=== PATIENT | male | born 1955 | race Caucasian/White ===

== ENCOUNTER 2017-12-18 16:09 | Outpatient (REF) | payer OTHER, SELFPAY ==
[2017-12-18 20:57] LABS: Anion Gap 6.2 mmol/L (3-11); BUN 29 mg/dL (7-18); CO2 31.8 mmol/L (21.0-32.0); CREATININE 1.44 mg/dL (0.70-1.30); Calcium 9.3 mg/dL (8.5-10.1); Chloride 98 mmol/L (98-107); Estimated GFR 49.55 (mL/min/1.73m2); Glucose 228 mg/dL (70-100); Potassium 3.9 mmol/L (3.5-5.1); Sodium 136 mmol/L (136-145)
== END 2017-12-18 16:10 ==
LOC: NCHCN 16:09
PROVIDERS: PCP Internal Medicine; Visit Provider Internal Medicine
DX: I27.20 Pulmonary hypertension, unspecified (principal); I10 Essential (primary) hypertension
CPT/HCPCS: 80048

== ENCOUNTER 2018-03-26 17:07 | Outpatient (REF) | payer OTHER, SELFPAY ==
[2018-03-26 21:15] LABS: Anion Gap 10.7 mmol/L (3-11); BUN 45 mg/dL (7-18); CO2 33.3 mmol/L (21.0-32.0); CREATININE 1.82 mg/dL (0.70-1.30); Chloride 92 mmol/L (98-107); Estimated GFR 37.81 (mL/min/1.73m2); Glucose 271 mg/dL (70-100); Potassium 3.4 mmol/L (3.5-5.1); Sodium 136 mmol/L (136-145)
== END 2018-03-26 17:27 ==
LOC: NCHCN 17:07
PROVIDERS: PCP Internal Medicine; Visit Provider Internal Medicine
DX: I10 Essential (primary) hypertension (principal)
CPT/HCPCS: 80048

== ENCOUNTER 2018-06-27 17:23 | Outpatient (REF) | payer OTHER, SELFPAY ==
[2018-06-27 21:37] LABS: BUN 30 mg/dL (7-18); CREATININE 1.64 mg/dL (0.70-1.30); Calcium 9.5 mg/dL (8.5-10.1); Chloride 100 mmol/L (98-107); Estimated GFR 42.51 (mL/min/1.73m2); Glucose 279 mg/dL (70-100); Potassium 3.5 mmol/L (3.5-5.1); Sodium 140 mmol/L (136-145)
== END 2018-06-27 17:43 ==
LOC: NCHCN 17:23
PROVIDERS: PCP Internal Medicine; Visit Provider Internal Medicine
DX: E11.65 Type 2 diabetes mellitus with hyperglycemia (principal); I10 Essential (primary) hypertension; N18.3 Chronic kidney disease, stage 3 (moderate); R19.7 Diarrhea, unspecified
CPT/HCPCS: 80048

== ENCOUNTER 2019-05-05 12:10 | Outpatient (REF) | payer OTHER, SELFPAY ==
[2019-05-05 21:32] LABS: HCT 41.6 % (40.0-50.0); HGB 14.1 g/dL (13.5-17.5); Mean Corp. HGB Concentration 33.9 g/dL (32.0-36.0); Mean Corpuscular Hemoglobin 30.7 pg (27.0-33.0); Mean Corpuscular Volume 90.6 fL (80-95); Mean Platelet Volume 10.9 fL (8.0-11.0); Platelet Count 218 x1000/uL (130-400); RBC 4.59 m/cumm (4.50-6.00); RBC Distribution Width 13.3 % (11.8-14.1); White Blood Cell Count 9.09 k/cumm (4.4-10.8)
[2019-05-05 22:21] LABS: ALT 43 U/L (16-63); AST 34 U/L (15-37); Albumin 3.9 g/dL (3.4-5.0); Alkaline Phosphatase 70 U/L (46-116); BUN 15 mg/dL (7-18); Bilirubin, Total 0.6 mg/dL (0.2-1.0); CREATININE 1.17 mg/dL (0.70-1.30); Calcium 9.3 mg/dL (8.5-10.1); Calculated LDL 61 mg/dL; Chloride 101 mmol/L (98-107); Cholesterol 125 mg/dL (<200); Glucose 65 mg/dL (74-106); HDL Cholesterol 41 mg/dL (40-60); NT-proBNP 110 pg/mL (<300); Potassium 3.7 mmol/L (3.5-5.1); Sodium 143 mmol/L (136-145); Total Protein 7.4 g/dL (6.4-8.2); Triglyceride 117 mg/dL (<150)
== END 2019-05-05 12:30 ==
LOC: NCHCO 12:10
PROVIDERS: PCP Internal Medicine; Visit Provider Internal Medicine
DX: I27.20 Pulmonary hypertension, unspecified (principal); R06.02 Shortness of breath; R06.09 Other forms of dyspnea; E78.5 Hyperlipidemia, unspecified
CPT/HCPCS: 80053; 80061; 85027; 83880

== ENCOUNTER 2019-05-05 13:00 | Outpatient (CLI) | payer OTHER, SELFPAY ==
--- NOTE | 2019-05-05 12:52 | DI.RAD_ITS ---
EXAM: XR CHEST 2V PA LATERAL INDICATION: PERIPHERAL EDEMA, R60.9, DYSPNEA ON EXERTION, R06.09. COMPARISON: LEFT RIBS PA CXR ONLY-3VIEWS from 11/10/2013 TECHNIQUE: 2D digital imaging was performed. FINDINGS: Heart size is normal. The aorta is mildly tortuous. There is a tiny right pleural effusion. There is no overt pulmonary edema or evidence of a focal infiltrate. IMPRESSION: Tiny right pleural effusion.
== END 2019-05-05 13:20 ==
PROVIDERS: PCP Internal Medicine; Visit Provider Internal Medicine
DX: R06.09 Other forms of dyspnea (principal); R60.0 Localized edema; J90 Pleural effusion, not elsewhere classified
CPT/HCPCS: 71046

== ENCOUNTER 2019-05-06 10:14 | Outpatient (CLI) | payer OTHER, SELFPAY ==
[2019-05-06 11:18] LABS: D-Dimer 378 ng/mlFEU (<500)
== END 2019-05-06 10:34 ==
PROVIDERS: PCP Internal Medicine; Visit Provider Internal Medicine
DX: R06.09 Other forms of dyspnea (principal)
CPT/HCPCS: 36415; 85379; 93005; 93010

== ENCOUNTER 2019-05-27 00:50 | Outpatient (CLI) | payer OTHER, SELFPAY ==
--- NOTE | 2019-05-27 07:30 | DI.US_ITS ---
APPROVED REPORT EXAM: Comprehensive 2D, Doppler, and color-flow Echocardiogram Patient Location: Out-Patient Composition Board Press Operator: Alana Alarcon RDCS (AE) Rhythm: NSR Indications: dyspnea on exertion r06.09 Conclusion Left Ventricle : Left ventricle is borderline dilated. Mild left ventricular hypertrophy, with septal thickening. The left ventricular systolic function is normal. The left ventricular ejection fraction is within the normal range. There is normal LV segmental wall motion. LVEF is estimated to be 55-60% . There is grade 2 diastolic dysfunction. Right Ventricle : The right ventricle is normal in size. The right ventricular systolic function appe ars normal. Atria : Left atrium is borderline dilated. The right atrium size is normal. Aortic Valve : Aortic valve is trileaflet. There is no aortic valvular stenosis. No aortic regurgitat ion is present. Mitral Valve : No evidence of mitral valve stenosis. Mitral valve leaflets are mildly thickened, but appear to open well. No significant mitral regurgitation. Tricuspid Valve : The tricuspid valve is not well visualized. Mild tricuspid regurgitation. Great Vessels : IVC is mildly dilated, but collapses >50% with inspiration. Estimated RVSP is 34-42 mmHg. Echocardiogram dated 04/09/2017: There is no significant change. Wall motion Left Ventricle Left ventricle is borderline dilated. The left ventricular systolic function is normal. The left vent ricular ejection fraction is within the normal range. Mild left ventricular hypertrophy, with septal thickening. There is normal LV segmental wall motion. There is grade 2 diastolic dysfunction. LVEF is estimated to be 55-60%. Right Ventricle The right ventricle is normal in size. The right ventricular systolic function appears normal. Atria Left atrium is borderline dilated. The right atrium size is normal. Aortic Valve Aortic valve is trileaflet. There is no aortic valvular stenosis. No aortic regurgitation is present. Mitral Valve Mitral valve leaflets are mildly thickened, but appear to open well. No evidence of mitral valve sten osis. No significant mitral regurgitation. Tricuspid Valve The tricuspid valve is not well visualized. Mild tricuspid regurgitation. Pulmonic Valve Trace pulmonic regurgitation. Great Vessels The aortic root is normal in size. IVC is mildly dilated, but collapses >50% with inspiration. Estima nhung RVSP is 34-42 mmHg. Pericardium There is no pericardial effusion. 2D Dimensions IVSd 1.45 cm M: 0.6-1.2 LV EDV A2C 119.7 mL PWd 1.15 cm M: 0.6 - 1.2 LV EDV A4C 156.8 mL LVDd 5.70 cm M: 4.2 - 5.8 LA Volume Index Biplane 31.4 mL/m2 LVDs 3.95 cm M: 2.5 - 4.0 LA Area A4C 21.94 cm2 Aortic Root 3.35 cm M: 3.1 - 3.7 LA Area A2C 20.87 cm2 RVID Base (AP4) 3.94 cm (M/F) 2.5-4.1 EF AP4 61.9 % RA Area A4C 16.28 cm2 EF AP2 52.1 % LVOT 2.05 cm (M/F) 1.5-2.5 EF BP 57.7 % Ascending Aorta 3.37 cm M: 2.6 - 3.4 IVC 2.16 cm LVEF (Teich) 57.7 % TAPSE 2.52 cm (M/F) <1.7 LVEF (Harvey's) 57.68 % M: 52 - 72 LV Volume 100.18 mL M: 62 - 150 LV Volume Index 43.93 mL/m2 M: 34 - 74 FS 30.80 % LV Diastology MV E' medial 0.068 (>0.07 m/s) E/A Ratio 1.0 LV E/e MED 16.75 (<14) PV S/D Ratio 1.17 MV E' lateral 0.088 (>0.1 m/s) A-A Duration 118.79 msec LV E/e LAT 13.05 (<14) TR Peak Velocity 2.92 m/s Pulm Vein s 0.57 m/s Pulm Vein d 0.49 m/s Pulm Vein a 0.34 m/s LA vol/ BSA A2C s A-L 29.8 mL/m2 LA vol/ BSA A4C s A-L 32.8 mL/m2 Aortic Valve LVOT Area 3.44 cm2 AoV Area Vmax 1.86 cm2 LVOT Vmax 1.06 m/s AoV Area/ BSA (Vmax) 0.82 cm2/m2 LVOT Mean Toni. 0.78 m/s RUBIN Mean Toni. 1.93 cm2 LVOT Peak Gr. 4.5 mmHg RUBIN Mean Toni. Index 0.85 cm2/m2 LVOT Mean Gr. 2.7 mmHg LVOT VTI 0.236 m AoV Vmax 1.96 (0.5-1.3 m/s) AoV Mean Toni. 1.39 m/s AoV Peak Grad 15.4 mmHg LVOT SV 81.02 mL AoV Mean Grad 8.5 (<5 mmHg) AoV VTI 0.389 (0.18-0.25 m) AoV Area VTI 2.08 (2.5-4.5 cm2) AoV Area/ BSA (VTI) 0.91 cm/m2 Mitral Valve MV E Max Toni. 1.15 (0.4-1.3 m/s) RVOT Peak Gr. 2.74 mmHg MV A Velocity 1.20 (0.4-1.3 m/s) RVOT Mean Gr. 1.65 mmHg E/A Ratio 0.95 PV Peak Velocity 1.36 (0.5-1.5 m/s) RVOT Peak Toni. 0.83 m/s RVOT VTI 0.133 m Tricuspid Valve TR P. Gradient 34.0 mmHg TV Regurg Vmax 2.92 m/s RAP Estimate 8.00 mmHg RVSP 42.0 mmHg
== END 2019-05-27 01:10 ==
PROVIDERS: PCP Internal Medicine; Visit Provider Internal Medicine
DX: R06.09 Other forms of dyspnea (principal); I51.7 Cardiomegaly; I36.1 Nonrheumatic tricuspid (valve) insufficiency; I10 Essential (primary) hypertension
CPT/HCPCS: 93306

== ENCOUNTER 2020-02-03 15:40 | Outpatient (REF) | payer OTHER, SELFPAY ==
[2020-02-03 20:57] LABS: Abs Immature Grans 0.04 10^3/uL (0.0-0.06); Absolute Basophil Count 0.09 10^3/uL (0.0-0.2); Absolute Eosinophil Count 0.33 10^3/uL (0.0-0.7); Absolute Lymphocyte Count 3.37 10^3/uL (1.2-3.4); Absolute Monocyte Count 0.98 10^3/uL (0.1-0.8); Absolute Neutrophil Count 6.28 10^3/uL (1.2-6.7); Basophils % 0.8; HCT 40.6 % (40.0-50.0); HGB 13.8 g/dL (13.5-17.5); Immature Grans % 0.4; Lymphocytes % 30.4; MCH 30.6 pg (27.0-33.0); MPV 10.3 fL (8.0-11.0); Monocytes % 8.8; Neutrophils % 56.6; Nucleated RBC 0 %; Platelet Count 233 10^3/uL (130-400); RBC 4.51 10^6/uL (4.36-5.78); RDW 12.7 % (11.8-14.1); RDW-SD 41.3 fL; WBC 11.09 10^3/uL (4.4-10.8)
[2020-02-03 21:32] LABS: ALT 62 U/L (16-63); AST 37 U/L (15-37); Albumin 4.2 g/dL (3.4-5.0); Alkaline Phosphatase 63 U/L (46-116); Anion Gap 10.4 mmol/L (3-11); BUN 19 mg/dL (7-18); Bilirubin, Total 0.6 mg/dL (0.2-1.0); CO2 31.6 mmol/L (21.0-32.0); CREATININE 1.23 mg/dL (0.70-1.30); Calcium 9.5 mg/dL (8.5-10.1); Chloride 100 mmol/L (98-107); Estimated GFR 59.06 (mL/min/1.73m2); Glucose 163 mg/dL (74-106); Sodium 142 mmol/L (136-145); Total Protein 7.4 g/dL (6.4-8.2)
== END 2020-02-03 16:00 ==
LOC: NCHCN 15:40
PROVIDERS: PCP Internal Medicine; Visit Provider Family Medicine
DX: R10.9 Unspecified abdominal pain (principal)
CPT/HCPCS: 80053; 85025

== ENCOUNTER 2020-02-25 02:43 | Outpatient (CLI) | payer OTHER, SELFPAY ==
--- NOTE | 2020-02-25 07:45 | DI.CT_ITS ---
EXAM: CT ABDOMEN PELVIS W CLINICAL HISTORY: abdominal pain,R10.9 TECHNIQUE: COMPARISON: No exams were available for comparison FINDINGS: CT examination of the abdomen and pelvis was performed with bolus infusion of 100 cc of Omnipaque 350 . Images obtained through the lung bases are unremarkable. The liver appears normal with no evidence of a focal mass. Spleen is unremarkable in appearance.. Gallbladder and bile ducts are unremarkable. Pancreas is unremarkable in appearance. Adrenals appear normal bilaterally. Kidneys the left kidney contains multiple cysts, with some wall c alcifications. There is no evidence a solid renal mass, hydronephrosis, or nephrolithiasis either ki dney. Urinary bladder is unremarkable in appearance. There is no evidence of abdominal or pelvic adenopathy. Abdominal aorta is of normal diameter and no major vascular abnormality is seen. Appendix is normal. No evidence diverticulitis or bowel obstruction. No significant abdominal wall hernia seen. Impression: Negative CT examination of the abdomen and pelvis. RADIATION DOSE DELIVERED: 1,141.43mGy.cm Total DLP 1,141.43mGy.cm Total DLP DATA REPOSITORY: All CT scans at this facility are submitted to the National Radiology Data Registry (NRDR) Dose Index Registry (DIR) with the [employer] ([employer]). RADIATION OPTIMIZATION: All CT scans at this facility use at least one of these dose optimization te chniques: automated exposure control; mA and/or kV adjustment per patient size (includes targeted exa ms where dose is matched to clinical indication); or iterative reconstruction.
[2020-02-25] MEDS: Breeza Beverage 473 ML BTL PO ×2 (12:08→12:10)
[2020-02-25] MEDS: Omnipaque 350 MG/ML 50 ML BTL PO (12:09)
[2020-02-25] MEDS: Omnipaque 350 MG/ML 100 ML BTL IJ (13:45)
[2020-02-25] MEDS: Normal Saline Flush 10 ML SYR IVP (13:46)
[2020-02-25] MEDS: Normal Saline - Diluent 50 ML VIAL IV (13:46)
== END 2020-02-25 03:03 ==
PROVIDERS: PCP Internal Medicine; Visit Provider Surgery
DX: R10.9 Unspecified abdominal pain (principal)
CPT/HCPCS: 74177; J3490; Q9967

== ENCOUNTER 2020-04-09 03:42 | Outpatient (CLI) | payer OTHER, SELFPAY ==
[2020-04-11 16:53] LABS: COVID-19 RT-PCR Result NEGATIVE (Negative)
== END 2020-04-09 04:02 ==
PROVIDERS: PCP Internal Medicine; Visit Provider Surgery
DX: Z11.59 Encounter for screening for other viral diseases (principal); Z01.818 Encounter for other preprocedural examination
CPT/HCPCS: U0003

== ENCOUNTER 2020-04-13 08:28 | Day surgery (SDC) | payer OTHER, SELFPAY ==
[2020-04-13 08:31] VITALS: BP 150/98; PULSE 91; RESP 18; TEMP 36.4; O2SAT 95
[2020-04-13] MEDS: Lactated Ringers 1,000 ML 80 ML IV (08:55)
--- NOTE | 2020-04-13 08:56 | W.PM.DSUDISC ---
Discharge Plan Disposition Patient Disposition: HOME Condition: Good Discharge Details Reason For Visit: Colonoscopy Attending Provider: Cee Lopes Primary Care Provider: Mauro Berger Home Meds and New Rx's Prescriptions: Continued multivitamin [One Daily Multivitamin] Tablet 1 tab PO DAILY RF: 0 Levemir FlexTouch U-100 Insuln 100 unit/mL (3 mL) insulin pen 60 unit subcut QHS RF: 0 metformin 500 MG tablet 1,000 mg PO BID RF: 0 enalapril maleate 10 MG tablet 20 mg PO BID RF: 0 metoprolol tartrate 50 MG tablet 100 mg PO DAILY RF: 0 nitroglycerin [Nitrostat] 0.4 MG tablet, sublingual 0.4 mg Sublingual PRN RF: 0 aspirin [Aspirin Low-Strength] 81 MG tablet,chewable 81 mg PO DAILY RF: 0 furosemide 20 MG tablet 40 mg PO DAILY RF: 0 insulin aspart U-100 [Novolog Flexpen U-100 Insulin] 100 UNIT/1 ML insulin pen 1 u Sub-Q AC RF: 0 DILTIAZEM 24HR ER 360 MG TAB.ER.24H 360 mg PO DAILY RF: 0 labetalol 100 mg tablet 100 mg PO BID RF: 0 torsemide 100 mg tablet 100 mg PO DAILY RF: 0 Levemir U-100 Insulin 100 unit/mL solution 60 unit SC BID RF: 0 vitamin E (dl, acetate) 100 unit capsule 100 unit PO DAILY RF: 0 albuterol sulfate [Proventil HFA] 90 mcg/actuation HFA aerosol inhaler 2 puff IH QID PRNRF: 0 omeprazole 20 mg capsule,delayed release(DR/EC) 20 mg PO DAILY RF: 0 citalopram 10 mg tablet 10 mg PO DAILY RF: 0 atorvastatin 40 mg tablet 40 mg PO DAILY RF: 0 triamcinolone acetonide 0.1 % cream 1 applic topical BID RF: 0 fluorouracil 0.5 % cream 1 applic topical BID RF: 0 Jardiance 10 mg tablet 10 mg PO DAILY RF: 0 insulin aspart U-100 [Novolog Flexpen U-100 Insulin] 100 unit/mL (3 mL) insulin pen 60 unit subcut TID RF: 0 Discharge Instructions Additional Instructions: Findings: Two polyps were removed. My office will contact you with biopsy results. Follow up: Plan for a follow up colonoscopy in 5 years pending biopsy results. Please call if you develop: fevers >101.5 Nausea or Vomiting Abdominal pain that is not transient DAY SURGERY UNIT POST COLONOSCOPY INSTRUCTIONS 1. Because there will be medication in your system for the next 24 hours, you may feel a little sleepy. Your coordination will be affected. Therefore: a. Do not drive or operate dangerous equipment for 24 hours. b. Do not drink alcohol beverages for 24 hours (not even beer). c. Plan to go home and rest for the day. 2. Generally there are no restrictions on your activity after a day or so has gone by, but you may feel a bit fatigued for a few days. 3 After you arrive home you may have a light meal and return to a normal diet as you can tolerate it without feeling sick to your stomach. 4. After surgery, you may feel pain or discomfort. This should be only transient, but if it persists please contact your doctor. 5. If there are any questions regarding the findings of your procedure, please feel free to contact your doctor. 6. If you are unable to contact your doctor with a problem, contact the hospital at [phone]. 7. Continue all your regular medications unless directed otherwise. I understand the above instructions and have no questions. Signature of Patient or Responsible Adult Escort Date/Time Name of Responsible Adult Escort Signature of Nurse Date/Time Activity:: Activity as Tolerated Diet:: As Tolerated Discharge Orders Discharge Orders: Discharge Order (Routine); Ordered 04/13/20 Ordered By: Cee Lopes DS: Diagnosis Discharge Diagnosis (1) Colon polyps: Status: Acute
--- NOTE | 2020-04-13 08:57 | W.COLOREPORT ---
Date of service: 04/13/20 Time of Service: 10:04 Colonoscopy Report Date of procedure: 04/13/20 Pre-op diagnosis general: History of colon polyps Post-op diagnosis procedure note: other (Colon polyps) Procedure: Colonoscopy with cold forceps polypectomy Surgeon: Cee Lopes Anesthesia proc note operative: MAC Indications: This 64 year old man presents for routine colonoscopy. His last colonoscopy in 2013 showed polyps. Procedure Description: The patient was placed in the left [place] position. Propofol was titrated to sedation. Digital rectal examination revealed no abnormalities. The scope was advanced to the cecum without difficulty. The ileocecal valve and appendiceal orifice were clearly identified. The prep was good. A less than 1cm polyp was removed from the cecum with the cold forceps. The scope was slowly withdrawn over the course of greater than 6 minutes with no abnormalities seen in the ascending, transverse colon. A less than 1cm polyp was removed with the cold forceps from the descending colon. The sigmoid colon and rectum were normal including on retroflexed view. The patient tolerated the procedure well and was stable to recovery. Plan for follow up colonoscopy in 5 years.
--- NOTE | 2020-04-13 09:35 | BOWEL_PTH ---
PATIENT: Pedro Mast LOC: [facility] U#:[id number] AGE/SX: 64/M ROOM: RE04/13/[address]: Cee Lopes MD : [id number] BED: DIS: 04/13/2020 SPEC #: [id number] RECD: 04/13/20 12:16 STATUS: [facility]I REQ #: [id number] SANDRITA: 04/13/20 09:[address]: Cee Lopes DEPT: Surgical Specimen RECD BY: Ramona Leach ENTERED: 04/13/20 12:19 SP TYPE: Bowel OTHR DR: Mauro Berger Tissues: 1 - BIOPSY BOWEL 2 - BIOPSY BOWEL Procedures: GROSS AND MICRO LEVEL 4 Comments: [id number]
[2020-04-13 10:30] VITALS: BP 140/65; PULSE 64; RESP 18; TEMP 36.8; O2SAT 95
== END 2020-04-13 11:12 | disposition home or self-care (01) ==
PROVIDERS: PCP Internal Medicine; Visit Provider Surgery
PROC: 0DJD8ZZ Inspection of Lower Intestinal Tract, Via Natural or Artificial Opening Endoscopic (ICD-10-PCS; CPT 45378; principal; 2020-04-13 12:30)
DX: Z12.11 Encounter for screening for malignant neoplasm of colon (principal); Z86.010 Personal history of colon polyps; D12.0 Benign neoplasm of cecum; D12.4 Benign neoplasm of descending colon
CPT/HCPCS: 45380; 88305

== ENCOUNTER 2020-07-05 03:30 | Outpatient (CLI) | payer OTHER, SELFPAY ==
[2020-07-05] MEDS: Normal Saline 500 ML 30 ML IV (15:04)
[2020-07-05] MEDS: Normal Saline Flush 10 ML SYR IVP (15:04)
[2020-07-05 15:14] VITALS: BP 148/67; PULSE 64; RESP 20; TEMP 38.5; O2SAT 90
[2020-07-05 15:31] VITALS: BP 146/72; PULSE 67; RESP 20; TEMP 38.7; O2SAT 90
[2020-07-05 15:47] VITALS: BP 164/71; PULSE 64; RESP 20; TEMP 37.7; O2SAT 92
[2020-07-05 16:01] VITALS: BP 166/73; PULSE 68; RESP 18; TEMP 39.1; O2SAT 92
[2020-07-05 16:31] VITALS: BP 152/73; PULSE 68; RESP 16; TEMP 38.7; O2SAT 91
== END 2020-07-05 03:31 | disposition home or self-care (01) ==
LOC: INF 03:30
PROVIDERS: PCP Internal Medicine; Visit Provider Family Medicine
DX: U07.1 COVID-19 (principal)
CPT/HCPCS: 96365

== ENCOUNTER 2021-03-02 15:03 | Outpatient (REF) | payer OTHER, SELFPAY ==
[2021-03-02 22:18] LABS: ALT 46 U/L (16-63); AST 29 U/L (15-37); Albumin 4.5 g/dL (3.4-5.0); Alkaline Phosphatase 66 U/L (46-116); Anion Gap 7.5 mmol/L (3-11); BUN 18 mg/dL (7-18); Bilirubin, Total 0.5 mg/dL (0.2-1.0); CO2 33.5 mmol/L (21.0-32.0); CREATININE 1.2 mg/dL (0.70-1.30); Calcium 9.6 mg/dL (8.5-10.1); Chloride 101 mmol/L (98-107); Glucose 106 mg/dL (74-106); Potassium 3.9 mmol/L (3.5-5.1); Sodium 142 mmol/L (136-145); Total Protein 7.7 g/dL (6.4-8.2)
[2021-03-02 22:28] LABS: Microalb ug/mg Crea 169.5 ug/mg Cr
== END 2021-03-02 15:04 | disposition home or self-care (01) ==
LOC: NCHCN 15:03
PROVIDERS: PCP Internal Medicine; Visit Provider Family Medicine
DX: I10 Essential (primary) hypertension (principal); E11.9 Type 2 diabetes mellitus without complications
CPT/HCPCS: 80053; 82043; 82570

== ENCOUNTER 2021-04-06 01:57 | Outpatient (CLI) | payer OTHER, SELFPAY ==
[2021-04-06 11:45] LABS: Source Nasal/Nares
[2021-04-06 13:50] LABS: COVID-19 PCR Negative (Negative)
== END 2021-04-06 01:58 | disposition home or self-care (01) ==
LOC: LBO 01:57
PROVIDERS: PCP Family Medicine; Visit Provider Surgery
DX: Z20.822 Contact with and (suspected) exposure to COVID-19 (principal)
CPT/HCPCS: 87635

== ENCOUNTER 2021-04-08 06:37 | Day surgery (SDC) | payer OTHER, SELFPAY ==
--- NOTE | 2021-04-07 11:23 | ROE_ITS ---
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 Adenoma in descending colon. ANESTHESIA TYPE: General:No Airway Refer to Anesthesia Record COMPLICATIONS: None Patient was transported to: same day Procedure Description: After informed consent was obtained the patient was taken to the procedure room and placed in a left decubitous position. Monitors were applied and a time out was done. The patients name, date of , procedure, allergies to medications and metal in their body was reviewed. The patient was then sedated. Once sedated and comfortable a rectal exam was done. External exam was normal. Internal exam revealed a normal sphincter tone and no palpable masses. The scope was then introduced and retrofelexed. Grade I internal hemorrhoids were identified. The scope was then advanced to the cecum w/out difficulty. The TI and appendiceal orifice were identified. The prep was adequate. The scope was then slowly retracted over 9 minutes back into the rectum. He had a 0.75 cm adenoma at 70 cm. This is removed and 2 bites with by cold snare. All specimen is retrieved and no bleeding is noted. He had few large diverticula confined in the sigmoid colon. There is no signs of bleeding or infection. T here are no AVMs. The scope was removed and the patient was woken up and taken back to Same day surgery in stable condition. The patient tolerated the procedure well and there were no immediate comp lications. Follow up: The patient should follow up in 5-7,years unless they develop changes in bowel habits or other new gastrointestinal complaints.
--- NOTE | 2021-04-07 11:24 | PDOC.DSDIS_ITS ---
Discharge Plan Disposition Patient Disposition: HOME Condition: Good Discharge Details Reason For Visit: colon scope Attending Provider: Shelby Moya Primary Care Provider: Derrick Arnett Home Meds and New Rx's Prescriptions: No Action multivitamin [One Daily Multivitamin] Tablet 1 tab PO DAILY RF: 0 Levemir FlexTouch U-100 Insuln 100 unit/mL (3 mL) insulin pen 60 unit subcut QHS RF: 0 metformin 500 MG tablet 1,000 mg PO BID RF: 0 nitroglycerin [Nitrostat] 0.4 MG tablet, sublingual 0.4 mg Sublingual PRN RF: 0 aspirin [Aspirin Low-Strength] 81 MG tablet,chewable 81 mg PO DAILY RF: 0 DILTIAZEM 24HR ER 360 MG TAB.ER.24H 360 mg PO DAILY RF: 0 labetalol 100 mg tablet 100 mg PO BID RF: 0 torsemide 100 mg tablet 100 mg PO DAILY RF: 0 vitamin E (dl, acetate) 100 unit capsule 100 unit PO DAILY RF: 0 albuterol sulfate [Proventil HFA] 90 mcg/actuation HFA aerosol inhaler 2 puff IH QID PRNRF: 0 omeprazole 20 mg capsule,delayed release(DR/EC) 20 mg PO DAILY RF: 0 citalopram 10 mg tablet 10 mg PO DAILY RF: 0 atorvastatin 40 mg tablet 40 mg PO DAILY RF: 0 triamcinolone acetonide 0.1 % cream 1 applic topical BID RF: 0 fluorouracil 0.5 % cream 1 applic topical BID RF: 0 enalapril maleate 10 mg tablet 40 mg PO DAILY RF: 0 insulin aspart U-100 [Novolog U-100 Insulin aspart] 100 unit/mL solution 50 unit subcut DIRECTED RF: 0 Discharge Instructions Additional Instructions: DSU Colonoscopy Post- Op Instructions Instructions for Everyone who is given Anesthesia: For your safety, please do the following for the next twenty-four (24) hours: *Do Not operate a motor vehicle (car, truck, motorcycle, etc.) *Do Not drink alcoholic beverages or use any recreational drugs for the first 24 hours or while taking pain medications. The medications in your body may have a reaction that can be dangerous. *Do Not make any important decisions or sign any important papers. Findings: diverticula polyps x1 Follow up: My office will send a letter in 2 to 3 weeks time detailing what type of polyp that was and when we want you to repeat your colonoscopy. Make sure you are moving your bowels on a regular basis and not straining to go to the bathroom. If you are having any constipation or straining, I recommend you start a fiber product, such as Metamucil. 1. No lifting over 20 pounds or strenuous activity for the first 24 hours after your procedure. After 24 hours there are no restrictions on your activity but you may feel fatigued for a few days. 2. After you arrive home you may have a light meal and return to your normal diet as you can tolerate it without feeling sick to your stomach. 3. You may have a bloated, gaseous feeling in your belly (abdomen) after a colonoscopy. Passing gas and belching will help. Walking or lying down on your left side with your knees flexed may relieve the discomfort. Call the office at [phone] (Office) or [phone] (Hospital) right away if you notice any of the following: a.Vomiting of blood or ?coffee ground stools?. b.Rectal bleeding 1Tbsp, blood clots or continuous bleeding. c.Severe belly (abdominal) pain. d.A hard distended belly (abdomen) and an inability to pass gas. 4. Please don?t expect to have a normal BM (bowel movement) for 2-3 days after your procedure. 5. If there are questions regarding the findings of your procedure, please contact your doctor 6. If you are unable to contact your doctor with a problem, contact the hospital at [phone]. 7. Continue all your regular medications unless directed otherwise. I understand the above instructions and have no questions. Signature of Patient or Adult Escort Name of Responsible Adult Escort Signature of Nurse Date/Time Activity:: See above Diet:: See above Discharge Orders Discharge Orders: Discharge Order (Routine); Ordered 04/07/21 Ordered By: Shelby Moya DS: Diagnosis Discharge Diagnosis (1) Tubular adenoma of colon: Status: Acute
[2021-04-08 06:34] VITALS: BP 160/94; PULSE 100; RESP 16; TEMP 36.6; O2SAT 96
[2021-04-08] MEDS: Lactated Ringers 1,000 ML 80 ML IV (06:57)
--- NOTE | 2021-04-08 07:00 | W.ANESPRE ---
General Info Date of Service Date Performed: 04/08/21 Height: 5 ft 10 in Weight: 103.4 kg Body Mass Index (BMI): 32.7 Surgical Procedure: Operation Date: 04/08/21 07:35 Proposed Procedures Side Surgeon princess Moya, Meds Allergies and Home Medications Allergies Allergy/AdvReac Type Severity Reaction Status Date / Time Penicillins Allergy unknown as Unverified 04/06/21 14:25 child empagliflozin AdvReac Verified 04/08/21 06:29 [From Jardiance] gabapentin AdvReac legs Unverified 04/06/21 14:25 swelling Home Medication Medication Instructions Recorded Diltiazem 24hr Er 360 mg PO DAILY tab-cap 06/23/13 aspirin [Aspirin Low-Strength] 81 mg PO DAILY tab-cap 06/23/13 metformin 1,000 mg PO BID tab-cap 06/23/13 nitroglycerin [Nitrostat] 0.4 mg SUBLINGUAL PRN 06/23/13 albuterol sulfate 90 mcg/actuation 2 puff IH QID PRN 02/10/19 aerosol inhaler citalopram 10 mg tablet 10 mg PO DAILY 02/10/19 labetalol 100 mg tablet 100 mg PO BID 02/10/19 omeprazole 20 mg capsule,delayed 20 mg PO DAILY 02/10/19 release torsemide 100 mg tablet 100 mg PO DAILY 02/10/19 vitamin E (dl, acetate) 45 mg (100 100 unit PO DAILY 02/10/19 unit) capsule atorvastatin 40 mg tablet 40 mg PO DAILY 02/06/20 fluorouracil 0.5 % topical cream 1 applic TOPICAL BID g 02/06/20 triamcinolone acetonide 0.1 % 1 applic TOPICAL BID 02/06/20 topical cream insulin detemir U-100 100 unit/mL 60 unit SUBCUT QHS ml 02/09/20 (3 mL) subcutaneous pen multivitamin 1 tab PO DAILY 04/08/20 enalapril maleate 10 mg tablet 40 mg PO DAILY tab-cap 11/04/20 insulin aspart U-100 100 unit/mL 50 unit SUBCUT DIRECTED ml 12/09/20 subcutaneous solution Current Visit Medications: Current Medications Generic Name Dose Route Start Last Admin Trade Name Freq PRN Reason Stop Dose Admin Ringer's Solution 1,000 mls @ 80 mls/hr 04/08/21 06:00 04/08/21 06:57 IV 05/07/21 23:59 80 mls/hr INFUSION JADON Administration IV Miscellaneous Supplies 1 each 04/08/21 06:00 Iv Access IV 05/07/21 23:59 DIRECTED JADON Sodium Chloride 0 ml 04/08/21 06:00 Normal Saline Flush 10 Ml Syr IV 05/07/21 23:59 PRN PRN Sodium Chloride 0 ml 04/08/21 06:00 Normal Saline 10 Ml Vial IJ 05/07/21 23:59 DIRECTED PRN Sterile Water 0 ml 04/08/21 06:00 Water,Injection,Sterile 10 Ml Vial IJ 05/07/21 23:59 DIRECTED PRN PFSH Active Problems Active Problems: Problem Status Onset Code Tubular adenoma of colon D12.6 Screening for colon cancer Z12.11 Medical History Medical History Abdominal pain Abnormal LFTs Actinic keratosis Adenomatous colon polyp Basal cell carcinoma Basal cell carcinoma (05/05/16) left anterior chest and left shoulder CAD (coronary artery disease) Carpal tunnel syndrome CKD (chronic kidney disease), stage III Pt. states he is unaware of this dx COVID-19 07/2020-Recieved MAB De Quervain's tenosynovitis, left Depression Diabetes mellitus Diabetic peripheral neuropathy Dry mouth Dyspepsia Erectile dysfunction Fatigue Heart failure f/u with PCP HLD (hyperlipidemia) Hypertension Impacted cerumen of both ears Migraine RAJINDER (obstructive sleep apnea) Osteoarthritis Peripheral neuropathy Pulmonary hypertension Retinal artery branch occlusion Retinopathy Shortness of breath Skin lesions Tobacco use Urinary frequency Ventral hernia Medical History Comments:: Patient states stent placed when he was 39, denies UT?s. O recent chest pain for at least 2 years. Surgical History Surgical History Hx of cardiac catheterization 20+years ago Hx of heart artery stent Skin Cancer Removal (05/05/16) extension of wound margin 05/25/16 Tobacco Smoking/Tobacco Use Status: Former Tobacco Use Alcohol Alcohol Intake: current Alcohol intake frequency: holidays/special occasions only Alcohol type: beer Substance Use Substance use: Never Substance use type: does not use Vital Signs and Lab Results Vital Signs Most Recent Vital Signs in EMR: Most Recent Vital Signs Temp Pulse Resp BP Pulse Ox 36.6 C 100 H 16 160/94 H 96 04/08/21 06:34 04/08/21 06:34 04/08/21 06:34 04/08/21 06:34 04/08/21 06:34 Lab Results Blood Type / Crossmatch: No Data to Display Complete Blood Count: No Data to Display Complete Metabolic Panel: No Data to Display Liver Function Panel: No Data to Display Coagulation Panel: No Data to Display Cardiac Panel: No Data to Display Arterial Blood Gas: No Data to Display Venous Blood Gas: No Data to Display Pancreas Panel: No Data to Display Thyroid Panel: No Data to Display Infectious Disease: Coronavirus (COVID-19)(PCR) Negative (Negative) 04/06/21 09:05 04/06/21 Coronavirus 2019 Source Nasal/Nares 04/06/21 09:05 04/06/21 Blood Cultures: No Data to Display Toxicology Panel: No Data to Display Imaging and Studies Imaging and Studies Study information below may be from another EMR and interpreted by another provider. Please see original notes in EMR for more complete details. Stress Test Summary: Date of Exam: 11/11/12 EJECTION FRACTION: 46% GATED WALL MOTION: Inferior hypokinesis. CONCLUSION: A fixed, small to moderate sized inferior wall defect is present. Negative for ischemia. Echocardiogram Summary: Date of Exam: 05/27/19ex: M Admission Date: 05/27/19 : 1955 Rhythm: NSR Indications: dyspnea on exertion r06.09 Conclusion Left Ventricle : Left ventricle is borderline dilated. Mild left ventricular hypertrophy, with septal thickening. The left ventricular systolic function is normal. The left ventricular ejection fraction is within the normal range. There is normal LV segmental wall motion. LVEF is estimated to be 55-60%. There is grade 2 diastolic dysfunction. Right Ventricle : The right ventricle is normal in size. The right ventricular systolic function appears normal. Atria : Left atrium is borderline dilated. The right atrium size is normal. Aortic Valve : Aortic valve is trileaflet. There is no aortic valvular stenosis. No aortic regurgitation is present. Mitral Valve : No evidence of mitral valve stenosis. Mitral valve leaflets are mildly thickened, but appear to open well. No significant mitral regurgitation. Tricuspid Valve : The tricuspid valve is not well visualized. Mild tricuspid regurgitation. Great Vessels : IVC is mildly dilated, but collapses >50% with inspiration. Estimated RVSP is 34-42 mmHg. Echocardiogram dated 04/09/2017: There is no significant change. Anesthesia Assessment and Plan Anesthesia History Personal History: No History of Anesthesia Complications Family History: No Family History of Anesthesia Complications Exercise Tolerance Exercise Tolerance: Metabolic Equivalents>4 Pertinent Negatives Pertinent Negatives: No Symptoms of GERD Cardiac & Pulmonary Exam Cardiac Exam: Normal S1/S2 Heart Sounds Pulmonary Exam: Clear Bilateral Breath Sounds Implantable Cardiac Device Does patient have a Pacemaker or an ICD?: No Airway Exam Known Difficult Airway: No Mallampati Class: 2 Mouth Opening: Normal (> 3cm) Thyromental Distance: Greater than 3 cm Facial Hair: Full Rawls Neck Range of Motion: Full ROM Neck Circumference: Normal Teeth Condition: Normal Dentition ASA Classification ASA Score: ASA 3 Emergency Case?: No NPO Status NPO Status: NPO Clears >2 hours, Solids >8 hours Anesthesia Plan Resuscitation Status: Full Code Anesthesia Technique: General Anesthesia Airway Planned: Natural Airway Monitors Used: Standard Monitors
[2021-04-08 07:17] VITALS: BMI 32.7
--- NOTE | 2021-04-08 08:00 | BOWEL_PTH ---
PATIENT: Pedro Mast LOC: [facility] U#:[id number] AGE/SX: 65/M ROOM: RE04/08/[address]: Shelby Moya : 1955 BED: DIS: 04/08/2021 SPEC #: [id number] RECD: 04/08/21 12:40 STATUS: MIRI REQ #: [id number] SANDRITA: 04/08/21 08:[address]: Shelby Moya DEPT: Surgical Specimen RECD BY: Ramona Leach ENTERED: 04/08/21 12:40 SP TYPE: Bowel OTHR DR: Derrick rAnett Tissues: 1 - BIOPSY BOWEL Procedures: GROSS AND MICRO LEVEL 4 Comments: [id number]
[2021-04-08 08:09] VITALS: BP 119/74; PULSE 87; RESP 16; TEMP 36.8; O2SAT 91
--- NOTE | 2021-04-08 08:17 | W.ANESPOSTOP ---
Postoperative Evaluation Date, Time and Location Date Performed: 04/08/21 Time Performed: 08:17 Patient Location: Day Surgery Unit Vital Signs Most Recent Imported Vital Signs: Most Recent Vital Signs Temp Pulse Resp BP Pulse Ox 36.8 C 87 16 119/74 91 L 04/08/21 08:09 04/08/21 08:09 04/08/21 08:09 04/08/21 08:09 04/08/21 08:09 Pain Score Most Recent Pain Score: Most Recent Pain Score Pain Level 0 04/08/21 08:09 Assessment Mental Status: Awake (Alert & Oriented to Patient Baseline) Airway and Respiratory Function: Patent airway with normal (patient baseline) respiratory exam Cardiovascular Function: Hemodynamically Stable Hydration Status: Adequately Hydrated Nausea & Vomiting: No Nausea or Vomiting Pain: Pt. Denies Any Pain Peripheral Nerve Block: Patient did not receive a nerve block
[2021-04-08 08:38] VITALS: BP 135/72; PULSE 83; RESP 16; TEMP 36.7; O2SAT 94
== END 2021-04-08 09:19 | disposition home or self-care (01) ==
PROVIDERS: PCP Family Medicine; Visit Provider Surgery
PROC: 0DJD8ZZ Inspection of Lower Intestinal Tract, Via Natural or Artificial Opening Endoscopic (ICD-10-PCS; CPT 45378; principal; 2021-04-08 07:30)
DX: K51.40 Inflammatory polyps of colon without complications (principal); E11.42 Type 2 diabetes mellitus with diabetic polyneuropathy; E11.22 Type 2 diabetes mellitus with diabetic chronic kidney disease; N18.30 Chronic kidney disease, stage 3 unspecified; K57.30 Diverticulosis of large intestine without perforation or abscess without bleeding
CPT/HCPCS: 45385; 88305

== ENCOUNTER 2021-08-08 02:06 | Outpatient (CLI) | payer OTHER, SELFPAY ==
[2021-08-08 12:11] LABS: Source Nasal/Nares
[2021-08-08 14:59] LABS: COVID-19 PCR Positive (Negative)
== END 2021-08-08 02:07 | disposition home or self-care (01) ==
LOC: LBO 02:06
PROVIDERS: PCP Family Medicine; Visit Provider Student in an Organized Health Care Education/Training Program
DX: Z20.822 Contact with and (suspected) exposure to COVID-19 (principal); Z01.818 Encounter for other preprocedural examination
CPT/HCPCS: 87635

== ENCOUNTER 2021-09-13 06:22 | Day surgery (SDC) | payer OTHER, SELFPAY ==
[2021-09-13 06:30] VITALS: BP 183/83; PULSE 80; RESP 16; TEMP 36.3; O2SAT 95
--- NOTE | 2021-09-13 06:42 | W.PREOPHP ---
Assessment and Plan Assessment and plan (1) De Quervain's tenosynovitis, left: Status: Acute Assessment and plan: Pedro is a 66-year-old who actually had left de Quervain's tenosynovitis. He has had previous injections with relief of symptoms but the symptoms returned. Increase significantly detail history. However, at this point he has failed other nonoperative options like to proceed with surgery resident. I reviewed the technical features of the surgery. I discussed the risk of the procedure to include bleeding, infection, pain, stiffness, damage to nerves and vessels, damage to muscle tendons, tendon subluxation, incomplete release or missed compartments. Despite these risk, he elects to proceed. All his questions were answered. History of Present Illness History of Present Illness Chief Complaint: Left DeQuervain's Tenosynovitis Narrative: Pedro is a 66-year-old male who I've seen previously in the office for left de Quervain's tenosynovitis. He had an injection last summer which provided near complete relief of his symptoms but they returned. Given the return of the symptoms within 1 year I did offer surgical release of the first extensor compartment. Please see the previous office note for complete detail of his history but is here today for this procedure. He denies any medical changes. He denies any sick contacts. He is COVID-19 negative. He does have a history of cardiac disease status post stenting but has done well for more than 20 years. He also has hypertension and obstructive sleep apnea but all of which are in stable condition. He continues to work on his diabetes which is in better control than it has been. Review of Systems All systems reviewed & are unremarkable except as noted in HPI and below PFSH All Active Problems De Quervain's tenosynovitis, left (Acute) Inflammatory polyps (Acute) Tubular adenoma of colon (Acute) with low grade dysplasia Screening for colon cancer (Acute) Medical History Abdominal pain Abnormal LFTs Actinic keratosis Adenomatous colon polyp Basal cell carcinoma Basal cell carcinoma (05/05/16) left anterior chest and left shoulder CAD (coronary artery disease) Carpal tunnel syndrome CKD (chronic kidney disease), stage III Pt. states he is unaware of this dx COVID-19 07/2020-Recieved MAB Depression Diabetes mellitus Diabetic peripheral neuropathy Dry mouth Dyspepsia Erectile dysfunction Fatigue Heart failure f/u with PCP HLD (hyperlipidemia) Hypertension Impacted cerumen of both ears Migraine RAJINDER (obstructive sleep apnea) Osteoarthritis Peripheral neuropathy Pulmonary hypertension Retinal artery branch occlusion Retinopathy Shortness of breath Skin lesions Tobacco use Urinary frequency Ventral hernia Surgical History History of colonoscopy with polypectomy (~04/08/21) Hx of cardiac catheterization 20+years ago Hx of heart artery stent Skin Cancer Removal (05/05/16) extension of wound margin 05/25/16 Social History Smoking/Tobacco Use Status: Former Tobacco Use Quit Date: 04/30/88 Smoking risk assessment performed?: Yes Alcohol Intake: current Alcohol Intake frequency: holidays/special occasions only Alcohol type: beer Drug use: Never Substance use type: does not use Do you feel safe at home: Yes Do you feel safe in your relationship?: Yes Meds Allergies and Home Medications Allergies Allergy/AdvReac Type Severity Reaction Status Date / Time Penicillins Allergy unknown as Unverified 09/12/21 12:21 child empagliflozin AdvReac Verified 09/12/21 12:21 [From Jardiance] gabapentin AdvReac legs Unverified 09/12/21 12:21 swelling Home Medications Medication Instructions Recorded Confirmed Type Diltiazem 24hr Er 360 mg PO DAILY 06/23/13 09/12/21 History aspirin 81 mg chewable tablet 81 mg PO DAILY 06/23/13 09/12/21 History (Aspirin Low-Strength) metformin 500 mg tablet 1,000 mg PO BID 06/23/13 09/12/21 History nitroglycerin 0.4 mg sublingual 0.4 mg sublingual PRN 06/23/13 09/12/21 History tablet (Nitrostat) albuterol sulfate 90 mcg/actuation 2 puff inhalation QID PRN 02/10/19 09/12/21 History aerosol inhaler (Proventil HFA) citalopram 10 mg tablet 10 mg PO DAILY 02/10/19 09/12/21 History labetalol 100 mg tablet 100 mg PO BID 02/10/19 09/12/21 History omeprazole 20 mg capsule,delayed 20 mg PO DAILY 02/10/19 09/12/21 History release torsemide 100 mg tablet 100 mg PO DAILY 02/10/19 09/12/21 History vitamin E (dl, acetate) 45 mg (100 100 unit PO DAILY 02/10/19 09/12/21 History unit) capsule atorvastatin 40 mg tablet 40 mg PO DAILY 02/06/20 09/12/21 History fluorouracil 0.5 % topical cream 1 applic topical BID 02/06/20 08/05/21 History triamcinolone acetonide 0.1 % 1 applic topical BID 02/06/20 09/12/21 History topical cream multivitamin (One Daily 1 tab PO DAILY 04/08/20 08/05/21 History Multivitamin tablet) enalapril maleate 10 mg tablet 40 mg PO DAILY 11/04/20 09/12/21 History insulin aspart U-100 100 unit/mL 50 - 60 unit subcut DIRECTED 12/09/20 09/12/21 History subcutaneous solution (Novolog U-100 Insulin aspart) albuterol sulfate 90 mcg/actuation 2 puff inhalation Q6H PRN 06/08/21 08/05/21 History aerosol inhaler (Proventil HFA) insulin detemir U-100 100 unit/mL 70 unit subcut BID 06/08/21 09/12/21 History (3 mL) subcutaneous pen (Levemir FlexTouch U-100 Insulin) Exam Const General: cooperative, healthy appearing, comfortable and no acute distress Nutritional Appearance: average body habitus Resp Auscultation: clear to auscultation bilaterally Cardio Rate: regular rate Rhythm: regular rhythm
--- NOTE | 2021-09-13 06:50 | ANES.PREOP_ITS ---
General Info Date of Service Date Performed: 09/13/21 Height: 5 ft 10 in Weight: 106.141 kg Body Mass Index (BMI): 33.5 Surgical Procedure: Operation Date: 09/13/21 07:40 Proposed Procedure Side Surgeon p Wrist Dequervains Release Left Duglas Morris MD Meds Allergies and Home Medications Allergies Allergy/AdvReac Type Severity Reaction Status Date / Time Penicillins Allergy unknown as Unverified 09/12/21 12:21 child empagliflozin AdvReac Verified 09/12/21 12:21 [From Jardiance] gabapentin AdvReac legs Unverified 09/12/21 12:21 swelling Home Medication Medication Instructions Recorded Diltiazem 24hr Er 360 mg PO DAILY 06/23/13 aspirin 81 mg chewable tablet 81 mg PO DAILY 06/23/13 (Aspirin Low-Strength) metformin 500 mg tablet 1,000 mg PO BID 06/23/13 nitroglycerin 0.4 mg sublingual 0.4 mg sublingual PRN 06/23/13 tablet (Nitrostat) albuterol sulfate 90 mcg/actuation 2 puff inhalation QID PRN 02/10/19 aerosol inhaler (Proventil HFA) citalopram 10 mg tablet 10 mg PO DAILY 02/10/19 labetalol 100 mg tablet 100 mg PO BID 02/10/19 omeprazole 20 mg capsule,delayed 20 mg PO DAILY 02/10/19 release torsemide 100 mg tablet 100 mg PO DAILY 02/10/19 vitamin E (dl, acetate) 45 mg (100 100 unit PO DAILY 02/10/19 unit) capsule atorvastatin 40 mg tablet 40 mg PO DAILY 02/06/20 fluorouracil 0.5 % topical cream 1 applic topical BID 02/06/20 triamcinolone acetonide 0.1 % 1 applic topical BID 02/06/20 topical cream multivitamin (One Daily 1 tab PO DAILY 04/08/20 Multivitamin tablet) enalapril maleate 10 mg tablet 40 mg PO DAILY 11/04/20 insulin aspart U-100 100 unit/mL 50 - 60 unit subcut DIRECTED 12/09/20 subcutaneous solution (Novolog U-100 Insulin aspart) albuterol sulfate 90 mcg/actuation 2 puff inhalation Q6H PRN 06/08/21 aerosol inhaler (Proventil HFA) insulin detemir U-100 100 unit/mL 70 unit subcut BID 06/08/21 (3 mL) subcutaneous pen (Levemir FlexTouch U-100 Insulin) acetaminophen 500 mg tablet 500 mg PO Q6H PRN PRN pain #40 tabs 09/13/21 hydrocodone 5 mg-acetaminophen 325 1 tab PO Q8H PRN PRN pain #3 tabs 09/13/21 mg tablet ibuprofen 600 mg tablet 600 mg PO TID PRN pain #30 tabs 09/13/21 Current Visit Medications: Current Medications Generic Name Dose Route Start Last Admin Trade Name Freq PRN Reason Stop Dose Admin Ringer's Solution 1,000 mls @ 80 mls/hr 09/13/21 06:00 IV 10/12/21 23:59 INFUSION JADON Cefazolin Sodium/Dextrose 2 gm in 50 mls @ 100 mls/hr 09/13/21 06:00 Ancef Duplex IVPB 10/12/21 23:59 PREOP JADON IV Miscellaneous Supplies 1 each 09/13/21 06:00 Iv Access IV 10/12/21 23:59 DIRECTED JADON Sodium Chloride 0 ml 09/13/21 06:00 Normal Saline Flush 10 Ml Syr IV 10/12/21 23:59 PRN PRN Sodium Chloride 0 ml 09/13/21 06:00 Normal Saline 10 Ml Vial IJ 10/12/21 23:59 DIRECTED PRN Sterile Water 0 ml 09/13/21 06:00 Water,Injection,Sterile 10 Ml Vial IJ 10/12/21 23:59 DIRECTED PRN PFSH Active Problems Active Problems: Problem Status Onset Code De Quervain's tenosynovitis, left M65.4 Inflammatory polyps Tubular adenoma of colon D12.6 Screening for colon cancer Z12.11 Medical History Medical History Abdominal pain Abnormal LFTs Actinic keratosis Adenomatous colon polyp Basal cell carcinoma Basal cell carcinoma (05/05/16) left anterior chest and left shoulder CAD (coronary artery disease) Carpal tunnel syndrome CKD (chronic kidney disease), stage III Pt. states he is unaware of this dx COVID-19 07/2020-Recieved MAB Depression Diabetes mellitus Diabetic peripheral neuropathy Dry mouth Dyspepsia Erectile dysfunction Fatigue Heart failure f/u with PCP HLD (hyperlipidemia) Hypertension Impacted cerumen of both ears Migraine MICHAEL (obstructive sleep apnea) Osteoarthritis Peripheral neuropathy Pulmonary hypertension Retinal artery branch occlusion Retinopathy Shortness of breath Skin lesions Tobacco use Urinary frequency Ventral hernia Surgical History Surgical History History of colonoscopy with polypectomy (~04/08/21) Hx of cardiac catheterization 20+years ago Hx of heart artery stent Skin Cancer Removal (05/05/16) extension of wound margin 05/25/16 Tobacco Smoking/Tobacco Use Status: Former Tobacco Use Alcohol Alcohol Intake: current Alcohol intake frequency: holidays/special occasions only Alcohol type: beer Substance Use Substance use: Never Substance use type: does not use Vital Signs and Lab Results Lab Results Blood Type / Crossmatch: No Data to Display Complete Blood Count: No Data to Display Complete Metabolic Panel: 2 No Data to Display Liver Function Panel: No Data to Display Coagulation Panel: No Data to Display Cardiac Panel: No Data to Display Arterial Blood Gas: No Data to Display Venous Blood Gas: No Data to Display Pancreas Panel: No Data to Display Thyroid Panel: No Data to Display Infectious Disease: No Data to Display Blood Cultures: No Data to Display Toxicology Panel: No Data to Display Imaging and Studies Imaging and Studies Study information below may be from another EMR and interpreted by another provider. Please see original notes in EMR for more complete details. Stress Test Summary: Date of Exam: 11/11/12 EJECTION FRACTION: 46% GATED WALL MOTION: Inferior hypokinesis. CONCLUSION: A fixed, small to moderate sized inferior wall defect is present. Negative for ischemia. Echocardiogram Summary: Date of Exam: 05/27/19ex: M Admission Date: 05/27/19 : 1955 Rhythm: NSR Indications: dyspnea on exertion r06.09 Conclusion Left Ventricle : Left ventricle is borderline dilated. Mild left ventricular hypertrophy, with septal thickening. The left ventricular systolic function is normal. The left ventricular ejection fraction is within the normal range. There is normal LV segmental wall motion. LVEF is estimated to be 55-60%. There is grade 2 diastolic dysfunction. Right Ventricle : The right ventricle is normal in size. The right ventricular systolic function appears normal. Atria : Left atrium is borderline dilated. The right atrium size is normal. Aortic Valve : Aortic valve is trileaflet. There is no aortic valvular stenosis. No aortic regurgitation is present. Mitral Valve : No evidence of mitral valve stenosis. Mitral valve leaflets are mildly thickened, but appear to open well. No significant mitral regurgitation. Tricuspid Valve : The tricuspid valve is not well visualized. Mild tricuspid regurgitation. Great Vessels : IVC is mildly dilated, but collapses >50% with inspiration. Estimated RVSP is 34-42 mmHg. Echocardiogram dated 04/09/2017: There is no significant change. Anesthesia Assessment and Plan Anesthesia History Personal History: No History of Anesthesia Complications Family History: No Family History of Anesthesia Complications Exercise Tolerance Exercise Tolerance: Metabolic Equivalents>4 Pertinent Negatives Pertinent Negatives: No Symptoms of GERD, No Major Cardiovascular Symptoms or Complaints and No Major Pulmonary Symptoms or Complaints (Michael doesnt use CPAP) Cardiac & Pulmonary Exam Cardiac Exam: Normal S1/S2 Heart Sounds Pulmonary Exam: Clear Bilateral Breath Sounds Implantable Cardiac Device Does patient have a Pacemaker or an ICD?: No Airway Exam Known Difficult Airway: No Mallampati Class: 2 Mouth Opening: Normal (> 3cm) Thyromental Distance: Greater than 3 cm Facial Hair: Full Rawls Neck Range of Motion: Full ROM Neck Circumference: Normal Teeth Condition: Normal Dentition ASA Classification ASA Score: ASA 2 Emergency Case?: No NPO Status NPO Status: NPO Clears >2 hours, Solids >8 hours Anesthesia Plan Resuscitation Status: Full Code Anesthesia Technique: MAC Anesthesia Airway Planned: Natural Airway Monitors Used: Standard Monitors
[2021-09-13] MEDS: Lactated Ringers 1,000 ML 80 ML IV (07:09)
--- NOTE | 2021-09-13 07:11 | W.PM.DSUDISC ---
Discharge Plan Disposition Patient Disposition: HOME Condition: Good Discharge Details Reason For Visit: Left Srinivasan's Tenosynovitis Attending Provider: Duglas Morris Primary Care Provider: Derrick Arnett Home Meds and New Rx's Prescriptions: New acetaminophen 500 mg tablet 500 mg PO Q6H PRN PRN (Reason: pain) Qty: 40 3RF hydrocodone-acetaminophen 5-325 mg tablet 1 tab PO Q8H PRN PRN (Reason: pain) Qty: 3 0RF ibuprofen 600 mg tablet 600 mg PO TID PRN (Reason: pain) Qty: 30 3RF Continued multivitamin [One Daily Multivitamin] Tablet 1 tab PO DAILY metformin 500 MG tablet 1,000 mg PO BID nitroglycerin [Nitrostat] 0.4 MG tablet, sublingual 0.4 mg Sublingual PRN Label Comments: 03/20/14- last took 19 years ago 06/01/15 patient states he has not tken for 20 years aspirin [Aspirin Low-Strength] 81 MG tablet,chewable 81 mg PO DAILY DILTIAZEM 24HR ER 360 MG TAB.ER.24H 360 mg PO DAILY labetalol 100 mg tablet 100 mg PO BID torsemide 100 mg tablet 100 mg PO DAILY vitamin E (dl, acetate) 100 unit capsule 100 unit PO DAILY albuterol sulfate [Proventil HFA] 90 mcg/actuation HFA aerosol inhaler 2 puff IH QID PRN omeprazole 20 mg capsule,delayed release(DR/EC) 20 mg PO DAILY citalopram 10 mg tablet 10 mg PO DAILY atorvastatin 40 mg tablet 40 mg PO DAILY triamcinolone acetonide 0.1 % cream 1 applic topical BID fluorouracil 0.5 % cream 1 applic topical BID Rx Instructions: apply sufficient amount to cover all lesions enalapril maleate 10 mg tablet 40 mg PO DAILY insulin aspart U-100 [Novolog U-100 Insulin aspart] 100 unit/mL solution 50 - 60 unit subcut DIRECTED Rx Instructions: 50 units every morning, 60 units every dinner (per referral note from PCP) Levemir FlexTouch U-100 Insuln 100 unit/mL (3 mL) insulin pen 70 unit subcut BID albuterol sulfate [Proventil HFA] 90 mcg/actuation HFA aerosol inhaler 2 puff inhalation Q6H PRN Discharge Instructions Additional Instructions: Srinivasan's Discharge Instructions Activity: You should keep the hand elevated as much as possible for the first few days. You may use the other fingers as tolerated but avoid trying to do too much too soon. You may perform light activities with the splint in place. Dressing/Cast: Your soft splint should stay in place at all times. Do NOT get it wet. You may loosen the DANETTE wrap if you feel it is too tight and then rewrap more loosely. Medications: - You should take Tylenol and Ibuprofen for baseline pain control. - You have Hydrocodone for breakthrough pain. - You may apply ice over the thumb. Follow-up: 7-10 days Referrals: Duglas Morris MD [ [facility] STAFF PHYSICIAN] - Activity:: Elevate Remove Dressings/Wound Care:: Do Not Remove Shower/Bathe:: Cover Diet:: Carb Counting Discharge Orders Discharge Orders: Discharge Order (Routine); Ordered 09/13/21 Ordered By: Duglas Morris DS: Diagnosis Discharge Diagnosis (1) De Quervain's tenosynovitis, left: Status: Acute
[2021-09-13 07:17] VITALS: BMI 33.5
[2021-09-13] MEDS: ceFAZolin 2 GM/50 ML BAG IVPB (07:21)
[2021-09-13] MEDS: Lidocaine 1% Multi-Dose W/EPI 1/100,000 50 ML VIAL (07:35)
[2021-09-13 07:45] VITALS: BP 147/81; PULSE 70; RESP 16; TEMP 36.6; O2SAT 95
--- NOTE | 2021-09-13 07:55 | W.ANESPOSTOP ---
Postoperative Evaluation Date, Time and Location Date Performed: 09/13/21 Time Performed: 07:55 Patient Location: Day Surgery Unit Vital Signs Most Recent Imported Vital Signs: Most Recent Vital Signs Temp Pulse Resp BP Pulse Ox 36.6 C 70 16 147/81 H 95 09/13/21 07:45 09/13/21 07:45 09/13/21 07:45 09/13/21 07:45 09/13/21 07:45 Temp Pulse Resp BP Pulse Ox 36.3 C L 80 16 183/83 H 95 09/13/21 06:30 09/13/21 06:30 09/13/21 06:30 09/13/21 06:30 09/13/21 06:30 Assessment Mental Status: Awake (Alert & Oriented to Patient Baseline) Airway and Respiratory Function: Patent airway with normal (patient baseline) respiratory exam Cardiovascular Function: Hemodynamically Stable Hydration Status: Adequately Hydrated Nausea & Vomiting: No Nausea or Vomiting Pain: Pt. Denies Any Pain Peripheral Nerve Block: Patient did not receive a nerve block
[2021-09-13 08:20] VITALS: BP 150/79; RESP 16; TEMP 36.6; O2SAT 95
--- NOTE | 2021-09-13 09:20 | W.PM.OP ---
Date of service: 09/13/21 Time of Service: 07:45 Operative Note Operative Note DATE OF PROCEDURE: 09/13/21 PRE-OP DIAGNOSIS: Left De Quervain's Tenosynovitis POST-OP DIAGNOSIS: same PROCEDURE: Left First Extensor Compartment Release SURGEON: Duglas Morris Refer to Anesthesia Record ESTIMATED BLOOD LOSS: 0 PATHOLOGY: none sent TOURNIQUET TIME: 0 COMPLICATIONS: None Patient was transported to: same day Patient's condition: stable Indications: Pedro is a 66 year old male who has had symptoms of Dequervain's tenosynovitis. Nonoperative treatment options had been trialed. Given their failure, I offered operative intervention. I reviewed the technical details of a first extensor compartment release. I reviewed the risk of the procedure to include bleeding, infection, pain, stiffness, tendon instability, damage to the superficial radial nerve, and complete release. Despite these risks, the patient elected to proceed. Findings: There was a tightened first excessive compartment. There was one primary subcompartment of EPB. Procedure Description: Pedro was greeted in the preoperative holding area. Name and surgical site were confirmed. The history and physical was completed. The consent was reviewed the patient and signed. He was taken back to the operating room. The patient was placed in the supine position and monitored anesthesia care was initiated. The left was then prepped with ChloraPrep and draped in a standard fashion after a nonsterile tourniquet was placed high up onto the arm. Prophylactic antibiotics in the form of cefazolin were administered. A timeout was performed for safe surgery. The surgical site was drawn on the skin. The planned surgical field was anesthetized with 1% lidocaine with epinephrine. A 2 cm incision was made longitudinally over the radial styloid. The skin was incised only. The deep tissue subcutaneous fat was dissected with a tenotomy scissors trying to protect bridge of the superficial radial nerve. Any branches that were identified were retracted out of the way. The first compartment extensor tendons were then identified. The distal aspect of the first compartment was noted and were released. This release was performed more on the dorsal side to prevent tendon subluxation. The entirety of the first extensor compartment was then released. The slips of the abductor pollicis longus tendon were inspected. They removed to confirm the appropriate motion of the thumb. The extensor pollicis brevis tendon was then identified. There was one subcompartment containing the EPB tendon. It was fully released. Traction on the tendon was also used to confirm appropriate extension of the thumb confirming the release of the appropriate tendon. The dorsal radial surface of the radius was once again inspected to make sure there is no other sub-compartments or other restrictions to tendon motion. The wound was then thoroughly irrigated. The deep tissue was closed with a 3-0 Vicryl. The skin was closed with a running subjective 4-0 Monocryl. Skin glue was applied. The tourniquet is released without significant bleeding. The hand was dressed with 4 x 4's, Kerlix and DANETTE for a soft thumb spica splint. All counts were correct. Patient was transferred back to same day surgery area in stable condition.
== END 2021-09-13 08:45 | disposition home or self-care (01) ==
PROVIDERS: PCP Family Medicine; Visit Provider Student in an Organized Health Care Education/Training Program
PROC: (CPT 25000; principal; 2021-09-13 07:30)
DX: M65.4 Radial styloid tenosynovitis [de Quervain] (principal); E11.42 Type 2 diabetes mellitus with diabetic polyneuropathy; I10 Essential (primary) hypertension
CPT/HCPCS: 26460; J0690; J2405

== ENCOUNTER 2022-04-05 17:02 | Outpatient (REF) | payer MEDICARE, SELFPAY ==
[2022-04-05 20:55] LABS: Abs Immature Grans 0.03 10^3/uL (0.0-0.06); Absolute Basophil Count 0.09 10^3/uL (0.0-0.2); Absolute Eosinophil Count 0.29 10^3/uL (0.0-0.7); Absolute Lymphocyte Count 3.15 10^3/uL (1.2-3.4); Absolute Monocyte Count 1.16 10^3/uL (0.1-0.8); Basophils % 0.8; Eosinophils % 2.7; HCT 40.4 % (40.0-50.0); HGB 13.7 g/dL (13.5-17.5); Immature Grans % 0.3; MCHC 33.9 % (32.0-36.0); MCV 89 fL (80-95); MPV 10.8 fL (8.0-11.0); Monocytes % 10.7; Neutrophils % 56.5; Platelet Count 300 10^3/uL (130-400); RBC 4.56 10^6/uL (4.36-5.78); RDW 12.5 % (11.8-14.1); RDW-SD 40.6 fL; WBC 10.87 10^3/uL (4.4-10.8)
[2022-04-05 20:59] LABS: Absolute Neutrophil Count 6.14 10^3/uL (1.2-6.7)
[2022-04-05 21:17] LABS: ALT 33 U/L (16-63); AST 24 U/L (15-37); Albumin 3.9 g/dL (3.4-5.0); Alkaline Phosphatase 81 U/L (46-116); Anion Gap 8.9 mmol/L (3-11); BUN 26 mg/dL (7-18); Bilirubin, Total 0.4 mg/dL (0.2-1.0); CO2 32.1 mmol/L (21.0-32.0); CREATININE 1.7 mg/dL (0.70-1.30); Chloride 100 mmol/L (98-107); Estimated GFR 43.64 (mL/min/1.73m2); Glucose 184 mg/dL (74-106); Potassium 3.6 mmol/L (3.5-5.1); Sodium 141 mmol/L (136-145); TSH (W/Ref FT4) 1.73 uIU/mL (0.36-3.74); Total Protein 7.5 g/dL (6.4-8.2)
== END 2022-04-05 17:03 | disposition home or self-care (01) ==
LOC: NCHCN 17:02
PROVIDERS: PCP Family Medicine; Visit Provider Family Medicine
DX: I10 Essential (primary) hypertension (principal); E11.65 Type 2 diabetes mellitus with hyperglycemia; I25.10 Atherosclerotic heart disease of native coronary artery without angina pectoris; I50.9 Heart failure, unspecified
CPT/HCPCS: 80053; 84443; 85025

== ENCOUNTER 2022-05-04 12:41 | Outpatient (REF) | payer MEDICARE, SELFPAY ==
--- NOTE | 2022-05-04 11:00 | SKI_PTH ---
PATIENT: Pedro Mast LOC: NCN #:[id number] AGE/SX: 66/M ROOM: RE05/04/[address]: Derrick Arnett : 1955 BED: DIS: 05/04/2022 SPEC #: [id number] RECD: 05/04/22 16:28 STATUS: MIRI REAlesha #: [id number] SANDRITA: 05/04/22 11:[address]: Derrick Arnett DEPT: Surgical Specimen RECD BY: Ramona Leach Tissues: 1 - SKIN BIOPSY(SHAVE/PUNCH) Procedures: SKIN LEVEL 4 Comments: [id number]
== END 2022-05-04 12:42 | disposition home or self-care (01) ==
LOC: NCHCN 12:41
PROVIDERS: PCP Family Medicine; Visit Provider Family Medicine
DX: C44.529 Squamous cell carcinoma of skin of other part of trunk (principal)
CPT/HCPCS: 88305

== ENCOUNTER 2022-05-18 12:45 | Outpatient (REF) | payer MEDICARE, SELFPAY ==
--- NOTE | 2022-05-18 10:25 | SKI_PTH ---
PATIENT: Pedro Mast LOC: NCN U#:[id number] AGE/SX: 66/M ROOM: RE05/18/[address]: Derrick Arnett : 1955 BED: DIS: 05/18/2022 SPEC #: [id number] RECD: 05/18/22 17:33 STATUS: MIRI REQ #: [id number] SANDRITA: 05/18/22 10:[address]: Derrick Arnett DEPT: Surgical Specimen RECD BY: Ramona Leach Tissues: 1 - SKIN BIOPSY(SHAVE/PUNCH) Procedures: SKIN LEVEL 4 Comments: [id number]
== END 2022-05-18 12:46 | disposition home or self-care (01) ==
LOC: NCHCN 12:45
PROVIDERS: PCP Family Medicine; Visit Provider Family Medicine
DX: C44.629 Squamous cell carcinoma of skin of left upper limb, including shoulder (principal)
CPT/HCPCS: 88305

== ENCOUNTER 2022-07-06 13:24 | Outpatient (REF) | payer MEDICARE, SELFPAY ==
[2022-07-06 14:40] LABS: Anion Gap 10.8 mmol/L (3-11); BUN 24 mg/dL (7-18); CO2 29.2 mmol/L (21.0-32.0); CREATININE 1.5 mg/dL (0.70-1.30); Calcium 9.5 mg/dL (8.5-10.1); Chloride 102 mmol/L (98-107); Glucose 181 mg/dL (74-106); Potassium 3.4 mmol/L (3.5-5.1); Sodium 142 mmol/L (136-145)
[2022-07-06 14:47] LABS: Hemoglobin A1C 8.8 % (<5.7)
== END 2022-07-06 13:25 | disposition home or self-care (01) ==
LOC: NCHCN 13:24
PROVIDERS: PCP Family Medicine; Visit Provider Family Medicine
DX: E11.65 Type 2 diabetes mellitus with hyperglycemia (principal); I10 Essential (primary) hypertension; N18.30 Chronic kidney disease, stage 3 unspecified; I50.9 Heart failure, unspecified
CPT/HCPCS: 80048; 83036

== ENCOUNTER 2022-10-05 15:05 | Outpatient (CLI) | payer MEDICARE, SELFPAY ==
--- NOTE | 2022-10-05 09:30 | DI.RAD_ITS ---
Exam(s) XR FOOT RT COMPLETE EXAM: XR FOOT RT COMPLETE CLINICAL HISTORY: Rt foot pain, M79.671, Rule out fracture, right hallux. TECHNIQUE: 2D digital imaging was performed of the right foot. Three images were obtained. AP, obl ique and lateral views were obtained. COMPARISON: No exams were available for comparison FINDINGS: BONES: There is an acute nondisplaced fracture of the medial of the base of the proximal phalanx of t he great toe. No bony destructive lesion is seen. There is a small plantar calcaneal spur. There is an enthesophyte at the posterior calcaneus. JOINTS: No dislocation present. SOFT TISSUE: Normal. IMPRESSION: Nondisplaced fracture of the media aspect of the base of the proximal phalanx of the great toe. DATA REPOSITORY: RADIATION DOSE DELIVERED:
== END 2022-10-05 15:25 ==
LOC: DI 15:12
PROVIDERS: PCP Family Medicine; Visit Provider Podiatrist
DX: S92.414A Nondisplaced fracture of proximal phalanx of right great toe, initial encounter for closed fracture (principal)
CPT/HCPCS: 73630

== ENCOUNTER 2022-12-26 04:23 | Emergency (ER) | payer MEDICARE, SELFPAY ==
[2022-12-26] VITALS (8 sets, daily range): BP systolic 192–210; BP diastolic 75–86; PULSE 76–89; RESP 14–21; TEMP 37.2; O2SAT 92–93
--- NOTE | 2022-12-26 04:15 | RT.EKG_ITS ---
APPROVED REPORT Exam: Resting ECG Reason for Exam: trouble breathing Patient Location: E HR:78 bpm ECG Measurements Heart Rate 78 AXIS VT 182 P 66 QRSd 97 QRS 39 QT 403 T 55 QTc 459 Conclusion Sinus rhythm...normal P axis, V-rate 60- 99 Physician: no stemi
[2022-12-26] MEDS: Albuterol/Ipratropium 3 ML UPD VIAL (04:30)
--- NOTE | 2022-12-26 04:30 | DI.RAD_ITS ---
Exam(s) XR PORTABLE CHEST AP EXAM: XR PORTABLE CHEST AP CLINICAL HISTORY: SOB TECHNIQUE: 2D digital imaging was performed of the chest. One image was obtained. An AP view was ob tained. COMPARISON: CR XR CHEST 2V PA LATERAL from 05/05/2019 FINDINGS: MEDIASTINUM: Normal. HEART: Normal. PULMONARY VASCULATURE: There is mild prominence of the pulmonary vasculature which may represent poor inspiration and crowding of the vessels or mild pulmonary venous congestion. LUNGS: Clear. PLEURAL SPACE: No pleural effusion or pneumothorax. BONE:Within normal limits for the patient's age. OTHER FINDINGS:Normal. IMPRESSION: No focal consolidating infiltrates. DATA REPOSITORY: RADIATION DOSE DELIVERED:
--- NOTE | 2022-12-26 04:32 | W.ED.GENAD ---
Discharge Plan Disposition Patient Disposition: Home Condition: Good Discharge Details Clinical Impression: Acute exacerbation of chronic obstructive pulmonary disease, Mild congestive heart failure Primary Care Provider: Derrick Arnett ED Provider: Manuel Abbott Home Meds and New Rx's Prescriptions: New prednisone 50 mg tablet 50 mg PO DAILY Qty: 5 0RF No Action multivitamin [One Daily Multivitamin] Tablet 1 tab PO DAILY metformin 500 MG tablet 1,000 mg PO BID nitroglycerin [Nitrostat] 0.4 MG tablet, sublingual 0.4 mg Sublingual PRN Patient Comments: 03/20/14- last took 19 years ago 06/01/15 patient states he has not tken for 20 years aspirin [Aspirin Low-Strength] 81 MG tablet,chewable 81 mg PO DAILY Patient Comments: pt stated not taking DILTIAZEM 24HR ER 360 MG TAB.ER.24H 360 mg PO DAILY labetalol 100 mg tablet 100 mg PO BID torsemide 100 mg tablet 100 mg PO DAILY vitamin E (dl, acetate) 100 unit capsule 100 unit PO DAILY Patient Comments: pt stated not taking citalopram 10 mg tablet 10 mg PO DAILY atorvastatin 40 mg tablet 40 mg PO DAILY triamcinolone acetonide 0.1 % cream 1 applic topical BID Patient Comments: pt stated not taking fluorouracil 0.5 % cream 1 applic topical BID Patient Comments: pt stated not taking Rx Instructions: apply sufficient amount to cover all lesions enalapril maleate 10 mg tablet 40 mg PO DAILY insulin aspart U-100 [Novolog U-100 Insulin aspart] 100 unit/mL solution 50 - 60 unit subcut DIRECTED Rx Instructions: 50 units every morning, 60 units every dinner (per referral note from PCP) Levemir FlexTouch U100 Insulin 100 unit/mL (3 mL) insulin pen 70 unit subcut BID albuterol sulfate [Proventil HFA] 90 mcg/actuation HFA aerosol inhaler 2 puff inhalation Q6H PRN acetaminophen 500 mg tablet 500 mg PO Q6H PRN PRN (Reason: pain) Qty: 40 3RF ibuprofen 600 mg tablet 600 mg PO TID PRN (Reason: pain) Qty: 30 3RF tamsulosin 0.4 mg capsule 0.4 mg PO DAILY Discharge Instructions Instructions: Pulmonary Edema (ED), COPD (Chronic Obstructive Pulmonary Disease) (ED) Additional Instructions: At this time your symptoms are consistent with a mild COPD exacerbation as well as mild pulmonary edema. We have given you a dose of Lasix here and steroids. We have sent a prescription of steroids to your pharmacy, please take these as directed. Please use your albuterol inhaler, 2 puffs every 6 hours for the next 2 to 3 days. When your furosemide does come in, please take this as directed, and on the first day please take a double dose. If you notice any worsening of your symptoms, or any new symptoms such as vomiting, diarrhea, fever, chills, shortness of breath, chest pain, numbness, weakness, or fainting , please return immediately to the emergency department for reevaluation. Please follow up with your primary care provider as soon as possible for reassessment and reevaluation. As always, it was a pleasure participating in your medical care today. Referrals: Derrick Arnett MD [Primary Care Provider] - Discharge Data Discharge Date/Time-TO BE ENTERED AT DEPARTURE: 12/26/22 05:49 Medical Decision Making 67-year-old male with past medical history of cardiac stent, diabetes, hypertension, high cholesterol, reactive airway disease, presents today for shortness of breath. Patient states he has been slightly more short of breath than normal over the last 2 to 3 days, then tonight he felt notably short of breath. He took a few puffs from his inhaler without significant improvement. He denies any chest pain. He denies any numbness or tingling. He states that this feels different than his previous heart attack. He denies cough but does admit to some congestion. No other complaints at this time. No fever or chills. Physical exam includes diminished breath sounds throughout, oxygen saturation is around 92%. No other significant abnormalities. Suspect reactive airway disease, but differential also includes cardiac etiology or congestive heart failur but this is less likely. We will give 2 breathing treatments, Solu-Medrol, chest x-ray monitor closely evaluate for concerning etiologies and reassess. 5:36 AM Laboratory work-up has returned, patient is feeling much better on reassessment. Wheeze has resolved, work of breathing is notably improved. Patient feels well and comfortable. Electrolytes normal. Creatinine at baseline. proBNP slightly elevated at 800, minimal pulmonary edema noted on x-ray. Patient does admit that he has not received his prescription for torsemide and they have been a few days late. Although he has no significant pitting edema I do feel this is likely a component of his symptoms in conjunction with a COPD exacerbation. Troponin normal. EKG stable. Symptoms inconsistent with significant pneumonia. Patient will be discharged home with 5-day course of steroids. He has his Lasix/torsemide prescription coming in. We will give 20 mg IV here prior to discharge. Otherwise patient feels well. Recommend continued albuterol use at home. I have extensively reviewed the treatment plan and discharge instructions with the patient and their family. I have addressed all patient concerns at this time. The patient and family was made aware of what symptoms to monitor for that would warrant a return to the emergency department. Discussed the plan with the patient and family, they demonstrate verbal understanding and agreement with our assessment and plan at this time. The documentation in this chart was dictated using [employer] dictation software. Please excuse any dictation errors. FINDINGS: Lungs: Suboptimal inspiration. Mild pulmonary vascular congestion. Pleural spaces: No large pleural effusion seen. Heart/Mediastinum: Magnified by AP technique but otherwise grossly unremarkable. Bones/joints: Grossly unremarkable. IMPRESSION: No acute findings to explain reported symptoms. Thank you for allowing us to participate in the care of your patient. Dictated and Authenticated by: Lora Camacho MD 12/26/2022 5:47 AM Eastern Time ([place] & [place]) HPI General Date/Time Provider Initiated Documentation: 12/26/22 04:24. HPI Narrative: 67-year-old male with past medical history of cardiac stent, diabetes, hypertension, high cholesterol, reactive airway disease, presents today for shortness of breath. Patient states he has been slightly more short of breath than normal over the last 2 to 3 days, then tonight he felt notably short of breath. He took a few puffs from his inhaler without significant improvement. He denies any chest pain. He denies any numbness or tingling. He states that this feels different than his previous heart attack. He denies cough but does admit to some congestion. No other complaints at this time. No fever or chills. Related Data Home Medications Medication Instructions Recorded Confirmed Diltiazem 24hr Er 360 mg PO DAILY 06/23/13 12/26/22 aspirin 81 mg chewable tablet 81 mg PO DAILY 06/23/13 11/03/22 (Aspirin Low-Strength) metformin 500 mg tablet 1,000 mg PO BID 06/23/13 12/26/22 nitroglycerin 0.4 mg sublingual 0.4 mg sublingual PRN 06/23/13 12/26/22 tablet (Nitrostat) citalopram 10 mg tablet 10 mg PO DAILY 02/10/19 12/26/22 labetalol 100 mg tablet 100 mg PO BID 02/10/19 12/26/22 torsemide 100 mg tablet 100 mg PO DAILY 02/10/19 12/26/22 vitamin E (dl, acetate) 45 mg (100 100 unit PO DAILY 02/10/19 11/03/22 unit) capsule atorvastatin 40 mg tablet 40 mg PO DAILY 02/06/20 12/26/22 fluorouracil 0.5 % topical cream 1 applic topical BID 02/06/20 11/03/22 triamcinolone acetonide 0.1 % 1 applic topical BID 02/06/20 11/03/22 topical cream multivitamin (One Daily 1 tab PO DAILY 04/08/20 12/26/22 Multivitamin tablet) enalapril maleate 10 mg tablet 40 mg PO DAILY 11/04/20 12/26/22 insulin aspart U-100 100 unit/mL 50 - 60 unit subcut DIRECTED 12/09/20 12/26/22 subcutaneous solution (Novolog U-100 Insulin aspart) albuterol sulfate 90 mcg/actuation 2 puff inhalation Q6H PRN 06/08/21 12/26/22 aerosol inhaler (Proventil HFA) insulin detemir U-100 100 unit/mL 70 unit subcut BID 06/08/21 12/26/22 (3 mL) subcutaneous pen (Levemir FlexTouch U-100 Insulin) acetaminophen 500 mg tablet 500 mg PO Q6H PRN PRN pain #40 tabs 09/13/21 12/26/22 ibuprofen 600 mg tablet 600 mg PO TID PRN pain #30 tabs 09/13/21 12/26/22 prednisone 50 mg tablet 50 mg PO DAILY #5 tabs 12/26/22 tamsulosin 0.4 mg capsule 0.4 mg PO DAILY 12/26/22 12/26/22 Previous Rx's Medication Instructions Recorded acetaminophen 500 mg tablet 500 mg PO Q6H PRN PRN pain #40 tabs 09/13/21 ibuprofen 600 mg tablet 600 mg PO TID PRN pain #30 tabs 09/13/21 prednisone 50 mg tablet 50 mg PO DAILY #5 tabs 12/26/22 Allergies Allergy/AdvReac Type Severity Reaction Status Date / Time Penicillins Allergy unknown as Unverified 12/26/22 04:54 child empagliflozin AdvReac Verified 12/26/22 04:54 [From Jardiance] gabapentin AdvReac legs Unverified 12/26/22 04:54 swelling Review of Systems All systems reviewed & are unremarkable except as noted in HPI and below PFSH All Active Problems (Updated 12/26/22 @ 05:33 by Manuel Abbott DO) Acute exacerbation of chronic obstructive pulmonary disease (Acute) Mild congestive heart failure (Acute) Plantar fasciitis (Acute) Paronychia of great toe, right (Acute) Toe pain, right (Acute) Toe pain, left (Acute) Type 2 diabetes mellitus with foot ulcer (Acute) Foot pain, right (Acute) Diabetic peripheral neuropathy (Acute) Diabetes mellitus (Chronic) Corns and callosities (Acute) Nail dystrophy (Acute) Tubular adenoma of colon (Acute) with low grade dysplasia Medical History Abdominal pain Abnormal LFTs Actinic keratosis Adenomatous colon polyp Basal cell carcinoma Basal cell carcinoma (05/05/16) left anterior chest and left shoulder CAD (coronary artery disease) Carpal tunnel syndrome CKD (chronic kidney disease), stage III Pt. states he is unaware of this dx COVID-19 07/2020-Recieved MAB Depression Dry mouth Dyspepsia Erectile dysfunction Fatigue Heart failure f/u with PCP HLD (hyperlipidemia) Hypertension Impacted cerumen of both ears Inflammatory polyps Migraine RAJINDER (obstructive sleep apnea) Osteoarthritis Peripheral neuropathy Pulmonary hypertension Retinal artery branch occlusion Retinopathy Screening for colon cancer Shortness of breath Skin lesions Tobacco use Urinary frequency Ventral hernia Surgical History De Quervain's tenosynovitis, left S/P Release: 09/13/2021 History of colonoscopy with polypectomy (~04/08/21) Hx of cardiac catheterization 20+years ago Hx of heart artery stent Skin Cancer Removal (05/05/16) extension of wound margin 05/25/16 Social History Smoking/Tobacco Use Status: Former Tobacco Use Quit Date: 04/30/88 Smoking risk assessment performed?: Yes Alcohol Intake: current Alcohol Intake frequency: holidays/special occasions only Alcohol type: beer Drug use: Never Substance use type: does not use Do you feel safe at home: Yes Do you feel safe in your relationship?: Yes Exam Narrative Exam Narrative: 1.Const: Well-nourished, Well-developed, appearing stated age 2.Eyes: PERRL, no conjunctival injection, and symmetrical lids. 3.ENT: Atraumatic external nose and ears. Moist MM. Neck: Symmetric, trachea midline, No thyromegaly. 4.CVS: +S1/S2, No murmurs or gallops. Peripheral pulses 2+ and equal in all extremities. Brisk capillary refill in all extremities. 5.RESP: Diminished breath sounds throughout, no rhonchi or rails. 6.GI: Soft, Nontender/Nondistended, No hepatosplenomegaly. No guarding or rebound. 7.MSK: Normocephalic/Atraumatic, Extremities w/o deformity or ttp No cyanosis or clubbing, Normal movement of all extremities 8.Skin: Warm, Dry. No rashes or lesions. 9.Neuro: coal sample tester II-XII grossly intact. Sensation grossly intact, no focal neurologic deficits. 10.Psych: (AAO) x3. Appropriate mood and affect
[2022-12-26] MEDS: methylPREDNISolone SUCC 125 MG VIAL IVP (04:45)
[2022-12-26 04:54] LABS: Abs Immature Grans 0.07 10^3/uL (0.0-0.06); Absolute Basophil Count 0.07 10^3/uL (0.0-0.2); Absolute Lymphocyte Count 1.71 10^3/uL (1.2-3.4); Basophils % 0.6; Eosinophils % 1.6; HCT 33.5 % (40.0-50.0); HGB 11.5 g/dL (13.5-17.5); Immature Grans % 0.6; MCH 30.3 pg (27.0-33.0); MCHC 34.3 % (32.0-36.0); MCV 88 fL (80-95); MPV 9.6 fL (8.0-11.0); Neutrophils % 76.2; Platelet Count 239 10^3/uL (130-400); RDW 13.1 % (11.8-14.1); RDW-SD 42.4 fL
[2022-12-26 04:55] LABS: Absolute Monocyte Count 0.85 10^3/uL (0.1-0.8); BE (Venous) -1 mmol/L (-2-3); HCO3 (Venous) 25 mmol/L (23-28); O2 Sat (Venous) 81 %; TCO2 (Venous) 23 mmol/L (24-29); pCO2 (Venous) 46 mmHg (41-51); pH (Venous) 7.35 (7.31-7.41); pO2 (Venous) 47 mmHg
[2022-12-26 05:19] LABS: ALT 19 U/L (16-63); AST 14 U/L (15-37); Albumin 3.8 g/dL (3.4-5.0); Alkaline Phosphatase 91 U/L (46-116); Anion Gap 9.5 mmol/L (3-11); BUN 19 mg/dL (7-18); Bilirubin, Total 0.5 mg/dL (0.2-1.0); CO2 26.5 mmol/L (21.0-32.0); CREATININE 1.7 mg/dL (0.70-1.30); Chloride 103 mmol/L (98-107); Estimated GFR 43.37 (mL/min/1.73m2); Glucose 182 mg/dL (74-106); NT-proBNP 827 pg/mL (<300); Potassium 4.2 mmol/L (3.5-5.1); Sodium 139 mmol/L (136-145); Total Protein 7.7 g/dL (6.4-8.2); Troponin I < 50 ng/L (<or=60)
[2022-12-26 05:32] LABS: COVID-19 PCR Negative (Negative); Influenza A PCR Negative (Negative); Influenza B PCR Negative (Negative); RSV PCR Negative (Negative)
[2022-12-26 05:33] LABS: Source Nasopharynx
--- NOTE | 2022-12-26 05:48 | DI.VRAD_ITS ---
PROCEDURE INFORMATION: Exam: XR Chest Exam date and time: 12/26/2022 5:10 AM Age: 67 years old Clinical indication: Shortness of breath; Prior surgery; Surgery date: 6+ months; Surgery type: Artery stent, heart cath; Patient HX: SOB TECHNIQUE: Imaging protocol: Radiologic exam of the chest. Views: 1 view. COMPARISON: CR XR CHEST 2V PA LATERAL 05/05/2019 12:49 PM FINDINGS: Lungs: Suboptimal inspiration. Mild pulmonary vascular congestion. Pleural spaces: No large pleural effusion seen. Heart/Mediastinum: Magnified by AP technique but otherwise grossly unremarkable. Bones/joints: Grossly unremarkable. IMPRESSION: No acute findings to explain reported symptoms. Dictated and Authenticated by: Lora Camacho MD. Ordering:TEJ Jackson MD
[2022-12-26] MEDS: Furosemide 20 MG/2 ML VIAL IVP (05:49)
== END 2022-12-26 05:49 | disposition home or self-care (01) ==
PROVIDERS: Emergency Provider Student in an Organized Health Care Education/Training Program; PCP Family Medicine
DX: J44.1 Chronic obstructive pulmonary disease with (acute) exacerbation (principal); I13.0 Hypertensive heart and chronic kidney disease with heart failure and stage 1 through stage 4 chronic kidney disease, or unspecified chronic kidney disease; I50.9 Heart failure, unspecified; E11.22 Type 2 diabetes mellitus with diabetic chronic kidney disease; N18.30 Chronic kidney disease, stage 3 unspecified; Z98.890 Other specified postprocedural states; Z95.5 Presence of coronary angioplasty implant and graft; I25.2 Old myocardial infarction; E78.5 Hyperlipidemia, unspecified; Z79.4 Long term (current) use of insulin; Z79.84 Long term (current) use of oral hypoglycemic drugs; Z87.891 Personal history of nicotine dependence
CPT/HCPCS: 36415; 80053; 82805; 87637; 93005; 94640; 96374; 96375; 99285; 71045; 83880; 84484; 85025; 93010; 99284; J1941; J2930; J7620

== ENCOUNTER → 2023-04-18 11:25 | Outpatient (BNVA) | payer MEDICARE, SELFPAY | PROVIDERS: PCP Family Medicine; Referring Provider Family Medicine; Visit Provider Podiatrist | DX: E11.42 Type 2 diabetes mellitus with diabetic polyneuropathy (principal); L60.3 Nail dystrophy; L84 Corns and callosities; R09.89 Other specified symptoms and signs involving the circulatory and respiratory systems; R60.0 Localized edema; R20.2 Paresthesia of skin | CPT/HCPCS: 11055; 11721 ==

== ENCOUNTER 2023-06-11 14:46 | Outpatient (REF) | payer MEDICARE, SELFPAY ==
[2023-06-11 15:48] LABS: Hemoglobin A1C 9.2 % (<5.7)
== END 2023-06-11 14:47 | disposition home or self-care (01) ==
LOC: NCHCN 14:46
PROVIDERS: PCP Family Medicine; Visit Provider Family Medicine
DX: E11.9 Type 2 diabetes mellitus without complications (principal)
CPT/HCPCS: 83036

== ENCOUNTER → 2023-07-18 10:57 | Outpatient (BNVA) | payer MEDICARE, SELFPAY | PROVIDERS: PCP Family Medicine; Referring Provider Family Medicine; Visit Provider Podiatrist | DX: L60.3 Nail dystrophy (principal); B35.1 Tinea unguium; E11.42 Type 2 diabetes mellitus with diabetic polyneuropathy; L84 Corns and callosities; I87.2 Venous insufficiency (chronic) (peripheral); R60.0 Localized edema | CPT/HCPCS: 11721 ==

== ENCOUNTER → 2023-11-19 10:09 | Outpatient (BNVA) | payer MEDICARE, SELFPAY | PROVIDERS: PCP Family Medicine; Referring Provider Family Medicine; Visit Provider Podiatrist | DX: E11.42 Type 2 diabetes mellitus with diabetic polyneuropathy (principal); L60.3 Nail dystrophy; L84 Corns and callosities; B35.1 Tinea unguium; I87.2 Venous insufficiency (chronic) (peripheral); R60.0 Localized edema; M79.671 Pain in right foot; M79.672 Pain in left foot | CPT/HCPCS: 11721 ==

== ENCOUNTER 2023-11-19 11:06 | Emergency (ER) | payer MEDICARE, SELFPAY ==
[2023-11-19 11:15] VITALS: BP 134/51; PULSE 58; RESP 16; TEMP 36.4; O2SAT 98
--- OUTSIDE RECORDS SUMMARY | 2023-11-19 11:23 | XMS_ITS | Clinical Summary ---
Author Organization [facility] Address [address] [place] [address] Care Team Providers Care Digital Asset Coordinator Name Role Phone Mauro Berger MD Primary Care Provider Social History Tobacco Use Types Packs/Day Years Used Date Smoking Tobacco: Never Assessed Sex and Gender Information Value Date Recorded Sex Assigned at Not on file Gender Identity Not on file Sexual Orientation Not on file Plan of Treatment Health Maintenance Due Date Last Done Comments Hepatitis C Screen 1955 RSV Immunization ( o r 60+ Years) (1 - 1-dose 60+ series) 2014 Fall Risk Screening 2019 COVID-19 Vaccine ( season) 2022 Care Teams Digital Asset Coordinator Relationship Specialty Start Date End Date Mauro Berger MD [address] [place] [address] PCP - General 04/13/20
--- OUTSIDE RECORDS SUMMARY | 2023-11-19 11:23 | XMS_ITS | Encounter Summary ---
Author Organization [facility] Address [address] [place] [address] Care Team Providers Care Acid Treater Name Role Phone Unknown, Provider Primary Care Provider Encounter Details Date Type Department Care Team (Latest Contact Info) Description 03/20/2014 17:13 EST - 03/20/2014 23:59 EST Hospital Encounter [address] [address] Unknown, Provider, Discharge Disposition: Home or Self Care Social History Tobacco Use Types Packs/Day Years Used Date Smoking Tobacco: Never Assessed Sex and Gender Information Value Date Recorded Sex Assigned at Not on file Gender Identity Not on file Sexual Orientation Not on file documented as of this encounter Discharge Disposition Disposition Code Departure Means Destination Home or Self Detention documented in this encounter Plan of Treatment Not on file documented as of this encounter Visit Diagnoses Not on filedocumented in this encounter Care Teams Acid Treater Relationship Specialty Start Date End Date Unknown, Provider, PCP - General 03/16/10 04/12/20 documented as of this encounter
--- OUTSIDE RECORDS SUMMARY | 2023-11-19 11:23 | XMS_ITS | Encounter Summary ---
Author Organization [facility] Address [address] [place] [address] Care Team Providers Care Process Safety Specialist Name Role Phone Unknown, Provider Primary Care Provider [phone] Encounter Details Date Type Department Care Team (Latest Contact Info) Description 06/16/2013 13:17 EST - 06/16/2013 23:59 EST Hospital Encounter [address] [address] Unknown, Provider, Discharge Disposition: Home or Self [...] on filedocumented in this encounter Care Teams Process Safety Specialist Relationship Specialty Start Date End Date Unknown, Provider, PCP - General 03/16/10 04/12/20 documented as of this encounter
--- OUTSIDE RECORDS SUMMARY | 2023-11-19 11:23 | XMS_ITS | Encounter Summary ---
Author Organization [facility] Address [address] [place] [address] Care Team Providers Care Material Requirements Planning Manager Name Role Phone Unknown, Provider Primary Care Provider [phone] Encounter Details Date Type Department Care Team (Late st Contact Info) Description 05/05/2016 Results Only [facility] [phone] Katiana Burch, DO [address] [place] [address] Social History Tobacco Use Types Packs/Day Years Used Date Smoking Tobacco: Never Assessed Sex and Gender Information Value Date Recorded Sex Assigned at Not on file Gender Identity Not on file Sexual Orientation Not on file documented as of this encounter Plan of Treatment Not on file documented as of this encounter Procedures Procedure Name Priority Date/Time Associated Diagnosis Comments SURGICAL PATHOLOGY Routine 05/05/2016 6:46 EST documented in this encounter Results * SURGICAL PATHOLOGY (05/05/2016 6:46 EST) Pathology Report: SURGICAL PATHOLOGY REPORT Reports generated via electronic interface contain original data; however they are lacking the format of the original report. Caution should be taken when reading/interpret ing unformatted reports. Name: ? PEDRO MAST ? Accession #: ? [id number] ? : ? 1955 (Age: 60) ??M ? Collect Date: ? 05/05/2016 ? Location: ? [facility] ? Receive Date: ? 05/05/2016 ? Provider: KATIANA BURCH DO Copy to: ALEX GOEL MD ? Final Pathologic Diagnosis: A. ??SKIN OF BACK, LEFT SHOULDER, EXCISION: - Basal cell carcinoma, superficial and nodular type. - Peripheral (cephalad and caudad) margins POSITIVE for basal cell carcinoma. See comment. B. ??SKIN OF CHEST, LEFT ANTERIOR, EXCISION: - Basal cell carcinoma, superficial and nodular type. - Basal cell carcinoma present within 0.1 mm of peripheral margin. Comment: Both excisions consist of basal cell carcinoma with superficial and nodular growth patterns. ??In the excision from left shoulder back (A), the superficial component of basal cell carcinoma is transected at the peripheral margins in the central portion of the excision. ??In the excision from left chest (B), the superficial basal cell carcinoma is present within 0.1 mm of the peripheral margin. ??(Dr. Ponce)/[facility] Microscopic Description: Emanating from the epidermis and present within the dermis are irregularly shaped islands of atypical basal cells. The basal cells have scant cytoplasm and round dark nuclei. ??Mitotic figures and apoptotic bodies are evident. ??The nuclei at the periphery of the islands have a palisaded arrangement. ??The islands are associated with a fibromyxoid stroma and there is cleft formation between some of the islands and stroma. ??(Dr. Ponce)/[facility] Document reviewed and electronically signed by: JOSIE PONCE MD Report ??Date: 05/09/2016 14:29 By the signature above, the attending physician certifies that he/she has personally conducted a gross and/or microscopic examination of the described specimens and rendered or confirmed the above diagnosis. Specimen(s) Received: A. ??Left shoulder back neoplasm, single stitch medial, double stitch cephalad B. ??Left chest anterior neoplasm Clinical History: Neoplasm of the skin of uncertain behavior; clinical diagnosis code: D48.5 Gross Description: A. ?Received in formalin labelled with proper patient identification (initials M, S) and neoplasm L back lesion is an oriented elliptical excision of wrinkled pink-ramon skin, with one single stitch designating medial and a double stitch designating cephalad, as per the accompanying requisition. The double stitch is designated as 12 o'clock and the single stitch is designated as 3 o'clock. The specimen measures 3.0 cm 3 o'clock to 9 o'clock, 1.4 cm 12 o'clock to 6 o'clock, and is excised to a maximum depth of 1.2 cm. There is an ill defined firm brown nodule (1.4 x 1.1 x 0.4 cm) centrally located on the skin surface. This nodule abuts both the 12 o'clock and 6 o'clock resection margins. The 9-12-3 o'clock aspect is inked blue and the 3-6-9 o'clock aspect is inked black. The specimen is serially sectioned from 3 o'clock to 9 o'clock and entirely submitted as follows: BLOCK KOCH A1- ??3 o'clock tip, reverse en face A2-A7- ??ten central sections A8- ??9 o'clock tip, reverse en face B. ?Received in formalin labelled with proper patient identification (initials M, S) and L anterior chest neoplasm is a 2.1 x 1.0 x 0.8 cm unoriented elliptical excision of pink-pacheco wrinkled skin. There is a 0.8 x 0.4 x 0.1 cm irregular ill defined pink-pacheco nodule located on the skin surface, abutting the resection margin. The margins are inked blue. The specimen is serially sectioned and entirely submitted as follows: BLOCK KOCH B1- ??one tip, reverse en face B2-B3- ??five central sections B4- ??one tip, reverse en face CHRISTINA Rai (ASCP) 05/08/2016 11:47 AM End of Report [facility] 05/05/2016 6:46 EST 05/05/2016 6:46 EST Katiana Burch DO PATHOLOGY ORDERABLES [facility] [address] [place] [address] documented in this encounter Visit Diagnoses Not on filedocumented in this encounter Care Teams Material Requirements Planning Manager Relationship Specialty Start Date End Date Unknown, Provider, PCP - General 03/16/10 04/12/20 documented as of this encounter
--- OUTSIDE RECORDS SUMMARY | 2023-11-19 11:23 | XMS_ITS | Encounter Summary ---
Author Organization [facility] Address [address] [place] [address] Care Team Providers Care Anesthetist Name Role Phone Unknown, Provider Primary Care Provider [phone] Encounter Details Date Type Department Care Team (Late st Contact Info) Description 03/20/2014 Results Only [facility] Laboratory Services - [facility] ([facility]) [address] [place], [place] [address] Reginaldo Hanna, DO [address] [facility] [address] [place] [address] Social History Tobacco Use Types Packs/Day Years Used Date Smoking Tobacco: Never Assessed Sex and Gender Information Value Date Recorded Sex Assigned at Not on file Gender Identity Not on file Sexual Orientation Not on file documented as of this encounter Plan of Treatment Not on file documented as of this encounter Procedures Procedure Name Priority Date/Time Associated Diagnosis Comments SURGICAL PATHOLOGY Routine 03/20/2014 18 :24 EST documented in this encounter Results * SURGICAL PATHOLOGY (03/20/2014 18:24 EST) Pathology Report: SURGICAL PATHOLOGY REPORT Reports generated via electronic interface contain original data; however they are lacking the format of the original report. Caution should be taken when reading/interpret ing unformatted reports. Name: ? SHAH PEDRO P ? Accession #: ? [id number] ? : ? 1955 (Age: 58) ??M ? Collect Date: ? 03/20/2014 ? Location: ? [facility] ? Receive Date: ? 03/20/2014 ? Provider: REGINALDO HANNA DO Copy to: ALEX GOEL MD ? Final Pathologic Diagnosis: A. COLON, TRANSVERSE, PROXIMAL BIOPSY: - ??Sessile serrated adenoma. B. COLON, 15 CM, POLYP, BIOPSY: - ??Hyperplastic polyp. Document reviewed and electronically signed by: JOSH GARCIA MD Report ??Date: 03/24/2014 07:59 By the signature above, the attending physician certifies that he/she has personally conducted a gross and/or microscopic examination of the described specimens and rendered or confirmed the above diagnosis. Specimen(s) Received: A. ?Proximal transverse colon polyp B. ? Colon polyp 15 cm Clinical History: Colorectal screen Gross Description: A. ?Received in formalin labelled with proper patient identification (initials M, S) and proximal transverse polyp are two pink-ramon tissues (0.3 x 0.2 x 0.1 cm and 0.3 x 0.2 x 0.1 cm). Entirely submitted in A1. B. ?Received in formalin labelled with proper patient identification (initials M, S) and colon polyp, 15 cm is a single pink-ramon tissue fragment (0.6 x 0.3 x 0.2 cm). Submitted intact in B1. Dr. Villagran 03/21/2014 09:52 AM End of Report [facility] 03/20/2014 18:2 4 EST 03/20/2014 18:24 EST Reginaldo Hanna DO PATHOLOGY ORDER JAMES [facility] [address] [place] [address] documented in this encounter Visit Diagnoses Not on filedocumented in this encounter Care Teams Anesthetist Relationship Specialty Start Date End Date Unknown, Provider, PCP - General 03/16/10 04/12/20 documented as of this encounter
--- OUTSIDE RECORDS SUMMARY | 2023-11-19 11:23 | XMS_ITS | Encounter Summary ---
Author Organization [facility] Address [address] [place] [address] Care Team Providers Care Epidemiologist Name Role Phone Mauro Berger MD Primary Care Provider [phone] Encounter Details Date Type Department Care Team (Late st Contact Info) Description 05/04/2022 Lab Requisition [facility] Pathology & Laboratory Medicine - [facility] [address] [place] [address] Derrick Arnett MD [address] [place], [place] [address] Encounter for other general examination Social History Tobacco Use Types Packs/Day Years Used Date Smoking Tobacco: Never Assessed Sex and Gender Information Value Date Recorded Sex Assigned at Not on file Gender Identity Not on file Sexual Orientation Not on file documented as of this encounter Plan of Treatment Not on file documented as of this encounter Procedures Procedure Name Priority Date/Time Associated Diagnosis Comments SURGICAL PATHOLOGY Today 05/04/2022 11 :00 EST Encounter for other general examination documented in this encounter Results * SURGICAL PATHOLOGY (05/04/2022 11:00 EST) Note to Patient The following pathology results have been interpreted by your pathologist and may be available to you before your health provider has had the opportunity to review them. Please allow time for your provider to receive these results and explore management options, if applicable. 05/08/2022 12:[address] [facility] Final Diagnosis A. SKIN OF CHEST, LEFT, EXCISION: - Squamous cell carcinoma, well-differentiat ed, completely excised. 05/08/2022 12:00 [facility] Attestation By the signature below, the attending physician certifies that they have 1) personally conducted a gross and/or microscopic examination of the described specimen(s), and/or personally interpreted the results of laboratory testing of the described specimen(s), and 2) personally rendered or confirmed the above diagnosis. 05/08/2022 12:00 [facility] at 1200 Clinical History Nodule L chest; ? BCC 05/08/2022 12:00 [facility] Gross Description A. Received in formalin labelled with proper patient identification (initials M, S) and nodule L chest is an unoriented elliptical excision of ramon-pacheco hair-bearing skin (2.6 x 1.4 cm and is excised to a depth of 0.6 cm). There is a central irregular bright white focally ramon-brown and crusted papule that measures 1.0 x 0.8 x 0.4 cm. The margins are inked blue. The specimen is serially sectioned and entirely submitted as A1-A4 8 central sections and A5 2 tips, reverse en face. MARY RODRIGUEZ 05/05/2022 9:59 05/08/2022 12:00 [facility] Performing Lab [facility] 05/08/2022 12:00 [facility] Scanned Images 05/08/2022 12:00 [facility] Tissue TISSUE SPECIMEN FROM SKIN / Unknown 05/04/2022 11:00 EST 05/04/2022 23:55 EST Derrick Arnett MD PATHOLOGY ORDERABLES [facility] [address] [place] [address] documented in this encounter Visit Diagnoses Diagnosis Encounter for other general examination documented in this encounter Care Teams Epidemiologist Relationship Specialty Start Date End Date Mauro Berger MD [address] [place] [address] PCP - General 04/13/20 documented as of this encounter
--- OUTSIDE RECORDS SUMMARY | 2023-11-19 11:23 | XMS_ITS | Encounter Summary ---
Author Organization [facility] Address [address] [place] [address] Care Team Providers Care Physicist Acoustics Name Role Phone Unknown, Provider Primary Care Provider Encounter Details Date Type Department Care Team (Late st Contact Info) Description 05/09/2010 Results Only [facility] Laboratory Services - [facility] ([facility]) [address] [place], [place] [id number] Martell Marcano MD [address] [place] [address] Social History Tobacco Use Types Packs/Day Years Used Date Smoking Tobacco: Never Assessed Sex and Gender Information Value Date Recorded Sex Assigned at Not on file Gender Identity Not on file Sexual Orientation Not on file documented as of this encounter Plan of Treatment Not on file documented as of this encounter Procedures Procedure Name Priority Date/Time Associated Diagnosis Comments SURGICAL PATHOLOGY Routine 05/09/2010 0:00 EST documented in this encounter Results * SURGICAL PATHOLOGY (05/09/2010 0:00 EST) Pathology Report: SURGICAL PATHOLOGY REPORT ? Reports generated via electronic interface contain original data; ? however they are lacking the format of the original report. ? Caution should be taken when reading/interpreti ng unformatted reports. ? Name: ? PEDRO SHAH ? Accession #: ? [id number] ? : ? 1955 (Age: 54) ??M ? Collect Date: ? 05/09/2010 ? Location: ? [facility] ? Receive Date: ? 05/09/2010 ? Provider: MARTELL MARCANO MD ? Copy to: ALEX GOEL MD ? Final Pathologic Diagnosis: ? Skin of ear, left, excision: ? 1. ?Residual basal cell carcinoma, infiltrative type. ? - Margins of excision negative, but close. ??See comment. ? 2. ?? Epidermal reparative change and dermal scar. ? Comment: ? Present within the excision specimen is residual basal cell carcinoma which is generally well encompassed by the excision specimen. However, on sections ? prepared for permanent analysis, residual basal cell carcinoma is present within the permanent section control for the inferior margin. ??Review of the true en ?? face inferior margin sections #1 and #2 done at the time of frozen analysis show no evidence of tumor. Review of section #3 (deeper into the tissue) shows a rare basaloid focus that, when reviewed in conjunction with the permanent sections, ?? is consistent with basal cell carcinoma. ??Dr. Masood Quezada communicated these results to Dr. Martell Marcano on 05/11/10. ??(Dr. Ulloa)/[facility] ? Document reviewed and electronically signed by: ? AURA ULLOA MD ? Report ??Date: 05/12/2010 15:49 ? By the signature above, the attending physician certifies that he/she has ? personally conducted a gross and/or microscopic examination of the described ? specimens and rendered or confirmed the above diagnosis. ? Specimen(s) Received: ? Left ear basal cell suture superior ? Clinical History: ? Basal cell left auricle ? Intraoperative Interpretation: ? FS1A ??FS1E. ??Ear, left, wedge excision: ??Margins of resection negative for basal cell carcinoma. ? Results discussed in person with Dr. Marcano ??Dr. Ramesh Quezada; 05/09/10, 11:55 ? Gross Description: ? Received fresh at [facility] labelled ? Pedro Shah and left ear basal cell suture superior is a wedge ? resection of ear containing cartilage that is 2.3 cm from medial to lateral by ?? 2.0 cm from superior to inferior, by 0.7 cm from anterior to posterior, and is ?? oriented with a suture at the superior edge. ??There is a 0.5 x 0.3 cm pink-brown crusted area with surrounding erythema on the lateral edge of the specimen. ? Blue ink is placed on the superior wedge margin and black ink is placed on the ?? inferior wedge margin. ??The specimen is sectioned from superior to inferior into four levels, and level 3 and 4 are then bisected. ??The specimen is entirely ? submitted for frozen section as FS1A through FS1E with the interpretation as ? rendered above. ??The specimen is entirely submitted for permanent section as ? follows: ? BLOCK KOCH ? A1 ?Residual tissue from FS1A (superior, level 1, en face) ? A2 ?Residual tissue from FS1B (level 2) ? A3 ?Residual tissue from FS1C (level 3, bisected) ? A4 ?Residual tissue from FS1D (half of level 4) ? A5 ?Residual tissue from FS1E (half of level 4) ? (L. Briseno)/kmm ? End of Report ? [facility] 05/09/2010 05/09/2010 17: 58 EST Martell Marcano MD PATHOLOGY ORDERABLES Performing Organization Address City/State/[facility] Co de Phone Number [facility] [address] [place] [address] documented in this encounter Visit Diagnoses Not on filedocumented in this encounter Care Teams Physicist Acoustics Relationship Specialty Start Date End Date Unknown, Provider, PCP - General 03/16/10 04/12/20 documented as of this encounter
--- OUTSIDE RECORDS SUMMARY | 2023-11-19 11:23 | XMS_ITS | Encounter Summary ---
Author Organization [facility] Address [address] [place] [address] Care Team Providers Care Relay Repairer Name Role Phone Unknown, Provider Primary Care Provider Encounter Details Date Type Department Care Team (Late st Contact Info) Description 06/16/2013 Results Only [facility] Laboratory Services - [facility] ([facility] [address] [place], [place] [id number] Reginaldo Hanna, DO [address] [facility] [address] [place] [address] Social History Tobacco Use Types Packs/Day Years Used Date Smoking Tobacco: Never Assessed Sex and Gender Information Value Date Recorded Sex Assigned at Not on file Gender Identity Not on file Sexual Orientation Not on file documented as of this encounter Plan of Treatment Not on file documented as of this encounter Procedures Procedure Name Priority Date/Time Associated Diagnosis Comments SURGICAL PATHOLOGY Routine 06/16/2013 8:54 EST documented in this encounter Results * SURGICAL PATHOLOGY (06/16/2013 8:54 EST) Pathology Report: SURGICAL PATHOLOGY REPORT Reports generated via electronic interface contain original data; however they are lacking the format of the original report. Caution should be taken when reading/interpreti ng unformatted reports. Name: ? PEDRO SHAH ? Accession #: ? [id number] ? : ? 1955 (Age: 57) ??M ? Collect Date: ? 06/16/2013 ? Location: ? [facility] ? Receive Date: ? 06/16/2013 ? Provider: REGINALDO HANNA DO Copy to: ALEX GOEL MD ? Final Pathologic Diagnosis: A. ??SKIN OF CHEST, LEFT UPPER, EXCISION: - Squamous cell carcinoma, moderately differentiated, invasive. - Margins of excision negative. - Definitive perineural invasion not noted. B. ??SKIN OF CHEST, UPPER RIGHT, PUNCH BIOPSY: - Seborrheic keratosis, pigmented. ?? Document reviewed and electronically signed by: AURA ARROYO MD Report ??Date: 06/18/2013 13:33 By the signature above, the attending physician certifies that he/she has personally conducted a gross and/or microscopic examination of the described specimens and rendered or confirmed the above diagnosis. Specimen(s) Received: A. ?Lesion left upper chest, suture is lateral B. ? Punch bx upper Rt chest Clinical History: Hx of basal CA of skin; black lesion right side of chest Gross Description: A. ?Received in formalin labelled with proper patient identification (initials M, S) and #1 lesion left upper chesT is an oriented elliptical excision of ramon-white skin with a suture designating lateral (2.9 cm from medial to lateral, 1.9 cm from superior to inferior, and is excised to a depth of 0.8 cm). There is a central, circular, pacheco-white, granular, focally brown, crusted and friable nodule that measures 1.7 x 1.7 x 0.5 cm. ??The superior aspect is blue inked and the inferior aspect is black inked. The specimen is serially sectioned from medial to lateral and is entirely submitted as follows: BLOCK KOCH A1- ??medial tip, reverse en face A2-A5- ??central sections A6- ??lateral tip, reverse en face B. ?Received in formalin labelled with proper patient identification (initials M, S) and #2 punch bx upper R chest is a punch biopsy of pacheco-black skin (0.2 cm in diameter and 0.2 cm in thickness). Submitted intact in B1. aJyna Phillip 06/17/2013 09:42 AM End of Report [facility] 06/16/2013 8:54 EST 06/16/2013 8:54 EST Reginaldo Hanna DO PATHOLOGY ORDER JAMES [facility] [address] [place] [address] documented in this encounter Visit Diagnoses Not on filedocumented in this encounter Care Teams Relay Repairer Relationship Specialty Start Date End Date Unknown, Provider, PCP - General 03/16/10 04/12/20 documented as of this encounter
--- OUTSIDE RECORDS SUMMARY | 2023-11-19 11:23 | XMS_ITS | Encounter Summary ---
Author Organization [facility] Address [address] [place] [address] Care Team Providers Care Tank Carpenter Name Role Phone Mauro Berger MD Primary Care Provider [phone] Encounter Details Date Type Department Care Team (Late st Contact Info) Description 04/08/2021 Lab Requisition [facility] Pathology & Laboratory Medicine - [facility] [address] [place] [address] Shelby Moya, DO [address] [place], [place] [id number] Encounter for other general examination Social History [...] Date/Time Associated Diagnosis Comments SURGICAL PATHOLOGY Today 04/08/2021 8: 00 EST Encounter for other general examination documented in this encounter Results * SURGICAL PATHOLOGY (04/08/2021 8:00 EST) Note to Patient The following pathology results have been interpreted by your pathologist and may be available to you before your health provider has had the opportunity to review them. Please allow time for your provider to receive these results and explore management options, if applicable. 04/11/2021 11:39 EST [facility] Final Diagnosis A. COLON, 70 CMS, POLYP, BIOPSY: - Inflammatory polyp. 04/11/2021 11:39 [facility] Attestation By the signature below, the attending physician certifies that they have 1) personally conducted a gross and/or microscopic examination of the described specimen(s), and/or personally interpreted the results of laboratory testing of the described specimen(s), and 2) personally rendered or confirmed the above diagnosis. 04/11/2021 11:39 [facility] at 1139 Clinical History Hx of colon polyp 04/11/2021 11:39 [facility] Gross Description A. Received in formalin labelled with proper patient identification (initials M, S) and colon polyp @ 70 cm are two pale ramon-white tissues (0.4 x 0.3 x 0.3 cm and 0.3 x 0.2 x 0.2 cm). Entirely submitted in A1. Juaquin Courtney 04/10/2021 8:25 04/11/2021 11:39 [facility] Performing Lab [facility] 04/11/2021 11:39 [facility] Scanned Images 04/11/2021 11:39 [facility] Tissue ENTIRE COLON / Unknown 04/08/2021 8:00 EST 04/08/2021 19:34 EST Shelby Moya DO PATHOLOGY ORDERABLES [facility] [address] [place] [address] documented in this encounter Visit Diagnoses Diagnosis Encounter for other general examination documented in this encounter Care Teams Tank Carpenter Relationship Specialty Start Date End Date Mauro Berger MD [address] [place], [place] [id number] PCP - General 04/13/20 documented as of this encounter
--- OUTSIDE RECORDS SUMMARY | 2023-11-19 11:23 | XMS_ITS | Encounter Summary ---
Author Organization [facility] Address [address] [place] [address] Care Team Providers Care Door Framer Name Role Phone Unknown, Provider Primary Care Provider [phone] Mauro Berger MD Primary Care Provider [phone] Encounter Details Date Type Department Care Team (Late st Contact Info) Description 04/09/2020 Lab Requisition [facility] Pathology & Laboratory Medicine - [address] [address] Outr Resulting Lab, Provider Social History Tobacco Use Types Packs/Day Years Used Date Smoking Tobacco: Never Assessed Sex and Gender Information Value Date Recorded Sex Assigned at Not on file Gender Identity Not on file Sexual Orientation Not on file documented as of this encounter Plan of Treatment Not on file documented as of this encounter Procedures Procedure Name Priority Date/Time Associated Diagnosis Comments DO NOT ORDER STANDALONE - BROAD COVID TEST Today 04/09/2020 9:35 EST COVID-19 TESTING Routine 04/09/2020 9:35 EST documented in this encounter Results * DO NOT ORDER STANDALONE - BROAD COVID TEST (04/09/2020 9:35 EST) COVID-19 rt-PCR Result NEGATIVE Negative 04/11/2020 13:54 EST [facility] Comment: 2019-novel Coronavirus (2019-nCoV) not detected by the qRT-PCR assay. Consider testing for other respiratory viruses or re-collecting for 2019-nCoV testing. Note: Optimum timing for peak viral levels during infections caused by 2019-nCoV have not been determined. Collection of multiple specimens from the same patient may be necessary to detect the virus. Limitations Positive results are indicative of active infection with SARS-CoV-2 but do not rule out bacterial infection or co-infection with other viruses. The agent detected may not be the definite cause of disease. In addition, detection of viral RNA may not indicate the presence of infectious virus or that SARS-CoV-2 is the causative agent for clinical symptoms. Negative results do not preclude SARS-CoV-2 infection and should not be used as the sole basis for patient management decisions. Negative results must be combined with clinical observations, patient history, and epidemiological information. False negative results may also occur if amplification inhibitors are present in the specimen or if inadequate numbers of organisms are present in the specimen. Optimum specimen types and timing for peak viral levels during infections caused by SARS-CoV-2 have not been fully determined. Collection of multiple specimens (types and time points) from the same patient may be necessary to detect the virus. The test was validated for use with upper respiratory specimens obtained via nasopharyngeal or oropharyngeal swabs in VTM, UTM, M4, M5, M6, saline, and MTM media. The performance of this test has not been established for other specimens. Specimens collected using other FDA recommended Specimen Collection Materials listed in the FDA COVID-19 [employer] communication (July 24, 2019) are processed with the caveat that they were not all validated for use with this test and the result must be interpreted in this context. Furthermore, a false negative results may occur if a specimen is improperly collected, transported or handled. If the virus mutates in the RT-PCR target region, SARS-CoV-2 may not be detected or may be detected less predictably. Inhibitors or other types of interference may produce a false negative result. An interference study evaluating the effect of common cold medications was not performed. This test is not FDA-cleared but its performance characteristics were established by our CLIA-certified, CAP-accredited, high complexity laboratory in accordance with CLIA regulations, [employer] (CAP) guidelines (Jul 17, 2019), and FDA guidance (Jun 28, 2019). This test is only for use under the Food and Drug Administration's Emergency Use Authorization. Swab ENTIRE NASOPHARYNX / Unknown 04/09/2020 9:35 EST 04/09/2020 16:11 EST Provider Outr Resulting Lab MICROBIOLOGY - GENERAL ORDERABLES [facility] [place] * COVID-19 TESTING (04/09/2020 9:35 EST) COVID-19 rt-PCR Result NEGATIVE Negative 04/11/2020 16:47 EST [facility] Comment: 2019-novel Coronavirus (2019-nCoV) not detected by the qRT-PCR assay. Consider testing for other respiratory viruses or re-collecting for 2019-nCoV testing. Note: Optimum timing for peak viral levels during infections caused by 2019-nCoV have not been determined. Collection of multiple specimens from the same patient may be necessary to detect the virus. Limitations Positive results are indicative of active infection with SARS-CoV-2 but do not rule out bacterial infection or co-infection with other viruses. The agent detected may not be the definite cause of disease. In addition, detection of viral RNA may not indicate the presence of infectious virus or that SARS-CoV-2 is the causative agent for clinical symptoms. Negative results do not preclude SARS-CoV-2 infection and should not be used as the sole basis for patient management decisions. Negative results must be combined with clinical observations, patient history, and epidemiological information. False negative results may also occur if amplification inhibitors are present in the specimen or if inadequate numbers of organisms are present in the specimen. Optimum specimen types and timing for peak viral levels during infections caused by SARS-CoV-2 have not been fully determined. Collection of multiple specimens (types and time points) from the same patient may be necessary to detect the virus. The test was validated for use with upper respiratory specimens obtained via nasopharyngeal or oropharyngeal swabs in VTM, UTM, M4, M5, M6, saline, and MTM media. The performance of this test has not been established for other specimens. Specimens collected using other FDA recommended Specimen Collection Materials listed in the FDA COVID-19 [employer] communication (July 24, 2019) are processed with the caveat that they were not all validated for use with this test and the result must be interpreted in this context. Furthermore, a false negative results may occur if a specimen is improperly collected, transported or handled. If the virus mutates in the RT-PCR target region, SARS-CoV-2 may not be detected or may be detected less predictably. Inhibitors or other types of interference may produce a false negative result. An interference study evaluating the effect of common cold medications was not performed. This test is not FDA-cleared but its performance characteristics were established by our CLIA-certified, CAP-accredited, high complexity laboratory in accordance with CLIA regulations, [employer] [place] (CAP) guidelines (Jul 17, 2019), and FDA guidance (Jun 28, 2019). This test is only for use under the Food and Drug Administration's Emergency Use Authorization. Performing Lab [facility] 04/11/2020 16:47 EST [facility] Swab 04/09/2020 9:35 EST 04/09/2020 16:11 EST Provider Outr Resulting Lab MICROBIOLOGY - GENERAL ORDERABLES [facility] [address] [place], [place] [id number] [place] [address] LABORATORY [place] documented in this encounter Visit Diagnoses Not on filedocumented in this encounter Care Teams Door Framer Relationship Specialty Start Date End Date Unknown, Provider, PCP - General 03/16/10 04/12/20 Mauro Berger MD [address] [place] [address] PCP - General 04/13/20 documented as of this encounter
--- OUTSIDE RECORDS SUMMARY | 2023-11-19 11:23 | XMS_ITS | Encounter Summary ---
Author Organization [facility] Address [address] [place] [address] Care Team Providers Care Amusement Park Worker Name Role Phone Unknown, Provider Primary Care Provider [phone] Encounter Details Date Type Department Care Team (Latest Contact Info) Description 05/05/2016 14:40 EST - 05/05/2016 23:59 EST Hospital Encounter [address] [address] Unknown, Provider, Discharge Disposition: Home or Self Care Social History Tobacco Use Types Packs/Day Years Used Date Smoking Tobacco: Never Assessed Sex and Gender Information Value Date Recorded Sex Assigned at Not on file Gender Identity Not on file Sexual Orientation Not on file documented as of this encounter Discharge Disposition Disposition Code Departure Means Destination Home or Self Long-Term documented in this encounter Plan of Treatment Not on file documented as of this encounter Visit Diagnoses Not on filedocumented in this encounter Care Teams Amusement Park Worker Relationship Specialty Start Date End Date Unknown, Provider, PCP - General 03/16/10 04/12/20 documented as of this encounter
--- OUTSIDE RECORDS SUMMARY | 2023-11-19 11:23 | XMS_ITS | Encounter Summary ---
Author Organization [facility] Address [address] [place] [address] Care Team Providers Care Caramel Cutter Machine Name Role Phone Unknown, Provider Primary Care Provider [phone] Encounter Details Date Type Department Care Team (Late st Contact Info) Description 05/25/2016 Results Only [facility] [phone] Katiana Burch, DO [address] [place] [address] Social History Tobacco Use Types [...] Date/Time Associated Diagnosis Comments SURGICAL PATHOLOGY Routine 05/25/2016 9:55 EST documented in this encounter Results * SURGICAL PATHOLOGY (05/25/2016 9:55 EST) Pathology Report: SURGICAL PATHOLOGY REPORT Reports generated via electronic interface contain original data; however they are lacking the format of the original report. Caution should be taken when reading/interpret ing unformatted reports. Name: ? PEDRO MAST ? Accession #: ? [id number] ? : ? 1955 (Age: 60) ??M ? Collect Date: ? 05/25/2016 ? Location: ? [facility] ? Receive Date: ? 05/26/2016 ? Provider: KATIANA BURCH DO Copy to: NORA BARRETO MD ? Final Pathologic Diagnosis: SKIN OF WOUND MARGIN, EXCISION: - Epidermal ulceration with granulation tissue and foreign body giant cell reaction, consistent with previous excision site. - No residual basal cell carcinoma identified. Document reviewed and electronically signed by: JOSIE CARRANZA MD Report ??Date: 05/29/2016 14:26 By the signature above, the attending physician certifies that he/she has personally conducted a gross and/or microscopic examination of the described specimens and rendered or confirmed the above diagnosis. Specimen(s) Received: Excision wound margin Clinical History: Excision wound margin from prior basal cell carcinoma excision with positive margins Gross Description: ? Received in formalin labelled with proper patient identification (initials M, S) and excision wound margin is an unoriented elliptical excision of ramon-white to ramon-yellow ulcerated skin (4.0 x 2.5 cm and is excised to a depth of 0.4 cm in greatest dimension). There is a central elliptical full thickness defect consistent with previous biopsy that measures 2.5 x 1.0 cm. One edge to include the deep margin is inked black, the opposing edge to include deep margin is inked blue. The specimen is serially sectioned and entirely submitted as follows: BLOCK KOCH 1- ??tips, reverse en face 2-10- ??central sections, two levels per cassette Rabia Cardoza 05/26/2016 10:46 AM End of Report [facility] 05/25/2016 9:55 EST 05/26/2016 9:55 EST Katiana Burch DO PATHOLOGY ORDERABLES [facility] [address] [place] [address] documented in this encounter Visit Diagnoses Not on filedocumented in this encounter Care Teams Caramel Cutter Machine Relationship Specialty Start Date End Date Unknown, Provider, PCP - General 03/16/10 04/12/20 documented as of this encounter
--- OUTSIDE RECORDS SUMMARY | 2023-11-19 11:23 | XMS_ITS | Encounter Summary ---
Author Organization [facility] Address [address] [place] [address] Care Team Providers Care Monorail Crane Operator Name Role Phone Mauro Berger MD Primary Care Provider [phone] Encounter Details Date Type Department Care Team (Late st Contact Info) Description 05/19/2022 Lab Requisition [facility] Pathology & Laboratory Medicine - [facility] [address] [place] [address] Derrick Arnett MD [address] [place], [place] [address] Encounter for other general examination Social History [...] Date/Time Associated Diagnosis Comments SURGICAL PATHOLOGY Today 05/18/2022 10 :25 EST Encounter for other general examination documented in this encounter Results * SURGICAL PATHOLOGY (05/18/2022 10:25 EST) Note to Patient The following pathology results have been interpreted by your pathologist and may be available to you before your health provider has had the opportunity to review them. Please allow time for your provider to receive these results and explore management options, if applicable. 05/22/2022 11:24 EST [facility] Final Diagnosis A. SKIN OF FOREARM, LEFT, EXCISION: - Squamous cell carcinoma, well-differentiat ed, completely excised. 05/22/2022 11:24 [facility] Attestation By the signature below, the attending physician certifies that they have 1) personally conducted a gross and/or microscopic examination of the described specimen(s), and/or personally interpreted the results of laboratory testing of the described specimen(s), and 2) personally rendered or confirmed the above diagnosis. 05/22/2022 11:24 [facility] at 1124 Clinical History L forearm tender firm nodule 05/22/2022 11:24 [facility] Gross Description A. Received in formalin labelled with proper patient identification (initials M, S) and L forearm is an unoriented elliptical excision of ramon-pink wrinkled skin (2.3 x 1.4 cm and is excised to a depth of 0.6 cm. There is a ramon-pink encrusted nodule that measures 1.0 x 0.9 x 0.2 cm. The margins are inked blue. The specimen is serially sectioned and entirely submitted as 5 central sections and 2 tips, reverse en face. BLOCK KOCH A1-2 tips, reverse en face [id number] sections Susy Gautam 05/19/2022 11:23 05/22/2022 11:24 [facility] Performing Lab [facility] 05/22/2022 11:24 [facility] Scanned Images 05/22/2022 11:24 [facility] Tissue TISSUE SPECIMEN FROM SKIN / Unknown 05/18/2022 10:25 EST 05/19/2022 7:33 EST Derrick Arnett MD PATHOLOGY ORDERABLES [facility] [address] [place] [address] documented in this encounter Visit Diagnoses Diagnosis Encounter for other general examination documented in this encounter Care Teams Monorail Crane Operator Relationship Specialty Start Date End Date Mauro Berger MD [address] [place] [address] PCP - General 04/13/20 documented as of this encounter
--- OUTSIDE RECORDS SUMMARY | 2023-11-19 11:23 | XMS_ITS | Referral Summary ---
Author Organization [facility] Address [address] [place] [address] Care Team Providers Care Digital Proofing And Platemaker Name Role Phone Mauro Berger MD Primary Care Provider [phone] Social History Tobacco Use Types Packs/Day Years Used Date Smoking Tobacco: Never Assessed Sex and Gender Information Value Date Recorded Sex Assigned at Not on file Gender Identity Not on file Sexual Orientation Not on file Plan of Treatment Not on file Care Teams Digital Proofing And Platemaker Relationship Specialty Start Date End Date Mauro Berger MD [address] [place] [address] PCP - General 04/13/20
--- OUTSIDE RECORDS SUMMARY | 2023-11-19 11:23 | XMS_ITS | Encounter Summary ---
Author Organization [facility] Address [address] [place] [address] Care Team Providers Care Hose Tender Name Role Phone Mauro Berger MD Primary Care Provider [phone] Encounter Details Date Type Department Care Team (Late st Contact Info) Description 04/04/2023 Lab Requisition [facility] Pathology & Laboratory Medicine - [facility] [address] [place] [address] Joesph Edwards, [address] [place] [address] Disorder of the skin and subcutaneous tissue, unspecified Social History Tobacco Use Types Packs/Day Years Used Date Smoking Tobacco: Never Assessed Sex and Gender Information Value Date Recorded Sex Assigned at Not on file Gender Identity Not on file Sexual Orientation Not on file documented as of this encounter Plan of Treatment Not on file documented as of this encounter Procedures Procedure Name Priority Date/Time Associated Diagnosis Comments SURGICAL PATHOLOGY Today 04/03/2023 11 :20 EST Disorder of the skin and subcutaneous tissue, unspecified documented in this encounter Results * SURGICAL PATHOLOGY (04/03/2023 11:20 EST) Note to Patient The following pathology results have been interpreted by your pathologist and may be available to you before your health provider has had the opportunity to review them. Please allow time for your provider to receive these results and explore management options, if applicable. 04/05/2023 10:56 EST [facility] Final Diagnosis A. SKIN OF BREAST, LEFT, SHAVE BIOPSY: - Basal cell carcinoma, nodular type. - Basal cell carcinoma present at peripheral and deep tissue edges. B. SKIN OF ANTI HELIX, RIGHT SUPERIOR, SHAVE BIOPSY: - Basal cell carcinoma, nodular and infiltrative type. - Basal cell carcinoma present at deep tissue edge. C. SKIN OF ORIENTAL ORTHODOX, LEFT, SHAVE BIOPSY: - Basal cell carcinoma, superficial and nodular type. - Basal cell carcinoma present at peripheral and deep tissue edges. - Incidental actinic keratosis, acanthotic type. D. SKIN OF ORIENTAL ORTHODOX, RIGHT, SHAVE BIOPSY: - Squamous cell carcinoma, well differentiated, invasive. - Squamous cell carcinoma present at deep tissue edge. E. SKIN OF PRE-AURICULAR REGION, LEFT SUPERIOR, SHAVE BIOPSY: - Basal cell carcinoma, nodular and infiltrative type, with squamous differentiation (metatypical). - Basal cell carcinoma present at peripheral and deep tissue edges. 04/05/2023 10:56 [facility] Attestation By the signature below, the attending physician certifies that they have 1) personally conducted a gross and/or microscopic examination of the described specimen(s), and/or personally interpreted the results of laboratory testing of the described specimen(s), and 2) personally rendered or confirmed the above diagnosis. 04/05/2023 10:56 [facility] at 1056 Microscopic Description A. - C., E. Emanating from the epidermis and extending into the dermis are irregularly shaped islands and cords of atypical basal cells. Many of the islands are small and angulate. The basal cells have scant cytoplasm and round dark nuclei. Mitotic figures and apoptotic bodies are evident. Some nuclei at the periphery of some of the larger islands have a palisaded arrangement. There is fibroplasia and myxoid change of the stroma with cleft formation between some of the islands and stroma. D. The stratum corneum is thickened by orthohyperkeratosis and parakeratosis. Emanating from the epidermis and extending into the dermis is a proliferation of atypical squamous epithelium. The proliferation consists of variably sized, irregular islands associated with dermal desmoplasia. The cells have an increased nuclear-cytoplasmic ratio and nuclear pleomorphism. Intercellular bridge and keratin brendon formation are evident. 04/05/2023 10:56 [facility] Clinical History Clinical diagnosis code: L98.9 x5 04/05/2023 10:56 [facility] Gross Description A. Received in formalin labelled with proper patient identification (initials M, S) and left breast is a 2.9 x 2.5 x 1.1 cm irregular excision of crusted, ramon-pacheco to white skin. The margin is inked. The specimen is serially sectioned and entirely submitted as follows: BLOCK KOCH A1- tips, reverse en face A2-A5- 7 central sections B. Received in formalin labelled with proper patient identification (initials M, S) and right superior antihelix are 2 irregular fragments of crusted ramon skin (0.9 x 0.8 x 0.2 cm and 1.2 x 0.2 x 0.1 cm). The margins are inked. The specimens are entirely submitted in B1 (smaller tissue, bisected) and B2 (larger tissue, submitted intact). C. Received in formalin labelled with proper patient identification (initials M, S) and left samaritan is a 1.6 x 1.5 x 0.1 cm irregular shave of crusted ramon-pacheco skin. The margin is inked. The specimen is serially sectioned and entirely submitted in C1-C2. D. Received in formalin labelled with proper patient identification (initials M, S) and right samaritan is a 1.1 x 0.6 x 0.1 cm irregular shave of crusted flaky, ramon-white skin. The margin is inked. The specimen is trisected and entirely submitted in D1. E. Received in formalin labelled with proper patient identification (initials M, S) and left superior preauricular is a 1.4 x 1.3 x 0.1 cm ovoid shave of hair-bearing, somewhat ulcerated ramon-white to pacheco skin. The margin is inked. The specimen is serially sectioned and entirely submitted in E1-E2. CHRISTINA CAST([facility]) 04/04/2023 17:39 04/05/2023 10:56 [facility] Performing Lab [facility] 04/05/2023 10:56 [facility] Scanned Images 04/05/2023 10:56 [facility] Tissue SPECIMEN FROM SKIN / Unknown 04/03/2023 11:20 EST 04/04/2023 16:45 EST Tissue specimen (specimen) SPECIMEN FROM SKIN / Unknown 04/03/2023 11:20 EST 04/04/2023 16:45 EST Tissue specimen (specimen) SPECIMEN FROM SKIN / Unknown 04/03/2023 11:20 EST 04/04/2023 16:45 EST Tissue specimen (specimen) SPECIMEN FROM SKIN / Unknown 04/03/2023 11:20 EST 04/04/2023 16:45 EST Tissue specimen (specimen) SPECIMEN FROM SKIN / Unknown 04/03/2023 11:20 EST 04/04/2023 16:45 EST Joesph Edwards DO PATHOLOGY ORDER JAMES [facility] [address] [place] [address] documented in this encounter Visit Diagnoses Diagnosis Disorder of the skin and subcutaneous tissue, unspecified documented in this encounter Care Teams Hose Tender Relationship Specialty Start Date End Date Mauro Berger MD [address] [place] [address] PCP - General 04/13/20 documented as of this encounter
--- OUTSIDE RECORDS SUMMARY | 2023-11-19 11:23 | XMS_ITS | Encounter Summary ---
Author Organization [facility] Address [address] [place] [address] Care Team Providers Care Table Lever Operator Name Role Phone Mauro Berger MD Primary Care Provider [phone] Encounter Details Date Type Department Care Team (Late st Contact Info) Description 04/13/2020 Lab Requisition [facility] Pathology & Laboratory Medicine - [address] [address] Cee Lopes MD [address] [place] [phone] Encounter for other general examination Social History [...] Date/Time Associated Diagnosis Comments SURGICAL PATHOLOGY Today 04/13/2020 9: 35 EST Encounter for other general examination documented in this encounter Results * SURGICAL PATHOLOGY (04/13/2020 9:35 EST) Final Diagnosis A. 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 B. COLON, DESCENDING, POLYP, BIOPSY: - Tubular adenoma. 04/15/2020 9:40 EST [facility] Attestation There was significant resident/fellow involvement in the diagnostic evaluation of this case. By the signature below, the attending physician certifies that they have personally conducted a gross and/or microscopic examination of the described specimens and rendered or confirmed the above diagnosis. 04/15/2020 9:40 [facility] at 0940 Clinical History History of colon polyps 04/15/2020 9:40 [facility] Gross Description A. Received in formalin labelled with proper patient identification (initials M, S) and cecal polyp are 7 light ramon tissues ranging in size from 0.1 x 0.1 x 0.1 cm up to 0.4 x 0.2 x 0.1 cm. Submitted intact in A1-A2. B. Received in formalin labelled with proper patient identification (initials M, S) and descending colon polyp is a ramon-pink polypoid tissue measuring 0.2 x 0.2 x 0.2 cm. Submitted intact in B1. CHRISTINA LOREDO([facility]) 04/13/2020 18:22 04/15/2020 9:40 [facility] Resident/Walter w: Yoon Mariscal MD 04/15/2020 9:40 [facility] Performing Lab [facility] 04/15/2020 9:40 [facility] Scanned Images 04/15/2020 9:40 [facility] Tissue CECUM STRUCTURE / Unknown 04/13/2020 9:35 EST 04/13/2020 15:48 EST Tissue specimen (specimen) POLYP OF COLON / Unknown 04/13/2020 9:35 EST 04/13/2020 15:48 EST Cee Lopes MD PATHOLOGY ORDERABLES [facility] [address] [place] [address] documented in this encounter Visit Diagnoses Diagnosis Encounter for other general examination documented in this encounter Care Teams Table Lever Operator Relationship Specialty Start Date End Date Mauro Berger MD [address] [place] [address] PCP - General 04/13/20 documented as of this encounter
--- OUTSIDE RECORDS SUMMARY | 2023-11-19 11:23 | XMS_ITS | Encounter Summary ---
Author Organization [facility] Address [address] [place] [address] Care Team Providers Care Electric Melt Operator Name Role Phone Unknown, Provider Primary Care Provider Encounter Details Date Type Department Care Team (Latest Contact Info) Description 05/25/2016 10:24 EST - 05/25/2016 23:59 EST Hospital Encounter [address] [address] Unknown, Provider, Discharge Disposition: Home or Self Care Social History Tobacco Use Types Packs/Day Years Used Date Smoking Tobacco: Never Assessed Sex and Gender Information Value Date Recorded Sex Assigned at Not on file Gender Identity Not on file Sexual Orientation Not on file documented as of this encounter Discharge Disposition Disposition Code Departure Means Destination Home or Self Usp documented in this encounter Plan of Treatment Not on file documented as of this encounter Visit Diagnoses Not on filedocumented in this encounter Care Teams Electric Melt Operator Relationship Specialty Start Date End Date Unknown, Provider, PCP - General 03/16/10 04/12/20 documented as of this encounter
--- OUTSIDE RECORDS SUMMARY | 2023-11-19 11:23 | XMS_ITS | Encounter Summary ---
Author Organization [facility] Address [address] [place] [address] Care Team Providers Care Brickmason Supervisor Name Role Phone Unknown, Provider Primary Care Provider Encounter Details Date Type Department Care Team (Latest Contact Info) Description 06/01/2015 17:18 EST - 06/01/2015 23:59 EST Hospital Encounter [address] [address] Unknown, Provider, Discharge Disposition: Home or Self Care Social History Tobacco Use Types Packs/Day Years Used Date Smoking Tobacco: Never Assessed Sex and Gender Information Value Date Recorded Sex Assigned at Not on file Gender Identity Not on file Sexual Orientation Not on file documented as of this encounter Discharge Disposition Disposition Code Departure Means Destination Home or Self Shelter documented in this encounter Plan of Treatment Not on file documented as of this encounter Visit Diagnoses Not on filedocumented in this encounter Care Teams Brickmason Supervisor Relationship Specialty Start Date End Date Unknown, Provider, PCP - General 03/16/10 04/12/20 documented as of this encounter
--- OUTSIDE RECORDS SUMMARY | 2023-11-19 11:23 | XMS_ITS | Encounter Summary ---
Author Organization [facility] Address [address] [place] [address] Care Team Providers Care City Plant Supervisor Name Role Phone Unknown, Provider Primary Care Provider [phone] Encounter Details Date Type Department Care Team (Late st Contact Info) Description 06/01/2015 Results Only [facility] [phone] Reginaldo Hanna, DO [address] [facility] [address] [place], [place] [id number] Social History Tobacco Use Types Packs/Day Years Used Date Smoking Tobacco: Never Assessed Sex and Gender Information Value Date Recorded Sex Assigned at Not on file Gender Identity Not on file Sexual Orientation Not on file documented as of this encounter Plan of Treatment Not on file documented as of this encounter Procedures Procedure Name Priority Date/Time Associated Diagnosis Comments SURGICAL PATHOLOGY Routine 06/01/2015 9:01 EST documented in this encounter Results * SURGICAL PATHOLOGY (06/01/2015 9:01 EST) Pathology Report: SURGICAL PATHOLOGY REPORT Reports generated via electronic interface contain original data; however they are lacking the format of the original report. Caution should be taken when reading/interpreting unformatted reports. Name: ? PEDRO SHAH ? Accession #: ? [id number] ? : ? 1955 (Age: 59) ??M ? Collect Date: ? 06/01/2015 ? Location: ? [facility] ? Receive Date: ? 06/03/2015 ? Provider: REGINALDO HANNA DO Copy to: ALEX GOEL MD ? Final Pathologic Diagnosis: SKIN OF BAPTIST, LEFT, EXCISION: - Squamous cell carcinoma, well differentiated, invasive. - Margins negative for squamous cell carcinoma. - Chronic solar damage with actinic keratoses. - Actinic keratosis present at peripheral margin. Microscopic Description: The stratum corneum is thickened by orthohyperkeratosis and parakeratosis. Emanating from the epidermis and extending into the dermis is a proliferation of atypical squamous epithelium. ??The proliferation consists of variably sized, irregular islands associated with dermal desmoplasia. ??The cells have an increased nuclear-cytoplasmic ratio and nuclear pleomorphism. ??Intercellular bridge and keratin brendon formation are evident. ??(Dr. Ponce)/n Document reviewed and electronically signed by: JOSIE PONCE MD Report ??Date: 06/04/2015 16:29 By the signature above, the attending physician certifies that he/she has personally conducted a gross and/or microscopic examination of the described specimens and rendered or confirmed the above diagnosis. Specimen(s) Received: Skin lesion left congregation, suture anterior Clinical History: Skin lesion left congregation Gross Description: ? Received in formalin labelled with proper patient identification (initials M, S) and left congregation is an oriented elliptical excision of pink-ramon skin with a suture designating anterior (2.0 cm from superior to inferior, 1.0 cm from anterior to posterior, and is excised to a depth of 0.7 cm). There is a central ramon-white focally ulcerated papule that measures 0.9 x 0.9 x 0.2 cm. The posterior aspect is blue inked and the anterior aspect is black inked. The specimen is serially sectioned from superior to inferior and is entirely submitted as follows: BLOCK KOCH 1- ??superior tip, reverse en face 2- ??anterior tip, reverse en face 3-4- ??central sections [place] 06/03/2015 12:49 PM End of Report [facility] 06/01/2015 9:01 EST 06/03/2015 9:01 EST Reginaldo Hanna DO PATHOLOGY ORDER JAMES Performing Organization Address City/State/[facility] Co de Phone Number [facility] [address] [place] [address] documented in this encounter Visit Diagnoses Not on filedocumented in this encounter Care Teams City Plant Supervisor Relationship Specialty Start Date End Date Unknown, Provider, PCP - General 03/16/10 04/12/20 documented as of this encounter
--- OUTSIDE RECORDS SUMMARY | 2023-11-19 11:24 | XMS_ITS | Encounter Summary ---
[place] [address] Care Team Providers Care Cheese Wrapper Name Role Phone Mauro Berger MD Primary Care Provider [phone] Reason for Visit * Reason Comments Procedure Encounter Details Date Type Department Care Team (Late st Contact Info) Description 02/16/2012 1:00 PM EDT Office Visit Dermatology [address] [place] [address] [address] [place], [place] [id number] Greg Lopez MD [address] [facility] [place] [address] Basal cell carcinoma (Primary Dx) Social History Tobacco Use Types Packs/Day Years Used Date Smoking Tobacco: Never Sex and Gender Information Value Date Recorded Sex Assigned at Not on file Gender Identity Not on file Sexual Orientation Not on file documented as of this encounter Progress Notes * Greg Lopez MD - 02/16/2012 2:15 PM EDT Clinical Impression: 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 Size is 2.5 cm. Deep suture is 3-0 Vicryl. Surface suture is 5-0 Ethilon. Followup will be in one week for suture removal and biopsy results. Indications for surgery, possible adverse outcomes, and activity restrictions discussed. Informed verbal consent was obtained. Skin surface was prepared with 4% chlorhexidine and draped in the usual sterile manner. Local anesthesia with 1% lidocaine, 1:100,000 epinephrine, and 0.1 mEq/mL bicarb. Using a #15 blade and 3-mm margins, an elliptic excision was carried with its long access in a horizontal plane around the lesion in question. Undermining performed peripherally. Hemostasis with electrodesiccation. Layered closure performed with specimen to Pathology. Wound dressed, wound care reviewed. End length of suture line was 6 cm. Follow up in seven days for suture removal by Dr. Lopez in [facility]. Site number two clinical impression left upper back. Size is 3 cm. Deep suture is 3-0 Vicryl. Surface suture is 4-0 Ethilon. Followup will be in 10 to 14 days for suture removal and biopsy results. Indication for surgery, possible adverse outcomes, and activity restrictions were discussed. Informed verbal consent was obtained. Skin surface was prepared with 4% chlorhexidine and draped in the usual sterile manner. Local anesthesia with 1% lidocaine, 1:100,000 epinephrine, and 0.1 mEq/mL bicarb. Using a #15 blade and 5-mm margins, an elliptic excision was carried out around the lesion. Undermining performed peripherally. Hemostasis with electrodesiccation. Layered closure performed with specimen to Pathology. Wound dressed, wound care reviewed. End length of suture line was 8 cm. Follow up in 10 to 14 days for suture removal by Dr. Lopez in [facility]. documented in this encounter Procedure Notes * Provider, Scanning - 02/21/2012 8:30 AM EDTAssociated Order(s): SCAN DOC: SURGICAL PATHOLOGY documented in this encounter Plan of Treatment Not on file documented as of this encounter Procedures Procedure Name Priority Date/Time Associated Diagnosis Comments SURGICAL PATHOLOGY SCAN 02/21/2012 8:30 AM EDT documented in this encounter Results * SCAN DOC: SURGICAL PATHOLOGY (02/21/2012 8:30 AM EDT) Narrative 02/21/2012 8:30 AM EDT Procedure Note Provider, Scanning - 02/21/2012 8:30 AM EDT Scanning Provider MEDIA MGR SCAN EXT O RDR/RSLT documented in this encounter Visit Diagnoses Diagnosis Basal cell carcinoma- Primary Basal cell carcinoma of skin, site unspecified documented in this encounter Care Teams Cheese Wrapper Relationship Specialty Start Date End Date Mauro Berger MD [address] [place] [address] PCP - General 06/07/11 documented as of this encounter
--- OUTSIDE RECORDS SUMMARY | 2023-11-19 11:24 | XMS_ITS | Encounter Summary ---
Author Organization [facility] Address [facility] [place] [address] Care Team Providers Care Beach Attendant Name Role Phone Mauro Berger MD Primary Care Provider [phone] Encounter Details Date Type Department Care Team (Late st Contact Info) Description 11/14/2019 External Results Medical Records [facility] [place] [address] Provider, Scanning Social History Tobacco Use Types Packs/Day Years Used Date Smoking Tobacco: Former Cigarettes 0 05/26/1980 - 05/26/1995 Smokeless Tobacco: Never Alcohol Use Standard Drinks/Week Comments Yes 0 (1 standard drink = 0.6 oz pur e alcohol) occasional Sex and Gender Information Value Date Recorded Sex Assigned at Not on file Gender Identity Not on file Sexual Orientation Not on file documented as of this encounter Plan of Treatment Not on file documented as of this encounter Procedures Procedure Name Priority Date/Time Associated Diagnosis Comments SURGICAL PATHOLOGY SCAN Routine 11/14/2019 documented in this encounter Results * Scan Doc: Surgical Pathology (11/14/2019) Historical Provider MD H[place]LIN MGR SCAN EX T ORDR/RSLT documented in this encounter Visit Diagnoses Not on filedocumented in this encounter Care Teams Beach Attendant Relationship Specialty Start Date End Date Mauro Berger MD [address] [place] [address] PCP - General 06/07/11 documented as of this encounter
--- OUTSIDE RECORDS SUMMARY | 2023-11-19 11:24 | XMS_ITS | Clinical Summary ---
Author Organization Formerly [facility] Address [facility] [place] [address] Care Team Providers Care Optometry Assistant Name Role Phone Mauro Berger MD Primary Care Provider + [phone] Allergies Active Allergy Reactions Criticality Noted Date Comments Penicillins 06/12/2011 Medications Medication Sig Dispensed Refills Start Date End Date Status atorvastatin (LIPITOR) 40 mg tablet Take 40 mg by mouth daily. Active citalopram (CELEXA) 10 mg tablet Take 10 mg by mouth daily. Active NPH, HUMAN INSULIN ISOPHANE (NOVOLIN N SUBQ) Inject subcutaneously. Ac tive omeprazole (PRILOSEC) 20 mg Capsule, Delayed Release(E.C.) Take 20 mg by mouth daily. Active nitroGLYcerin (NITROSTAT) 0.4 mg Tablet, Sublingual Place 0.4 mg under the tongue every 5 minutes as needed for Chest pain. Active furosemide (LASIX) 40 mg Tablet Take 40 mg by mouth daily. Active insulin detemir (LEVEMIR) Solution Inject subcutaneously nightly. Active meTOPROLOL succinate (TOPROL-XL) 100 mg Tablet Sustained Release 24 hr Take 100 mg by mouth daily. Active metFORMIN (GLUCOPHAGE) 500 mg Tablet Take 500 mg by mouth 2 times daily. Active Ketone Blood Test Strip by [facility].(Non-Drug; Combo Route) route. Active Insulin [place], Disposable, 29 gauge X 1/2 Needle by Mis.(Non-Drug; Combo Route) route. Active Lancets Misc by [facility].(Non-Drug; Combo Route) route. Active FOLIC ACID/MV,FE,OTHER MIN (CENTRUM ORAL) Take 1 tablet by mouth daily. Active aspirin 81 mg Tablet, Delayed Release (E.C.) Take 81 mg by mouth daily. Active enalapril (VASOTEC) 20 mg Tablet Take 20 mg by mouth daily. Active b complex vitamins Capsule Take 1 capsule by mouth daily. Active fish oil-omega-3 fatty acids 1,000 mg Capsule Take 2 g by mouth daily. Active PROAIR HFA 90 mcg/actuation HFA Aerosol Inhaler 02/12/2017 Active ONETOUCH ULTRA TEST Strip 03/17/2017 Active DILTiazem (TIAZAC) 360 mg Capsule,Sustained Action 24 hr 03/19/2017 Active metOLazone (ZAROXOLYN) 5 mg Tablet 09/12/2017 Active oxyCODONE-acetamin ophen (PERCOCET) 5-325 mg Tablet 06/18/2017 Active torsemide (DEMADEX) 100 mg Tablet TAKE 1 TABLET BY MOUTH ONCE DAILY 1 02/18/2019 Active labetalol (NORMODYNE) 100 mg Tablet TAKE 1 TABLET BY MOUTH TWICE A DAY 0 02/18/2019 Active fluorouracil (EFUDEX) 5 % Cream Apply starting April 30 to face twice daily for 10 days then return to clinic 45 g 04/28/2019 Active triamcinolone (KENALOG) 0.1 % Cream Apply starting April 30 to face 30 minutes after each application of 5 FU for 10 days 30 g 1 04/28/2019 Active Active Problems Problem Noted Date Diagnosed Date History of SCC (squamous cell carcinoma) of skin 04/03/2017 AK (actinic keratosis) 04/03/2017 Trigger finger, left ring finger 05/26/2015 Dupuytren's disease of palm 05/26/2015 Carpal tunnel syndrome 02/15/2015 Visit for suture removal 02/26/2012 History of basal cell carcinoma 01/19/2012 Basal cell carcinoma 2011 Squamous cell carcinoma 2011 History of basal cell carcinoma 06/12/2011 History of squamous cell carcinoma 06/12/2011 Actinic keratosis 06/12/2011 Family History Medical History Relation Comments Cancer Maternal Aunt Cancer Maternal Uncle Relation Status Comments Maternal Aunt Maternal Uncle Social History Tobacco Use Types Packs/Day Years Used Date Smoking Tobacco: Former Cigarettes 0 05/26/1980 - 05/26/1995 Smokeless Tobacco: Never Alcohol Use Standard Drinks/Week Comments Yes 0 (1 standard drink = 0.6 oz pur e alcohol) occasional Sex and Gender Information Value Date Recorded Sex Assigned at Not on file Gender Identity Not on file Sexual Orientation Not on file Last Filed Vital Signs Vital Sign Reading Time Taken Comments Blood Pressure 139/74 05/26/2015 2:41 PM EST Pulse 56 05/26/2015 2:41 PM EST Temperature 37.2 ??C (99 ??F) 03/02/2015 2:50 PM EST Respiratory Rate 18 03/02/2015 2:50 PM EST Oxygen Saturation 95% 03/02/2015 2:50 PM EST Inhaled Oxygen Concentration - - Weight 107.5 kg (237 lb) 05/26/2015 2:41 PM EST verbal Height 180.3 cm (5' 11) 05/26/2015 2:41 PM EST verbal Body Mass Index 33.05 05/26/2015 2:41 PM EST Plan of Treatment Health Maintenance Due Date Last Done Comments CT Colonography 1954 Colonoscopy 1954 Colorectal Cancer Screening 1954 FIT DNA 1954 FIT 1954 Sigmoidoscopy (10 year) with FIT yearly 1954 Sigmoidoscopy 1954 Hepatitis C Screening 1972 Tdap adult 1973 Tetanus vaccine 1973 Zoster vaccine (1 of 2) 2004 Advance Directive 2009 AAA Screen 2019 Pneumoccocal Vaccine: 65+ (1 of 1 - PCV) 2019 Covid-19 Vaccine (1 - 2022- season) 2022 Influenza (Flu) vaccine (1 o f 1 - Influenza standard series) 12/30/2023 Advance Directives * Full Code (Latest Code Status on File) Date Activated Date Inactivated Comments 03/02/2015 1:43 PM 03/02/2015 5:19 PM Question Answer Comments Does patient have capacity to make decision: Yes Care Teams Optometry Assistant Relationship Specialty Start Date End Date Mauro Berger MD [address] [place], [place] [id number] PCP - General 06/07/11
--- OUTSIDE RECORDS SUMMARY | 2023-11-19 11:24 | XMS_ITS | Encounter Summary ---
Author Organization Formerly [facility] Address [facility] [place] [address] Care Team Providers Care Pantry Attendant Name Role Phone Mauro Berger MD Primary Care Provider [phone] Encounter Details Date Type Department Care Team (Latest Contact Info) Description 05/26/2015 1:35 PM EST - 05/26/2015 11:59 PM [facility] Hospital Encounter XRay at [address] [place] [address] Shaheen Diaz MD [facility] [place] [address] Carpal tunnel syndrome on left Discharge Disposition: Home Social History Tobacco Use Types Packs/Day Years [...] on file documented as of this encounter Medications at Time of Discharge Medication Sig Dispensed Refills Start Date End Date b complex vitamins Capsule Take 1 capsule by mouth daily. fish oil-omega-3 fatty acids 1,000 mg Capsule Take 2 g by mouth daily. enalapril (VASOTEC) 20 mg Tablet Take 20 mg by mouth daily. omeprazole (PRILOSEC) 20 mg Capsule, Delayed Release(E.C.) Take 20 mg by mouth daily. nitroGLYcerin (NITROSTAT) 0.4 mg Tablet, Sublingual Place 0.4 mg under the tongue every 5 minutes as needed for Chest pain. furosemide (LASIX) 40 mg Tablet Take 40 mg by mouth daily. insulin detemir (LEVEMIR) Solution Inject subcutaneously nightly. meTOPROLOL succinate (TOPROL-XL) 100 mg Tablet Sustained Release 24 hr Take 100 mg by mouth daily. metFORMIN (GLUCOPHAGE) 500 mg Tablet Take 500 mg by mouth 2 times daily. Ketone Blood Test Strip by Mis.(Non-Drug; Combo Route) route. Insulin [place], Disposable, 29 gauge X 1/2 Needle by Misc.(Non-Drug; Combo Route) route. Lancets Misc by Mis.(Non-Drug; Combo Route) route. FOLIC ACID/MV,FE,OTHER MIN (CENTRUM ORAL) Take 1 tablet by mouth daily. aspirin 81 mg Tablet, Delayed Release (E.C.) Take 81 mg by mouth daily. atorvastatin (LIPITOR) 40 mg tablet Take 40 mg by mouth daily. citalopram (CELEXA) 10 mg tablet Take 10 mg by mouth daily. NPH, HUMAN INSULIN ISOPHANE (NOVOLIN N SUBQ) Inject subcutaneously. guanFACINE 2 mg Tablet Sustained Release 24 hr Take 2 mg by mouth nightly. 04/03/2017 DILTiazem (CARDIZEM CD) 360 mg Capsule, Sust. Release 24 hr Take 360 mg by mouth daily. 04/03/2017 metolazone (ZAROXOLYN) 2.5 mg Tablet Take 2.5 mg by mouth twice a week. 10/11/2017 documented as of this encounter Plan of Treatment Not on file documented as of this encounter Procedures Procedure Name Priority Date/Time Associated Diagnosis Comments XR WRIST 3 VIEWS LEFT Routine 05/26/2015 1:48 PM EST Carpal tunnel syndrome on left documented in this encounter Results * XR wrist complete minimum 3 views Left (GENERIC) (05/26/2015 1:48 PM EST) Anatomical Region Laterality Modality Left Digital Radiogra phy Impressions 05/26/2015 3:28 PM EST IMPRESSION: 1. ??No acute osseous abnormality. 2. 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 3. ??Dorsal soft tissue swelling. Narrative 05/26/2015 3:28 PM EST EXAMINATION: XR WRIST COMPLETE MINIMUM 3 VIEWS LEFT CLINICAL HISTORY: ??L CTS TECHNIQUE: PA, lateral, and oblique radiographs of the left wrist. COMPARISON: None. FINDINGS: Soft tissue swelling noted overlying the dorsum of the wrist. No soft tissue calcifications seen. Normal bone mineralization. Osseous structures are intact and in normal alignment aside for minimal negative ulnar variance. Mild degenerative changes at the basal and triscaphe the joints largely characterized by osteophyte formation. No erosive changes appreciated. Procedure Note Cordelia Gray MD - 05/26/2015 EXAMINATION: XR WRIST COMPLETE MINIMUM 3 VIEWS LEFT CLINICAL HISTORY: L CTS TECHNIQUE: PA, lateral, and oblique radiographs of the left wrist. COMPARISON: None. FINDINGS: Soft tissue swelling noted overlying the dorsum of the wrist. No softtissue calcifications seen. Normal bone mineralization. Osseous structures areintact and in normal alignment aside for minimal negative ulnar variance. Mild degenerative changes at the basal and triscaphe the joints largelycharacterized by osteophyte formation. No erosive changes appreciated. IMPRESSION IMPRESSION: 1. No acute osseous abnormality. 2. 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 3. Dorsal soft tissue swelling. Shaheen Diaz MD IMG DX ORDERABLES documented in this encounter Visit Diagnoses Diagnosis Carpal tunnel syndrome on left Carpal tunnel syndrome documented in this encounter Care Teams Pantry Attendant Relationship Specialty Start Date End Date Mauro Berger MD [address] [place] [id number] PCP - General 06/07/11 documented as of this encounter
--- OUTSIDE RECORDS SUMMARY | 2023-11-19 11:24 | XMS_ITS | Encounter Summary ---
[place] [address] Care Team Providers Care Twitchell Operator Name Role Phone Mauro Berger MD Primary Care Provider [phone] Reason for Visit * Reason Comments Basal Cell Carcinoma Encounter Details Date Type Department Care Team (Late st Contact Info) Description 2011 3:15 PM EST Office Visit Dermatology [address] [facility] [address] [place] [address] Greg Lopez MD [address] [facility] [address] Basal cell carcinoma (Primary Dx); Squamous cell carcinoma Social History Tobacco Use Types Packs/Day Years Used Date Smoking Tobacco: Never Sex and Gender Information Value Date Recorded Sex Assigned at Not on file Gender Identity Not on file Sexual Orientation Not on file documented as of this encounter Progress Notes * Greg Lopez MD - 2011 5:28 PM EST Clinical Impression: BCCa/SCCa(s): site A right upper forehead, site B right dorsal forearm, site C left upper chest. Presurgical size of lesions: 1.2cm on site A and 2cm on sites B and C Deep Suture: site A only 4-0 vicryl Surface Suture: site A only 4-0 ethilon F/U: One week for suture removal and biopsy results. Indications for surgery, possible adverse outcomes, and activity restrictions discussed. Informed verbal consent was obtained. Skin surface was prepared with 4% Chlorhexidine and draped in the usual sterile manner. Local anesthesia with 1% Lidocaine, 1/100/000 Epinephrine and 0.1mEq/ml Bicarbonate. For sites B and C a number fifteen blade was used to create a 3mm margin circumferentially around the superficial BCCa/SCCa(s) and then a shave biopsy to the papillated dermis was undertaken and this was submitted for pathologic analysis. Then at site A, an elliptical excision was carried out utilizing 5mm margin around the central lesion. The excision was carried down to the galeal plane. Extensive undermining was performed. Layered closure performed, with specimen to pathology. Wound dressed, wound care reviewed. End length of suture line was 5cm. Follow-up in seven days for suture removal by Dr. Lopez in [facility]. Pathology Addendum per [facility] 06/27/11 : Site A : Basal Cell Carcinoma, sclerosing type, margins clear Site B : Basal Cell Carcinoma, primarily superficial type, margins clear Site C : Basal Cell Carcinoma, primarily superficial type, margins clear documented in this encounter Plan of Treatment Not on file documented as of this encounter Visit Diagnoses Diagnosis Basal cell carcinoma- Primary Basal cell carcinoma of skin, site unspecified Squamous cell carcinoma Other malignant neoplasm without specification of site documented in this encounter Care Teams Twitchell Operator Relationship Specialty Start Date End Date Mauro Berger MD [address] [place] [id number] PCP - General 06/07/11 documented as of this encounter
--- OUTSIDE RECORDS SUMMARY | 2023-11-19 11:24 | XMS_ITS | Encounter Summary ---
[place] [address] Care Team Providers Care Garbage Collector Supervisor Name Role Phone Mauro Berger MD Primary Care Provider [phone] Reason for Visit * Reason Comments Suture / Staple Removal Encounter Details Date Type Department Care Team (Late st Contact Info) Description 06/28/2011 8:45 AM EST Office Visit Dermatology [address] [facility] [address] [place] [address] Greg Lopez MD [address] [facility] [place] [address] Basal cell carcinoma (Primary Dx) Social History Tobacco Use Types Packs/Day Years Used Date Smoking Tobacco: Never Sex and Gender Information Value Date Recorded Sex Assigned at Not on file Gender Identity Not on file Sexual Orientation Not on file documented as of this encounter Progress Notes * Greg Lopez MD - 06/28/2011 9:00 AM EST Problem: Followup for suture removal and biopsy results. Demond follows up and the biopsy from his forehead did show basal cell carcinoma sclerosing type with margins clear. The site on the right dorsal forearm site B and the site C on his left upper chest were basal cell carcinomas primarily superficial types, also with margins clear. Physical examination shows good healing of site A with sites B and C still actively granulating. Assessment & Plan: BCCa(s), status post excisions, with margins clear. a. Suture removed from site A. b. Continue wound care for sites B and C. c. RTC in four months for repeat check. Copy: Mauro Berger MD documented in this encounter Plan of Treatment Not on file documented as of this encounter Visit Diagnoses Diagnosis Basal cell carcinoma- Primary Basal cell carcinoma of skin, site unspecified documented in this encounter Care Teams Garbage Collector Supervisor Relationship Specialty Start Date End Date Mauro Berger MD [address] [place] [id number] PCP - General 06/07/11 documented as of this encounter
--- OUTSIDE RECORDS SUMMARY | 2023-11-19 11:24 | XMS_ITS | Encounter Summary ---
Author Organization [facility] [place] [id number] Care Team Providers Care Fruit Culler Name Role Phone Mauro Berger MD Primary Care Provider [phone] Reason for Referral * Surgical (Routine) - Closed Specialty Diagnoses / Procedures Referred By Radha mason Referred To Contact Orthopaedics Diagnoses Bilateral carpal tunnel syndrome Morris Starr MD [facility] [place] [address] [facility] [address] [place] [address] Referral ID Status Reason Start Date Expiration Date V isits Requested Visits Authorized [id number] Closed Consult, Test & Treat 12/22/2014 12/22/2015 3 3 Encounter Details Date Type Department Care Team (Late st Contact Info) Description 12/22/2014 2:45 PM EDT Office [place] [id number] Morris Starr MD [facility] [place] [address] Bilateral carpal tunnel syndrome Discharge Disposition: Home Social History Tobacco Use Types Packs/Day Years Used Date Smoking Tobacco: Never Smokeless Tobacco: Never Alcohol Use Standard Drinks/Week Comments Yes 0 (1 standard drink = 0.6 oz pur e alcohol) occasional Sex and Gender Information Value Date Recorded Sex Assigned at Not on file Gender Identity Not on file Sexual Orientation Not on file documented as of this encounter Last Filed Vital Signs Vital Sign Reading Time Taken Comments Blood Pressure 136/68 12/22/2014 2:52 PM EDT Pulse 60 12/22/2014 2:52 PM EDT Temperature - - Respiratory Rate - - Oxygen Saturation - - Inhaled Oxygen Concentration - - Weight 105.4 kg (232 lb 6.4 oz) 12/22/2014 2:52 PM EDT Height 180.3 cm (5' 11) 12/22/2014 2:5 2 PM EDT per patient Body Mass Index 32.41 12/22/2014 2:52 PM EDT documented in this encounter Progress Notes * Morris Starr MD - 12/22/2014 3:39 PM EDT Pedro Mast is a pleasant, 59-year-old gentleman referred for consultation by Dr. Mauro Berger for evaluation of xogea-xlkmwds-mxqy-left hand paresthesias. He is felt to most likely have carpal tunnel syndrome. He describes significant numbness in his right hand in the median distribution, and to a lesser degree in the left hand. He also complains of a bump in the palm of his left hand, which is the beginnings of a Dupuytren contracture. He does have some arthritic changes in both hands. He has a history of obesity, diabetes, osteoarthritis, high blood pressure, COPD, hypercholesterolemia, and actinic keratosis. He also carries a diagnosis of coronary artery disease. His hemoglobin A1c tends to run in the 7's. 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 He drinks beer about once a week and smoked years ago but gave this up. He lives in [place], [place], with his . His family history is noncontributory. He does a minimal amount of exercise. On exam, he is a pleasant, overweight man accompanied by his . He is bright and alert with a normal mental status. Cranial nerves II-XII are intact. He has some right shoulder tenderness to palpation and passive range of motion. He has a positive Tinel over both carpal tunnels, and Phalen maneuver is positive, more on the right than the left. He has no focal weakness, nor any atrophy. Deep tendon reflexes are trace throughout. His sensory exam suggests some loss in the median distribution in the right hand consistent with entrapment of the median nerve at the level of the right carpal tunnel. His gait and stance are intact. The patient underwent some nerve conduction studies/EMG, which showed evidence of vnbtc-cirokca-nohj-left median nerve entrapment at the wrists. The patient appears to be suffering from kfpld-pbjbcvs-mjbb-left carpal tunnel syndrome. He has tried to use the wrist splints in the past and has not found them to be particularly helpful. In light of this fact, I believe seeing a hand surgeon would be reasonable to consider undergoing carpal tunnel releases. Arrangements for this will be made. I have scheduled an appointment for him with Dr. Diaz. Thank you for this consultation. documented in this encounter Plan of Treatment Scheduled Referrals Name Type Priority Associated Diagnoses Order Schedule Referral to Orthopaedics Outpatient Referral Routine Bilateral carpal tunnel syndrome Ordered: 12/22/2014 documented as of this encounter Visit Diagnoses Diagnosis Bilateral carpal tunnel syndrome Carpal tunnel syndrome documented in this encounter Care Teams Fruit Culler Relationship Specialty Start Date End Date Mauro Berger MD [address] [place] [address] PCP - General 06/07/11 documented as of this encounter
--- OUTSIDE RECORDS SUMMARY | 2023-11-19 11:24 | XMS_ITS | Encounter Summary ---
[place] [address] Care Team Providers Care Cloth Picker Name Role Phone Mauro Berger MD Primary Care Provider + [phone] Encounter Details Date Type Department Care Team (Late st Contact Info) Description 11/23/2005 [place] [id number] Niraj Plascencia MD [address] [place] [id number] Social History Tobacco Use Types Packs/Day Years Used Date Smoking Tobacco: Never Assessed Sex and Gender Information Value Date Recorded Sex Assigned at Not on file Gender Identity Not on file Sexual Orientation Not on file documented as of this encounter Plan of Treatment Not on file documented as of this encounter Procedures Procedure Name Priority Date/Time Associated Diagnosis Comments SURGICAL PATHOLOGY REPORT Routine 11/23/2005 8:50 PM EDT documented in this encounter Results * Surgical Pathology Report (11/23/2005 8:50 PM EDT) Surgical Pathology Report [id number] ? Location: The signing pathologist has (i) examined the relevant preparation(s) for the specimen(s) and (ii) rendered or confirmed the diagnosis(es). . ?Pathology Surgical Pathology Final Report Clinical Information Specimen Submitted: A - Dorsum (L) hand Clinical History: [place] papule Clinical Diagnosis: Hypertrophic AK vs SCC IS DHC So. Med Rec #: ? [id number] Gross Description Labeled/Fixativ e: ? Labeled with the patient's name, formalin. Qty/Size/Weight : ?Single shave, 0.9 cm, ramon with a 0.8 x 0.7-cm ?ramon-white papule. Sections/Proces sing: ??Trisected. ??(T1) ??eulogio/SNS Microscopic Description Slides reviewed, microscopic description not recorded. Diagnosis Skin, left dorsal hand, shave biopsy: ?? Invasive squamous cell carcinoma, close to the deep edge of the biopsy ?? specimen. CR-0 11/24/05 [facility] 11/24/05 Verified by: ? Sravani Diaz MD, PhD ?Pathologist ?(Electronic Signature) The attending pathologist whose signature appears on this report has reviewed all diagnostic slides and has edited the gross and/or microscopic portion of the report in rendering the final pathologic diagnosis. HELEN CRUZ 11/23/2005 8:50 PM EDT Niraj Plascencia MD PATHOLOGY/CYTOLOGY O RDERABLES Performing Organization Address City/State/[facility] Co ut Phone Number HELEN CRUZ documented in this encounter Visit Diagnoses Not on filedocumented in this encounter Care Teams Cloth Picker Relationship Specialty Start Date End Date Mauro Berger MD [address] [place] [address] PCP - General 06/07/11 documented as of this encounter
--- OUTSIDE RECORDS SUMMARY | 2023-11-19 11:24 | XMS_ITS | Encounter Summary ---
[place] [address] Care Team Providers Care Customer Operations Manager Name Role Phone Mauro Berger MD Primary Care Provider [phone] Reason for Visit * Reason Comments Follow-up Skin Check * Consultation (Routine) - Specialty Diagnoses / Procedures Referred By Contliberty t Referred To Contact Dermatology Diagnoses Disorder of the skin and subcutaneous tissue, unspecified BCC/SCC Procedures Consult Mauro Berger MD [address] [place] [address] Greg Lopez MD [address] [place] [address] [place] [address] Referral ID Status Reason Start Date Expiration Date V isits Requested Visits Authorized [id number] 03/06/2019 03/05/2020 1 1 Encounter Details Date Type Department Care Team (Late st Contact Info) Description 11/13/2019 1:45 PM EDT Office Visit Dermatology at [address] [phone] Greg Lopez MD [address] [place] [address] [place] [address] History of basal cell carcinoma; History of SCC (squamous cell carcinoma) of skin; AK (actinic keratosis) Social History Tobacco Use Types Packs/Day Years [...] Progress Notes * Greg Lopez MD - 11/13/2019 1:45 PM EDT Problem: 1. History of BCCAs x 3 right upper chest, right lower chest, and right elbow February 2019 2. ??Follow-up BCCA left adventism and left inferior postauricular scalp 04/2017 3. ??History of BCCA left adventism and left upper back excised 01/2012 4. ??History BCC left upper forehead left upper chest right was performed, 05/2011 5. 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 Status post course 10-day course of 5-FU to face April 2019 Demond follows up and is here for 6-month check. Is concerned about area on the right upper chest wedid a BCCA's shave C&D in April and since has a sore lump there now. Physical examination reveals a very sensitive hypertrophic scar but this might represent recurrent BCCA on the right upper chest. He continues to have extensive solar damage with some new actinic's on the upper chest back and shoulders and a couple other adventism. However the facial area involvement is much much improved following the 10-day 5-FU course. Assessment and plan: Actinic keratoses facial torso and hands 1. LN2 x2 applied each of 6 sites 2. Return to clinic in 6 months for recheck Rule out recurrent BCCA right upper chest 1. Today site was anesthetized and a 4 mm punch biopsy obtained and submitted pathologic analysis. 2. Closure with 4-0 Ethilon suture 3. Return to clinic here in 2 weeks for suture moving by results. 4. We will notify patient of biopsy results in 1 week CC: Mauro Berger MD ?? documented in this encounter Plan of Treatment Not on file documented as of this encounter Visit Diagnoses Diagnosis History of basal cell carcinoma Personal history of other malignant neoplasm of skin History of SCC (squamous cell carcinoma) of skin Personal history of other malignant neoplasm of skin AK (actinic keratosis) Actinic keratosis documented in this encounter Care Teams Customer Operations Manager Relationship Specialty Start Date End Date Mauro Berger MD [address] [place] [address] PCP - General 06/07/11 documented as of this encounter
--- OUTSIDE RECORDS SUMMARY | 2023-11-19 11:24 | XMS_ITS | Encounter Summary ---
Author Organization [facility] Address [facility] [place] [address] Care Team Providers Care Waiter Name Role Phone Mauro Berger MD Primary Care Provider [phone] Reason for Visit * Reason Comments Left Hand Pain WC DOI 02/15/15 Encounter Details Date Type Department Care Team (Late st Contact Info) Description 05/26/2015 2:30 PM EST Office [place] [address] Shaheen Diaz MD [facility] [place] [address] Bilateral carpal tunnel syndrome; Trigger finger, left ring finger; Dupuytren's disease of palm Social History Tobacco Use Types Packs/Day Years [...] Pulse 56 05/26/2015 2:41 PM EST Temperature - - Respiratory Rate - - Oxygen Saturation - - Inhaled Oxygen Concentration - - Weight 107.5 kg (237 lb) 05/26/2015 2:41 PM EST verbal Height 180.3 cm (5' 11) 05/26/2015 2:41 PM EST verbal Body Mass Index 33.05 05/26/2015 2:41 PM EST documented in this encounter Progress Notes * Vivian Tabares, CHRISTINA - 05/26/2015 3:19 PM EST This 59-year-old comes in today for followup of bilateral carpal tunnel syndrome, right worse than left. He is status post right carpal tunnel release, 03/02/2015, Dr. Diaz, and that is doing well. The patient notes he is no longer is having any numbness or tingling or sensation of his left hand falling asleep either, but he has had pain in the palm of his left hand in the area of the MP joints of the ring finger especially. He notes that he has clicking, catching, and at times locking of the ring finger. There has been no re-injury. He has not tried any treatment for this. The patient's right hand continues to do well post carpal tunnel release. PHYSICAL EXAMINATION: Examination today of his left hand shows mild stiffness with flexion. He admits to normal sensation in all fingers. He has negative Tinel's, Phalen's, and Durkan's compression at the left wrist. He has mild Dupuytren's pretendinous cord right of the ring finger. He also has tenderness in the A1 marielena area. There is mild clicking with flexion and extension. No catching or locking on exam today though. DIAGNOSTIC DATA: X-rays taken of left hand were within normal limits. It does not include the fingers for me to be able to assess for IP joint osteoarthritis. IMPRESSION: 1. Bilateral carpal tunnel syndrome, Workmen[employer] Compensation 02/15/2015, status post right endoscopic carpal tunnel release, 03/02/2015, doing well; left hand has positive EMG, but is currently asymptomatic. 2. Left ring trigger finger. 3. Mild Dupuytren's disease, left palm. TREATMENT: The nature of his palm pain was discussed with him. We discussed that though he had a positive electrical studies in fact he is asymptomatic at this time, I would recommend observation. For the ring finger, we discussed splinting versus cortisone injection versus surgical release. The patient would like to try splinting first at his first at this time, we will try Coban. For the Dupuytren's, he was advised that this is not generally a painful condition but at times patients do note discomfort if it is worsening contracture and this may be the case with some of his palm pain. Regarding the stiffness in his hand, it is likely due to some underlying osteoarthritis. He was advised as it was not due to the carpal tunnel syndrome. He and his were comfortable with this. We tentatively arranged for followup in six weeks if he is still having pain or catching or locking of the finger. If he is doing well, he may call and cancel and if at any point his symptoms of numbness and tingling in the left hand return, I would advice to undergo decompression of the median nerve at that time. documented in this encounter Plan of Treatment Not on file documented as of this encounter Visit Diagnoses Diagnosis Bilateral carpal tunnel syndrome Carpal tunnel syndrome Trigger finger, left ring finger Dupuytren's disease of palm Contracture of palmar fascia documented in this encounter Care Teams Waiter Relationship Specialty Start Date End Date Mauro Berger MD [address] [place] [id number] PCP - General 06/07/11 documented as of this encounter
--- OUTSIDE RECORDS SUMMARY | 2023-11-19 11:24 | XMS_ITS | Encounter Summary ---
Author Organization [facility] [place] [address] Care Team Providers Care Controller Mechanic Name Role Phone Mauro Berger MD Primary Care Provider [phone] Reason for Referral * Surgical (Routine) - Closed Specialty Diagnoses / Procedures Referred By Radha mason Referred To Contact Orthopaedics Diagnoses Carpal tunnel syndrome of right wrist Procedures ARTHROSCOPY WRIST W/ RELEASE TRANSVERSE CARPAL LIGAMENT Rhea Rojas PA [facility] [place] [address] [facility] [address] [place] [phone] Referral ID Status Reason Start Date Expiration Date V isits Requested Visits Authorized [id number] Closed Specialty Service Requested 02/15/2015 02/15/2016 1 1 Reason for Visit * Reason Comments Bilateral Hand Pain Encounter Details Date Type Department Care Team (Late st Contact Info) Description 02/15/2015 1:40 PM EDT Office [place] [phone] Shaheen Diaz MD [facility] [place] [address] Carpal tunnel syndrome of right wrist Social History Tobacco Use Types Packs/Day Years [...] Sign Reading Time Taken Comments Blood Pressure 132/68 02/15/2015 1:35 PM EDT Pulse 64 02/15/2015 1:35 PM EDT Temperature - - Respiratory Rate - - Oxygen Saturation - - Inhaled Oxygen Concentration - - Weight 106.1 kg (234 lb) 02/15/2015 1:35 PM EDT stated Height 180.3 cm (5' 11) 02/15/2015 1:35 PM EDT stated Body Mass Index 32.64 02/15/2015 1:35 PM EDT documented in this encounter Progress Notes * Shannon Flanagan RN - 02/15/2015 2:46 PM EDT Pre op teaching done for right endoscopic carpal tunnel release. Emphasis placed on post op hand elevation with hand above heart,fingers above palm,palm above wrist and wrist above elbow. Discussed importance of fluttering fingers while original dressing on and fully flexing and extending fingers when Band-Aid in place. Stressed no lifting of operative hand. Reviewed suggestions for taking post op pain medication. Questions solicited and answered to patient satisfaction. Written material provided. Patient knows to call with any additional questions or concerns. * Rhea Rojas PA - 02/15/2015 2:17 PM EDT PATIENT NAME: Perdo Mast AGE: 59 y.o. MR#: [id number] DATE OF VISIT: 02/15/2015 DATE OF INJURY/ONSET: Summer 2014 STAFF: Dr. Diaz CHIEF COMPLAINT: R>L hand numbness HISTORY OF PRESENT ILLNESS: Mr. Mast is a right hand dominant 59 y.o. male who comes into clinic today for evaluation of the bilateral hands. He was referred to [facility] by Mauro Berger. He initially noticed his symptoms over the summer. He denies having any history of trauma or fractures. He finds that he has tingling into his fingertips on the right. His symptoms primarily occur in the median nerve distribution. He states that he has noticed some improvement since his neurology visit. He has a history of insulin-dependent diabetes. He denies having any history of thyroid disease.He finds that his hand numbness is worse at bedtime and with driving. 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 He is unaware of any familyhistory of Dupuytren's disease. He is of [place] descent. He has not had any prior hand surgeries.He has tried splinting in the past with no significant improvement. Medications and Allergies were reviewed in eD-[facility] PAST MEDICAL HX: Past Medical History Diagnosis Date ??? Diabetes ??? Obesity ??? Osteoarthritis ??? Hypertension ??? COPD (chronic obstructive pulmonary disease) ??? Hyperlipidemia ??? Actinic keratosis ??? CAD (coronary artery disease) PAST SURGICAL HX: History reviewed. No pertinent past surgical history. SOCIAL HX: Social History Occupational History ??? [employer] Social History Main Topics ??? Smoking status: Never Smoker ??? Smokeless tobacco: Never Used ??? Alcohol Use: Yes Comment: occasional ??? Drug Use: No ??? Sexual Activity: Not on file Comment: deferred ROS: Constitutional: neg HEENT: neg Cardiac: neg Pulmonary: neg GI/: neg Endocrine: diabetes Skin: negMusculoskeletal: see HPI PHYSICAL EXAM: Mr. Mast is a 59 y.o. male who is alert and oriented. He appears in no acute discomfort and is resting comfortably in the exam room. Inspection: No erythema, ecchymosis, or swelling. Palpation: No triggering over the A1 pulleys. He has some palpable nodules over both palms, more onthe left than right consistent with early Dupuytren's disease. There are no significant contractures or cords. He finds the nodules to the mildly uncomfortable. He has some stiffness in the fingers with range of motion, but no triggering. ROM/Strength: Wrist and finger range of motion remains intact in all planes. No significant intrinsic atrophy is noted. He states that he occasionally has some shoulder pain, but is able to reach overhead and has 5/5 rotator cuff strength in all planes. Orthopedic testing: Positive Tinel's over the right carpal tunnel, negative on the left. Negative Phalen's and Bruna's compression on the left, positive on the right. Negative Spurling's. Negative Tinel's over the cubital tunnel bilaterally. Neurovascular: At baseline he reports tingling into the median nerve distribution on the right. Hissymptoms are worsened during testing. His left hand is asymptomatic today. Hands are well perfused. RADIOLOGICAL STUDIES: No x-rays were obtained. He has a right median motor nerve latency of 7.3 ms and a left median motor nerve latency of 5.1 ms. He has absent median sensory latencies on the right. He also has some changes in the ulnar motor function suggestive of a peripheral neuropathy relatedto his diabetes ASSESSMENT: Symptomatic right carpal tunnel syndrome PLAN: Mr. Mast and I discussed his radiologic findings and physical exam findings. Dr. Cadena evaluated and spoke with the patient at today's visit. We discussed options for carpal tunnel syndrome to include splinting, cortisone injection, and surgical decompression. He would like to proceed with surgery. Consent was obtained after discussing surgical risks. We also briefly discussed options for Dupuytren's, but at this point we will watch this since he only has nodules without contracture. We discussed that the pain at the onset of the disease typically improves with time. He willreturn for follow up 10-14 days postop. At this point we will monitor the symptoms on the left and if he develops worsening hand sensation that we could consider carpal tunnel release on this side. The patient understands to contact us if they have any other questions or concerns. The above documentation was completed using [employer] voice recognition software. * Shaheen Diaz MD - 02/15/2015 2:15 PM EDT I saw Pedro Mast in conjunction with CHRISTINA Scott. He has EMG-proven bilateral carpal tunnel syndrome, right worse than left. I examined him in conjunction with Rhea Rojas today. He has no obvious trigger digits. There is no significant thenar atrophy. He is hypesthetic in the median nerve distribution digits. He does have Dupuytren's disease in both hands, but no significant contracture. He was offered the options of carpal tunnel decompression versus carpal tunnel steroid injection. He has opted to proceed with carpal tunnel decompression. He is aware I would likely do this endoscopically, although an open procedure may need to be done. He is aware that with surgery, there are potential risks, which include, but are not limited to infection, neurovascular or tendon injury, incomplete or no relief of neurogenic symptoms, pillar pain, ground water contractor weakness, and recurrence of carpal tunnel syndrome. He understands and wishes to proceed with right carpal tunnel decompression. We will schedule this to be done in the near future. documented in this encounter Plan of Treatment Not on file documented as of this encounter Procedures Procedure Name Priority Date/Time Associated Diagnosis Comments ARTHROSCOPY WRIST W/ RELEASE TRANSVERSE CARPAL LIGAMENT Routine 02/15/2015 2:01 PM EDT Carpal tunnel syndrome of right wrist documented in this encounter Visit Diagnoses Diagnosis Carpal tunnel syndrome of right wrist Carpal tunnel syndrome documented in this encounter Care Teams Controller Mechanic Relationship Specialty Start Date End Date Mauro Berger MD [address] [place] [id number] PCP - General 06/07/11 documented as of this encounter
--- OUTSIDE RECORDS SUMMARY | 2023-11-19 11:24 | XMS_ITS | Encounter Summary ---
Author Organization [facility] Address [address] [place] [address] Care Team Providers Care Chest Pain Coordinator Name Role Phone Unavailable Primary Care Provider Unavailabl e Encounter Details Date Type Department Care Team (Late st Contact Info) Description 03/20/2008 Before PRISM Converted Visit (Maple) [facility] - [facility] conversion [address] [place] [address] Mauro Berger MD [address] [place], [place] [id number] Social History Tobacco Use Types Packs/Day Years Used Date Smoking Tobacco: Never Assessed Sex and Gender Information Value Date Recorded Sex Assigned at Not on file Gender Identity Not on file Sexual Orientation Not on file documented as of this encounter Plan of Treatment Not on file documented as of this encounter Procedures Procedure Name Priority Date/Time Associated Diagnosis Comments SURGICAL PATHOLOGY Routine 03/20/2008 0:00 EST documented in this encounter Results * SURGICAL PATHOLOGY (03/20/2008 0:00 EST) Pathology Report: SURGICAL PATHOLOGY REPORT ? Reports generated via electronic interface contain original data; ? however they are lacking the format of the original report. ? Caution should be taken when reading/interpreti ng unformatted reports. ? Name: ? PEDRO SHAH ? Accession #: ? [id number] ? : ? 1955 (Age: 52) ??M ? Collect Date: ? 03/20/2008 ? Location: ? [facility] ? Receive Date: ? 03/21/2008 ? Provider: MAURO BERGER MD ? Copy to: ? Final Pathologic Diagnosis: ? Skin of chest, left, excision: ? 1. ?Basal cell carcinoma, superficial and nodular types. See comment. ? - Margins of excision negative, but close, for basal cell carcinoma. ? - Basal cell carcinoma measures approximately 0.1 mm from the nearest ? peripheral margin. ? 2. ?Actinic keratosis, incidental. ? Comment: ? These results were phoned to Dr. Berger on /25/08. ? Document reviewed and electronically signed by: ? Shelby Ulloa MD ? Report ??Date: 03/24/2008 14:14 ? By the signature above, the attending physician certifies that he/she has ? personally conducted a gross and/or microscopic examination of the described ? specimens and rendered or confirmed the above diagnosis. ? Specimen(s) Received: ? L chest ? Clinical History: ? Non-healing raised lesion; R/O basal cell, squamous cell, Macias's ? Gross Description: ? Received in formalin labelled Shah and left chest lesion is an ? unoriented elliptical excision of skin which measures 1.2 x 0.7 cm and is ? excised to a depth of 0.2 cm. ??The cutaneous surface has a ramon-white and ? centrally ulcerated plaque. ??The specimen is inked, serially sectioned, and is ?? entirely submitted as (A1) distal tips reverse en face, (A2) central sections. ?? (Dr. Batista)/[facility] ? End of Report ? CORTES FRAGA 03/20/2008 03/21/2008 10: 07 EST Mauro Berger MD PATHOLOGY ORDERABLES CORTES FRAGA [address] [place] [address] documented in this encounter Visit Diagnoses Not on filedocumented in this encounter
--- OUTSIDE RECORDS SUMMARY | 2023-11-19 11:24 | XMS_ITS | Encounter Summary ---
Author Organization [facility] [place] [address] Care Team Providers Care Balance Bridge Inspector Name Role Phone Mauro Berger MD Primary Care Provider [phone] Encounter Details Date Type Department Care Team (Late st Contact Info) Description 12/23/2014 External [place] [address] Morris Starr MD [facility] [place] [address] Social History Tobacco Use Types Packs/Day Years [...] Procedure Name Priority Date/Time Associated Diagnosis Comments EMG SCAN Routine 12/22/2014 documented in this encounter Results * Scan Doc: EMG (12/22/2014) Morris Starr MD MEDIA MGR SCAN EXT O RDR/RSLT documented in this encounter Visit Diagnoses Not on filedocumented in this encounter Care Teams Balance Bridge Inspector Relationship Specialty Start Date End Date Mauro Berger MD [address] [place] [address] PCP - General 06/07/11 documented as of this encounter
--- OUTSIDE RECORDS SUMMARY | 2023-11-19 11:24 | XMS_ITS | Encounter Summary ---
Author Organization [facility] [place] [address] Care Team Providers Care Planner Chief Name Role Phone Mauro Berger MD Primary Care Provider [phone] Reason for Visit * Reason Comments Follow-up Skin Check Encounter Details Date Type Department Care Team (Late st Contact Info) Description 10/11/2017 8:45 AM EDT Office Visit Dermatology at [address] [phone] Greg Lopez MD [address] [facility] [place] [address] History of basal cell carcinoma; History of [...] Progress Notes * Greg Lopez MD - 10/11/2017 8:45 AM EDT Problem: 1. 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 History of BCCA left moravian and left upper back excised 01/2012 3. History BCC left upper forehead left upper chest right was performed, 05/2011 Demond follows up and is here for a 6 month check. He states that the biopsy sites healed well from his last visit and he has not noted any new lesions of concern. 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 He has however no evidence of any new malignancies. The treated sites from his last visit have healed well. He has 2 actinic's on the presternal chest and one on the left upper back. Assessment and plan: Actinic keratoses 3 sites on torso 1. LN 2 x 2 platelets of 3 sites 2. Post L2 instructions given 3. Return to clinic or as needed History of multiple nonmelanoma cutaneous malignancies 1. Recommend that the patient be seen on a as needed basis. I be happy see him back at his request at the request of Dr. Berger for any new lesions of concern. CC: Mauro Berger MD documented in this encounter Plan of Treatment Not on file documented as of this encounter Visit Diagnoses Diagnosis History of basal cell carcinoma Personal history of other malignant neoplasm of skin History of SCC (squamous cell carcinoma) of skin Personal history of other malignant neoplasm of skin AK (actinic keratosis) Actinic keratosis documented in this encounter Care Teams Planner Chief Relationship Specialty Start Date End Date Mauro Berger MD [address] [place] [address] PCP - General 06/07/11 documented as of this encounter
--- OUTSIDE RECORDS SUMMARY | 2023-11-19 11:24 | XMS_ITS | Encounter Summary ---
[place] [address] Care Team Providers Care Travel Physical Therapist Name Role Phone Mauro Berger MD Primary Care Provider [phone] Reason for Visit * Reason Comments Suture / Staple Removal Encounter Details Date Type Department Care Team (Late st Contact Info) Description 03/01/2012 3:45 PM EDT Office Visit Dermatology [address] [facility] [address] [place] [address] Greg Lopez MD [address] [facility] [place] [address] Visit for suture removal (Primary Dx) Social History Tobacco Use Types Packs/Day Years Used Date Smoking Tobacco: Never Sex and Gender Information Value Date Recorded Sex Assigned at Not on file Gender Identity Not on file Sexual Orientation Not on file documented as of this encounter Progress Notes * Greg Lopez MD - 03/01/2012 5:55 PM EDT Problem: Follow up for suture removal and biopsy results. Pedro follows up today for suture removal of the left upper back. Physical examination shows good healing of what turned out to be a BCCA with deep margins close but appearing clear. Assessment and Plan: Status post excision of BCCA, left upper back. a. Sutures removed. b. Excellent wound healing. c. May discontinue wound care instructions. d. Return to clinic in six months for repeat check. Discussed the importance of closely monitoring both this site and his skin in general for the foreseeable future. Copy: Mauro Berger M.D. documented in this encounter Plan of Treatment Not on file documented as of this encounter Visit Diagnoses Diagnosis Visit for suture removal- Primary Encounter for removal of sutures documented in this encounter Care Teams Travel Physical Therapist Relationship Specialty Start Date End Date Mauro Berger MD [address] [place] [address] PCP - General 06/07/11 documented as of this encounter
--- OUTSIDE RECORDS SUMMARY | 2023-11-19 11:24 | XMS_ITS | Encounter Summary ---
Author Organization [facility] Address [facility] [place] [address] Care Team Providers Care Cfo Controller Name Role Phone Mauro Berger MD Primary Care Provider [phone] Reason for Visit * Auth/Cert Specialty Diagnoses / Procedures Referred By Radha t Referred To Contact Diagnoses Right carpal tunnel syndrome Procedures PRO WRIST ARTHROSCOP, RELEASE XVERS LIG ENDOSCOPY WRIST W/ RELEASE TRANSVERSE CARPAL LIGAMENT Referral ID Status Reason Start Date Expiration Date Visits Re quested Visits Authorized [id number] 1 1 Encounter Details Date Type Department Care Team (Late st Contact Info) Description 03/02/2015 2:30 PM EST - 03/02/2015 3:00 PM EST Surgery [facility] [place] [id number] Ching Diaz MD [facility] [place] [address] ENDOSCOPY WRIST W/ RELEASE TRANSVERSE CARPAL LIGAMENT (WRVU 6.39) Social History Tobacco Use Types Packs/Day Years [...] Sign Reading Time Taken Comments Blood Pressure 155/80 03/02/2015 2:50 PM EST Pulse 59 03/02/2015 2:50 PM EST Temperature 37.2 ??C (99 ??F) 03/02/2015 2:50 PM EST Respiratory Rate 18 03/02/2015 2:50 PM EST Oxygen Saturation 95% 03/02/2015 2:50 PM EST Inhaled Oxygen Concentration - - Weight 106.1 kg (234 lb) 03/02/2015 1:23 PM EST Height 180.3 cm (5' 10.98) 03/02/2015 1:[address] Body Mass Index 32.65 03/02/2015 1:23 PM EST documented in this encounter Discharge Instructions * Discharge Instructions* Lee Ann Shankar RN - 03/02/2015 1:14 PM EST Moderate Sedation You may have received medication before and/or during your procedure, which affects your judgement and reaction time. Do not drive, operate machinery, drink alcoholic beverages, or make any legal decisions for 24 hours. Be careful on stairs, as you may be unsteady on your feet. You may eat a regular diet as tolerated. Do not smoke if you are alone. IV site -- slight redness, or tenderness is normal, you can use a warm compress. If tenderness and redness increases or foul drainage occurs, please contact your M. D. Questions or problems after 5pm or on a weekend: Call the [facility] combiner operator and ask for the physician stationary engineer apprentice covering for your doctor. * Patient Instructions* Pipo Snider MD - 03/02/2015 1:34 PM EST Orthopaedic Hand Surgery Same Day Discharge Instructions: General Activities ?? Diet: Start light and progress as tolerated. No alcoholic beverages on the day of surgery or while taking narcotics. If taking narcotics, make sure you are getting plenty of fluids and fiber. ?? In general, care should be taken the first several days following surgery to limit strenuous activity. You want to avoid any activities that you may lose your balance, slip, trip, fall or re-injure your surgery. ?? You may shower tomorrow. Cover your dressing/cast with a plastic bag to keep it dry. ?? No driving while taking narcotic medications or wearing a device (splint, cast, sling, brace) that limits joint mobility. When you feel you can safely control your vehicle and respond to unpredictable situations you may resume driving. Hand Use ?? Decreased sensation for several hours following surgery is often from the local anesthesia used during the procedure. This will resolve on its own. ?? If a regional anesthetic was used, wear your sling until you regain full function of your limb, and keep a close eye on the positioning of your arm and hand. When you have regained function and sensation you may then remove the sling. ?? Do not use your operative hand for any lifting, pushing or pulling. You may move your elbow and shoulder as tolerated. ?? Gentle exercises with any exposed fingers are encouraged and gently opening and closing the digits will keep the joints flexible. Specific activities and exercises will be discussed at your first postoperative visit. Ice and elevation ?? Some swelling is expected after surgery. Ice and elevation are the best remedies to reduce swelling and pain. Keep your hand properly elevated above the level of the heart i.e., fingers above palm, palm above the wrist, wrist above the elbow. Use pillows to increase elevation. ?? Intermittently apply ice to the outside of the dressing for 20 minutes 6-8 times a day. You will want to ice and elevate for 5-7 days after surgery or as long as it hurts. ?? Do not rely on a sling as it does not sufficiently elevate your hand. For proper elevation whilewalking around place your surgical hand on your opposite shoulder. Dressing/ Wound: ?? The post-op dressing, splint or cast is a very important part of your treatment. If you have anyquestions please call us for clarification. If your dressing becomes wet or damaged please call theoffice. ?? No creams, lotions or ointments on your incision. Keep steri-strips in place. They will fall offon their own Keep your dressing on and dry for 48 hours then you may remove. Cover your suture/incision with a Band-Aid and change as needed. Keep your incision clean and dry until follow-up appointment. Pain Management ?? Most patients only require narcotics for a short period of time. Ice and elevation is an effective and important modality to use in conjunction with your oral pain medication. In a day or two you may be ready to start decreasing the amount of pain medication your taking. Pain medication is to betaken on an ???as needed?if needed?? basis. Remember to start with the least amount and evaluate its effectiveness. ?? You should not drink alcoholic beverages while on pain medication. ?? If tolerated, please take Tylenol three times a day in conjunction with the narcotic as they complement each other. Once pain is better controlled, you may simply take extra strength Tylenol, one to two tablets every six hours as needed. Do not exceed 3,000 mg in 24 hours. ?? The most common side effects of narcotic pain medications are nausea and constipation. To decrease nausea always take pain medication with food. If you are experiencing vomiting, please call us right away. To minimize constipation, drink plenty of fluids, eat a high fiber diet with plenty of fruits and vegetables, and take a stool softener or laxative as needed. You may take an anti-inflammatory medication such as Ibuprofen/Advil/Motrin or Naproxen/Aleve. Refer to the medication bottles for daily allowance and dosing. Discontinue if it causes stomach upset. Contact Information: During clinic hours M-F 8-4:30 please call [phone] If it is after 5:00PM on a weekday or a weekend and it is of an urgent nature please call [phone] and ask for the on-call orthopaedic resident. Call if: 1. You have a fever greater than 101 F or experience chills 2. Increased drainage from incision 3. Redness or extreme swelling around incision 4. Increased pain or change in pain that is not controlled with elevation, ice and your pain medication. 5. Any questions concerns related to surgery documented in this encounter Medications at Time of Discharge Medication Sig Dispensed Refills Start Date End Date enalapril (VASOTEC) 20 mg Tablet Take 20 [...] times daily. Ketone Blood Test Strip by [facility]Non-Drug; Combo Route) route. Insulin [place], Disposable, 29 gauge X 1/2 Needle by [facility]Non-Drug; Combo Route) route. Lancets Misc by [facility].(Non-Drug; Combo Route) route. FOLIC ACID/MV,FE,OTHER MIN (CENTRUM ORAL) Take 1 tablet by mouth daily. aspirin 81 mg Tablet, Delayed Release (E.C.) Take 81 mg by mouth daily. atorvastatin (LIPITOR) 40 mg tablet Take 40 mg by mouth daily. citalopram (CELEXA) 10 mg tablet Take 10 mg by mouth daily. NPH, HUMAN INSULIN ISOPHANE (NOVOLIN N SUBQ) Inject subcutaneously. oxyCODONE (ROXICODONE) 5 mg Tablet Take 1 tablet by mouth every 4 hours as needed. 15 tablet 0 03/02/2015 03/15/2015 guanFACINE 2 mg Tablet Sustained Release 24 hr Take 2 mg by mouth nightly. 04/03/2017 DILTiazem (CARDIZEM CD) 360 mg Capsule, Sust. Release 24 hr Take 360 mg by mouth daily. 04/03/2017 metolazone (ZAROXOLYN) 2.5 mg Tablet Take 2.5 mg by mouth twice a week. 10/11/2017 documented as of this encounter H&P Notes * Ching Diaz MD - 03/02/2015 1:43 PM EST Patient Name: Pedro Mast Patient Age: 59 y.o. Birthdate: 1955 Admit date: 03/02/2015 Attending Physician: Ching Diaz MD I interviewed and examined Pedro Mast. There have been no apparent interval changes in hishealth status since the most recent history and physical was done. CHING DIAZ MD * Ching Diaz MD - 03/01/2015 1:04 PM EST Patient Name: Pedro Mast Patient Age: 59 y.o. Birthdate: 1955 Admit date: (Not on file) Attending Physician: Ching Diaz MD See scanned document for pre-procedural H&P completed on 02/22/15. documented in this encounter Miscellaneous Notes * Op Note - Ching Diaz MD - 03/02/2015 1:47 PM EST [facility] Operative Note Patient Name: Pedro Mast : [id number] MR#: [id number] Case Date: 03/02/2015 Surgeon: Surgeon(s) and Role: * Ching Diaz MD - Primary * Pipo Snider MD PREOPERATIVE DIAGNOSIS: Right carpal tunnel syndrome. POSTOPERATIVE DIAGNOSIS: Right carpal tunnel syndrome. PROCEDURE PERFORMED: Endoscopic right carpal tunnel decompression. ANESTHESIA: Local with sedation. OPERATIVE INDICATION: The patient is a 59 y.o.-year-old Male with EMG proven right carpal syndrome.It was refractory to conservative treatment. He was brought to the operating room for endoscopic right carpal tunnel decompression. SUMMARY OF PROCEDURE: After 600mg of intravenous clindamycin was administered, the patient's right upper extremity was prepped with Hibiclens scrub and ChloraPrep. His right arm was draped in a sterile fashion. A preoperative time- out was performed as per [facility] protocol. 6 mL of 1% lidocaine with epinephrine buffered with sodium bicarbonate was injected over the median nerve at the level of the wrist as well as over the palmar side of the patient's right hand. His right arm was then exsanguinated with an Esmarch bandage. A brachial tourniquet was inflated to 250 mmHg. A transverse incision was made at the palmar wrist crease in line with the ring finger ray. Subcutaneous spreading was performed in a blunt fashion down to the level of the investing fascia of the palmar surface of the forearm. Throughout this dissection, care was taken to avoid injury to subcutaneous neurovascular structures. The investing fascia was incised. It was elevated as a distally based flap which allowed for entry into the carpal tunnel. A synovial elevator was then used to dissect synovium from the undersurface of the transverse carpal ligament. Small and large hamate finders were inserted into the carpal tunnel to confirm the proper level of entry. The Bret endoscopic carpal tunnel release device was inserted into the carpal tunnel. It was passed distally until the distal edge of the transverse carpal ligament was well visualized. The blade was elevated. The device was withdrawn, transecting the transverse carpal ligament. The device was reinserted and complete release of the transverse carpal ligament was confirmed. Under direct vision, the investing fascia at of the palmar surface of forearm was released well proximal to the wrist incision site using tenotomy scissors. The incision was irrigated and was closed with 4-0 nylon suture. A sterile soft dressing was applied. The tourniquet was released with a total tourniquet time of 10minutes. All digits rapidly became pink and warm with brisk capillary refill. He was then transferred to the recovery room in stable condition. Estimated blood loss was minimal.IV fluid replacement was 300 mL of crystalloid. He tolerated the procedure well without apparent complications. Attestation: Case Date: 03/02/2015 I was present and I participated during the entire procedure. CHING DIAZ MD 03/02/2015 * Brief Op Note - Ching Diaz MD - 03/02/2015 1:46 PM EST Brief Operative Note Patient Name: Pedro Mast : [id number] MR#: [id number] Case Date: 03/02/2015 Surgeon: Surgeon(s) and Role: * Ching Diaz MD - Primary * Pipo Snider MD Preoperative diagnosis: Right carpal tunnel syndrome Postoperative diagnosis: Right carpal tunnel syndrome Procedure(s): ENDOSCOPY WRIST W/ RELEASE TRANSVERSE CARPAL LIGAMENT Anesthesia: MAC Complications: none Fluids: 300 cc crystalloid Estimated Blood Loss: None Drains: None Disposition: aroused from sedation, and taken to the recovery room in a stable condition Condition: doing well without problems Attestation: Case Date: 03/02/2015 I was present and I participated during the entire procedure. (Please see the Surgical Encounter Summary for any Implant and Specimen details pertinent to this patient.) documented in this encounter Plan of Treatment Not on file documented as of this encounter Procedures Procedure Name Priority Date/Time Associated Diagnosis Comments ENDOSCOPY WRIST W/ RELEASE TRANSVERSE CARPAL LIGAMENT (WRVU 6.39) 03/02/2015 2:20 PM EST Carpal tunnel syndrome of right wrist POCT FINGERSTICK GLUCOSE Routine 03/02/2015 documented in this encounter Results * (ABNORMAL) POCT Fingerstick Glucose (03/02/2015) POC Glucose 219(A) 60 - 199 mg/dl 03/02/2015 Ching Diaz MD POINT OF CARE TEST O RDERABLES documented in this encounter Visit Diagnoses Diagnosis Carpal tunnel syndrome of right wrist Carpal tunnel syndrome documented in this encounter Administered Medications Inactive Administered Medications - up to 3 most recent administrations Medication Order MAR Action Action Date Dose Rate Site lidocaine-EPINEPHrine 1 %-1:100,000 injection ONCE PRN, Starting on Sun03/02/15 at 1434, Until Sun03/02/15 at 1719, Intra-Operative (Intra-Procedure), Routine Given 03/02/2015 2:34 PM EST 6 mLs 19- Surgical Site sodium bicarbonate 8.4 % (1 mEq/mL) injection ONCE PRN, Starting on Sun03/02/15 at 1435, Until Sun03/02/15 at 1719, Intra-Operative (Intra-Procedure), Routine Given 03/02/2015 2:35 PM EST 0.6 mEq 19- Surgical Site documented in this encounter Active and Recently Administered Medications Due to Daylight Saving Time, this section may contain times in both EDT and EST. Continuous Medication Order 02/28/2015 03/01/2015 03/02/2015 lactated ringers infusion 1,000 mL (CANCELED) 1,000 mL, at 100 mL/hr, Intravenous, CONTINUOUS, Starting on Sun03/02/15 at 1330, Until Sun03/02/15 at 1719, Day of Surgery (Day of Procedure) 1417 (New Bag - Prov ider: uSsie Vieyra CRNA)1442 (Anesthesia Volume Adjustment - Provider: Susie Vieyra CRNA) PRN Medication Order 02/28/2015 03/01/2015 03/02/2015 lidocaine-EPINEPHrine 1 %-1:100,000 injection (CANCELED) ONCE PRN, Starting on Sun03/02/15 at 1434, Until Sun03/02/15 at 1719, Intra-Operative (Intra-Procedure), Routine 1434 (Given - Provid er: Ching Diaz MD - Comment: 20ml lido with epi, 2cc sodium bacarb. total given: 6ml) sodium bicarbonate 8.4 % (1 mEq/mL) injection (CANCELED) ONCE PRN, Starting on Sun03/02/15 at 1435, Until Sun03/02/15 at 1719, Intra-Operative (Intra-Procedure), Routine 1435 (Given - Provid er: Ching Diaz MD - Comment: 20ml lido with epi, 2cc sodium bacarb. total given: 6ml) documented in this encounter Care Teams Cfo Controller Relationship Specialty Start Date End Date Mauro Berger MD [address] [place] [address] PCP - General 06/07/11 documented as of this encounter
--- OUTSIDE RECORDS SUMMARY | 2023-11-19 11:24 | XMS_ITS | Encounter Summary ---
[place] [address] Care Team Providers Care Maintenance Inspector Name Role Phone Mauro Berger MD Primary Care Provider [phone] Encounter Details Date Type Department Care Team (Late st Contact Info) Description 12/06/2005 [place] [id number] Niraj Plascencia MD [address] [place] [id number] Social History Tobacco Use Types Packs/Day Years [...] Associated Diagnosis Comments SURGICAL PATHOLOGY REPORT Routine 12/06/2005 8:59 PM EDT documented in this encounter Results * Surgical Pathology Report (12/06/2005 8:59 PM EDT) Surgical Pathology Report [id number] ? Location: The signing pathologist has (i) examined the relevant preparation(s) for the specimen(s) and (ii) rendered or confirmed the diagnosis(es). . ?Pathology Surgical Pathology Final Report Clinical Information Specimen Submitted: A - Dorsum Lt hand: ??re-excision. Clinical Diagnosis: SCC. ??Re-excision SCC. [facility] So. Med Rec #: ? [id number] Gross Description Labeled/Fixative : ? Labeled with the patient's name, formalin. Qty/Size/Weight: ?Single, 3.8 x 1.7 x 0.3 cm. Tissue Description: ?? Ellipse of diffusely wrinkled, ramon skin with a ?central 0.6 x 0.6 cm, ovoid, ulcerated, scar. Sections/Process ing: ??The specimen is inked and serially sectioned. ??The ?ends are submitted in (1); the remainder of the specimen submitted in (2-6). ?? (T6) crh/EJR Microscopic Description Slides reviewed, microscopic description not recorded. Diagnosis Skin of dorsum of left hand, re-excision: 1 - Scar and regenerative changes; No residual invasive squamous cell carcinoma identified. 2 - Multifocal actinic keratoses, present at peripheral margins. (see Comment). CR-0 12/07/05 [facility] 12/08/05 Verified by: ? Melissa Noel MD ?Dermatopatholo gist ?(Electronic Signature) The attending pathologist whose signature appears on this report has reviewed all diagnostic slides and has edited the gross and/or microscopic portion of the report in rendering the final pathologic diagnosis. Comment Some of the actinic keratoses appear advanced and approach squamous cell carcinoma in situ. HELEN CRUZ 12/06/2005 8:59 PM EDT Niraj Plascencia MD PATHOLOGY/CYTOLOGY O RDERARODRÍGUEZ HELEN CRUZ documented in this encounter Visit Diagnoses Not on filedocumented in this encounter Care Teams Maintenance Inspector Relationship Specialty Start Date End Date Mauro Berger MD [address] [place] [address] PCP - General 06/07/11 documented as of this encounter
--- OUTSIDE RECORDS SUMMARY | 2023-11-19 11:24 | XMS_ITS | Encounter Summary ---
[place] [address] Care Team Providers Care Manager Information Name Role Phone Mauro Berger MD Primary Care Provider [phone] Encounter Details Date Type Department Care Team (Late st Contact Info) Description 07/26/2006 [place] [phone] Niraj Plascencia MD [address] [place] [address] Social History Tobacco Use Types Packs/Day Years [...] Associated Diagnosis Comments SURGICAL PATHOLOGY REPORT Routine 07/26/2006 7:27 PM EDT documented in this encounter Results * Surgical Pathology Report (07/26/2006 7:27 PM EDT) Surgical Pathology Report [id number] ? Location: The signing pathologist has (i) examined the relevant preparation(s) for the specimen(s) and (ii) rendered or confirmed the diagnosis(es). . ?Pathology Surgical Pathology Final Report Clinical Information Specimen Submitted: Jonathan Gan Upper Back: Shave (1) B - L Clavicle: Shave (1) C - L Upper Chest: Shave (1) [facility] So. [facility] Rec #: ? [id number] Clinical Diagnosis: A - Superficial BCC B - BCC C - BCC Gross Description A - Labeled/Fixativ e: A, formalin. Qty/Size/Weight : ?Single shave, 1.6 x 0.9 cm. Tissue Description: ?? Irregular shave of ramon-white skin. Sections/Proces sing: ??The specimen is inked and serially sectioned. ??(T1) B - Labeled/Fixativ e: B, formalin. Qty/Size/Weight : ?Single shave, 1.0 cm, ramon skin. Sections/Proces sing: ??Inked and serially sectioned. ??(T1) C - Labeled/Fixativ e: C, formalin. Qty/Size/Weight : ?Single shave, 0.8 cm, centrally nodular, ramon-white ?skin. Sections/Proces sing: ??Inked and trisected. ??(T1) ??[facility] Microscopic Description Slides reviewed, microscopic description not recorded. Diagnosis A - Superficial multifocal basal cell carcinoma, and dermal fibrosis, shave biopsy, skin of left upper back. B - Basal cell carcinoma and incidental actinic keratosis, shave biopsy, left clavicle. C - Squamous cell carcinoma, shave biopsy, left upper chest. CR-0 07/27/06 [facility] 07/27/06 Verified by: ? Melissa Noel MD ?Dermatopathol ogist ?(Electronic Signature) The attending pathologist whose signature appears on this report has reviewed all diagnostic slides and has edited the gross and/or microscopic portion of the report in rendering the final pathologic diagnosis. [facility] 07/26/2006 7:27 PM EDT Niraj Plascencia MD PATHOLOGY/CYTOLOGY O RDERABLES Performing Organization Address City/State/ZIP Co ms Phone Number [facility] documented in this encounter Visit Diagnoses Not on filedocumented in this encounter Care Teams Manager Information Relationship Specialty Start Date End Date Mauro Berger MD [address] [place] [address] PCP - General 06/07/11 documented as of this encounter
--- OUTSIDE RECORDS SUMMARY | 2023-11-19 11:24 | XMS_ITS | Encounter Summary ---
Author Organization [facility] [place] [address] Care Team Providers Care Hydroelectric Plant Mechanical Engineer Name Role Phone Mauro Berger MD Primary Care Provider [phone] Reason for Visit * Reason Comments Follow-up Skin Check Encounter Details Date Type Department Care Team (Late st Contact Info) Description 05/09/2019 8:15 AM EST Office Visit Dermatology at [address] [phone] Greg Lopez MD [address] [facility] [place] [address] History of basal cell carcinoma; History of [...] Progress Notes * Greg Lopez MD - 05/09/2019 8:15 AM EST Problem: Follow-up 10 days 5-FU Demond follows up and has had a mild to moderate reaction to the 5-FU. Is been very tolerable. He does have a little bit of a sunburn sensation in his skin now Physical examination reveals mild erythema present at treatment sites on the forehead the cheeks the ears and postauricular and sub-auricular scalp and neck. Assessment plan: Status post 10-day course of 5-FU to face ears and neck 1. Discontinue 5-FU 2. Continue triamcinolone cream applying on a twice daily basis for another week or so until facialerythema clears and then discontinue triamcinolone also. 3. Return to clinic in 6 months for repeat check. CC: Mauro Berger MD documented in this encounter Plan of Treatment Not on file documented as of this encounter Visit Diagnoses Diagnosis History of basal cell carcinoma Personal history of other malignant neoplasm of skin History of SCC (squamous cell carcinoma) of skin Personal history of other malignant neoplasm of skin AK (actinic keratosis) Actinic keratosis documented in this encounter Care Teams Hydroelectric Plant Mechanical Engineer Relationship Specialty Start Date End Date Mauro Berger MD [address] [place] [address] PCP - General 06/07/11 documented as of this encounter
--- OUTSIDE RECORDS SUMMARY | 2023-11-19 11:24 | XMS_ITS | Encounter Summary ---
Author Organization [facility] Address [facility] [place] [address] Care Team Providers Care Staff Air Defense Officer Name Role Phone Mauro Berger MD Primary Care Provider [phone] Reason for Visit * Reason Comments Follow Up Surgery R CTR DOS 03/02/15 Encounter Details Date Type Department Care Team (Late st Contact Info) Description 03/15/2015 10:40 AM EST [place] [address] Shaheen Diaz MD [facility] [place] [address] Carpal tunnel syndrome of right wrist Social [...] Sign Reading Time Taken Comments Blood Pressure 153/79 03/15/2015 10:47 AM EST Pulse 64 03/15/2015 10:47 AM EST Temperature - - Respiratory Rate - - Oxygen Saturation - - Inhaled Oxygen Concentration - - Weight 107 kg (236 lb) 03/15/2015 10:47 AM EST v erbal Height 180.3 cm (5' 11) 03/15/2015 10:47 AM EST Body Mass Index 32.92 03/15/2015 10:47 AM EST documented in this encounter Progress Notes * Vivian Tabares PA - 03/15/2015 11:38 AM EST This 59-year-old comes in today status post right endoscopic carpal tunnel release, 03/02/2015, Dr. Diaz. He is doing well. He has not had much pain. He notes improvement in the numbness and tingling in his fingers. Examination today shows the incision is well healed. No erythema or warmth. He has full range of motion of his fingers and admits to just slightly decreased sensation in the median nerve distribution. IMPRESSION: Right endoscopic carpal tunnel releases, 03/02/2015, Dr. Diaz. TREATMENT: Suture was removed. The patient may gradually increase the use of his hand. I would advise against repetitive heavy lifting, pushing and pulling for four to six weeks from surgery and anticipate that he will likely not be able to return to work until six weeks postop, which I believe would be the week of April 12. He will let our office know if he requires any notes. Otherwise, we will see him back p.r.n. documented in this encounter Plan of Treatment Not on file documented as of this encounter Visit Diagnoses Diagnosis Carpal tunnel syndrome of right wrist Carpal tunnel syndrome documented in this encounter Care Teams Staff Air Defense Officer Relationship Specialty Start Date End Date Mauro Berger MD [address] [place] [address] PCP - General 06/07/11 documented as of this encounter
--- OUTSIDE RECORDS SUMMARY | 2023-11-19 11:24 | XMS_ITS | Encounter Summary ---
Author Organization [facility] Address [facility] [place] [address] Care Team Providers Care Coffee Roaster Helper Name Role Phone Mauro Berger MD Primary Care Provider [phone] Reason for Visit * Reason Comments Follow-up Skin Check * Consultation (Routine) - Specialty Diagnoses / Procedures Referred By Radha t Referred To Contact Dermatology Diagnoses Actinic keratosis Skin Lesion on face, Multiple AR's Procedures Skin Lesion on face, Multiple AR's Mauro Berger MD [address] [place] [address] Greg Lopez MD [address] [place] [address] [place] [address] Referral ID Status Reason Start Date Expiration Date V isits Requested Visits Authorized [id number] 11/23/2016 11/23/2017 1 1 Encounter Details Date Type Department Care Team (Late st Contact Info) Description 04/03/2017 10:45 AM EST Office Visit Dermatology at [address] [phone] Greg Lopez MD [address] [place] [address] [place] [address] History of basal cell carcinoma; History of [...] Progress Notes * Greg Lopez MD - 04/03/2017 10:45 AM EST PROBLEM: 1. Actinic keratoses. 2. 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 3. History of BCCA, left upper forehead, left upper chest, right dorsal forearm, 05/2011. Demond is a 61-year-old gentleman who is referred back to me by Dr. Berger. 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 He has had multiple non-melanotic cutaneous malignancies in the past. The patient was lost to followup after last being seen in 02/2012. Physical examination reveals a pleasant 61-year-old gentleman who has blue eyes and markedly actinically damaged skin of the face, the arms, forearms, back and chest. He has patches of actinic keratoses widely on his back, his face, hands, arms and forearms. He has 2 indurated plaques with crusted scabbing present; 1 on the left forehead and 1 on the left postauricular scalp, concerning for BCCA or SCCA. ASSESSMENT AND PLAN: 1. History of multiple non-melanoma cutaneous malignancies. a. Today, 2 new sites noted: Left denominational area and left postauricular scalp. b. Will schedule a treatment appointment for shave C&D removal of these in the near future. 2. Actinic keratoses, multiple. a. LN x2 applied to each of 15 sites today on hands, forearms, back and face. b. Patient tolerated it well. c. Return to clinic for procedure in the very near future. cc: Dr. Berger documented in this encounter Plan of Treatment Not on file documented as of this encounter Visit Diagnoses Diagnosis History of basal cell carcinoma Personal history of other malignant neoplasm of skin History of SCC (squamous cell carcinoma) of skin Personal history of other malignant neoplasm of skin AK (actinic keratosis) Actinic keratosis documented in this encounter Care Teams Coffee Roaster Helper Relationship Specialty Start Date End Date Mauro Berger MD [address] [place] [address] PCP - General 06/07/11 documented as of this encounter
--- OUTSIDE RECORDS SUMMARY | 2023-11-19 11:24 | XMS_ITS | Encounter Summary ---
Author Organization [facility] Address [facility] [place] [address] Care Team Providers Care Aircraft Refueler Name Role Phone Mauro Berger MD Primary Care Provider [phone] Reason for Visit * Auth/Cert Specialty Diagnoses / Procedures Referred By Radha t Referred To Contact Diagnoses Right carpal tunnel syndrome Procedures PRO WRIST ARTHROSCOP, RELEASE XVERS LIG ENDOSCOPY WRIST W/ RELEASE TRANSVERSE CARPAL LIGAMENT Referral ID Status Reason Start Date Expiration Date Visits Re quested Visits Authorized [id number] 1 1 Encounter Details Date Type Department Care Team (Latest Contact Info) Description 03/02/2015 1:05 PM EST - 03/02/2015 3:18 PM EST Hospital Encounter Out[place] [phone] Ching Diaz MD [facility] [place] [address] Discharge Disposition: Home Social History Tobacco Use [...] 5pm or on a weekend: Call the [facility] tool engine lathe set up operator and ask for the physician documentation analyst covering for your doctor. * Patient Instructions* [...] During clinic hours M-F 8-4:30 please call [phone] If it is after 5:00PM on a weekday or a weekend and it is of an urgent nature please call [phone] and ask for the on-call orthopaedic resident. [...] times daily. Ketone Blood Test Strip by [facility].(Non-Drug; Combo Route) route. Insulin [place], Disposable, 29 gauge X 1/2 Needle by [facility].(Non-Drug; Combo Route) route. Lancets Misc by [facility].(Non-Drug; Combo Route) route. FOLIC ACID/MV,FE,OTHER MIN (CENTRUM [...] Diaz MD - 03/02/2015 1:47 PM EST [facility] Operative Note Patient Name: Pedro Mast : [id number] MR#: [id number] Case Date: 03/02/2015 Surgeon: Surgeon(s) and Role: [...] preoperative time- out was performed as per [facility] protocol. 6 mL of 1% lidocaine with [...] Operative Note Patient Name: Pedro Mast : [id number] MR#: [id number] Case Date: 03/02/2015 Surgeon: Surgeon(s) and Role: [...] RDERABLES documented in this encounter Visit Diagnoses Not on filedocumented in this encounter Active and Recently Administered Medications Due to Daylight Saving Time, this section may contain times in both EDT and EST. Continuous Medication Order 02/28/2015 03/01/2015 03/02/2015 lactated ringers infusion 1,000 mL (CANCELED) 1,000 mL, at 100 mL/hr, Intravenous, CONTINUOUS, Starting on Sun03/02/15 at 1330, Until Sun03/02/15 at 1719, Day of Surgery (Day of Procedure) 1417 (New Bag - Prov ider: Susie Vieyra CRNA)1442 (Anesthesia Volume Adjustment - Provider: [...] 6ml) documented in this encounter Care Teams Aircraft Refueler Relationship Specialty Start Date End Date Mauro Berger MD [address] [place] [address] PCP - General 06/07/11 documented as of this encounter
--- OUTSIDE RECORDS SUMMARY | 2023-11-19 11:24 | XMS_ITS | Encounter Summary ---
Author Organization [facility] [address] Care Team Providers Care Glue Sprayer Name Role Phone Mauro Berger MD Primary Care Provider [phone] Reason for Visit * Reason Onset Date Comments Bumped Appointment 01/14/2015 Encounter Details Date Type Department Care Team (Late st Contact Info) Description 01/14/2015 [place]phone [place] [phone] Shaheen Diaz MD [facility] [place] [address] Bumped Appointment Social History Tobacco Use Types Packs/Day Years Used Date Smoking Tobacco: Never Smokeless Tobacco: Never Alcohol Use Standard Drinks/Week Comments Yes 0 (1 standard drink = 0.6 oz pur e alcohol) occasional Sex and Gender Information Value Date Recorded Sex Assigned at Not on file Gender Identity Not on file Sexual Orientation Not on file documented as of this encounter Miscellaneous Notes * Telephone Encounter - Renata Garner - 01/15/2015 8:19 AM EDT Appointment rescheduled. * Telephone Encounter - Dulce Bhatia - 01/14/2015 10:39 AM EDT Patient's appointment was bumped. Left message for them to call back and reschedule. documented in this encounter Plan of Treatment Not on file documented as of this encounter Visit Diagnoses Not on filedocumented in this encounter Care Teams Glue Sprayer Relationship Specialty Start Date End Date Mauro Berger MD [address] [place] [address] PCP - General 06/07/11 documented as of this encounter
--- OUTSIDE RECORDS SUMMARY | 2023-11-19 11:24 | XMS_ITS | Encounter Summary ---
Author Organization [facility] [place] [address] Care Team Providers Care Tool Checker Name Role Phone Mauro Berger MD Primary Care Provider [phone] Encounter Details Date Type Department Care Team (Latest Contact Info) Description 11/13/2019 9:15 PM EDT - 11/13/2019 11:59 PM EDT Hospital [place] [phone] Discharge Disposition: Home Social History Tobacco Use [...] Sig Dispensed Refills Start Date End Date fluorouracil (EFUDEX) 5 % Cream Apply starting April 30 to face twice daily for 10 days then return to clinic 45 g 04/28/2019 triamcinolone (KENALOG) 0.1 % Cream Apply starting April 30 to face 30 minutes after each application of 5 FU for 10 days 30 g 1 04/28/2019 torsemide (DEMADEX) 100 mg Tablet TAKE 1 TABLET BY MOUTH ONCE DAILY 1 02/18/2019 labetalol (NORMODYNE) 100 mg Tablet TAKE 1 TABLET BY MOUTH TWICE A DAY 0 02/18/2019 metOLazone (ZAROXOLYN) 5 mg Tablet 09/12/2017 oxyCODONE-acetaminophe n (PERCOCET) 5-325 mg Tablet 06/18/2017 PROAIR HFA 90 mcg/actuation HFA Aerosol Inhaler 02/12/2017 ONETOUCH ULTRA TEST Strip 03/17/2017 DILTiazem (TIAZAC) 360 mg Capsule,Sustained Action 24 hr 03/19/2017 b complex vitamins Capsule Take 1 capsule [...] times daily. Ketone Blood Test Strip by Misc.(Non-Drug; Combo Route) route. Insulin [place], Disposable, 29 gauge X 1/2 Needle by Misc.(Non-Drug; Combo Route) route. Lancets Misc by [facility]Non-Drug; Combo Route) route. FOLIC ACID/MV,FE,OTHER MIN (CENTRUM ORAL) Take 1 tablet by mouth daily. aspirin 81 mg Tablet, Delayed Release (E.C.) Take 81 mg by mouth daily. atorvastatin (LIPITOR) 40 mg tablet Take 40 mg by mouth daily. citalopram (CELEXA) 10 mg tablet Take 10 mg by mouth daily. NPH, HUMAN INSULIN ISOPHANE (NOVOLIN N SUBQ) Inject subcutaneously. documented as of this encounter Plan of Treatment Not on file documented as of this encounter Procedures Procedure Name Priority Date/Time Associated Diagnosis Comments SURGICAL PATHOLOGY REPORT Routine 11/13/2019 12:00 PM EDT documented in this encounter Results * Surgical Pathology Report (11/13/2019 12:00 PM EDT) FINAL DIAGNOSIS (AP) [id number] ? Location: [facility] The signing pathologist has (i) examined the relevant preparation(s) for the specimen(s) and (ii) rendered or confirmed the diagnosis(es). . ?Surgical Pathology DIAGNOSIS Right upper chest, 4 mm punch biopsy: - Dermal scar - Negative for basal cell carcinoma Electronically signed by: ??Karlee GOULD, Sherwin Taylor Verified: ??11/19/2019 ?Dermatopatholo gist Performed at: ??-[facility] [place] Dept. of [place]ology, [place], [place] ADDITIONAL STUDIES Multiple step-leveled sections through the block are examined. SPECIMEN(S) SUBMITTED A - R upper chest, 4 mm punch (1) CLINICAL INFORMATION Painful papule at site of 03/18 BCCA. Clinical diagnosis: Hypertrophic scar, R/O recurrent BCCA SPECIMEN PROCESSING A - Labeled/Fixative : Patient demographics, formalin. Quantity/Size: ??Single, 0.4 cm in diameter, excised to a depth of 0.7 cm. Tissue Description: Art-pink skin punch. Sections/Process ing: Inked, bisected and entirely submitted in 1 cassette labeled A1. ??ajw 11/19/2019 3:24 PM EDT [facility] 11/13/2019 12:0 0 PM EDT Greg Lopez MD PATHOLOGY/CYTOLOGY O RDERABLES [facility] [place] [address] documented in this encounter Visit Diagnoses Not on filedocumented in this encounter Care Teams Tool Checker Relationship Specialty Start Date End Date Mauro Berger MD [address] [place] [address] PCP - General 06/07/11 documented as of this encounter
--- OUTSIDE RECORDS SUMMARY | 2023-11-19 11:24 | XMS_ITS | Encounter Summary ---
[place] [address] Care Team Providers Care Forest Landscape Ecology Professor Name Role Phone Mauro Berger MD Primary Care Provider [phone] Encounter Details Date Type Department Care Team (Late st Contact Info) Description 05/10/2017 Telephone Dermatology at [address] [phone] Maribel Trejo LPN Social History Tobacco Use Types Packs/Day Years [...] encounter Miscellaneous Notes * Telephone Encounter - Maribel Trejo LPN - 05/10/2017 1:55 PM EST Nurse reviewed biopsy results with patient. He voiced understanding. * Telephone Encounter - Maribel Trejo LPN - 05/10/2017 1:13 PM EST Nurse attempted to contact patient to review biopsy results from 05/03/17 shave left nondenominational: BCCA x 2, no further treatment necessary, return to clinic 10/11/17 for repeat clinic. documented in this encounter Plan of Treatment Not on file documented as of this encounter Visit Diagnoses Not on filedocumented in this encounter Care Teams Forest Landscape Ecology Professor Relationship Specialty Start Date End Date Mauro Berger MD [address] [place] [address] PCP - General 06/07/11 documented as of this encounter
--- OUTSIDE RECORDS SUMMARY | 2023-11-19 11:24 | XMS_ITS | Encounter Summary ---
[place] [address] Care Team Providers Care Engineer Soils Name Role Phone Mauro Berger MD Primary Care Provider Reason for Visit * Reason Comments Skin Check Encounter Details Date Type Department Care Team (Late st Contact Info) Description 01/19/2012 10:15 AM EDT Office Visit Dermatology [address] [facility] [address] [place] [address] Greg Lopez MD [address] [facility] [place] [address] History of basal cell carcinoma (Primary Dx) Social History Tobacco Use Types Packs/Day Years Used Date Smoking Tobacco: Never Sex and Gender Information Value Date Recorded Sex Assigned at Not on file Gender Identity Not on file Sexual Orientation Not on file documented as of this encounter Progress Notes * Greg Lopez MD - 01/19/2012 11:53 AM EDT Dictated documented in this encounter Plan of Treatment Not on file documented as of this encounter Visit Diagnoses Diagnosis History of basal cell carcinoma- Primary Personal history of other malignant neoplasm of skin documented in this encounter Care Teams Engineer Soils Relationship Specialty Start Date End Date Mauro Berger MD [address] [place] [address] PCP - General 06/07/11 documented as of this encounter
--- OUTSIDE RECORDS SUMMARY | 2023-11-19 11:24 | XMS_ITS | Encounter Summary ---
Author Organization [facility] [place] [address] Care Team Providers Care Retail Branch Manager Name Role Phone Mauro Berger MD Primary Care Provider [phone] Encounter Details Date Type Department Care Team (Late st Contact Info) Description 05/03/2017 9:15 AM EST Office Visit Dermatology at [address] [phone] Greg Lopez MD [address] [place] [address] [place] [address] History of basal cell carcinoma; History of [...] Progress Notes * Greg Lopez MD - 05/03/2017 9:15 AM EST PROBLEM: Followup shave C and D treatment of 2 sites, left latter-day and left inferior postauricular scalp. Demond follows up and is here for his procedure. Physical examination again reveals the 2 sites present as noted on his last dictation from 04/03/17. A/P: Probable SCCA versus BCCA, site A left latter-day, site B left postauricular scalp. a. Consent was obtained, sites were anesthetized and remove shave C and D after curettage. After shave C and D x3 both sites measured 2 cm in diameter. Wound care instructions and supplies given. I recommend I see him again in other 6 months for repeat check. At that time we will do a total body skin examination assessing for response to LN2 therapies, LN2 therapy from April 03 and also to reassess today's treatment sites. We will notify the patient of biopsy results in one week. cc: Mauro Berger MD documented in this encounter Plan of Treatment Not on file documented as of this encounter Visit Diagnoses Diagnosis History of basal cell carcinoma Personal history of other malignant neoplasm of skin History of SCC (squamous cell carcinoma) of skin Personal history of other malignant neoplasm of skin [place] (actinic keratosis) Actinic keratosis documented in this encounter Care Teams Retail Branch Manager Relationship Specialty Start Date End Date Mauro Berger MD [address] [place] [address] PCP - General 06/07/11 documented as of this encounter
--- OUTSIDE RECORDS SUMMARY | 2023-11-19 11:24 | XMS_ITS | Encounter Summary ---
Author Organization Replaced By [facility] [place] [address] Care Team Providers Care Miner Operator Name Role Phone Mauro Berger MD Primary Care Provider [phone] Reason for Visit * Reason Comments Follow-up * Consultation (Routine) - Specialty Diagnoses / Procedures Referred By Contliberty t Referred To Contact Dermatology Diagnoses Disorder of the skin and subcutaneous tissue, unspecified Skin lesions on chest and forearm Procedures Consult Mauro Berger MD [address] [place] [address] Greg Lopez MD [address] [place] [address] [place] [address] Referral ID Status Reason Start Date Expiration Date V isits Requested Visits Authorized [id number] Consult, Test & Treat PCP Updated and/or Approved 02/10/2019 08/12/2019 6 6 Encounter Details Date Type Department Care Team (Late st Contact Info) Description 04/28/2019 8:00 AM EST Office Visit Dermatology at [address] [phone] Greg Lopez MD [address] [place] [address] DERMATOLOGY [place], [place] [id number] History of basal cell carcinoma; History of [...] of this encounter Progress Notes * Greg Loepz MD - 04/28/2019 8:00 AM EST Problem: 1. History of BCCAs x 3 right upper chest, right lower chest, and right elbow February 2019 2. ??Follow-up BCCA left religion and left inferior postauricular scalp 04/2017 3. ??History of BCCA left religion and left upper back excised 01/2012 4. ??History BCC left upper forehead left upper chest right was performed, 05/2011 5. 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 Here today to discuss 5-FU and for LN2 therapy for numerous actinic's on the dorsal hands and forearms. Physical examination confirms good healing of the biopsy sites from his last visit, and does show numerous actinic's on the dorsal forearms and hands bilaterally, a total of 17 are noted. He has numerous actinic's over the forehead the cheeks the ears and the lateral neck. He wears a full facial yañez. Assessment and plan: Actinic keratoses, dorsal hands and forearms 1. LN 2 x 2 applied each of 15 sites Actinic keratoses facial 1. Begin course of 5-FU 5% cream apply starting April 30 to his face twice daily for 10 days then return to clinic. Dispense 45 g with 0 refills 2. Begin also triamcinolone 0.1% cream apply starting April 30 to his face twice daily 30 minutes after each 5-FU cream application. Dispense 30 g with 1 refill 3. Patient will be called into [facility] in [place]. If insurance does not cover will then use the compounding pharmacy in [place] 4. Return to clinic May 09 after 10 days of treatment for repeat check on his progress. Consider going 14 days if necessary 5. Discussed discussed extensively the benefits / side effects of 5-FU. Answered patient questions. History of multiple nonmelanoma cutaneous malignancies 1. No evidence of recurrence at previously treated sites 2. We will recommend q. six-month follow-ups following 5-FU course CC: Mauro Berger MD documented in this encounter Plan of Treatment Not on file documented as of this encounter Visit Diagnoses Diagnosis History of basal cell carcinoma Personal history of other malignant neoplasm of skin History of SCC (squamous cell carcinoma) of skin Personal history of other malignant neoplasm of skin AK (actinic keratosis) Actinic keratosis documented in this encounter Care Teams Miner Operator Relationship Specialty Start Date End Date Mauro Berger MD [address] [place] [address] PCP - General 06/07/11 documented as of this encounter
--- OUTSIDE RECORDS SUMMARY | 2023-11-19 11:24 | XMS_ITS | Encounter Summary ---
[place] [address] Care Team Providers Care Cooker Chip Name Role Phone Mauro Berger MD Primary Care Provider [phone] Reason for Visit * Reason Comments Skin Check Encounter Details Date Type Department Care Team (Late st Contact Info) Description 06/12/2011 5:00 PM EST Office Visit Dermatology [address] [place] [address] [address] [place] [address] Greg Lopez MD [address] [facility] [place] [address] History of basal cell carcinoma (Primary Dx); History of squamous cell carcinoma; Actinic keratosis Social History Tobacco Use Types Packs/Day Years Used Date Smoking Tobacco: Never Sex and Gender Information Value Date Recorded Sex Assigned at Not on file Gender Identity Not on file Sexual Orientation Not on file documented as of this encounter Progress Notes * Greg Lopez MD - 06/12/2011 6:09 PM EST Problem: 1. Here to establish dermatologic care in this office. 2. History of nonmelanoma cutaneous malignancies. 3. 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 Demond is a 55-year-old gentleman who is referred today by Dr. Berger to establish dermatologic care in this office. He use to live in [place] and was followed by a bar steward there who regularly saw him and apparently treated several nonmelanoma skin cancers. The patient is concerned today about a lesion on his right forearm, on his left breast and on his right upper forehead. Physical examination reveals that these sites show superficial BCCa/SCCa(s) at the first two and on the right forehead a probable sclerosing BCCa measuring about 1.2cm. He is fair skinned, blue eyed with marked actinic damage over the face, head, neck, chest, back and arms. Assessment & Plan: Actinic keratoses. a. LN2 x2 applied to each of ten sites today. Probable nonmelanoma cutaneous malignancies. a. Will schedule a 60-minute appointment for excision of right forehead lesion, and shave biopsy of sites on right forearm and left breast. b. Patient tends not to wear hats or follow sun avoidance precautions. Discussed the desirability of doing so. Copy: Mauro Berger MD documented in this encounter Plan of Treatment Not on file documented as of this encounter Visit Diagnoses Diagnosis History of basal cell carcinoma- Primary Personal history of other malignant neoplasm of skin History of squamous cell carcinoma Personal history of malignant neoplasm of other site Actinic keratosis documented in this encounter Care Teams Cooker Chip Relationship Specialty Start Date End Date Mauro Berger MD [address] [place] [address] PCP - General 06/07/11 documented as of this encounter
--- OUTSIDE RECORDS SUMMARY | 2023-11-19 11:24 | XMS_ITS | Encounter Summary ---
Author Organization [facility] Address [address] [place] [address] Care Team Providers Care Alberene Stone Setter Name Role Phone Unavailable Primary Care Provider Unavailabl e Encounter Details Date Type Department Care Team (Late st Contact Info) Description 03/14/2010 Results Only [facility] [address] [place], [place] [id number] Martell Marcano MD [address] [place] [id number] Social History Tobacco Use Types Packs/Day Years Used Date Smoking Tobacco: Never Assessed Sex and Gender Information Value Date Recorded Sex Assigned at Not on file Gender Identity Not on file Sexual Orientation Not on file documented as of this encounter Plan of Treatment Not on file documented as of this encounter Procedures Procedure Name Priority Date/Time Associated Diagnosis Comments SURGICAL PATHOLOGY Routine 03/14/2010 0:00 EST documented in this encounter Results * SURGICAL PATHOLOGY (03/14/2010 0:00 EST) Pathology Report: SURGICAL PATHOLOGY REPORT ? Reports generated via electronic interface contain original data; ? however they are lacking the format of the original report. ? Caution should be taken when reading/interpreti ng unformatted reports. ? Name: ? PABLO, PEDRO P ? Accession #: ? [id number] ? : ? 1955 (Age: 54) ??M ? Collect Date: ? 03/14/2010 ? Location: ? [facility] ? Receive Date: ? 03/15/2010 ? Provider: MARTELL MARCANO MD ? Copy to: ALEX AMANDO MD ? Final Pathologic Diagnosis: ? Skin of auricle, left, biopsy: ? 1. ?Basal cell carcinoma with aggressive growth pattern (infiltrative). ? - Basal cell carcinoma extends to edges and base of biopsy specimen. ? Microscopic Description: ? Emanating from the epidermis and extending into the dermis are irregularly shaped islands and cords of atypical basal cells. ??Many of the islands are small and angulate. ??The basal cells have scant cytoplasm and round dark nuclei. ? Mitotic figures and apoptotic bodies are evident. ??Some nuclei at the periphery of some of the larger islands have a palisaded arrangement. ??There is ? fibroplasia and myxoid change of the stroma with cleft formation between some of the islands and stroma. ??(Dr. Ponce)/amy ? Document reviewed and electronically signed by: ? JOSIE PONCE MD ? Report ??Date: 03/16/2010 21:31 ? By the signature above, the attending physician certifies that he/she has ? personally conducted a gross and/or microscopic examination of the described ? specimens and rendered or confirmed the above diagnosis. ? Specimen(s) Received: ? Lesion L auricle ? Clinical History: ? Clinical diagnosis code: 239.2 ? Gross Description: ? Received in formalin labelled Pedro Mast and Malik auricle are two fragments of ramon-white focally brown and crusted skin measuring 0.2 x 0.2 x 0.1 cm and 0.4 x 0.3 x 0.1 cm. ??Both specimens are submitted intact in one cassette. /[facility] ? End of Report ? [facility] 03/14/2010 03/15/2010 8:2 2 EST Martell Marcano MD PATHOLOGY ORDERABLES [facility] [address] [place] [address] documented in this encounter Visit Diagnoses Not on filedocumented in this encounter
--- OUTSIDE RECORDS SUMMARY | 2023-11-19 11:24 | XMS_ITS | Encounter Summary ---
Author Organization [facility] [place] [address] Care Team Providers Care Blackjack Supervisor Name Role Phone Mauro Berger MD Primary Care Provider [phone] Reason for Visit * Auth/Cert Specialty Diagnoses / Procedures Referred By Radha mason Referred To Contact Diagnoses Right carpal tunnel syndrome Procedures PRO WRIST ARTHROSCOP, RELEASE XVERS LIG ENDOSCOPY WRIST W/ RELEASE TRANSVERSE CARPAL LIGAMENT Referral ID Status Reason Start Date Expiration Date Visits Re quested Visits Authorized [id number] 1 1 Encounter Details Date Type Department Care Team (Late st Contact Info) Description 03/02/2015 2:19 PM EST Anesthesia Event [facility] [place] [phone] Heather Isabel MD [facility] [place] [address] Dorian Salazar MD [facility] [place] [address] Anesthesia Record Procedure Summary Procedure Name Responsible Anesthesiologist Anesthesia Start Time Anesthesia Stop Time ENDOSCOPY WRIST W/ RELEASE TRANSVERSE CARPAL LIGAMENT (WRVU 6.39) (Right: Wrist) Heather Isabel MD 03/02/15 1419 03/02/15 1453 Events Date Time Event Comment 03/02/2015 1325 1419 Start 1421 AN Verify 1421 An Start Data 1422 Anesthesia Ready 1431 Quick Note 6 cc of 1% lido chuck 1432 An Tourn Inflated 1442 An Tourn Deflated 1446 an stop data 1450 Recovery or ICU Handoff [place] ent care was transferred to the destination unit staff after review of the patient's medical history, current anesthetic/surgical status and plan, according to the Provider Handoff Checklist. 1453 Stop Meds Name Total Midazolam 2 mg fentaNYL 50 mcg clindamycin (CLEOCIN) 600 mg/50 mL infus ion 0 mg Dexmedetomidine 16 mcg lactated ringers infusion 1,000 mL 300 m L * Agents Name O2 O2 Auxiliary Flowmeter 1 * Blood No blood administrations on file. Lines, Drains, and Airways Type Details Placement Removal Incision 03/02/15; wrist; 12/26/21 (LDA cleanup utility RA#[id number]); 1715 (LDA cleanup utility RA#[id number]) 03/02/15 0000 by Soco Magallon RN 12/26/21 1715 by Elijah Marks (RETIRED) Peripheral IV Line - Single Lumen 03/02/15; 1419; metacarpal vein left (top of hand); 22 gauge; Azalia COOKEE; 03/02/15; 1459 03/02/15 1419 by Susie Vieyra COOKEE 03/02/15 1459 by Fanny Schmidt RN documented in this encounter Social History Tobacco Use Types Packs/Day Years Used Date Smoking Tobacco: Never Smokeless Tobacco: Never Alcohol Use Standard Drinks/Week Comments Yes 0 (1 standard drink = 0.6 oz pur e alcohol) occasional Sex and Gender Information Value Date Recorded Sex Assigned at Not on file Gender Identity Not on file Sexual Orientation Not on file documented as of this encounter OR Notes * Anesthesia Postprocedure Evaluation - Heather Isabel MD - 03/02/2015 3:42 PM EST Patient: Pedro Mast Procedure(s) Performed: Procedure(s): ENDOSCOPY WRIST W/ RELEASE TRANSVERSE CARPAL LIGAMENT Actual Anesthetic: MAC Patient location: PACU Post-op pain: Adequate analgesia Post-op nausea: no nausea or vomiting Last Vitals: Filed Vitals: 03/02/15 1450 BP: 155/80 Pulse: 59 Temp: 37.2 ??C (99 ??F) Resp: 18 Post-op cardiovascular and respiratory status: is stable Level of consciousness: awake, alert and oriented Complications: no apparent complications and tolerated the procedure well Fluid Status: normal * Anesthesia Preprocedure Evaluation - Heather Isabel MD - 03/02/2015 1:25 PM EST Pre-Anesthesia Evaluation for: Pedro Mast a 59 y.o. male. Procedure(s): ENDOSCOPY WRIST W/ RELEASE TRANSVERSE CARPAL LIGAMENT Patient Active Problem List Diagnosis ??? Carpal tunnel syndrome ??? Visit for suture removal ??? History of basal cell carcinoma ??? Basal cell carcinoma ??? Squamous cell carcinoma ??? History of basal cell carcinoma ??? History of squamous cell carcinoma ??? Actinic keratosis Past Medical History Diagnosis Date ??? Diabetes ??? Obesity ??? Osteoarthritis ??? Hypertension ??? COPD (chronic obstructive pulmonary disease) ??? Hyperlipidemia ??? Actinic keratosis ??? CAD (coronary artery disease) No past surgical history on file. History Substance Use Topics ??? Smoking status: Never Smoker ??? Smokeless tobacco: Never Used ??? Alcohol Use: Yes Comment: occasional History Drug Use No Allergies Allergen Reactions ??? Pcn [Penicillins] Medications: MAR and/or home medications have been reviewed. Physical Exam: There were no vitals filed for this visit. There is no weight on file to calculate BMI. Airway Assessment: Mallampati: II TM distance: >3 FB Neck ROM: full Cardiovascular Assessment: Rhythm: regular Pulmonary Assessment: breath sounds clear to auscultation Dental Assessment: Misc Assessment: IV access: Peripheral line Other exam findings: Thick neck Anesthesia Plan: ASA 3 MAC, 59 y/o with obesity, HTN, GERD, DM on insulin ( BG 219 this am, no insulin today), depression / anxiety and here for CTR RIGHT Has known RAJINDER but never got a BIPAP machine for home EKG noted, labs noted. On diuretics for water retention and not HF PSH: Cath, can't think of others, no issues w/ anesthesia Plan : LMAC The patient was informed of the risks of anesthesia, and consent was obtained. These risks include,but are not limited to, PONV, pain, intraop awareness (expected), conversion to general anesthesia,and other rare but serious complications such as major organ damage, allergies, blood transfusions,and dental/lip trauma. Region - Other Informed Consent: Anesthetic plan and risks discussed with patient. Plan discussed with COOKEE. PAT Staff Note documented in this encounter Plan of Treatment Not on file documented as of this encounter Visit Diagnoses Not on filedocumented in this encounter Administered Medications Inactive Administered Medications - up to 3 most recent administrations Medication Order MAR Action Action Date Dose Rate Site dexmedetomidine (PRECEDEX) injection PRN, Starting on Sun03/02/15 at 1424, Until Sun03/02/15 at 1453, Anesthesia Intra-op, Routine Given 03/02/2015 2:29 PM EST 4 mcg Given 03/02/2015 2:26 PM EST 4 mcg Given 03/02/2015 2:24 PM EST 4 mcg fentaNYL 50 mcg/mL multi-dose injection PRN, Starting on Sun03/02/15 at 1426, Until Sun03/02/15 at 1453, Pain, Anesthesia Intra-op, Routine Given 03/02/2015 2:30 PM EST 25 mcg Given 03/02/2015 2:26 PM EST 25 mcg lactated ringers infusion 1,000 mL 1,000 mL, at 100 mL/hr, Intravenous, CONTINUOUS, Starting on Sun03/02/15 at 1330, Until Sun03/02/15 at 1719, Day of Surgery (Day of Procedure) New Bag 03/02/2015 2:17 PM EST midazolam (PF) (VERSED) 1 mg/mL multi-dose injection PRN, Starting on Sun03/02/15 at 1424, Until Sun03/02/15 at 1453, Sleep, Anesthesia Intra-op, Routine Given 03/02/2015 2:24 PM EST 2 mg documented in this encounter Care Teams Blackjack Supervisor Relationship Specialty Start Date End Date Mauro Berger MD [address] [place] [address] PCP - General 06/07/11 documented as of this encounter
--- OUTSIDE RECORDS SUMMARY | 2023-11-19 11:24 | XMS_ITS | Encounter Summary ---
[place] [address] Care Team Providers Care Textile Machinery Sales Representative Name Role Phone Mauro Berger MD Primary Care Provider [phone] Reason for Visit * Reason Comments Suture / Staple Removal Encounter Details Date Type Department Care Team (Late st Contact Info) Description 02/26/2012 4:30 PM EDT Office Visit Dermatology [address] [facility] [address] [place] [address] Greg Lopez MD [address] [facility] [place] [address] Visit for suture removal (Primary Dx) Social History Tobacco Use Types Packs/Day Years Used Date Smoking Tobacco: Never Sex and Gender Information Value Date Recorded Sex Assigned at Not on file Gender Identity Not on file Sexual Orientation Not on file documented as of this encounter Progress Notes * Greg Lopez MD - 02/26/2012 4:53 PM EDT Problem: Followup for suture removal and biopsy results. Pedro follows up today for suture removal from the left temporal site. Physical examination did show BCCA with margins clear. The back site also had clear but close deep margins for BCCA, but the sutures for that site will remain in for 10 to 14 days before they are removed. Physical examination today shows good healing of the left synagogue site. Assessment and Plan: Status post excision of BCCA, left synagogue. a. Sutures removed. b. Excellent wound healing. c. May discontinue wound care instructions. d. Return to the clinic on Sunday for suture removal from back sites. Thereafter we will plan on [id number] followups to keep a close eye on the skin. documented in this encounter Plan of Treatment Not on file documented as of this encounter Visit Diagnoses Diagnosis Visit for suture removal- Primary Encounter for removal of sutures documented in this encounter Care Teams Textile Machinery Sales Representative Relationship Specialty Start Date End Date Mauro Berger MD [address] [place] [address] PCP - General 06/07/11 documented as of this encounter
--- OUTSIDE RECORDS SUMMARY | 2023-11-19 11:24 | XMS_ITS | Encounter Summary ---
[place] [address] Care Team Providers Care Oracle Fusion Developer Name Role Phone Mauro Berger MD Primary Care Provider [phone] Encounter Details Date Type Department Care Team (Late st Contact Info) Description 04/28/2019 Refill Dermatology at [address] [phone] Maribel Trejo, BILL OF LADING CLERK Social History Tobacco Use Types Packs/Day Years [...] on filedocumented in this encounter Care Teams Oracle Fusion Developer Relationship Specialty Start Date End Date Mauro Berger MD [address] [place] [address] PCP - General 06/07/11 documented as of this encounter
--- OUTSIDE RECORDS SUMMARY | 2023-11-19 11:24 | XMS_ITS | Encounter Summary ---
Author Organization [facility] Address [facility] [place] [address] Care Team Providers Care Negative Developer Name Role Phone Mauro Berger MD Primary Care Provider [phone] Reason for Visit * Reason Comments Follow-up Skin Check * Consultation (Routine) - Specialty Diagnoses / Procedures Referred By Radha mason Referred To Contact Dermatology Diagnoses Disorder of the skin and subcutaneous tissue, unspecified Skin lesions on chest and forearm Procedures Consult Mauro Berger MD [address] [place] [address] Greg Lopez MD [address] [place] [address] [place] [address] Referral ID Status Reason Start Date Expiration Date V isits Requested Visits Authorized [id number] Consult, Test & Treat PCP Updated and/or Approved 02/10/2019 08/12/2019 6 6 Encounter Details Date Type Department Care Team (Late st Contact Info) Description 03/18/2019 11:00 AM EST Office Visit Dermatology at [address] [phone] Greg Lopez MD [address] [place] [address] [place] [address] History of basal cell carcinoma; History of [...] Progress Notes * Greg Lopez MD - 03/18/2019 11:00 AM EST Problem: 1. Follow-up BCCA left presybeterian and left inferior postauricular scalp 04/2017 2. History of BCCA left presybeterian and left upper back excised 01/2012 3. History BCC left upper forehead left upper chest right was performed, 05/2011 Demond follows up for repeat check. He has some new lesions of concern. Physical examination reveals a pleasant 63-year-old gentleman who has 2 nonhealing ulcerations on the right upper chest one on the right lateral elbow. He has diffuse actinic damage of the dorsal hands of forearms and face. He has type II Edwards pigmentation. He is blue-eyed freckled with reddish graying hair. Assessment and plan: Probable SCCA's, 3 sites: A right chest upper B right chest lower C right elbow 1. After obtaining informed consent sites were anesthetized and removed with shave C&D x3 at all 3 sites. After curettage site measured 1.3 cm in diameter. 2. Triple antibiotic ointment and bandage were placed 3. We will notify patient biopsy results in 1 week Extensive photodamage 1. Return to clinic in 1 month for discussion of probable 5-FU for face, and liquid nitrogen for sites on hands 2. We will treat additional potential SCCA's at this visit and in the very near future CC: Mauro Berger MD documented in this encounter Plan of Treatment Not on file documented as of this encounter Visit Diagnoses Diagnosis History of basal cell carcinoma Personal history of other malignant neoplasm of skin History of SCC (squamous cell carcinoma) of skin Personal history of other malignant neoplasm of skin AK (actinic keratosis) Actinic keratosis documented in this encounter Care Teams Negative Developer Relationship Specialty Start Date End Date Mauro Berger MD [address] [place] [id number] PCP - General 06/07/11 documented as of this encounter
== END 2023-11-19 13:08 | disposition left against medical advice (07) ==
PROVIDERS: PCP Family Medicine
DX: Z53.21 Procedure and treatment not carried out due to patient leaving prior to being seen by health care provider (principal)

== ENCOUNTER → 2023-11-19 13:32 | Outpatient (CLI) | payer MEDICARE, SELFPAY ==
--- NOTE | 2023-11-19 12:25 | DI.RAD_ITS ---
Exam(s) XR FOOT LT COMPLETE EXAM: XR FOOT LT COMPLETE CLINICAL HISTORY: evaluate for arthritis, foot pain,m79.673. TECHNIQUE: 2D digital imaging was performed of the left foot. Three images were obtained. AP, obli que and lateral views were obtained. COMPARISON: No exams were available for comparison FINDINGS: BONES: No acute fracture is present. No bony destructive lesion is seen. There is a small plantar shashi caneal spur. There is a small enthesophyte at the posterior calcaneus. JOINTS: No dislocation present. There are degenerative changes seen at the tarsometatarsal joints, pa rticularly the 3rd through 5th. The joint spaces are otherwise well maintained. SOFT TISSUE: Vascular calcifications are present. IMPRESSION: Mild degenerative changes seen at the tarsometatarsal joints. DATA REPOSITORY: RADIATION DOSE DELIVERED:
--- NOTE | 2023-11-19 12:48 | DI.RAD_ITS ---
Exam(s) XR FOOT RT COMPLETE EXAM: XR FOOT RT COMPLETE CLINICAL HISTORY: evaluate for arthritis,foot pain. TECHNIQUE: 2D digital imaging was performed of the right foot. Three images were obtained. AP, obl ique and lateral views were obtained. COMPARISON: No exams were available for comparison FINDINGS: BONES: No acute fracture is present. No bony destructive lesion is seen. There is a small enthesophyt e at the posterior calcaneus. There is a small spur at the plantar surface of the calcaneus. Prior trauma is again seen at the base of the distal phalanx of the great toe. JOINTS: No dislocation present. There are mild degenerative changes seen in the foot, particularly th e interphalangeal joint of the great toe and the tarsometatarsal joints. SOFT TISSUE: Vascular calcifications are present. IMPRESSION: Degenerative changes of the foot as described. DATA REPOSITORY: RADIATION DOSE DELIVERED:
--- OUTSIDE RECORDS SUMMARY | 2023-11-19 13:36 | XMS_ITS | Encounter Summary ---
[place] [address] Care Team Providers Care Agile Scrum Coach Name Role Phone Mauro Berger MD Primary Care Provider [phone] Encounter Details Date Type Department Care Team (Late st Contact Info) Description 05/10/2017 Telephone Dermatology at [address] [phone] Maribel Trejo LPN Social History [...] review biopsy results from 05/03/17 shave left church: BCCA x 2, no further treatment necessary, return to clinic 10/11/17 for repeat clinic. documented in this encounter Plan of Treatment Not on file documented as of this encounter Visit Diagnoses Not on filedocumented in this encounter Care Teams Agile Scrum Coach Relationship Specialty Start Date End Date Mauro Berger MD [address] [place] [address] PCP - General 06/07/11 documented as of this encounter
--- OUTSIDE RECORDS SUMMARY | 2023-11-19 13:36 | XMS_ITS | Encounter Summary ---
Author Organization [facility] Address [address] [place] [address] Care Team Providers Care Rag Willow Operator Name Role Phone Unknown, Provider Primary Care Provider [phone] Encounter Details Date Type Department Care Team (Latest Contact Info) Description 05/05/2016 14:40 EST - 05/05/2016 23:59 EST Hospital Encounter [address] [address] Unknown, Provider, Discharge Disposition: Home or Self Care Social History Tobacco Use Types Packs/Day Years Used Date Smoking Tobacco: Never Assessed Sex and Gender Information Value Date Recorded Sex Assigned at Not on file Gender Identity Not on file Sexual Orientation Not on file documented as of this encounter Discharge Disposition Disposition Code Departure Means Destination Home or Self [facility] documented in this encounter Plan of Treatment Not on file documented as of this encounter Visit Diagnoses Not on filedocumented in this encounter Care Teams Rag Willow Operator Relationship Specialty Start Date End Date Unknown, Provider, PCP - General 03/16/10 04/12/20 documented as of this encounter
--- OUTSIDE RECORDS SUMMARY | 2023-11-19 13:36 | XMS_ITS | Encounter Summary ---
Author Organization [facility] Address [address] [place] [address] Care Team Providers Care Consumer Services Advisor Name Role Phone Unknown, Provider Primary Care Provider [phone] Encounter Details Date Type Department Care Team (Latest Contact Info) Description 05/25/2016 10:24 EST - 05/25/2016 23:59 EST Hospital Encounter [address] [address] Unknown, Provider, Discharge Disposition: Home or Self Care Social History Tobacco Use Types Packs/Day Years Used Date Smoking Tobacco: Never Assessed Sex and Gender Information Value Date Recorded Sex Assigned at Not on file Gender Identity Not on file Sexual Orientation Not on file documented as of this encounter Discharge Disposition Disposition Code Departure Means Destination Home or Self Senior Care documented in this encounter Plan of Treatment Not on file documented as of this encounter Visit Diagnoses Not on filedocumented in this encounter Care Teams Consumer Services Advisor Relationship Specialty Start Date End Date Unknown, Provider, PCP - General 03/16/10 04/12/20 documented as of this encounter
--- OUTSIDE RECORDS SUMMARY | 2023-11-19 13:36 | XMS_ITS | Encounter Summary ---
Author Organization [facility] [place] [address] Care Team Providers Care Professor Of Business Administration Name Role Phone Mauro Berger MD Primary Care Provider [phone] Reason for Visit * Reason Comments Follow-up Skin Check Encounter Details Date Type Department Care Team (Late st Contact Info) Description 05/09/2019 8:15 AM EST Office Visit Dermatology at [address] [phone] Greg Lopez MD [address] [facility] [place] [address] History of basal cell carcinoma; History of [...] keratosis documented in this encounter Care Teams Professor Of Business Administration Relationship Specialty Start Date End Date Mauro Berger MD [address] [place] [address] PCP - General 06/07/11 documented as of this encounter
--- OUTSIDE RECORDS SUMMARY | 2023-11-19 13:36 | XMS_ITS | Continuity of Care Document ---
Author Organization [facility] Address [address] [place] [address] Care Team Providers Care Loan Operations Specialist Name Role Phone CARMINAClaudiaNORA Primary Care Physician Encounter [facility] [id number] Date(s): 05/15/23 - 05/15/23 [facility] [address] [place], [place] [address] Encounter Diagnosis BCC (basal cell carcinoma)(Discharge Diagnosis) - 05/15/23 SCCA (squamous cell carcinoma) of skin(Discharge Diagnosis) - 05/15/23 History of skin cancer(Discharge Diagnosis) - 05/14/23 Skin lesion(Discharge Diagnosis) - 05/14/23 AK (actinic keratosis)(Discharge Diagnosis) - 05/14/23 Discharge Disposition: Home or Self Care Attending Physician: Joesph Edwards DO Allergies, Adverse Reactions, Alerts Substance Reaction Severity Status penicillin Unknown Active Assessment and Plan Future Appointments Medications Efudex 5% topical cream 1 lc, Topical, BID, # 40 g, 0 Refill(s), Pharmacy: [id number] Start Date: 04/03/23 Stop Date: 04/24/23 Status: Ordered mupirocin 2% topical ointment 1 lc, Topical, TID, # 22 g, 0 Refill(s), Pharmacy: [id number] Start Date: 04/03/23 Stop Date: 04/13/23 Status: Ordered tamsulosin 0.4 mg oral capsule 0.4 mg = 1 cap, Oral, Daily, # 30 cap, 0 Refill(s) Start Date: 04/03/23 Status: Ordered Problem List Condition Confirmation Course Effective Dates Status Health St atus Informant AK (actinic keratosis) Confirmed Active CAD (coronary artery disease) Confirmed Active Diabetes Confirmed Active History of skin cancer Confirmed Active Skin lesion Confirmed Active Physician Outpatient Note * Joesph Edwards, DO: PERFORM Joesph Edwards, DO: PERFORM, MODIFY Joesph Edwards, DO: MODIFY Event Display: Office Clinic Note Physician Authored Date: [id number] CHRIS SHAH :1955 Age:67 years Sex:Male Visit Date:05/15/2023 Primary Care Physician: NORA BARRETO Chief Complaint Established-recheck spots on left wrist, right ear, and left taoism History of Present Illness Established patient last seen in the office on 04/03/23 for evaluation of lesion on the left wrist, right taoism, right ear,??and left taoism. Patient reported having spots for over a year. Patient had left wrist, right superior anti helix, left taoism, right taoism, and??left superior pre auricularbiopsied (unsure if pt received path results). Recommend treatment of Efudex to areas of the right l ower arm, and should wait??until left wrist biopsy was healed before treating area. Patient is in the office today for recheck of spots on left wrist, right ear, and left taoism. Patient is stating that he believes that all of the sites had healed well. He has previously used Bactroban and Efudex on multiple spots. Review of Systems Negative for: no new cardiac, respiratory, GI, , hematologic, neurologic, psychological, allergic, traumatic or endocrine problems except as listed above Physical Exam GENERAL APPEARANCE:??The patient is awake, alert, and oriented and in no acute distress, Appears nutritionally sound, Healthy in appearance, Voice is strong, with no stridor or stertor, Handling secretions without difficulty.?PSYCH:??affect normal, good eye contact, oriented to person, oriented to place, oriented to time.?NEURO:??CN's II-XII grossly intact, Gait is normal, The patient has endpoint nystagmus only.?HEENT:??The patient is normocephalic with a normal facies with cranial nerves 2 through 12 bilaterally equal and intact. Pupils are equal and reactive to light with extraocular movements bilaterally equal and intact. There is no proptosis or enophthalmos, ?SKIN:??multiple cancerous lesions on left wrist, right taoism, right ear,??and lefttemple. Dryness on right arm. Medical Decision Making: Biopsy areas are healing excellently, all were cancer, right taoism Mohs significant at squamous cell carcinoma. ??Others were basal cell.?? He will use Efudex on these biopsy sites, the remaining other areas post Efudex treatment he will use Aquaphor, written instructions were provided, recheck inNovember Assessment/Plan 1.??Skin lesion??L98.9 2.??AK (actinic keratosis)??L57.0 Patient and I discussed that he should be using Aquaphor??all over??the right arm that has multipledry areas. Patient aware that he should now be using Efudex on the cancerous lesions that were biopsied. Left wrist, right taoism, right ear,??and left taoism. 3.??History of skin cancer??Z85.828 Follow Up Instructions fall skin check Problem List/Past Medical History Ongoing AK (actinic keratosis) CAD (coronary artery disease) Diabetes History of skin cancer Skin lesion Historical No qualifying data Medications Efudex 5% topical cream, 1 lc, Topical, BID mupirocin 2% topical ointment, 1 lc, Topical, TID tamsulosin 0.4 mg oral capsule, 0.4 mg= 1 cap, Oral, Daily Allergies penicillin Electronically Signed on 05/15/23 10:38 AM Joesph Edwards, Patient Care team information Care Team Personnel Name: NORA BARRETO Position: No Access Member Role: Primary Care Physician Address: Address: [address]
--- OUTSIDE RECORDS SUMMARY | 2023-11-19 13:36 | XMS_ITS | Encounter Summary ---
Author Organization [facility] Address [address] [place] [address] Care Team Providers Care Blender Machine Operator Name Role Phone Unknown, Provider Primary Care Provider [phone] Mauro Berger MD Primary Care Provider [phone] Encounter Details Date Type Department Care Team (Late st Contact Info) Description 04/09/2020 Lab Requisition [facility] Pathology & Laboratory Medicine - [address] [address] Outr Resulting Lab, Provider Social History Tobacco [...] in accordance with CLIA regulations, College of [place] [employer] (CAP) guidelines (Jul 17, 2019), and FDA guidance (Jun 28, 2019). This test is only for use under the Food and Drug Administration's Emergency Use Authorization. Swab ENTIRE NASOPHARYNX / Unknown 04/09/2020 9:35 EST 04/09/2020 16:11 EST Provider Outr Resulting Lab MICROBIOLOGY - GENERAL ORDERABLES [facility] [place], [place] * COVID-19 TESTING (04/09/2020 9:35 EST) COVID-19 rt-PCR Result NEGATIVE Negative 04/11/2020 16:47 EST [facility] Comment: 2019-novel Coronavirus (2019-nCoV) not detected [...] in accordance with CLIA regulations, College of [place] Pathologists (CAP) guidelines (Jul 17, 2019), and FDA guidance (Jun 28, 2019). This test is only for use under the Food and Drug Administration's Emergency Use Authorization. Performing Lab [facility] 04/11/2020 16:47 EST [facility] Swab 04/09/2020 9:35 EST 04/09/2020 16:11 EST Provider Outr Resulting Lab MICROBIOLOGY - GENERAL ORDERABLES [facility] [address] [place], [place] [id number] [place] [address] LABORATORY [place], [place] documented in this encounter Visit Diagnoses Not on filedocumented in this encounter Care Teams Blender Machine Operator Relationship Specialty Start Date End Date Unknown, Provider, PCP - General 03/16/10 04/12/20 Mauro Berger MD [address] [place] [address] PCP - General 04/13/20 documented as of this encounter
--- OUTSIDE RECORDS SUMMARY | 2023-11-19 13:36 | XMS_ITS | Encounter Summary ---
Author Organization [facility] Address [address] [place] [address] Care Team Providers Care Crew Car Driver Name Role Phone Mauro Berger MD Primary Care Provider [phone] Encounter Details Date Type Department Care Team (Late st Contact Info) Description 04/08/2021 Lab Requisition [facility] Pathology & Laboratory Medicine - [facility] [address] [place] [address] Shelby Moya, DO [address] [place], [place] [id number] Encounter for other general examination Social History [...] management options, if applicable. 04/11/2021 11:[address] [facility] Final Diagnosis A. COLON, 70 CMS, POLYP, BIOPSY: - Inflammatory polyp. 04/11/2021 11:39 [facility] Attestation By the signature below, the attending physician certifies that they have 1) personally conducted a gross and/or microscopic examination of the described specimen(s), and/or personally interpreted the results of laboratory testing of the described specimen(s), and 2) personally rendered or confirmed the above diagnosis. 04/11/2021 11:39 [facility] at 1139 Clinical History Hx of colon polyp 04/11/2021 11:39 [facility] Gross Description A. Received in formalin labelled with proper patient identification (initials M, S) and colon polyp @ 70 cm are two pale ramon-white tissues (0.4 x 0.3 x 0.3 cm and 0.3 x 0.2 x 0.2 cm). Entirely submitted in A1. Juaquin Courtney 04/10/2021 8:25 04/11/2021 11:39 [facility] Performing Lab [facility] 04/11/2021 11:39 [facility] Scanned Images 04/11/2021 11:39 [facility] Tissue ENTIRE COLON / Unknown 04/08/2021 8:00 EST 04/08/2021 19:34 EST Shelby Moya DO PATHOLOGY ORDERABLES [facility] [address] [place] [address] documented in this encounter Visit Diagnoses Diagnosis Encounter for other general examination documented in this encounter Care Teams Crew Car Driver Relationship Specialty Start Date End Date Mauro Berger MD [address] [place], [place] [address] PCP - General 04/13/20 documented as of this encounter
--- OUTSIDE RECORDS SUMMARY | 2023-11-19 13:36 | XMS_ITS | Encounter Summary ---
Author Organization [facility] Address [address] [place] [address] Care Team Providers Care Kick Plate Installer Name Role Phone Unknown, Provider Primary Care Provider [phone] Encounter Details Date Type Department Care Team (Late st Contact Info) Description 06/16/2013 Results Only [facility] Laboratory Services - [facility] ([facility]) [address] [place], [place] [address] Reginaldo Hanna, DO [address] [facility] [address] [place] [address] Social History Tobacco Use Types Packs/Day Years [...] ? PEDRO SHAH ? Accession #: ? [id number] ? : ? 1955 (Age: 57) ??M [...] cm in thickness). Submitted intact in B1. Jayna Phillip 06/17/2013 09:42 AM End of Report [facility] 06/16/2013 8:54 EST 06/16/2013 8:54 EST Reginaldo Hanna DO PATHOLOGY ORDER JAMES [facility] [address] [place] [address] documented in this encounter Visit Diagnoses Not on filedocumented in this encounter Care Teams Kick Plate Installer Relationship Specialty Start Date End Date Unknown, Provider, PCP - General 03/16/10 04/12/20 documented as of this encounter
--- OUTSIDE RECORDS SUMMARY | 2023-11-19 13:36 | XMS_ITS | Encounter Summary ---
Author Organization [facility] Address [address] [place] [address] Care Team Providers Care Chimney Construction Supervisor Name Role Phone Mauro Berger MD Primary Care Provider Encounter Details Date Type Department Care Team (Late st Contact Info) Description 04/13/2020 Lab Requisition [facility] Pathology & Laboratory Medicine - [address] [address] Cee Lopes MD [address] [place] [phone] Encounter for other general examination Social History [...] BIOPSY: - Tubular adenoma. 04/15/2020 9:40 EST [facility] Attestation There was significant resident/fellow involvement in the diagnostic evaluation of this case. By the signature below, the attending physician certifies that they have personally conducted a gross and/or microscopic examination of the described specimens and rendered or confirmed the above diagnosis. 04/15/2020 9:40 [facility] at 0940 Clinical History History of colon polyps 04/15/2020 9:40 [facility] Gross Description A. Received in [...] B1. CHRISTINA LOREDO(ASCP) 04/13/2020 18:22 04/15/2020 9:40 [facility] Resident/Walter w: Yoon Mariscal MD 04/15/2020 9:40 [facility] Performing Lab [facility] 04/15/2020 9:40 [facility] Scanned Images 04/15/2020 9:40 [facility] Tissue CECUM STRUCTURE / Unknown 04/13/2020 9:35 EST 04/13/2020 15:48 EST Tissue specimen (specimen) POLYP OF COLON / Unknown 04/13/2020 9:35 EST 04/13/2020 15:48 EST Cee Lopes MD PATHOLOGY ORDERABLES [facility] [address] [place] [address] documented in this encounter Visit Diagnoses Diagnosis Encounter for other general examination documented in this encounter Care Teams Chimney Construction Supervisor Relationship Specialty Start Date End Date Mauro Berger MD [address] [place] [address] PCP - General 04/13/20 documented as of this encounter
--- OUTSIDE RECORDS SUMMARY | 2023-11-19 13:36 | XMS_ITS | Encounter Summary ---
Author Organization [facility] Address [address] [place] [address] Care Team Providers Care Administrative Supervisor Name Role Phone Unknown, Provider Primary Care Provider [phone] Encounter Details Date Type Department Care Team (Late st Contact Info) Description 05/09/2010 Results Only [facility] Laboratory Services - [facility] ([facility]) [address] [place], [place] [address] Martell Marcano MD [address] [place] [address] Social History Tobacco Use Types Packs/Day Years [...] to Dr. Martell Marcano on 05/11/10. ??(Dr. Ulloa)/[facility] ? Document reviewed and electronically signed by: [...] ? Gross Description: ? Received fresh at labelled ? Pedro Shah and left ear [...] Marcano MD PATHOLOGY ORDERABLES Performing Organization Address City/State/[facility] Co de Phone Number [facility] [address] [place] [address] documented in this encounter Visit Diagnoses Not on filedocumented in this encounter Care Teams Administrative Supervisor Relationship Specialty Start Date End Date Unknown, Provider, PCP - General 03/16/10 04/12/20 documented as of this encounter
--- OUTSIDE RECORDS SUMMARY | 2023-11-19 13:36 | XMS_ITS | Encounter Summary ---
Author Organization [facility] [address] Care Team Providers Care Box Truck Driver Name Role Phone Mauro Berger MD Primary Care Provider [phone] Encounter Details Date Type Department Care Team (Late st Contact Info) Description 05/03/2017 9:15 AM EST Office Visit Dermatology at [address] [phone] Greg Lopez MD [address] [place] [address] [place] [address] History of basal cell carcinoma; History of [...] and D treatment of 2 sites, left scientologist and left inferior postauricular scalp. Demond follows up and is here for his procedure. Physical examination again reveals the 2 sites present as noted on his last dictation from 04/03/17. A/P: Probable SCCA versus BCCA, site A left scientologist, site B left postauricular scalp. a. Consent [...] keratosis documented in this encounter Care Teams Box Truck Driver Relationship Specialty Start Date End Date Mauro Berger MD [address] [place] [address] PCP - General 06/07/11 documented as of this encounter
--- OUTSIDE RECORDS SUMMARY | 2023-11-19 13:36 | XMS_ITS | Referral Summary ---
Author Organization [facility] Address [address] [place] [address] Care Team Providers Care Salon Customer Experience Specialist Name Role Phone Mauro Berger MD Primary Care Provider [phone] Social History Tobacco Use Types Packs/Day Years Used Date Smoking Tobacco: Never Assessed Sex and Gender Information Value Date Recorded Sex Assigned at Not on file Gender Identity Not on file Sexual Orientation Not on file Plan of Treatment Not on file Care Teams Salon Customer Experience Specialist Relationship Specialty Start Date End Date Mauro Berger MD [address] [place] [address] PCP - General 04/13/20
--- OUTSIDE RECORDS SUMMARY | 2023-11-19 13:36 | XMS_ITS | Encounter Summary ---
Author Organization [facility] Address [address] [place] [address] Care Team Providers Care Genetic Engineer Name Role Phone Unknown, Provider Primary Care Provider Encounter Details Date Type Department Care Team (Latest Contact Info) Description 06/01/2015 17:18 EST - 06/01/2015 23:59 EST Hospital Encounter [address] [address] Unknown, Provider, Discharge Disposition: Home or Self [...] on filedocumented in this encounter Care Teams Genetic Engineer Relationship Specialty Start Date End Date Unknown, Provider, PCP - General 03/16/10 04/12/20 documented as of this encounter
--- OUTSIDE RECORDS SUMMARY | 2023-11-19 13:36 | XMS_ITS | Encounter Summary ---
Author Organization [facility] Address [address] [place] [address] Care Team Providers Care Bench Shear Operator Name Role Phone Unknown, Provider Primary Care Provider Encounter Details Date Type Department Care Team (Latest Contact Info) Description 06/16/2013 13:17 EST - 06/16/2013 23:59 EST Hospital Encounter [address] [address] Unknown, Provider, Discharge Disposition: Home or Self Care Social History Tobacco Use Types Packs/Day Years Used Date Smoking Tobacco: Never Assessed Sex and Gender Information Value Date Recorded Sex Assigned at Not on file Gender Identity Not on file Sexual Orientation Not on file documented as of this encounter Discharge Disposition Disposition Code Departure Means Destination Home or Self [facility] documented in this encounter Plan of Treatment Not on file documented as of this encounter Visit Diagnoses Not on filedocumented in this encounter Care Teams Bench Shear Operator Relationship Specialty Start Date End Date Unknown, Provider, PCP - General 03/16/10 04/12/20 documented as of this encounter
--- OUTSIDE RECORDS SUMMARY | 2023-11-19 13:36 | XMS_ITS | Encounter Summary ---
Author Organization [facility] Address [address] [place] [address] Care Team Providers Care Coil Rewind Machine Operator Name Role Phone Mauro Berger MD Primary Care Provider [phone] Encounter Details Date Type Department Care Team (Late st Contact Info) Description 04/04/2023 Lab Requisition [facility] Pathology & Laboratory Medicine - [facility] [address] [place] [address] Joesph Edwards, [address] [place] [address] Disorder of the skin and subcutaneous tissue, [...] management options, if applicable. 04/05/2023 10:56 [facility] Final Diagnosis A. SKIN OF BREAST, LEFT, SHAVE BIOPSY: - Basal cell carcinoma, nodular type. - Basal cell carcinoma present at peripheral and deep tissue edges. B. SKIN OF ANTI HELIX, RIGHT SUPERIOR, SHAVE BIOPSY: - Basal cell carcinoma, nodular and infiltrative type. - Basal cell carcinoma present at deep tissue edge. C. SKIN OF LATTER DAY, LEFT, SHAVE BIOPSY: - Basal cell carcinoma, superficial and nodular type. - Basal cell carcinoma present at peripheral and deep tissue edges. - Incidental actinic keratosis, acanthotic type. D. SKIN OF LATTER DAY, RIGHT, SHAVE BIOPSY: - Squamous cell carcinoma, well differentiated, invasive. - Squamous cell carcinoma present at deep tissue edge. E. SKIN OF PRE-AURICULAR REGION, LEFT SUPERIOR, SHAVE BIOPSY: - Basal cell carcinoma, nodular and infiltrative type, with squamous differentiation (metatypical). - Basal cell carcinoma present at peripheral and deep tissue edges. 04/05/2023 10:56 [facility] Attestation By the signature below, the attending physician certifies that they have 1) personally conducted a gross and/or microscopic examination of the described specimen(s), and/or personally interpreted the results of laboratory testing of the described specimen(s), and 2) personally rendered or confirmed the above diagnosis. 04/05/2023 10:56 [facility] at 1056 Microscopic Description A. [...] keratin brendon formation are evident. 04/05/2023 10:56 [facility] Clinical History Clinical diagnosis code: L98.9 x5 04/05/2023 10:56 [facility] Gross Description A. Received [...] patient identification (initials M, S) and left cheondoism is a 1.6 x 1.5 x 0.1 cm irregular shave of crusted ramon-pacheco skin. The margin is inked. The specimen is serially sectioned and entirely submitted in C1-C2. D. Received in formalin labelled with proper patient identification (initials M, S) and right cheondoism is a 1.1 x 0.6 x 0.1 [...] sectioned and entirely submitted in E1-E2. CHRISTINA CAST([facility]) 04/04/2023 17:39 04/05/2023 10:56 [facility] Performing Lab [facility] 04/05/2023 10:56 [facility] Scanned Images 04/05/2023 10:56 [facility] Tissue SPECIMEN FROM SKIN / [...] EST Joesph Edwards DO PATHOLOGY ORDER J[facility] [address] [place] [address] documented in this encounter Visit Diagnoses Diagnosis Disorder of the skin and subcutaneous tissue, unspecified documented in this encounter Care Teams Coil Rewind Machine Operator Relationship Specialty Start Date End Date Mauro Berger MD [address] [place] [address] PCP - General 04/13/20 documented as of this encounter
--- OUTSIDE RECORDS SUMMARY | 2023-11-19 13:36 | XMS_ITS | Encounter Summary ---
Author Organization [facility] Address [facility] [place] [address] Care Team Providers Care Comber Tender Name Role Phone Mauro Berger MD Primary Care Provider [phone] Reason for Visit * Reason Comments Follow-up Skin Check * Consultation (Routine) - Specialty Diagnoses / Procedures Referred By Radha mason Referred To Contact Dermatology Diagnoses Disorder of the skin and subcutaneous tissue, unspecified Skin lesions on chest and forearm Procedures Consult Mauro Berger MD [address] [place] [address] Greg Lopez MD [address] [place] [address] [place] [address] Referral ID Status Reason Start Date Expiration Date V isits Requested Visits Authorized [id number] Consult, Test & Treat PCP Updated and/or Approved 02/10/2019 08/12/2019 6 6 Encounter Details Date Type Department Care Team (Late st Contact Info) Description 03/18/2019 11:00 AM EST Office Visit Dermatology at [address] [address] Greg Lopez MD [address] [place] [address] [place] [address] History of basal cell carcinoma; History of [...] AM EST Problem: 1. Follow-up BCCA left voodoo and left inferior postauricular scalp 04/2017 2. History of BCCA left voodoo and left upper back excised 01/2012 3. [...] keratosis documented in this encounter Care Teams Comber Tender Relationship Specialty Start Date End Date Mauro Berger MD [address] [place] [address] PCP - General 06/07/11 documented as of this encounter
--- OUTSIDE RECORDS SUMMARY | 2023-11-19 13:36 | XMS_ITS | Encounter Summary ---
Author Organization [facility] Address [facility] [place] [address] Care Team Providers Care Yard Driver Name Role Phone Mauro Berger MD Primary Care Provider [phone] Encounter Details Date Type Department Care Team (Late st Contact Info) Description 11/14/2019 External Results Medical Records [facility] [place] [address] Provider, Scanning Social History Tobacco Use Types [...] on filedocumented in this encounter Care Teams Yard Driver Relationship Specialty Start Date End Date Mauro Berger MD [address] [place] [address] PCP - General 06/07/11 documented as of this encounter
--- OUTSIDE RECORDS SUMMARY | 2023-11-19 13:36 | XMS_ITS | Encounter Summary ---
Author Organization [facility] [place] [address] Care Team Providers Care Varnish Thinner Name Role Phone Mauro Berger MD Primary Care Provider [phone] Encounter Details Date Type Department Care Team (Latest Contact Info) Description 11/13/2019 9:15 PM EDT - 11/13/2019 11:59 PM EDT Hospital [place] [phone] Discharge Disposition: Home Social History Tobacco Use [...] Strip by Misc.(Non-Drug; Combo Route) route. Insulin New [place], Disposable, 29 gauge X 1/2 Needle by Misc.(Non-Drug; Combo Route) route. Lancets Misc by [facility].(Non-Drug; Combo Route) route. FOLIC ACID/MV,FE,OTHER MIN (CENTRUM [...] (11/13/2019 12:00 PM EDT) FINAL DIAGNOSIS (AP) [id number] ? Location: [facility] The signing pathologist has (i) examined the relevant preparation(s) for the specimen(s) and (ii) rendered or confirmed the diagnosis(es). . ?Surgical Pathology DIAGNOSIS Right upper chest, 4 mm punch biopsy: - Dermal scar - Negative for basal cell carcinoma Electronically signed by: ??Karlee GOULD, Sherwin Taylor Verified: ??11/19/2019 ?Dermatopatholo gist Performed at: ??-[facility] Dept. of Pathology, [place], [place] ADDITIONAL STUDIES Multiple step-leveled sections through [...] labeled A1. ??ajw 11/19/2019 3:24 PM EDT [facility] 11/13/2019 12:0 0 PM EDT Greg Lopez MD PATHOLOGY/CYTOLOGY O RDERABLES [facility] [place] [address] documented in this encounter Visit Diagnoses Not on filedocumented in this encounter Care Teams Varnish Thinner Relationship Specialty Start Date End Date Mauro Berger MD [address] [place] [address] PCP - General 06/07/11 documented as of this encounter
--- OUTSIDE RECORDS SUMMARY | 2023-11-19 13:36 | XMS_ITS | Clinical Summary ---
Author Organization [facility] Address [facility] [place] [address] Care Team Providers Care Vocational Rehabilitation Technician Name Role Phone Mauro Berger MD Primary Care Provider [phone] Allergies Active Allergy Reactions Criticality Noted Date [...] daily. Active Ketone Blood Test Strip by [facility].(Non-Drug; Combo Route) route. Active Insulin Penn, Disposable, 29 gauge X 1/2 Needle by [facility].(Non-Drug; Combo Route) route. Active Lancets Misc by [facility].(Non-Drug; Combo Route) route. Active FOLIC ACID/MV,FE,OTHER MIN [...] capacity to make decision: Yes Care Teams Vocational Rehabilitation Technician Relationship Specialty Start Date End Date Mauro Berger MD [address] [place], [place] [address] PCP - General 06/07/11
--- OUTSIDE RECORDS SUMMARY | 2023-11-19 13:36 | XMS_ITS | Encounter Summary ---
Author Organization [facility] [place] [address] Care Team Providers Care Sheet Metal Pattern Cutter Name Role Phone Mauro Berger MD Primary Care Provider [phone] Reason for Visit * Reason Comments Follow-up * Consultation (Routine) - Specialty Diagnoses / Procedures Referred By Contliberty t Referred To Contact Dermatology Diagnoses Disorder of the skin and subcutaneous tissue, unspecified Skin lesions on chest and forearm Procedures Consult Mauro Berger MD [address] [place] [address] Greg Lopez MD [address] [place] [address] [place] [address] Referral ID Status Reason Start Date Expiration Date V isits Requested Visits Authorized [id number] Consult, Test & Treat PCP Updated and/or Approved 02/10/2019 08/12/2019 6 6 Encounter Details Date Type Department Care Team (Late st Contact Info) Description 04/28/2019 8:00 AM EST Office Visit Dermatology at [address] [address] Greg Lopez MD [address] [place] [address] DERMATOLOGY [place], [place] [id number] History of basal cell carcinoma; History of [...] Progress Notes * Greg Lopez MD - 04/28/2019 8:00 AM EST Problem: 1. History of BCCAs x 3 right upper chest, right lower chest, and right elbow February 2019 2. 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 ??History of BCCA left baptism and left upper back excised 01/2012 4. ??History BCC left upper forehead left upper chest right was performed, 05/2011 5. 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 Patient will be called into [facility] in [place]. If insurance does not cover will then use the compounding pharmacy in [place] 4. Return to clinic May 09 after [...] keratosis documented in this encounter Care Teams Sheet Metal Pattern Cutter Relationship Specialty Start Date End Date Mauro Berger MD [address] [place] [address] PCP - General 06/07/11 documented as of this encounter
--- OUTSIDE RECORDS SUMMARY | 2023-11-19 13:36 | XMS_ITS | Encounter Summary ---
Author Organization [facility] Address [address] [place] [address] Care Team Providers Care Regulatory Agency Director Name Role Phone Unknown, Provider Primary Care Provider [phone] Encounter Details Date Type Department Care Team (Late st Contact Info) Description 06/01/2015 Results Only [facility] [phone] Reginaldo Hanna, DO [address] [facility] [address] [place], [place] [id number] Social History Tobacco Use Types Packs/Day Years [...] ? PEDRO SHAH ? Accession #: ? [id number] ? : ? 1955 (Age: 59) ??M ? Collect Date: ? 06/01/2015 ? Location: ? [facility] ? Receive Date: ? 06/03/2015 ? Provider: REGINALDO HANNA DO Copy to: ALEX GOEL MD ? Final Pathologic Diagnosis: SKIN OF CONFUCIANIST, LEFT, EXCISION: - Squamous cell carcinoma, well [...] above diagnosis. Specimen(s) Received: Skin lesion left sabianism, suture anterior Clinical History: Skin lesion left sabianism Gross Description: ? Received in formalin labelled with proper patient identification (initials M, S) and left sabianism is an oriented elliptical excision of pink-ramon [...] Soto 06/03/2015 12:49 PM End of Report [facility] 06/01/2015 9:01 EST 06/03/2015 9:01 EST Reginaldo Hanna DO PATHOLOGY ORDER JAMES Performing Organization Address City/State/[facility] Co de Phone Number [facility] [address] [place] [address] documented in this encounter Visit Diagnoses Not on filedocumented in this encounter Care Teams Regulatory Agency Director Relationship Specialty Start Date End Date Unknown, Provider, PCP - General 03/16/10 04/12/20 documented as of this encounter
--- OUTSIDE RECORDS SUMMARY | 2023-11-19 13:36 | XMS_ITS | Encounter Summary ---
Author Organization [facility] Address [address] [place] [address] Care Team Providers Care Dumb Waiter Operator Name Role Phone Unknown, Provider Primary Care Provider [phone] Encounter Details Date Type Department Care Team (Late st Contact Info) Description 05/25/2016 Results Only [facility] [phone] Katiana Burch, DO [address] [place] [address] Social History Tobacco Use Types [...] ? PEDRO MAST ? Accession #: ? [id number] ? : ? 1955 (Age: 60) ??M [...] Cardoza 05/26/2016 10:46 AM End of Report [facility] 05/25/2016 9:55 EST 05/26/2016 9:55 EST Katiana Burch DO PATHOLOGY ORDERABLES [facility] [address] [place] [address] documented in this encounter Visit Diagnoses Not on filedocumented in this encounter Care Teams Dumb Waiter Operator Relationship Specialty Start Date End Date Unknown, Provider, PCP - General 03/16/10 04/12/20 documented as of this encounter
--- OUTSIDE RECORDS SUMMARY | 2023-11-19 13:36 | XMS_ITS | Encounter Summary ---
Author Organization [facility] Address [address] [place] [address] Care Team Providers Care Upper Shaper Name Role Phone Unknown, Provider Primary Care Provider [phone] Encounter Details Date Type Department Care Team (Latest Contact Info) Description 03/20/2014 17:13 EST - 03/20/2014 23:59 EST Hospital Encounter [address] [address] Unknown, Provider, Discharge Disposition: Home or Self Care Social History Tobacco Use Types Packs/Day Years Used Date Smoking Tobacco: Never Assessed Sex and Gender Information Value Date Recorded Sex Assigned at Not on file Gender Identity Not on file Sexual Orientation Not on file documented as of this encounter Discharge Disposition Disposition Code Departure Means Destination Home or Self Intermediate documented in this encounter Plan of Treatment Not on file documented as of this encounter Visit Diagnoses Not on filedocumented in this encounter Care Teams Upper Shaper Relationship Specialty Start Date End Date Unknown, Provider, PCP - General 03/16/10 04/12/20 documented as of this encounter
--- OUTSIDE RECORDS SUMMARY | 2023-11-19 13:36 | XMS_ITS | Encounter Summary ---
Author Organization [facility] Address [address] [place] [address] Care Team Providers Care Field Appraiser Name Role Phone Mauro Berger MD Primary Care Provider [phone] Encounter Details Date Type Department Care Team (Late st Contact Info) Description 05/19/2022 Lab Requisition [facility] Pathology & Laboratory Medicine - [facility] [address] [place] [address] Derrick Arnett MD [address] [place], [place] [address] Encounter for other general examination Social History [...] management options, if applicable. 05/22/2022 11:24 EST [facility] Final Diagnosis A. SKIN OF FOREARM, LEFT, EXCISION: - Squamous cell carcinoma, well-differentiat ed, completely excised. 05/22/2022 11:24 [facility] Attestation By the signature below, the attending physician certifies that they have 1) personally conducted a gross and/or microscopic examination of the described specimen(s), and/or personally interpreted the results of laboratory testing of the described specimen(s), and 2) personally rendered or confirmed the above diagnosis. 05/22/2022 11:24 [facility] at [address]4 Clinical History L forearm tender firm nodule 05/22/2022 11:24 [facility] Gross Description A. Received [...] BLOCK KOCH A1-2 tips, reverse en face [id number] sections Susy Gautam 05/19/2022 11:23 05/22/2022 11:24 [facility] Performing Lab [facility] 05/22/2022 11:24 [facility] Scanned Images 05/22/2022 11:24 [facility] Tissue TISSUE SPECIMEN FROM SKIN / Unknown 05/18/2022 10:25 EST 05/19/2022 7:33 EST Derrick Arnett MD PATHOLOGY ORDERABLES [facility] [address] [place] [address] documented in this encounter Visit Diagnoses Diagnosis Encounter for other general examination documented in this encounter Care Teams Field Appraiser Relationship Specialty Start Date End Date Mauro Berger MD [address] [place] [address] PCP - General 04/13/20 documented as of this encounter
--- OUTSIDE RECORDS SUMMARY | 2023-11-19 13:36 | XMS_ITS | Encounter Summary ---
Author Organization [facility] Address [address] [place] [address] Care Team Providers Care Metal Hanging Helper Name Role Phone Unknown, Provider Primary Care Provider [phone] Encounter Details Date Type Department Care Team (Late st Contact Info) Description 05/05/2016 Results Only [facility] [phone] Katiana Burch, DO [address] [place] [address] Social History Tobacco Use Types [...] 0.1 mm of the peripheral margin. ??(Dr. Ponce)/[facility] Microscopic Description: Emanating from the [...] some of the islands and stroma. ??(Dr. Ponce)/[facility] Document reviewed and electronically signed [...] (ASCP) 05/08/2016 11:47 AM End of Report [facility] 05/05/2016 6:46 EST 05/05/2016 6:46 EST Katiana Burch DO PATHOLOGY ORDERABLES [facility] [address] [place] [address] documented in this encounter Visit Diagnoses Not on filedocumented in this encounter Care Teams Metal Hanging Helper Relationship Specialty Start Date End Date Unknown, Provider, PCP - General 03/16/10 04/12/20 documented as of this encounter
--- OUTSIDE RECORDS SUMMARY | 2023-11-19 13:36 | XMS_ITS | Encounter Summary ---
Author Organization [facility] Address [facility] [place] [address] Care Team Providers Care Nuclear Medicine Pet Ct Technologist Name Role Phone Mauro Berger MD Primary Care Provider [phone] Reason for Visit * Reason Comments Left Hand Pain WC DOI 02/15/15 Encounter Details Date Type Department Care Team (Late st Contact Info) Description 05/26/2015 2:30 PM EST Office [place] [address] Shaheen Diaz MD [facility] DR [place] [address] Bilateral carpal tunnel syndrome; Trigger finger, left [...] fascia documented in this encounter Care Teams Nuclear Medicine Pet Ct Technologist Relationship Specialty Start Date End Date Mauro Berger MD [address] [place] [address] PCP - General 06/07/11 documented as of this encounter
--- OUTSIDE RECORDS SUMMARY | 2023-11-19 13:36 | XMS_ITS | Encounter Summary ---
Author Organization [facility] Address [address] [place] [address] Care Team Providers Care Sprinkler Truck Driver Name Role Phone Unknown, Provider Primary Care Provider Encounter Details Date Type Department Care Team (Late st Contact Info) Description 03/20/2014 Results Only [facility] Services - [facility] ([facility]) [address] [place], [place] [address] Reginaldo Hanna, DO [address] [facility] [address] [place] [address] Social History Tobacco Use Types Packs/Day Years [...] SHAH PEDRO P ? Accession #: ? [id number] ? : ? 1955 (Age: 58) ??M [...] Villagran 03/21/2014 09:52 AM End of Report [facility] 03/20/2014 18:2 4 EST 03/20/2014 18:24 EST Reginaldo Hanna DO PATHOLOGY ORDER JAMES [facility] [address] [place] [address] documented in this encounter Visit Diagnoses Not on filedocumented in this encounter Care Teams Sprinkler Truck Driver Relationship Specialty Start Date End Date Unknown, Provider, PCP - General 03/16/10 04/12/20 documented as of this encounter
--- OUTSIDE RECORDS SUMMARY | 2023-11-19 13:36 | XMS_ITS | Encounter Summary ---
[place] [address] Care Team Providers Care Cylinder Die Machine Helper Name Role Phone Mauro Berger MD Primary Care Provider [phone] Reason for Visit * Reason Comments Follow-up Skin Check * Consultation (Routine) - Specialty Diagnoses / Procedures Referred By Contliberty t Referred To Contact Dermatology Diagnoses Disorder of the skin and subcutaneous tissue, unspecified BCC/SCC Procedures Consult Mauro Berger MD [address] [place] [address] Greg Lopez MD [address] [place] [address] [place] [address] Referral ID Status Reason Start Date Expiration Date V isits Requested Visits Authorized [id number] 03/06/2019 03/05/2020 1 1 Encounter Details Date Type Department Care Team (Late st Contact Info) Description 11/13/2019 1:45 PM EDT Office Visit Dermatology at [address] [address] Greg Lopez MD [address] [place] [address] [place] [address] History of basal cell carcinoma; History of [...] elbow February 2019 2. ??Follow-up BCCA left synagogue and left inferior postauricular scalp 04/2017 3. ??History of BCCA left synagogue and left upper back excised 01/2012 4. ??History BCC left upper forehead left upper chest right was performed, 05/2011 5. 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 Status [...] back and shoulders and a couple other synagogue. However the facial area involvement is much [...] keratosis documented in this encounter Care Teams Cylinder Die Machine Helper Relationship Specialty Start Date End Date Mauro Berger MD [address] [place] [address] PCP - General 06/07/11 documented as of this encounter
--- OUTSIDE RECORDS SUMMARY | 2023-11-19 13:36 | XMS_ITS | Encounter Summary ---
Author Organization [facility] Address [address] [place] [address] Care Team Providers Care Proprietary Trader Name Role Phone Unavailable Primary Care Provider Unavailabl e Encounter Details Date Type Department Care Team (Late st Contact Info) Description 03/14/2010 Results Only [facility] Laboratory Services - [facility] ([facility] [address] [place], [place] [id number] Martell Marcano MD [address] [place] [id number] Social History Tobacco Use Types Packs/Day Years [...] PABLO, PEDRO P ? Accession #: ? [id number] ? : ? 1955 (Age: 54) ??M [...] specimens are submitted intact in one cassette. /[facility] ? End of Report ? [facility] 03/14/2010 03/15/2010 8:2 2 EST Martell Marcano MD PATHOLOGY ORDERABLES [facility] [address] [place] [address] documented in this encounter Visit Diagnoses Not on filedocumented in this encounter
--- OUTSIDE RECORDS SUMMARY | 2023-11-19 13:36 | XMS_ITS | Encounter Summary ---
Author Organization [facility] Address [address] [place] [address] Care Team Providers Care Bleach Range Operator Name Role Phone Mauro Berger MD Primary Care Provider [phone] Encounter Details Date Type Department Care Team (Late st Contact Info) Description 05/04/2022 Lab Requisition [facility] Pathology & Laboratory Medicine - [facility] [address] [place] [address] Derrick Arnett MD [address] [place], [place] [address] Encounter for other general examination Social History [...] management options, if applicable. 05/08/2022 12:00 EST [facility] Final Diagnosis A. SKIN OF CHEST, LEFT, EXCISION: - Squamous cell carcinoma, well-differentiat ed, completely excised. 05/08/2022 12:00 [facility] Attestation By the signature below, the attending physician certifies that they have 1) personally conducted a gross and/or microscopic examination of the described specimen(s), and/or personally interpreted the results of laboratory testing of the described specimen(s), and 2) personally rendered or confirmed the above diagnosis. 05/08/2022 12:00 [facility] at 1200 Clinical History Nodule L chest; ? BCC 05/08/2022 12:00 [facility] Gross Description A. Received [...] face. MARY RODRIGUEZ 05/05/2022 9:59 05/08/2022 12:00 [facility] Performing Lab [facility] 05/08/2022 12:00 [facility] Scanned Images 05/08/2022 12:00 [facility] Tissue TISSUE SPECIMEN FROM SKIN / Unknown 05/04/2022 11:00 EST 05/04/2022 23:55 EST Derrick Arnett MD PATHOLOGY ORDERABLES [facility] [address] [place] [address] documented in this encounter Visit Diagnoses Diagnosis Encounter for other general examination documented in this encounter Care Teams Bleach Range Operator Relationship Specialty Start Date End Date Mauro Berger MD [address] [place] [address] PCP - General 04/13/20 documented as of this encounter
--- OUTSIDE RECORDS SUMMARY | 2023-11-19 13:36 | XMS_ITS | Encounter Summary ---
[place] [address] Care Team Providers Care Printing Press Machine Operator Name Role Phone Mauro Berger MD Primary Care Provider [phone] Encounter Details Date Type Department Care Team (Late st Contact Info) Description 04/28/2019 Refill Dermatology at [address] [phone] Maribel Trejo, CHILD CARE GIVER Social History Tobacco Use Types Packs/Day Years [...] on filedocumented in this encounter Care Teams Printing Press Machine Operator Relationship Specialty Start Date End Date Mauro Berger MD [address] [place] [address] PCP - General 06/07/11 documented as of this encounter
--- OUTSIDE RECORDS SUMMARY | 2023-11-19 13:36 | XMS_ITS | Encounter Summary ---
Author Organization [facility] Address [facility] [place] [address] Care Team Providers Care Examination Proctor Name Role Phone Mauro Berger MD Primary Care Provider [phone] Reason for Visit * Reason Comments Follow-up Skin Check * Consultation (Routine) - Specialty Diagnoses / Procedures Referred By Radha t Referred To Contact Dermatology Diagnoses Actinic keratosis Skin Lesion on face, Multiple AR's Procedures Skin Lesion on face, Multiple AR's Mauro Berger MD [address] [place] [address] Greg Lopez MD [address] [place] [address] [place] [address] Referral ID Status Reason Start Date Expiration Date V isits Requested Visits Authorized [id number] 11/23/2016 11/23/2017 1 1 Encounter Details Date Type Department Care Team (Late st Contact Info) Description 04/03/2017 10:45 AM EST Office Visit Dermatology at [address] [phone] Greg Lopez MD [address] [place] [address] [place] [address] History of basal cell carcinoma; History of [...] Actinic keratoses. 2. History of BCCA, left nondenominational and left upper back, excised 01/2012. 3. History of BCCA, left upper forehead, left upper chest, right dorsal forearm, 05/2011. Demond is a 61-year-old gentleman who is referred back to me by Dr. Berger. 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 He has had multiple non-melanotic cutaneous malignancies [...] a. Today, 2 new sites noted: Left nondenominational area and left postauricular scalp. b. Will [...] keratosis documented in this encounter Care Teams Examination Proctor Relationship Specialty Start Date End Date Mauro Berger MD [address] [place] [address] PCP - General 06/07/11 documented as of this encounter
--- OUTSIDE RECORDS SUMMARY | 2023-11-19 13:36 | XMS_ITS | Encounter Summary ---
Author Organization [facility] Address [facility] [place] [address] Care Team Providers Care Tire Stripper Name Role Phone Mauro Berger MD Primary Care Provider [phone] Encounter Details Date Type Department Care Team (Latest Contact Info) Description 05/26/2015 1:35 PM EST - 05/26/2015 11:59 PM [facility] Hospital Encounter XRay at [address] [place] [address] Shaheen Diaz MD [facility] [place] [address] Carpal tunnel syndrome on left Discharge Disposition: [...] Strip by Mis.(Non-Drug; Combo Route) route. Insulin [place], Disposable, 29 gauge X 1/2 Needle by [...] syndrome documented in this encounter Care Teams Tire Stripper Relationship Specialty Start Date End Date Mauro Berger MD [address] [place] [address] PCP - General 06/07/11 documented as of this encounter
--- OUTSIDE RECORDS SUMMARY | 2023-11-19 13:36 | XMS_ITS | Encounter Summary ---
Author Organization [facility] [place] [address] Care Team Providers Care Supervisor Insulation Name Role Phone Mauro Berger MD Primary Care Provider [phone] Reason for Visit * Reason Comments Follow-up Skin Check Encounter Details Date Type Department Care Team (Late st Contact Info) Description 10/11/2017 8:45 AM EDT Office Visit Dermatology at [address] [phone] Greg Lopez MD [address] [facility] [place] [address] History of basal cell carcinoma; History of [...] AM EDT Problem: 1. Follow-up BCCA left gnosticism and left inferior postauricular scalp 04/2017 2. History of BCCA left gnosticism and left upper back excised 01/2012 3. [...] keratosis documented in this encounter Care Teams Supervisor Insulation Relationship Specialty Start Date End Date Mauro Berger MD [address] [place] [address] PCP - General 06/07/11 documented as of this encounter
--- OUTSIDE RECORDS SUMMARY | 2023-11-19 13:36 | XMS_ITS | Encounter Summary ---
Author Organization [facility] Address [address] [place] [address] Care Team Providers Care Watermaster Name Role Phone Unavailable Primary Care Provider Unavailabl e Encounter Details Date Type Department Care Team (Late st Contact Info) Description 03/20/2008 Before PRISM Converted Visit (Maple) [facility] - Maple conversion [address] [place] [address] Mauro Berger MD [address] [place], [place] [address] Social History Tobacco Use Types Packs/Day Years [...] ? PEDRO SHAH ? Accession #: ? [id number] ? : ? 1955 (Age: 52) ??M [...] en face, (A2) [place]. ?? (Dr. Batista)/[facility] ? End of Report ? [facility] 03/20/2008 03/21/2008 10: 07 EST Mauro Berger MD PATHOLOGY ORDERABLES [facility] [address] [place] [address] documented in this encounter Visit Diagnoses Not on filedocumented in this encounter
--- OUTSIDE RECORDS SUMMARY | 2023-11-19 13:36 | XMS_ITS | Clinical Summary ---
Author Organization [facility] Address [address] [place] [address] Care Team Providers Care Maintenance Worker Name Role Phone Mauro Berger MD Primary Care Provider [phone] Social History Tobacco Use Types Packs/Day Years [...] COVID-19 Vaccine ( season) 2022 Care Teams Maintenance Worker Relationship Specialty Start Date End Date Mauro Berger MD [address] [place] [address] PCP - General 04/13/20
--- OUTSIDE RECORDS SUMMARY | 2023-11-19 13:36 | XMS_ITS | Continuity of Care Document ---
Author Organization [facility] Address [address] [place] [address] Care Team Providers Care Refrigerator Car Icer Name Role Phone CARMINAClaudia NORA Taylor Primary Care Physician [phone] Encounter [facility] NBR [id number] Date(s): 04/03/23 - 04/03/23 [facility] Ambulatory Clinics [address] [place], [place] [address] Encounter Diagnosis Skin lesion(Discharge Diagnosis) - 04/03/23 Skin lesions(Discharge Diagnosis) - 04/03/23 History of skin cancer(Discharge Diagnosis) - 04/03/23 Actinic keratosis(Discharge Diagnosis) - 04/03/23 Diabetes(Discharge Diagnosis) - 04/03/23 CAD (coronary artery disease)(Discharge Diagnosis) - 04/03/23 Discharge Disposition: Home or Self Care Attending Physician: Joesph Edwards DO Allergies, Adverse Reactions, Alerts Substance Reaction Severity Status penicillin Unknown Active Assessment and Plan Future Appointments Medications Efudex 5% topical cream 1 lc, Topical, BID, # 40 g, 0 Refill(s), Pharmacy: [email or web address] Start Date: 04/03/23 Stop Date: 04/24/23 Status: Ordered mupirocin 2% topical ointment 1 lc, Topical, TID, # 22 g, 0 Refill(s), Pharmacy: [facility] Start Date: 04/03/23 Stop Date: 04/13/23 Status: Ordered tamsulosin 0.4 mg oral capsule 0.4 mg = 1 cap, Oral, Daily, # 30 cap, 0 Refill(s) Start Date: 04/03/23 Status: Ordered Physician Outpatient Note * Bettina Dillon: MODIFY, MODIFY Joesph Edwards DO: PERFORM, MODIFY Joesph Edwards DO: MODIFY Event Display: Office Clinic Note Physician Authored Date: [id number] CHRIS SHAH :1955 Age:67 years Sex:Male Visit Date:04/03/2023 Primary Care Physician: NORA BARRETO History of Present Illness Established patient in the office for evaluation of lesion on the left wrist, right latter-day, right ear,??and left latter-day. Patient notes that he would like the areas removed. Patient notes that he has had the areas for over a year or more. Review of Systems Negative for: no new cardiac, respiratory, GI, , hematologic, neurologic, psychological, allergic, traumatic or endocrine problems except as listed above Physical Exam Vitals & Measurements GENERAL APPEARANCE:??The patient is awake, alert, and [...] and intact. There is no proptosis or enophthalmos ?NECK:??There is no palpable lymphadenopathy.?SKIN:??non healing lesions of the??left latter-day, right latter-day, right ear, right and left wrist. widespread AK lesions of the bilateral arms ?MUSCULOSKELETAL:??normal gait and station.?? Procedure Surgery Consent??There was a full discussion of all treatment options including conservative management, second opinion and surgical intervention. The patient and or family has opted to proceed with surgical intervention. We have discussed risks and complications as it relates to the procedure and postoperative period, including but not limited to those listed on the consent. All of their questions were answered, consent was reviewed and signed. There is no history of any bleeding disorders or anesthesia complications. We will proceed..?PFP Shave Excision with Dermablade ? Location:??left wrist, right superior anti helix, left latter-day, right latter-day, left superior pre auricular ? Size:??left wrist 3.3 cm, right superior anti helix 1.1 cm, left latter-day 1.7 cm, right latter-day 1.2 cm, left superior pre auricular 1.4 cm ?Prep:??Betadine used to prep site.?Consent:??The procedure was discussed, risks and complications explained and consent obtained.?Procedure:??Shave excision was performed, hemostasis was achieved and no complications.? Discharge Instructions:??Keep area moist with ointment and clean, follow up in seven days for pathology.?? Medical Decision Making: Increased??procedural time, the lesion of the left forearm was quite large requiring electrocautery, the patient was grounded??with cautery pad, he??did have a tendency to bleed Total time on date of encounter, (bmnb-fi-[id number] and non [id number]-vygp) (minutes): 60 Time was spent: reviewing prior notes and diagnostics, providing direct patient care, ordering diagnostics and/or referrals, documenting today's visit, updating the EMR, coordinating care and other Assessment/Plan 1.??Skin lesion??L98.9,??Skin lesions??L98.9 Recommend that we proceed with biopsy of the left wrist, right superior anti helix, left latter-day, right latter-day, left superior pre auricular lesions. He understands that these are are very likely to becancer. Patient was understanding of the process of biopsy. Consent was signed, patient was provided with post biopsy treatment instructions. Patient would hear from the office in approximately 1 week for pathology results, otherwise follow up in April for recheck of the areas. 2.??Actinic keratosis??L57.0 Recommend treatment of Efudex ti areas of the right lower arm. Areas were marked, he was understanding of the process of treatment. He understands that he should hold on treating areas of the left arm until the left wrist biopsy is healed. Patient was understanding and would otherwise follow up as needed with new concerns. 4.??History of skin cancer??Z85.828 5.??CAD (coronary artery disease)??I25.10 6.??Diabetes??E11.9 Orders: Efudex 5% topical cream, 1 lc, Topical, BID, # 40 g, 0 Refill(s), Pharmacy: [email or web address] mupirocin 2% topical ointment, 1 lc, Topical, TID, # 22 g, 0 Refill(s), Pharmacy: [email or web address] Follow Up Instructions April, recheck left wrist,right superior anti helix, left latter-day, right latter-day, left superior preauricular biopsy sites Problem List/Past Medical History Ongoing No qualifying data Historical No qualifying data Medications tamsulosin 0.4 mg oral capsule, 0.4 mg= 1 cap, Oral, Daily Allergies penicillin Electronically Signed on 04/03/23 01:08 PM Joesph Edwards, Patient Care team information Care Team Personnel Name: NORA BARRETO Position: No Access Member Role: Primary Care Physician Address: Address: [address] [address]- [place]
--- OUTSIDE RECORDS SUMMARY | 2023-11-19 13:37 | XMS_ITS | Encounter Summary ---
Author Organization [facility] [place] [address] Care Team Providers Care Figure Skater Name Role Phone Mauro Berger MD Primary Care Provider [phone] Reason for Visit * Auth/Cert Specialty Diagnoses / Procedures Referred By Radha mason Referred To Contact Diagnoses Right carpal tunnel syndrome Procedures PRO WRIST ARTHROSCOP, RELEASE XVERS LIG ENDOSCOPY WRIST W/ RELEASE TRANSVERSE CARPAL LIGAMENT Referral ID Status Reason Start Date Expiration Date Visits Re quested Visits Authorized [id number] 1 1 Encounter Details Date Type Department Care Team (Late st Contact Info) Description 03/02/2015 2:19 PM EST Anesthesia Event [place] [phone] Heather Isabel MD [facility] [place] [address] Dorian Salazar MD [facility] [place] [address] Anesthesia Record Procedure Summary Procedure Name Responsible [...] left (top of hand); 22 gauge; [place] CRYPTOLOGICAL TECHNICIAN; 03/02/15; 1459 03/02/15 1419 by Susie Vieyra CRYPTOLOGICAL TECHNICIAN 03/02/15 1459 by Fanny Schmidt RN documented [...] risks discussed with patient. Plan discussed with CRYPTOLOGICAL TECHNICIAN. PAT Staff Note documented in this encounter [...] mg documented in this encounter Care Teams Figure Skater Relationship Specialty Start Date End Date Mauro Berger MD [address] [place] [address] PCP - General 06/07/11 documented as of this encounter
--- OUTSIDE RECORDS SUMMARY | 2023-11-19 13:37 | XMS_ITS | Encounter Summary ---
Author Organization [facility] [address] Care Team Providers Care Solution Advisor Name Role Phone Mauro Berger MD Primary Care Provider [phone] Reason for Visit * Reason Onset Date Comments Bumped Appointment 01/14/2015 Encounter Details Date Type Department Care Team (Late st Contact Info) Description 01/14/2015 [place] [phone] Shaheen Diaz MD [facility] [place] [address] Bumped Appointment Social History Tobacco Use Types [...] on filedocumented in this encounter Care Teams Solution Advisor Relationship Specialty Start Date End Date Mauro Berger MD [address] [place] [address] PCP - General 06/07/11 documented as of this encounter
--- OUTSIDE RECORDS SUMMARY | 2023-11-19 13:37 | XMS_ITS | Encounter Summary ---
Author Organization [facility] [place] [address] Care Team Providers Care Is Technician Name Role Phone Mauro Berger MD Primary Care Provider [phone] Reason for Referral * Surgical (Routine) - Closed Specialty Diagnoses / Procedures Referred By Radha mason Referred To Contact Orthopaedics Diagnoses Carpal tunnel syndrome of right wrist Procedures ARTHROSCOPY WRIST W/ RELEASE TRANSVERSE CARPAL LIGAMENT Rhea Rojas PA [facility] [place] [address] [facility] [address] [place] [phone] Referral ID Status Reason Start Date Expiration Date V isits Requested Visits Authorized [id number] Closed Specialty Service Requested 02/15/2015 02/15/2016 1 1 Reason for Visit * Reason Comments Bilateral Hand Pain Encounter Details Date Type Department Care Team (Late st Contact Info) Description 02/15/2015 1:40 PM EDT Office [place] [phone] Shaheen Diaz MD [facility] [place] [address] Carpal tunnel syndrome of right [...] - 02/15/2015 2:17 PM EDT PATIENT NAME: Pedro Mast AGE: 59 y.o. MR#: [id number] DATE OF VISIT: 02/15/2015 DATE OF INJURY/ONSET: Summer 2014 STAFF: Dr. Diaz CHIEF COMPLAINT: R>L hand numbness HISTORY OF PRESENT ILLNESS: Mr. Mast is a right hand dominant 59 y.o. male who comes into clinic today for evaluation of the bilateral hands. He was referred to [facility] by Mauro Berger. 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 He is unaware of any familyhistory of Dupuytren's disease. He is of [place] descent. 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 Social History Main Topics ??? Smoking status: [...] concerns. The above documentation was completed using [employer] voice recognition software. * Shaheen Diaz MD [...] no relief of neurogenic symptoms, pillar pain, application security specialist weakness, and recurrence of carpal tunnel syndrome. [...] syndrome documented in this encounter Care Teams Is Technician Relationship Specialty Start Date End Date Mauro Berger MD [address] [place] [address] PCP - General 06/07/11 documented as of this encounter
--- OUTSIDE RECORDS SUMMARY | 2023-11-19 13:37 | XMS_ITS | Encounter Summary ---
Author Organization [facility] Address [facility] [place] [address] Care Team Providers Care Cistern Room Operator Name Role Phone Mauro Berger MD Primary Care Provider [phone] Reason for Visit * Reason Comments Follow Up Surgery R CTR DOS 03/02/15 Encounter Details Date Type Department Care Team (Late st Contact Info) Description 03/15/2015 10:40 AM EST Office Visit [place] [address] Shaheen Diaz MD [facility] [place] [address] Carpal tunnel syndrome of right wrist Social [...] in this encounter Progress Notes * Vivian Tabraes PA - 03/15/2015 11:38 AM EST This [...] syndrome documented in this encounter Care Teams Cistern Room Operator Relationship Specialty Start Date End Date Mauro Berger MD [address] [place] [address] PCP - General 06/07/11 documented as of this encounter
--- OUTSIDE RECORDS SUMMARY | 2023-11-19 13:37 | XMS_ITS | Encounter Summary ---
[place] [address] Care Team Providers Care [facility] Name Role Phone Mauro Berger MD Primary Care Provider [phone] Reason for Visit * Reason Comments Skin Check Encounter Details Date Type Department Care Team (Late st Contact Info) Description 06/12/2011 5:00 PM EST Office Visit Dermatology [address] [place] [address] [address] [place] [address] Greg Lopez MD [address] [facility] [place] [address] History of basal cell carcinoma (Primary Dx); [...] History of nonmelanoma cutaneous malignancies. 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 Demond is a 55-year-old gentleman who is referred today by Dr. Berger to establish dermatologic care in this office. He use to live in [place] and was followed by a mental health tech there who regularly saw him and apparently [...] keratosis documented in this encounter Care Teams [facility] Relationship Specialty Start Date End Date Mauro Berger MD [address] [place] [address] PCP - General 06/07/11 documented as of this encounter
--- OUTSIDE RECORDS SUMMARY | 2023-11-19 13:37 | XMS_ITS | Encounter Summary ---
[place] [address] Care Team Providers Care Sewage Treatment Plant Operator Name Role Phone Mauro Berger MD Primary Care Provider [phone] Reason for Visit * Reason Comments Basal Cell Carcinoma Encounter Details Date Type Department Care Team (Late st Contact Info) Description 2011 3:15 PM EST Office Visit Dermatology [address] [facility] [address] [place] [address] Greg Lopez MD [address] [facility] [place] [address] Basal cell carcinoma (Primary Dx); Squamous cell [...] for suture removal by Dr. Lopez in [facility]. Pathology Addendum per [facility] 06/27/11 : Site A : Basal Cell [...] site documented in this encounter Care Teams Sewage Treatment Plant Operator Relationship Specialty Start Date End Date Mauro Berger MD [address] [place] [address] PCP - General 06/07/11 documented as of this encounter
--- OUTSIDE RECORDS SUMMARY | 2023-11-19 13:37 | XMS_ITS | Encounter Summary ---
[place] [address] Care Team Providers Care Marketing Intern Name Role Phone Mauro Berger MD Primary Care Provider Reason for Visit * Reason Comments Skin Check Encounter Details Date Type Department Care Team (Late st Contact Info) Description 01/19/2012 10:15 AM EDT Office Visit Dermatology [address] [facility] [address] [place] [address] Greg Lopez MD [address] [facility] [place] [address] History of basal cell carcinoma (Primary Dx) [...] skin documented in this encounter Care Teams Marketing Intern Relationship Specialty Start Date End Date Mauro Berger MD [address] [place] [address] PCP - General 06/07/11 documented as of this encounter
--- OUTSIDE RECORDS SUMMARY | 2023-11-19 13:37 | XMS_ITS | Encounter Summary ---
Author Organization [facility] Address [facility] [place] [address] Care Team Providers Care Housing Management Officer Name Role Phone Mauro Berger MD Primary Care Provider [phone] Reason for Visit * Auth/Cert Specialty Diagnoses / Procedures Referred By Radha t Referred To Contact Diagnoses Right carpal tunnel syndrome Procedures PRO WRIST ARTHROSCOP, RELEASE XVERS LIG ENDOSCOPY WRIST W/ RELEASE TRANSVERSE CARPAL LIGAMENT Referral ID Status Reason Start Date Expiration Date Visits Re quested Visits Authorized [id number] 1 1 Encounter Details Date Type Department Care Team (Latest Contact Info) Description 03/02/2015 1:05 PM EST - 03/02/2015 3:18 PM EST Hospital Encounter [place] [phone] Ching Diaz MD [facility] [place] [address] Discharge Disposition: Home Social History Tobacco Use [...] or on a weekend: Call the [facility] pilot plant operator and ask for the physician educational guidance counselor covering for your doctor. * Patient Instructions* [...] During clinic hours M-F 8-4:30 please call [phone] If it is after 5:00PM on a weekday or a weekend and it is of an urgent nature please call [phone] and ask for the on-call orthopaedic resident. [...] times daily. Ketone Blood Test Strip by [facility].(Non-Drug; Combo Route) route. Insulin [place], Disposable, 29 gauge X 1/2 Needle by [facility].(Non-Drug; Combo Route) route. Lancets Misc by [facility].(Non-Drug; Combo Route) route. FOLIC ACID/MV,FE,OTHER MIN (CENTRUM [...] Diaz MD - 03/02/2015 1:47 PM EST [facility] Operative Note Patient Name: Pedro Mast : [id number] MR#: [id number] Case Date: 03/02/2015 Surgeon: Surgeon(s) and Role: [...] preoperative time- out was performed as per [facility] protocol. 6 mL of 1% lidocaine with [...] Operative Note Patient Name: Pedro Mast : [id number] MR#: [id number] Case Date: 03/02/2015 Surgeon: Surgeon(s) and Role: [...] 6ml) documented in this encounter Care Teams Housing Management Officer Relationship Specialty Start Date End Date Mauro Berger MD [address] [place] [address] PCP - General 06/07/11 documented as of this encounter
--- OUTSIDE RECORDS SUMMARY | 2023-11-19 13:37 | XMS_ITS | Encounter Summary ---
[place] [address] Care Team Providers Care Gas Blender Name Role Phone Mauro Berger MD Primary Care Provider [phone] Encounter Details Date Type Department Care Team (Late st Contact Info) Description 11/23/2005 [place] [phone] Niraj Plascencia MD [address] [place] [address] Social History Tobacco Use Types Packs/Day Years [...] (11/23/2005 8:50 PM EDT) Surgical Pathology Report [id number] ? Location: The signing pathologist has (i) examined the relevant preparation(s) for the specimen(s) and (ii) rendered or confirmed the diagnosis(es). . ?Pathology Surgical Pathology Final Report Clinical Information Specimen Submitted: A - Dorsum (L) hand Clinical History: Cricket papule Clinical Diagnosis: Hypertrophic AK vs SCC IS [facility] So. Med Rec #: ? [id number] Gross Description Labeled/Fixativ e: ? Labeled with the patient's name, formalin. Qty/Size/Weight : ?Single shave, 0.9 cm, ramon with a 0.8 x 0.7-cm ?ramon-white papule. Sections/Proces sing: ??Trisected. ??(T1) ??eulogio/SNS Microscopic Description Slides reviewed, microscopic description not recorded. Diagnosis Skin, left dorsal hand, shave biopsy: ?? Invasive squamous cell carcinoma, close to the deep edge of the biopsy ?? specimen. CR-0 11/24/05 [facility] 11/24/05 Verified by: ? Sravani Diaz MD, PhD ?Pathologist ?(Electronic Signature) The attending pathologist whose signature appears on this report has reviewed all diagnostic slides and has edited the gross and/or microscopic portion of the report in rendering the final pathologic diagnosis. HELEN CRUZ 11/23/2005 8:50 PM EDT Niraj Plascencia MD PATHOLOGY/CYTOLOGY O RDERABLES Performing Organization Address City/State/[facility] Co sc Phone Number HELEN CRUZ documented in this encounter Visit Diagnoses Not on filedocumented in this encounter Care Teams Gas Blender Relationship Specialty Start Date End Date Mauro Berger MD [address] [place] [address] PCP - General 06/07/11 documented as of this encounter
--- OUTSIDE RECORDS SUMMARY | 2023-11-19 13:37 | XMS_ITS | Encounter Summary ---
[place] [address] Care Team Providers Care Chemical Handler Name Role Phone Mauro Berger MD Primary Care Provider [phone] Reason for Visit * Reason Comments Suture / Staple Removal Encounter Details Date Type Department Care Team (Late st Contact Info) Description 02/26/2012 4:30 PM EDT Office Visit Dermatology [address] [facility] [address] [place] [address] Greg Lopez MD [address] [facility] [place] [address] Visit for suture removal (Primary Dx) Social [...] today shows good healing of the left confucianist site. Assessment and Plan: Status post excision of BCCA, left confucianist. a. Sutures removed. b. Excellent wound healing. c. May discontinue wound care instructions. d. Return to the clinic on Sunday for suture removal from back sites. Thereafter we will plan on veysn-ptn-ygqud followups to keep a close eye on the skin. documented in this encounter Plan of Treatment Not on file documented as of this encounter Visit Diagnoses Diagnosis Visit for suture removal- Primary Encounter for removal of sutures documented in this encounter Care Teams Chemical Handler Relationship Specialty Start Date End Date Mauro Berger MD [address] [place] [address] PCP - General 06/07/11 documented as of this encounter
--- OUTSIDE RECORDS SUMMARY | 2023-11-19 13:37 | XMS_ITS | Encounter Summary ---
Author Organization [facility] [address] [place] [id number] Care Team Providers Care Grinder Set Up Operator Name Role Phone Mauro Berger MD Primary Care Provider [phone] Reason for Referral * Surgical (Routine) - Closed Specialty Diagnoses / Procedures Referred By Radha mason Referred To Contact Orthopaedics Diagnoses Bilateral carpal tunnel syndrome Morris Starr MD [facility] [place] [address] [facility] [address] [place] [address] Referral ID Status Reason Start Date Expiration Date V isits Requested Visits Authorized [id number] Closed Consult, Test & Treat 12/22/2014 12/22/2015 3 3 Encounter Details Date Type Department Care Team (Late st Contact Info) Description 12/22/2014 2:45 PM EDT [place] [phone] Morris Starr MD [facility] [place] [address] Bilateral carpal tunnel syndrome Discharge Disposition: Home [...] gentleman referred for consultation by Dr. Mauro Bergre for evaluation of bizey-ctjsmoy-joet-left hand paresthesias. He is felt to most [...] the 7's. 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 He drinks beer about once a week and smoked years ago but gave this up. He lives in [place], [place], with his . His family history [...] nerve conduction studies/EMG, which showed evidence of lnhjf-tgnkkby-ymfo-left median nerve entrapment at the wrists. The patient appears to be suffering from cutvi-vqlediw-sdtv-left carpal tunnel syndrome. He has tried to [...] syndrome documented in this encounter Care Teams Grinder Set Up Operator Relationship Specialty Start Date End Date Mauro Berger MD [address] [place] [address] PCP - General 06/07/11 documented as of this encounter
--- OUTSIDE RECORDS SUMMARY | 2023-11-19 13:37 | XMS_ITS | Encounter Summary ---
[place] [address] Care Team Providers Care Plastic Sheeting Cutter Name Role Phone Mauro Berger MD Primary Care Provider [phone] Reason for Visit * Reason Comments Procedure Encounter Details Date Type Department Care Team (Late st Contact Info) Description 02/16/2012 1:00 PM EDT Office Visit Dermatology [address] [place] [address] [address] [place], [place] [id number] Greg Lopez MD [address] [facility] [place] [address] Basal cell carcinoma (Primary Dx) Social History [...] for suture removal by Dr. Lopez in [facility] [place] [facility]. Site number two clinical impression left [...] for suture removal by Dr. Lopez in [facility] [place] [facility]. documented in this encounter Procedure Notes [...] unspecified documented in this encounter Care Teams Plastic Sheeting Cutter Relationship Specialty Start Date End Date Mauro Berger MD [address] [place] [address] PCP - General 06/07/11 documented as of this encounter
--- OUTSIDE RECORDS SUMMARY | 2023-11-19 13:37 | XMS_ITS | Encounter Summary ---
[place] [address] Care Team Providers Care Acoustical Carpenter Name Role Phone Mauro Berger MD Primary Care Provider [phone] Reason for Visit * Reason Comments Suture / Staple Removal Encounter Details Date Type Department Care Team (Late st Contact Info) Description 03/01/2012 3:45 PM EDT Office Visit Dermatology [address] [facility] [address] [place] [address] Greg Lopez MD [address] [facility] [place] [address] Visit for suture removal (Primary Dx) Social [...] sutures documented in this encounter Care Teams Acoustical Carpenter Relationship Specialty Start Date End Date Mauro Berger MD [address] [place] [address] PCP - General 06/07/11 documented as of this encounter
--- OUTSIDE RECORDS SUMMARY | 2023-11-19 13:37 | XMS_ITS | Encounter Summary ---
[place] [address] Care Team Providers Care Special Education Itinerant Teacher Name Role Phone Mauro Berger MD Primary Care Provider [phone] Reason for Visit * Reason Comments Suture / Staple Removal Encounter Details Date Type Department Care Team (Late st Contact Info) Description 06/28/2011 8:45 AM EST Office Visit Dermatology [address] [facility] [address] [place] [address] Greg Lopez MD [address] [facility] [place] [address] Basal cell carcinoma (Primary Dx) Social History [...] unspecified documented in this encounter Care Teams Special Education Itinerant Teacher Relationship Specialty Start Date End Date Mauro Berger MD [address] [place] [address] PCP - General 06/07/11 documented as of this encounter
--- OUTSIDE RECORDS SUMMARY | 2023-11-19 13:37 | XMS_ITS | Encounter Summary ---
[place] [address] Care Team Providers Care Fish Cleaner Name Role Phone Mauro Berger MD Primary Care Provider [phone] Encounter Details Date Type Department Care Team (Late st Contact Info) Description 07/26/2006 [place] [phone] Niraj Plascencia MD [address] [place] [address] Social History Tobacco Use Types Packs/Day Years [...] (07/26/2006 7:27 PM EDT) Surgical Pathology Report [id number] ? Location: The signing pathologist has (i) examined the relevant preparation(s) for the specimen(s) and (ii) rendered or confirmed the diagnosis(es). . ?Pathology Surgical Pathology Final Report Clinical Information Specimen Submitted: Jonathan Gan Upper Back: Shave (1) B - L Clavicle: Shave (1) C - L Upper Chest: Shave (1) [facility] So. [facility] Rec #: ? [id number] Clinical Diagnosis: A - Superficial BCC B [...] ?skin. Sections/Proces sing: ??Inked and trisected. ??(T1) ??[facility] [place] Microscopic Description Slides reviewed, microscopic description not recorded. Diagnosis A - Superficial multifocal basal cell carcinoma, and dermal fibrosis, shave biopsy, skin of left upper back. B - Basal cell carcinoma and incidental actinic keratosis, shave biopsy, left clavicle. C - Squamous cell carcinoma, shave biopsy, left upper chest. CR-0 07/27/06 [facility] 07/27/06 Verified by: ? Melissa Noel MD ?Dermatopathol ogist ?(Electronic Signature) The attending pathologist whose signature appears on this report has reviewed all diagnostic slides and has edited the gross and/or microscopic portion of the report in rendering the final pathologic diagnosis. [facility] 07/26/2006 7:27 PM EDT Niraj Plascencia MD PATHOLOGY/CYTOLOGY O RDERABLES Performing Organization Address City/State/ZIP Co pr Phone Number [facility] documented in this encounter Visit Diagnoses Not on filedocumented in this encounter Care Teams Fish Cleaner Relationship Specialty Start Date End Date Mauro Berger MD [address] [place] [address] PCP - General 06/07/11 documented as of this encounter
--- OUTSIDE RECORDS SUMMARY | 2023-11-19 13:37 | XMS_ITS | Encounter Summary ---
Author Organization [facility] [place] [address] Care Team Providers Care Director Of Math Name Role Phone Mauro Berger MD Primary Care Provider [phone] Encounter Details Date Type Department Care Team (Late st Contact Info) Description 12/23/2014 External [place] [address] Morris Starr MD [facility] [place] [address] Social History Tobacco Use Types Packs/Day Years [...] on filedocumented in this encounter Care Teams Director Of Math Relationship Specialty Start Date End Date Mauro Berger MD [address] [place] [address] PCP - General 06/07/11 documented as of this encounter
--- OUTSIDE RECORDS SUMMARY | 2023-11-19 13:37 | XMS_ITS | Encounter Summary ---
Author Organization [facility] [place] [address] Care Team Providers Care Teacher Aide Clerical Name Role Phone Mauro Berger MD Primary Care Provider [phone] Reason for Visit * Auth/Cert Specialty Diagnoses / Procedures Referred By Radha t Referred To Contact Diagnoses Right carpal tunnel syndrome Procedures PRO WRIST ARTHROSCOP, RELEASE XVERS LIG ENDOSCOPY WRIST W/ RELEASE TRANSVERSE CARPAL LIGAMENT Referral ID Status Reason Start Date Expiration Date Visits Re quested Visits Authorized [id number] 1 1 Encounter Details Date Type Department Care Team (Late st Contact Info) Description 03/02/2015 2:30 PM EST - 03/02/2015 3:00 PM EST Surgery [place] [phone] Ching Diaz MD [facility] [place] [address] ENDOSCOPY WRIST W/ RELEASE TRANSVERSE CARPAL LIGAMENT [...] 5pm or on a weekend: Call the [facility] cutting torch operator and ask for the physician mercerizing range controller covering for your doctor. * Patient Instructions* [...] During clinic hours M-F 8-4:30 please call [phone] If it is after 5:00PM on a weekday or a weekend and it is of an urgent nature please call [phone] and ask for the on-call orthopaedic resident. [...] times daily. Ketone Blood Test Strip by [facility].(Non-Drug; Combo Route) route. Insulin [place], Disposable, 29 gauge X 1/2 Needle by [facility].(Non-Drug; Combo Route) route. Lancets Misc by [facility].(Non-Drug; Combo Route) route. FOLIC ACID/MV,FE,OTHER MIN (CENTRUM [...] Diaz MD - 03/02/2015 1:47 PM EST [facility] Operative Note Patient Name: Pedro Mast : [id number] MR#: [id number] Case Date: 03/02/2015 Surgeon: Surgeon(s) and Role: [...] preoperative time- out was performed as per [facility] protocol. 6 mL of 1% lidocaine with [...] Operative Note Patient Name: Pedro Mast : [id number] MR#: [id number] Case Date: 03/02/2015 Surgeon: Surgeon(s) and Role: [...] 6ml) documented in this encounter Care Teams Teacher Aide Clerical Relationship Specialty Start Date End Date Mauro Berger MD [address] [place] [address] PCP - General 06/07/11 documented as of this encounter
--- OUTSIDE RECORDS SUMMARY | 2023-11-19 13:37 | XMS_ITS | Encounter Summary ---
[place] [address] Care Team Providers Care Infantry Weapons Officer Name Role Phone Mauro Berger MD Primary Care Provider [phone] Encounter Details Date Type Department Care Team (Late st Contact Info) Description 12/06/2005 [place] [phone] Niraj Plascencia MD [address] [place] [address] Social History Tobacco Use Types Packs/Day Years [...] (12/06/2005 8:59 PM EDT) Surgical Pathology Report [id number] ? Location: The signing pathologist has (i) examined the relevant preparation(s) for the specimen(s) and (ii) rendered or confirmed the diagnosis(es). . ?Pathology Surgical Pathology Final Report Clinical Information Specimen Submitted: A - Dorsum Lt hand: ??re-excision. Clinical Diagnosis: SCC. ??Re-excision SCC. [facility] So. Med Rec #: ? [id number] Gross Description Labeled/Fixative : ? Labeled with [...] on filedocumented in this encounter Care Teams Infantry Weapons Officer Relationship Specialty Start Date End Date Mauro Berger MD [address] [place] [address] PCP - General 06/07/11 documented as of this encounter
== END ==
PROVIDERS: PCP Family Medicine; Visit Provider Podiatrist
DX: M79.673 Pain in unspecified foot (principal); M79.671 Pain in right foot; M79.672 Pain in left foot; M19.071 Primary osteoarthritis, right ankle and foot; M19.072 Primary osteoarthritis, left ankle and foot
CPT/HCPCS: 11721; 73630

== ENCOUNTER → 2023-12-11 08:13 | Outpatient (BNVA) | payer MEDICARE, SELFPAY | PROVIDERS: PCP Family Medicine; Referring Provider Family Medicine; Visit Provider Podiatrist | DX: M25.572 Pain in left ankle and joints of left foot (principal); I87.2 Venous insufficiency (chronic) (peripheral); R60.0 Localized edema; B35.1 Tinea unguium | CPT/HCPCS: 20600; J0702; J1100 ==

== ENCOUNTER 2024-01-07 14:02 | Outpatient (REF) | payer MEDICARE, SELFPAY ==
--- OUTSIDE RECORDS SUMMARY | 2024-01-07 14:03 | XMS_ITS | Encounter Summary ---
Author Organization [facility] Address [address] [place] [address] Care Team Providers Care Program Support Assistant Name Role Phone Mauro Berger MD Primary Care Provider [phone] Encounter Details Date Type Department Care Team (Late st Contact Info) Description 04/13/2020 Lab Requisition [facility] Pathology & Laboratory Medicine - [address] [address] Cee Lopes MD [address] [place] [phone] Encounter for other general examination Social History [...] BIOPSY: - Tubular adenoma. 04/15/2020 9:[address] [facility] Attestation There was significant resident/fellow involvement in the diagnostic evaluation of this case. By the signature below, the attending physician certifies that they have personally conducted a gross and/or microscopic examination of the described specimens and rendered or confirmed the above diagnosis. 04/15/2020 9:40 [facility] at 0940 Clinical History History of colon polyps 04/15/2020 9:40 [facility] Gross Description A. Received in [...] B1. CHRISTINA LOREDO(ASCP) 04/13/2020 18:22 04/15/2020 9:40 [facility] Resident/Walter w: Yoon Mariscal MD 04/15/2020 9:40 [facility] Performing Lab [facility] 04/15/2020 9:40 [facility] Scanned Images 04/15/2020 9:40 [facility] Tissue CECUM STRUCTURE / Unknown 04/13/2020 9:35 EST 04/13/2020 15:48 EST Tissue specimen (specimen) POLYP OF COLON / Unknown 04/13/2020 9:35 EST 04/13/2020 15:48 EST Cee Lopes MD PATHOLOGY ORDERABLES [facility] [address] [place] [address] documented in this encounter Visit Diagnoses Diagnosis Encounter for other general examination documented in this encounter Care Teams Program Support Assistant Relationship Specialty Start Date End Date Mauro Berger MD [address] [place] [address] PCP - General 04/13/20 documented as of this encounter
--- OUTSIDE RECORDS SUMMARY | 2024-01-07 14:03 | XMS_ITS | Clinical Summary ---
Author Organization [facility] Address [address] [place] [address] Care Team Providers Care Comfort Advisor Name Role Phone Mauro Berger MD Primary Care Provider [phone] Social History Tobacco Use Types Packs/Day Years [...] COVID-19 Vaccine ( season) 2022 Care Teams Comfort Advisor Relationship Specialty Start Date End Date Mauro Berger MD [address] [place] [address] PCP - General 04/13/20
--- OUTSIDE RECORDS SUMMARY | 2024-01-07 14:03 | XMS_ITS | Encounter Summary ---
Author Organization [facility] Address [address] [place] [address] Care Team Providers Care Environmental Protection Economist Name Role Phone Mauro Berger MD Primary Care Provider [phone] Encounter Details Date Type Department Care Team (Late st Contact Info) Description 04/08/2021 Lab Requisition [facility] Pathology & Laboratory Medicine - [facility] [address] [place] [address] Shelby Moya, DO [address] [facility] [address] [place], [place] [id number] Encounter for other general examination Social History [...] management options, if applicable. 04/11/2021 11:39 EST [facility] Final Diagnosis A. COLON, 70 CMS, POLYP, BIOPSY: - Inflammatory polyp. 04/11/2021 11:39 [facility] Attestation By the signature below, the attending physician certifies that they have 1) personally conducted a gross and/or microscopic examination of the described specimen(s), and/or personally interpreted the results of laboratory testing of the described specimen(s), and 2) personally rendered or confirmed the above diagnosis. 04/11/2021 11:39 [facility] at 1139 Clinical History Hx of colon polyp 04/11/2021 11:39 [facility] Gross Description A. Received in formalin labelled with proper patient identification (initials M, S) and colon polyp @ 70 cm are two pale ramon-white tissues (0.4 x 0.3 x 0.3 cm and 0.3 x 0.2 x 0.2 cm). Entirely submitted in A1. Juaquin Courtney 04/10/2021 8:25 04/11/2021 11:39 [facility] Performing Lab [facility] 04/11/2021 11:39 [facility] Scanned Images 04/11/2021 11:39 [facility] Tissue ENTIRE COLON / Unknown 04/08/2021 8:00 EST 04/08/2021 19:34 EST Shelby Moya DO PATHOLOGY ORDERABLES [facility] [address] [place] [address] documented in this encounter Visit Diagnoses Diagnosis Encounter for other general examination documented in this encounter Care Teams Environmental Protection Economist Relationship Specialty Start Date End Date Mauro Berger MD [address] [place], [place] [id number] PCP - General 04/13/20 documented as of this encounter
--- OUTSIDE RECORDS SUMMARY | 2024-01-07 14:03 | XMS_ITS | Encounter Summary ---
Author Organization [facility] Address [address] [place] [address] Care Team Providers Care Die Try Out Worker Name Role Phone Mauro Berger MD Primary Care Provider [phone] Encounter Details Date Type Department Care Team (Late st Contact Info) Description 05/19/2022 Lab Requisition [facility] Pathology & Laboratory Medicine - [facility] [address] [place] [address] Derrick Arnett MD [address] [place], [place] [address] Encounter for other general examination Social History [...] management options, if applicable. 05/22/2022 11:24 EST [facility] Final Diagnosis A. SKIN OF FOREARM, LEFT, EXCISION: - Squamous cell carcinoma, well-differentiat ed, completely excised. 05/22/2022 11:24 [facility] Attestation By the signature below, the attending physician certifies that they have 1) personally conducted a gross and/or microscopic examination of the described specimen(s), and/or personally interpreted the results of laboratory testing of the described specimen(s), and 2) personally rendered or confirmed the above diagnosis. 05/22/2022 11:24 [facility] at 1124 Clinical History L forearm tender firm nodule 05/22/2022 11:24 [facility] Gross Description A. Received [...] BLOCK KOCH A1-2 tips, reverse en face [id number] sections Susy Gautam 05/19/2022 11:23 05/22/2022 11:24 [facility] Performing Lab [facility] 05/22/2022 11:24 [facility] Scanned Images 05/22/2022 11:24 [facility] Tissue TISSUE SPECIMEN FROM SKIN / Unknown 05/18/2022 10:25 EST 05/19/2022 7:33 EST Derrick Arnett MD PATHOLOGY ORDERABLES [facility] [address] [place] [address] documented in this encounter Visit Diagnoses Diagnosis Encounter for other general examination documented in this encounter Care Teams Die Try Out Worker Relationship Specialty Start Date End Date Mauro Berger MD [address] [place] [address] PCP - General 04/13/20 documented as of this encounter
--- OUTSIDE RECORDS SUMMARY | 2024-01-07 14:03 | XMS_ITS | Encounter Summary ---
Author Organization [facility] Address [address] [place] [address] Care Team Providers Care Manager General Name Role Phone Mauro Berger MD Primary Care Provider [phone] Encounter Details Date Type Department Care Team (Late st Contact Info) Description 04/04/2023 Lab Requisition [facility] Pathology & Laboratory Medicine - [facility] [address] [place] [address] Joesph Edwards, [address] [place] [address] Disorder of the skin and subcutaneous tissue, [...] management options, if applicable. 04/05/2023 10:56 EST [facility] Final Diagnosis A. SKIN OF BREAST, LEFT, SHAVE BIOPSY: - Basal cell carcinoma, nodular type. - Basal cell carcinoma present at peripheral and deep tissue edges. B. SKIN OF ANTI HELIX, RIGHT SUPERIOR, SHAVE BIOPSY: - Basal cell carcinoma, nodular and infiltrative type. - Basal cell carcinoma present at deep tissue edge. C. SKIN OF CONGREGATIONAL, LEFT, SHAVE BIOPSY: - Basal cell carcinoma, superficial and nodular type. - Basal cell carcinoma present at peripheral and deep tissue edges. - Incidental actinic keratosis, acanthotic type. D. SKIN OF CONGREGATIONAL, RIGHT, SHAVE BIOPSY: - Squamous cell carcinoma, well differentiated, invasive. - Squamous cell carcinoma present at deep tissue edge. E. SKIN OF PRE-AURICULAR REGION, LEFT SUPERIOR, SHAVE BIOPSY: - Basal cell carcinoma, nodular and infiltrative type, with squamous differentiation (metatypical). - Basal cell carcinoma present at peripheral and deep tissue edges. 04/05/2023 10:56 [facility] Attestation By the signature below, the attending physician certifies that they have 1) personally conducted a gross and/or microscopic examination of the described specimen(s), and/or personally interpreted the results of laboratory testing of the described specimen(s), and 2) personally rendered or confirmed the above diagnosis. 04/05/2023 10:56 [facility] at 1056 Microscopic Description [...] keratin brendon formation are evident. 04/05/2023 10:56 [facility] Clinical History Clinical diagnosis code: L98.9 x5 04/05/2023 10:56 [facility] Gross Description A. Received [...] patient identification (initials M, S) and left church is a 1.6 x 1.5 x 0.1 cm irregular shave of crusted ramon-pacheco skin. The margin is inked. The specimen is serially sectioned and entirely submitted in C1-C2. D. Received in formalin labelled with proper patient identification (initials M, S) and right church is a 1.1 x 0.6 x 0.1 cm irregular shave of crusted flaky, armon-white skin. The margin is inked. The specimen is trisected and entirely submitted in D1. E. Received in formalin labelled with proper patient identification (initials M, S) and left superior preauricular is a 1.4 x 1.3 x 0.1 cm ovoid shave of hair-bearing, somewhat ulcerated ramon-white to pacheco skin. The margin is inked. The specimen is serially sectioned and entirely submitted in E1-E2. CHRISTINA CAST([facility]) 04/04/2023 17:39 04/05/2023 10:56 [facility] Performing Lab [facility] 04/05/2023 10:56 [facility] Scanned Images 04/05/2023 10:56 [facility] Tissue SPECIMEN FROM SKIN [...] EST Joesph Edwards DO PATHOLOGY ORDER JAMES [facility] [address] [place] [address] documented in this encounter Visit Diagnoses Diagnosis Disorder of the skin and subcutaneous tissue, unspecified documented in this encounter Care Teams Manager General Relationship Specialty Start Date End Date Mauro Berger MD [address] [place] [address] PCP - General 04/13/20 documented as of this encounter
--- OUTSIDE RECORDS SUMMARY | 2024-01-07 14:03 | XMS_ITS | Referral Summary ---
Author Organization [facility] Address [address] [place] [address] Care Team Providers Care Management Information Systems Director Name Role Phone Mauro Berger MD Primary Care Provider [phone] Social History Tobacco Use Types Packs/Day Years Used Date Smoking Tobacco: Never Assessed Sex and Gender Information Value Date Recorded Sex Assigned at Not on file Gender Identity Not on file Sexual Orientation Not on file Plan of Treatment Not on file Care Teams Management Information Systems Director Relationship Specialty Start Date End Date Mauro Berger MD [address] [place] [address] PCP - General 04/13/20
--- OUTSIDE RECORDS SUMMARY | 2024-01-07 14:03 | XMS_ITS | Encounter Summary ---
Author Organization [facility] Address [address] [place] [address] Care Team Providers Care Alumni Secretary Name Role Phone Mauro Berger MD Primary Care Provider [phone] Encounter Details Date Type Department Care Team (Late st Contact Info) Description 05/04/2022 Lab Requisition [facility] Pathology & Laboratory Medicine - [facility] [address] [place] [address] Derrick Arnett MD [address] [place], [place] [address] Encounter for other general examination Social History [...] management options, if applicable. 05/08/2022 12:00 EST [facility] Final Diagnosis A. SKIN OF CHEST, LEFT, EXCISION: - Squamous cell carcinoma, well-differentiat ed, completely excised. 05/08/2022 12:00 [facility] Attestation By the signature below, the attending physician certifies that they have 1) personally conducted a gross and/or microscopic examination of the described specimen(s), and/or personally interpreted the results of laboratory testing of the described specimen(s), and 2) personally rendered or confirmed the above diagnosis. 05/08/2022 12:00 [facility] at 1200 Clinical History Nodule L chest; ? BCC 05/08/2022 12:00 [facility] Gross Description A. Received [...] face. MARY RODRIGUEZ 05/05/2022 9:59 05/08/2022 12:00 [facility] Performing Lab [facility] 05/08/2022 12:00 [facility] Scanned Images 05/08/2022 12:00 [facility] Tissue TISSUE SPECIMEN FROM SKIN / Unknown 05/04/2022 11:00 EST 05/04/2022 23:55 EST Derrick Arnett MD PATHOLOGY ORDERABLES [facility] [address] [place] [address] documented in this encounter Visit Diagnoses Diagnosis Encounter for other general examination documented in this encounter Care Teams Alumni Secretary Relationship Specialty Start Date End Date Mauro Berger MD [address] [place] [address] PCP - General 04/13/20 documented as of this encounter
--- OUTSIDE RECORDS SUMMARY | 2024-01-07 14:04 | XMS_ITS | Encounter Summary ---
Author Organization [facility] [place] [address] Care Team Providers Care Stock Order Lister Name Role Phone Mauro Berger MD Primary Care Provider [phone] Encounter Details Date Type Department Care Team (Latest Contact Info) Description 11/13/2019 9:15 PM EDT - 11/13/2019 11:59 PM EDT Hospital [place] [phone] Discharge Disposition: Home Social History Tobacco Use [...] Strip by Misc.(Non-Drug; Combo Route) route. Insulin Stuart, Disposable, 29 gauge X 1/2 Needle by Misc.(Non-Drug; Combo Route) route. Lancets Misc by [facility].(Non-Drug; Combo Route) route. FOLIC [...] Surgical Pathology Report (11/13/2019 12:00 PM EDT) Final Diagnosis [id number] ? Location: OPW The signing pathologist has (i) examined the relevant preparation(s) for the specimen(s) and (ii) rendered or confirmed the diagnosis(es). . ?Surgical Pathology DIAGNOSIS Right upper chest, 4 mm punch biopsy: - Dermal scar - Negative for basal cell carcinoma Electronically signed by: ??Karlee GOUDL, Sherwin Taylor Verified: ??11/19/2019 ?Dermatopatholo gist Performed at: ??-[facility] Dept. of Pathology, [place], [place] ADDITIONAL STUDIES Multiple step-leveled sections through [...] labeled A1. ??ajw 11/19/2019 3:24 PM EDT [facility] SPECIMEN FROM SKIN / Unknown 11/13/2019 12:00 PM EDT 11/13/2019 12:00 PM EDT Greg Lopez MD PATHOLOGY/CYTOLOGY O RDERABLES [facility] [place] [address] documented in this encounter Visit Diagnoses Not on filedocumented in this encounter Care Teams Stock Order Lister Relationship Specialty Start Date End Date Mauro Berger MD [address] [place] [address] PCP - General 06/07/11 documented as of this encounter
--- OUTSIDE RECORDS SUMMARY | 2024-01-07 14:04 | XMS_ITS | Encounter Summary ---
[place] [address] Care Team Providers Care Satellite Instruction Facilitator Name Role Phone Mauro Berger MD Primary Care Provider [phone] Reason for Visit * Auth/Cert Specialty Diagnoses / Procedures Referred By Radha mason Referred To Contact Diagnoses Right carpal tunnel syndrome Procedures PRO WRIST ARTHROSCOP, RELEASE XVERS LIG ENDOSCOPY WRIST W/ RELEASE TRANSVERSE CARPAL LIGAMENT Referral ID Status Reason Start Date Expiration Date Visits Re quested Visits Authorized [id number] 1 1 Encounter Details Date Type Department Care Team (Late st Contact Info) Description 03/02/2015 2:19 PM EST Anesthesia Event [place] [phone] Heather Isabel MD [facility] [place] [address] Dorian Salazar MD [facility] [place] [address] Anesthesia Record Procedure Summary Procedure Name Responsible [...] left (top of hand); 22 gauge; Azalia PLANT MAINTENANCE MANAGER; 03/02/15; 1459 03/02/15 1419 by Ssuie Vieyra PLANT MAINTENANCE MANAGER 03/02/15 1459 by Fanny Schmidt RN documented [...] risks discussed with patient. Plan discussed with PLANT MAINTENANCE MANAGER. PAT Staff Note documented in this encounter [...] PRN, Starting on Sun03/02/15 at 1426, Until Tu03/02/15 at 1453, Pain, Anesthesia Intra-op, Routine Given [...] mg documented in this encounter Care Teams Satellite Instruction Facilitator Relationship Specialty Start Date End Date Mauro Berger MD [address] [place] [address] PCP - General 06/07/11 documented as of this encounter
--- OUTSIDE RECORDS SUMMARY | 2024-01-07 14:04 | XMS_ITS | Encounter Summary ---
Author Organization [facility] Address [facility] [place] [address] Care Team Providers Care Grease Cup Filler Name Role Phone Mauro Berger MD Primary Care Provider [phone] Reason for Visit * Auth/Cert Specialty Diagnoses / Procedures Referred By Radha t Referred To Contact Diagnoses Right carpal tunnel syndrome Procedures PRO WRIST ARTHROSCOP, RELEASE XVERS LIG ENDOSCOPY WRIST W/ RELEASE TRANSVERSE CARPAL LIGAMENT Referral ID Status Reason Start Date Expiration Date Visits Re quested Visits Authorized [id number] 1 1 Encounter Details Date Type Department Care Team (Latest Contact Info) Description 03/02/2015 1:05 PM EST - 03/02/2015 3:18 PM EST Hospital Encounter [place] [phone] Ching Diaz MD [facility] [place] [address] Discharge Disposition: Home Social History Tobacco Use [...] 5pm or on a weekend: Call the [facility] flue tile press operator and ask for the physician solution design and analysis manager covering for your doctor. * Patient Instructions* [...] During clinic hours M-F 8-4:30 please call [phone] If it is after 5:00PM on a weekday or a weekend and it is of an urgent nature please call [phone] and ask for the on-call orthopaedic resident. [...] daily. Ketone Blood Test Strip by [facility].(Non-Drug; Combo Route) route. Insulin Walton, Disposable, 29 gauge X 1/2 Needle by [facility].(Non-Drug; Combo Route) route. Lancets Misc by [facility].(Non-Drug; Combo Route) route. [...] Diaz MD - 03/02/2015 1:47 PM EST [facility] Operative Note Patient Name: Pedro Mast : [id number] MR#: [id number] Case Date: 03/02/2015 Surgeon: Surgeon(s) and Role: [...] preoperative time- out was performed as per [facility] protocol. 6 mL of 1% lidocaine with [...] Operative Note Patient Name: Pedro Mast : [id number] MR#: [id number] Case Date: 03/02/2015 Surgeon: Surgeon(s) and Role: [...] Results * (ABNORMAL) POCT Fingerstick Glucose (03/02/2015) Glucose, POC 219(A) 60 - 199 mg/dl 03/02/2015 Ching [...] 6ml) documented in this encounter Care Teams Grease Cup Filler Relationship Specialty Start Date End Date Mauro Berger MD [address] [place] [address] PCP - General 06/07/11 documented as of this encounter
--- OUTSIDE RECORDS SUMMARY | 2024-01-07 14:04 | XMS_ITS | Encounter Summary ---
[place] [address] Care Team Providers Care Chief Service Observer Name Role Phone Mauro Berger MD Primary Care Provider [phone] Encounter Details Date Type Department Care Team (Late st Contact Info) Description 12/06/2005 [place] [phone] Niraj Plascencia MD [address] [place] [address] Social History Tobacco Use Types Packs/Day Years [...] (12/06/2005 8:59 PM EDT) Surgical Pathology Report [id number] ? Location: The signing pathologist has (i) examined the relevant preparation(s) for the specimen(s) and (ii) rendered or confirmed the diagnosis(es). . ?Pathology Surgical Pathology Final Report Clinical Information Specimen Submitted: A - Dorsum Lt hand: ??re-excision. Clinical Diagnosis: SCC. ??Re-excision SCC. [facility] So. Med Rec #: ? [id number] Gross Description Labeled/Fixative : ? Labeled with [...] on filedocumented in this encounter Care Teams Chief Service Observer Relationship Specialty Start Date End Date Mauro Berger MD [address] [place] [address] PCP - General 06/07/11 documented as of this encounter
--- OUTSIDE RECORDS SUMMARY | 2024-01-07 14:04 | XMS_ITS | Encounter Summary ---
Author Organization [facility] Address [address] [place] [address] Care Team Providers Care Fast Food Supervisor Name Role Phone Unknown, Provider Primary Care Provider [phone] Encounter Details Date Type Department Care Team (Late st Contact Info) Description 06/01/2015 Results Only [facility] [phone] Reginaldo Hanna, DO [address] [facility] [address] [place], [place] [id number] Social History Tobacco Use Types Packs/Day Years [...] ? PEDRO SHAH ? Accession #: ? [id number] ? : ? 1955 (Age: 59) ??M ? Collect Date: ? 06/01/2015 ? Location: ? [facility] ? Receive Date: ? 06/03/2015 ? Provider: REGINALDO HANNA DO Copy to: ALEX GOEL MD ? Final Pathologic Diagnosis: SKIN OF CATHOLIC, LEFT, EXCISION: - Squamous cell carcinoma, well [...] above diagnosis. Specimen(s) Received: Skin lesion left pentecostalism, suture anterior Clinical History: Skin lesion left pentecostalism Gross Description: ? Received in formalin labelled with proper patient identification (initials M, S) and left pentecostalism is an oriented elliptical excision of pink-ramon [...] [place]oto 06/03/2015 12:[address] [facility] 06/01/2015 9:01 EST 06/03/2015 9:01 EST Reginaldo Hanna DO PATHOLOGY ORDER JAMES Performing Organization Address City/State/[facility] Co de Phone Number [facility] [address] [place] [address] documented in this encounter Visit Diagnoses Not on filedocumented in this encounter Care Teams Fast Food Supervisor Relationship Specialty Start Date End Date Unknown, Provider, PCP - General 03/16/10 04/12/20 documented as of this encounter
--- OUTSIDE RECORDS SUMMARY | 2024-01-07 14:04 | XMS_ITS | Encounter Summary ---
[place] [address] Care Team Providers Care Drop Wire Builder Name Role Phone Mauro Berger MD Primary Care Provider [phone] Reason for Visit * Reason Comments Basal Cell Carcinoma Encounter Details Date Type Department Care Team (Late st Contact Info) Description 2011 3:15 PM EST Office Visit Dermatology [address] [facility] [address] [place] [address] Greg Lopez MD [address] [facility], [place] [address] Basal cell carcinoma (Primary Dx); Squamous cell [...] for suture removal by Dr. Lopez in [facility]. Pathology Addendum per [facility] 06/27/11 : Site A : [...] site documented in this encounter Care Teams Drop Wire Builder Relationship Specialty Start Date End Date Mauro Berger MD [address] [place] [address] PCP - General 06/07/11 documented as of this encounter
--- OUTSIDE RECORDS SUMMARY | 2024-01-07 14:04 | XMS_ITS | Encounter Summary ---
Author Organization [facility] Address [facility] [place] [address] Care Team Providers Care Senior Sustainability Advisor Name Role Phone Mauro Berger MD Primary Care Provider [phone] Reason for Visit * Reason Comments Follow-up Skin Check * Consultation (Routine) - Specialty Diagnoses / Procedures Referred By Contliberty t Referred To Contact Dermatology Diagnoses Actinic keratosis Skin Lesion on face, Multiple AR's Procedures Skin Lesion on face, Multiple AR's Mauro Berger MD [address] [place] [address] Greg Lopez MD [address] [place] [address], [facility] [place] [address] Referral ID Status Reason Start Date Expiration Date V isits Requested Visits Authorized [id number] 11/23/2016 11/23/2017 1 1 Encounter Details Date Type Department Care Team (Late st Contact Info) Description 04/03/2017 10:45 AM EST Office Visit Dermatology at [address] [address] Greg Lopez MD [address] [place] [address], [facility] [place] [address] History of basal cell carcinoma; History of [...] Actinic keratoses. 2. History of BCCA, left islam and left upper back, excised 01/2012. 3. History of BCCA, left upper forehead, left upper chest, right dorsal forearm, 05/2011. Demond is a 61-year-old gentleman who is referred back to me by Dr. Berger. 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 He has had multiple non-melanotic cutaneous malignancies [...] a. Today, 2 new sites noted: Left islam area and left postauricular scalp. b. Will [...] keratosis documented in this encounter Care Teams Senior Sustainability Advisor Relationship Specialty Start Date End Date Mauro Berger MD [address] [place] [address] PCP - General 06/07/11 documented as of this encounter
--- OUTSIDE RECORDS SUMMARY | 2024-01-07 14:04 | XMS_ITS | Encounter Summary ---
Author [facility] [place] [address] Care Team Providers Care Painter Maintenance Name Role Phone Mauro Berger MD Primary Care Provider [phone] Reason for Visit * Reason Comments Follow-up Skin Check Encounter Details Date Type Department Care Team (Late st Contact Info) Description 10/11/2017 8:45 AM EDT Office Visit Dermatology at [address] [phone] Greg Lopez MD [address] [facility], [place] [address] History of basal cell carcinoma; History of [...] AM EDT Problem: 1. Follow-up BCCA left christian and left inferior postauricular scalp 04/2017 2. History of BCCA left christian and left upper back excised 01/2012 3. [...] keratosis documented in this encounter Care Teams Painter Maintenance Relationship Specialty Start Date End Date Mauro Berger MD [address] [place] [address] PCP - General 06/07/11 documented as of this encounter
--- OUTSIDE RECORDS SUMMARY | 2024-01-07 14:04 | XMS_ITS | Encounter Summary ---
[place] [address] Care Team Providers Care Loss Prevention Detective Name Role Phone Mauro Berger MD Primary Care Provider [phone] Encounter Details Date Type Department Care Team (Late st Contact Info) Description 07/26/2006 [place] [phone] Niraj Plascencia MD [address] [place] [address] Social History Tobacco Use Types Packs/Day Years [...] (07/26/2006 7:27 PM EDT) Surgical Pathology Report [id number] ? Location: The signing pathologist has (i) examined the relevant preparation(s) for the specimen(s) and (ii) rendered or confirmed the diagnosis(es). . ?Pathology Surgical Pathology Final Report Clinical Information Specimen Submitted: Jonathan Gan Upper Back: Shave (1) B - L Clavicle: Shave (1) C - L Upper Chest: Shave (1) [facility] So. [facility] Rec #: ? [id number] Clinical Diagnosis: A - Superficial BCC B [...] ?skin. Sections/Proces sing: ??Inked and trisected. ??(T1) ??[facility] Microscopic Description Slides reviewed, microscopic description not recorded. Diagnosis A - Superficial multifocal basal cell carcinoma, and dermal fibrosis, shave biopsy, skin of left upper back. B - Basal cell carcinoma and incidental actinic keratosis, shave biopsy, left clavicle. C - Squamous cell carcinoma, shave biopsy, left upper chest. CR-0 07/27/06 [facility] 07/27/06 Verified by: ? Melissa Noel MD ?Dermatopathol ogist ?(Electronic Signature) The attending pathologist whose signature appears on this report has reviewed all diagnostic slides and has edited the gross and/or microscopic portion of the report in rendering the final pathologic diagnosis. [facility] 07/26/2006 7:27 PM EDT Niraj Plascencia MD PATHOLOGY/CYTOLOGY O RDERABLES Performing Organization Address City/State/ZIP Co mo Phone Number [facility] documented in this encounter Visit Diagnoses Not on filedocumented in this encounter Care Teams Loss Prevention Detective Relationship Specialty Start Date End Date Mauro Berger MD [address] [place] [address] PCP - General 06/07/11 documented as of this encounter
--- OUTSIDE RECORDS SUMMARY | 2024-01-07 14:04 | XMS_ITS | Clinical Summary ---
Author Organization [facility] Address [facility] [place] [address] Care Team Providers Care Auto Parker Name Role Phone Mauro Berger MD Primary Care Provider [phone] Allergies Active Allergy Reactions Criticality Noted Date [...] daily. Active Ketone Blood Test Strip by [facility].(Non-Drug; Combo Route) route. Active Insulin [place], Disposable, 29 gauge X 1/2 Needle by Mis.(Non-Drug; Combo Route) route. Active Lancets Misc by [facility].(Non-Drug; Combo Route) route. Active FOLIC [...] 2019 Covid-19 Vaccine (1 - 2022- season) 2023 Influenza (Flu) vaccine (1 o f 1 - Influenza standard series) 12/30/2023 Advance Directives * Full Code (Latest Code Status on File) Date Activated Date Inactivated Comments 03/02/2015 1:43 PM 03/02/2015 5:19 PM Question Answer Comments Does patient have capacity to make decision: Yes Care Teams Auto Parker Relationship Specialty Start Date End Date Mauro Berger MD [address] [place], [place] [address] PCP - General 06/07/11
--- OUTSIDE RECORDS SUMMARY | 2024-01-07 14:04 | XMS_ITS | Encounter Summary ---
Author Organization [facility] Address [address] [place] [address] Care Team Providers Care Life Science Technical Officer Name Role Phone Unknown, Provider Primary Care Provider Encounter Details Date Type Department Care Team (Latest Contact Info) Description 05/25/2016 10:24 EST - 05/25/2016 23:59 EST Hospital Encounter [address] [address] Unknown, Provider, Discharge Disposition: Home or Self [...] on filedocumented in this encounter Care Teams Life Science Technical Officer Relationship Specialty Start Date End Date Unknown, Provider, PCP - General 03/16/10 04/12/20 documented as of this encounter
--- OUTSIDE RECORDS SUMMARY | 2024-01-07 14:04 | XMS_ITS | Encounter Summary ---
Author [place] [address] Care Team Providers Care Rubber Tubing Splicer Name Role Phone Mauro Berger MD Primary Care Provider + [phone] Reason for Visit * Reason Comments Procedure Encounter Details Date Type Department Care Team (Late st Contact Info) Description 02/16/2012 1:00 PM EDT Office Visit Dermatology [address] [facility] [address] [place], [place] [phone] Greg Lopez MD [address] [facility], [place] [address] Basal cell carcinoma (Primary Dx) Social History [...] for suture removal by Dr. Lopez in [facility]. Site number two clinical impression left upper [...] for suture removal by Dr. Lopez in [facility]. documented in this encounter Procedure Notes * [...] unspecified documented in this encounter Care Teams Rubber Tubing Splicer Relationship Specialty Start Date End Date Mauro Berger MD [address] [place] [address] PCP - General 06/07/11 documented as of this encounter
--- OUTSIDE RECORDS SUMMARY | 2024-01-07 14:04 | XMS_ITS | Encounter Summary ---
Author Organization [facility] [place] [address] Care Team Providers Care Java Application Engineer Name Role Phone Mauro Berger MD Primary Care Provider [phone] Encounter Details Date Type Department Care Team (Late st Contact Info) Description 05/03/2017 9:15 AM EST Office Visit Dermatology at [address] [phone] Greg Lopez MD [address] [facility], [place] [address] History of basal cell carcinoma; History of [...] and D treatment of 2 sites, left pentecostal and left inferior postauricular scalp. Demond follows up and is here for his procedure. Physical examination again reveals the 2 sites present as noted on his last dictation from 04/03/17. A/P: Probable SCCA versus BCCA, site A left pentecostal, site B left postauricular scalp. a. Consent [...] keratosis documented in this encounter Care Teams Java Application Engineer Relationship Specialty Start Date End Date Mauro Berger MD [address] [place] [address] PCP - General 06/07/11 documented as of this encounter
--- OUTSIDE RECORDS SUMMARY | 2024-01-07 14:04 | XMS_ITS | Encounter Summary ---
Author Organization [facility] [place] [address] Care Team Providers Care Electric Brain Wave Equipment Mechanic Name Role Phone Mauro Berger MD Primary Care Provider [phone] Reason for Visit * Reason Comments Follow-up Skin Check * Consultation (Routine) - Specialty Diagnoses / Procedures Referred By Contliberty t Referred To Contact Dermatology Diagnoses Disorder of the skin and subcutaneous tissue, unspecified BCC/SCC Procedures Consult Mauro Berger MD [address] [place] [address] Greg Lopez MD [address] [place] [address], [place] [address] Referral ID Status Reason Start Date Expiration Date V isits Requested Visits Authorized [id number] 03/06/2019 03/05/2020 1 1 Encounter Details Date Type Department Care Team (Late st Contact Info) Description 11/13/2019 1:45 PM EDT Office Visit Dermatology at [address] [address] Greg Lopez MD [address] [place] [address], [place] [address] History of basal cell carcinoma; History of [...] elbow February 2019 2. ??Follow-up BCCA left judaism and left inferior postauricular scalp 04/2017 3. ??History of BCCA left judaism and left upper back excised 01/2012 4. ??History BCC left upper forehead left upper chest right was performed, 05/2011 5. 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 Status [...] back and shoulders and a couple other judaism. However the facial area involvement is much [...] keratosis documented in this encounter Care Teams Electric Brain Wave Equipment Mechanic Relationship Specialty Start Date End Date Mauro Berger MD [address] [place] [address] PCP - General 06/07/11 documented as of this encounter
--- OUTSIDE RECORDS SUMMARY | 2024-01-07 14:04 | XMS_ITS | Encounter Summary ---
Author Organization [facility] Address [address] [place] [address] Care Team Providers Care Guide Delegate Name Role Phone Unknown, Provider Primary Care Provider Encounter Details Date Type Department Care Team (Late st Contact Info) Description 06/16/2013 Results Only [facility] Laboratory Services - [facility] ([facility] [address] [place], [place] [address] Reginaldo Hanna, DO [address] [facility] [address] [place] [address] Social History Tobacco Use Types Packs/Day Years [...] ? PEDRO SHAH ? Accession #: ? [id number] ? : ? 1955 (Age: 57) ??M [...] DO PATHOLOGY ORDER JAMES [facility] [address] [place] [address] documented in this encounter Visit Diagnoses Not on filedocumented in this encounter Care Teams Guide Delegate Relationship Specialty Start Date End Date Unknown, Provider, PCP - General 03/16/10 04/12/20 documented as of this encounter
--- OUTSIDE RECORDS SUMMARY | 2024-01-07 14:04 | XMS_ITS | Encounter Summary ---
[place] [address] Care Team Providers Care Florist Name Role Phone Mauro Berger MD Primary Care Provider [phone] Encounter Details Date Type Department Care Team (Late st Contact Info) Description 05/10/2017 Telephone Dermatology at [address] [phone] Maribel Trejo LPN Social History [...] review biopsy results from 05/03/17 shave left sikh: BCCA x 2, no further treatment necessary, return to clinic 10/11/17 for repeat clinic. documented in this encounter Plan of Treatment Not on file documented as of this encounter Visit Diagnoses Not on filedocumented in this encounter Care Teams Florist Relationship Specialty Start Date End Date Mauro Berger MD [address] [place] [address] PCP - General 06/07/11 documented as of this encounter
--- OUTSIDE RECORDS SUMMARY | 2024-01-07 14:04 | XMS_ITS | Encounter Summary ---
Author Organization [facility] Address [facility] [place] [address] Care Team Providers Care Technical Systems Architect Name Role Phone Mauro Berger MD Primary Care Provider [phone] Reason for Visit * Reason Comments Follow-up * Consultation (Routine) - Specialty Diagnoses / Procedures Referred By Radha mason Referred To Contact Dermatology Diagnoses Disorder of the skin and subcutaneous tissue, unspecified Skin lesions on chest and forearm Procedures Consult Mauro Berger MD [address] [place] [address] Greg Lopez MD [address] [place] [address], [facility] [place] [address] Referral ID Status Reason Start Date Expiration Date V isits Requested Visits Authorized [id number] Consult, Test & Treat PCP Updated and/or Approved 02/10/2019 08/12/2019 6 6 Encounter Details Date Type Department Care Team (Late st Contact Info) Description 04/28/2019 8:00 AM EST Office Visit Dermatology at [address] [phone] Greg Lopez MD [address] [place] [address], [facility] [place] [address] History of basal cell carcinoma; History of [...] elbow February 2019 2. ??Follow-up BCCA left evangelical and left inferior postauricular scalp 04/2017 3. ??History of BCCA left evangelical and left upper back excised 01/2012 4. 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 Patient will be called into [facility] in [place]. If insurance does not cover will then use the compounding pharmacy in [place] 4. Return to clinic May 09 after [...] keratosis documented in this encounter Care Teams Technical Systems Architect Relationship Specialty Start Date End Date Mauro Berger MD [address] [place] [address] PCP - General 06/07/11 documented as of this encounter
--- OUTSIDE RECORDS SUMMARY | 2024-01-07 14:04 | XMS_ITS | Encounter Summary ---
[place] [address] Care Team Providers Care Double Corner Cutter Name Role Phone Mauro Berger MD Primary Care Provider [phone] Encounter Details Date Type Department Care Team (Late st Contact Info) Description 04/28/2019 Refill Dermatology at [address] [phone] Maribel Trejo, CLAIMS SORTER Social History Tobacco Use Types Packs/Day Years [...] on filedocumented in this encounter Care Teams Double Corner Cutter Relationship Specialty Start Date End Date Mauro Berger MD [address] [place] [address] PCP - General 06/07/11 documented as of this encounter
--- OUTSIDE RECORDS SUMMARY | 2024-01-07 14:04 | XMS_ITS | Encounter Summary ---
Author Organization [facility] Address [address] [place] [address] Care Team Providers Care Dock Worker Name Role Phone Unknown, Provider Primary Care Provider Encounter Details Date Type Department Care Team (Late st Contact Info) Description 05/09/2010 Results Only [facility] Laboratory Services - [facility] [address] [place], [place] [address] Martell Marcano MD [address] [place] [id number] Social History Tobacco Use Types Packs/Day Years [...] to Dr. Martell Marcano on 05/11/10. ??(Dr. Ulloa)/[facility] ? Document reviewed and electronically signed by: [...] ? Gross Description: ? Received fresh at [facility] labelled ? Pedro Shah and left ear [...] Marcano MD PATHOLOGY ORDERABLES Performing Organization Address City/State/[facility] Co de Phone Number [facility] [address] [place] [address] documented in this encounter Visit Diagnoses Not on filedocumented in this encounter Care Teams Dock Worker Relationship Specialty Start Date End Date Unknown, Provider, PCP - General 03/16/10 04/12/20 documented as of this encounter
--- OUTSIDE RECORDS SUMMARY | 2024-01-07 14:04 | XMS_ITS | Encounter Summary ---
[place] [address] Care Team Providers Care Soft Metals Engraver Hand Name Role Phone Mauro Berger MD Primary Care Provider [phone] Reason for Visit * Reason Comments Suture / Staple Removal Encounter Details Date Type Department Care Team (Late st Contact Info) Description 02/26/2012 4:30 PM EDT Office Visit Dermatology [address] [facility] [address] [place], [place] [phone] Greg Lopez MD [address] [facility], [place] [address] Visit for suture removal (Primary Dx) Social [...] today shows good healing of the left mu-ism site. Assessment and Plan: Status post excision of BCCA, left mu-ism. a. Sutures removed. b. Excellent wound healing. c. May discontinue wound care instructions. d. Return to the clinic on Sunday for suture removal from back sites. Thereafter we will plan on [id number] followups to keep a close eye on the skin. documented in this encounter Plan of Treatment Not on file documented as of this encounter Visit Diagnoses Diagnosis Visit for suture removal- Primary Encounter for removal of sutures documented in this encounter Care Teams Soft Metals Engraver Hand Relationship Specialty Start Date End Date Mauro Berger MD [address] [place] [address] PCP - General 06/07/11 documented as of this encounter
--- OUTSIDE RECORDS SUMMARY | 2024-01-07 14:04 | XMS_ITS | Encounter Summary ---
Author Organization [facility] Address [address] [place] [address] Care Team Providers Care Farm Helper Name Role Phone Unknown, Provider Primary Care Provider [phone] Encounter Details Date Type Department Care Team (Late st Contact Info) Description 05/05/[address] [facility] [phone] Katiana Burch, DO [address] [place] [address] Social History Tobacco Use Types [...] 0.1 mm of the peripheral margin. ??(Dr. Ponce)/[facility] Microscopic Description: Emanating from the epidermis and [...] some of the islands and stroma. ??(Dr. Ponce)/[facility] Document reviewed and electronically signed by: JOSIE [...] (ASCP) 05/08/2016 11:47 AM End of Report [facility] 05/05/2016 6:46 EST 05/05/2016 6:46 EST Katiana Burch DO PATHOLOGY ORDERABLES [facility] [address] [place] [address] documented in this encounter Visit Diagnoses Not on filedocumented in this encounter Care Teams Farm Helper Relationship Specialty Start Date End Date Unknown, Provider, PCP - General 03/16/10 04/12/20 documented as of this encounter
--- OUTSIDE RECORDS SUMMARY | 2024-01-07 14:04 | XMS_ITS | Encounter Summary ---
Author Organization [facility] Address [address] [place] [address] Care Team Providers Care Crystal Inspector Name Role Phone Unknown, Provider Primary Care Provider Encounter Details Date Type Department Care Team (Late st Contact Info) Description 03/20/2014 Results Only [facility] Laboratory Services - [facility] ([facility]) [address] [place], [place] [address] Reginaldo Hanna, DO [address] [facility] [address] [place] [address] Social History Tobacco Use Types Packs/Day Years [...] ing unformatted reports. Name: ? SHAH PEDRO Nawaf ? Accession #: ? [id number] ? : ? 1955 (Age: 58) ??M [...] 09:52 AM End of Report [facility] 03/20/2014 18:2 4 EST 03/20/2014 18:24 EST Reginaldo Hanna DO PATHOLOGY ORDER JAMES [facility] [address] [place] [address] documented in this encounter Visit Diagnoses Not on filedocumented in this encounter Care Teams Crystal Inspector Relationship Specialty Start Date End Date Unknown, Provider, PCP - General 03/16/10 04/12/20 documented as of this encounter
--- OUTSIDE RECORDS SUMMARY | 2024-01-07 14:04 | XMS_ITS | Encounter Summary ---
[place] [address] Care Team Providers Care Retail Cosmetics Sales Counter Manager Name Role Phone Mauro Berger MD Primary Care Provider [phone] Reason for Visit * Reason Comments Suture / Staple Removal Encounter Details Date Type Department Care Team (Late st Contact Info) Description 03/01/2012 3:45 PM EDT Office Visit Dermatology [address] [facility] [address] [place], [place] [phone] Greg Lopez MD [address] [facility], [place] [address] Visit for suture removal (Primary Dx) Social [...] sutures documented in this encounter Care Teams Retail Cosmetics Sales Counter Manager Relationship Specialty Start Date End Date Mauro Berger MD [address] [place] [address] PCP - General 06/07/11 documented as of this encounter
--- OUTSIDE RECORDS SUMMARY | 2024-01-07 14:04 | XMS_ITS | Encounter Summary ---
[place] [address] Care Team Providers Care Diet Attendant Name Role Phone Mauro Berger MD Primary Care Provider Reason for Visit * Reason Comments Skin Check Encounter Details Date Type Department Care Team (Late st Contact Info) Description 01/19/2012 10:15 AM EDT Office Visit Dermatology [address] [facility] [address] [place] [address] Greg Lopez MD [address] [facility], [place] [address] History of basal cell carcinoma (Primary Dx) [...] skin documented in this encounter Care Teams Diet Attendant Relationship Specialty Start Date End Date Mauro Berger MD [address] [place] [address] PCP - General 06/07/11 documented as of this encounter
--- OUTSIDE RECORDS SUMMARY | 2024-01-07 14:04 | XMS_ITS | Encounter Summary ---
Author Organization [facility] Address [address] [place] [address] Care Team Providers Care Autism Specialist Name Role Phone Unavailable Primary Care Provider Unavailabl e Encounter Details Date Type Department Care Team (Late st Contact Info) Description 03/20/2008 Before [facility] Converted Visit (Maple) [facility] - [facility] conversion [address] [place] [address] Mauro Berger MD [address] [place], [place] [phone] Social History Tobacco Use Types Packs/Day Years [...] ? PEDRO SHAH ? Accession #: ? [id number] ? : ? 1955 (Age: 52) ??M [...] en face, (A2) central sections. ?? (Dr. Batista)/[facility] ? End of Report ? [facility] 03/20/2008 03/21/2008 10: 07 EST Mauro Berger MD PATHOLOGY ORDERABLES [facility] [address] [place] [address] documented in this encounter Visit Diagnoses Not on filedocumented in this encounter
--- OUTSIDE RECORDS SUMMARY | 2024-01-07 14:04 | XMS_ITS | Encounter Summary ---
[place] [address] Care Team Providers Care Internet Sales Associate Name Role Phone Mauro Berger MD Primary Care Provider [phone] Encounter Details Date Type Department Care Team (Late st Contact Info) Description 11/23/2005 [place] [phone] Niraj Plascencia MD [address] [place] [address] Social History Tobacco Use Types Packs/Day Years [...] (11/23/2005 8:50 PM EDT) Surgical Pathology Report [id number] ? Location: The signing pathologist has (i) examined the relevant preparation(s) for the specimen(s) and (ii) rendered or confirmed the diagnosis(es). . 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 Med Rec #: ? [id number] Gross Description Labeled/Fixativ e: ? Labeled with the patient's name, formalin. Qty/Size/Weight : ?Single shave, 0.9 cm, ramon with a 0.8 x 0.7-cm ?ramon-white papule. Sections/Proces sing: ??Trisected. ??(T1) ??eulogio/SNS Microscopic Description Slides reviewed, microscopic description not recorded. Diagnosis Skin, left dorsal hand, shave biopsy: ?? Invasive squamous cell carcinoma, close to the deep edge of the biopsy ?? specimen. CR-0 11/24/05 [facility] 11/24/05 Verified by: ? Sravani Diaz MD, PhD ?Pathologist ?(Electronic Signature) The attending pathologist whose signature appears on this report has reviewed all diagnostic slides and has edited the gross and/or microscopic portion of the report in rendering the final pathologic diagnosis. HELEN CRUZ 11/23/2005 8:50 PM EDT Niraj Plascencia MD PATHOLOGY/CYTOLOGY O RDERABLES Performing Organization Address City/State/[facility] Co nv Phone Number HELEN CRUZ documented in this encounter Visit Diagnoses Not on filedocumented in this encounter Care Teams Internet Sales Associate Relationship Specialty Start Date End Date Mauro Berger MD [address] [place] [address] PCP - General 06/07/11 documented as of this encounter
--- OUTSIDE RECORDS SUMMARY | 2024-01-07 14:04 | XMS_ITS | Encounter Summary ---
Author Organization [facility] Address [facility] [place] [address] Care Team Providers Care Video News Editor Name Role Phone Mauro Berger MD Primary Care Provider [phone] Reason for Visit * Reason Comments Left Hand Pain WC DOI 02/15/15 Encounter Details Date Type Department Care Team (Late st Contact Info) Description 05/26/2015 2:30 PM EST Office [place] [address] Shaheen Diaz MD [facility] [place] [address] Bilateral carpal tunnel syndrome; Trigger finger, left [...] fascia documented in this encounter Care Teams Video News Editor Relationship Specialty Start Date End Date Mauro Berger MD [address] [place] [address] PCP - General 06/07/11 documented as of this encounter
--- OUTSIDE RECORDS SUMMARY | 2024-01-07 14:04 | XMS_ITS | Encounter Summary ---
Author Organization [facility] [place] [address] Care Team Providers Care Custom Furrier Name Role Phone Mauro Berger MD Primary Care Provider [phone] Encounter Details Date Type Department Care Team (Late st Contact Info) Description 12/23/2014 External [place] [address] Morris Starr MD [facility] [place] [address] Social History Tobacco Use Types Packs/Day Years [...] on filedocumented in this encounter Care Teams Custom Furrier Relationship Specialty Start Date End Date Mauro Berger MD [address] [place] [address] PCP - General 06/07/11 documented as of this encounter
--- OUTSIDE RECORDS SUMMARY | 2024-01-07 14:04 | XMS_ITS | Encounter Summary ---
Author Organization [facility] [place] [address] Care Team Providers Care Estimator Printing Plate Making Name Role Phone Mauro Berger MD Primary Care Provider [phone] Reason for Referral * Surgical (Routine) - Closed Specialty Diagnoses / Procedures Referred By Radha mason Referred To Contact Orthopaedics Diagnoses Carpal tunnel syndrome of right wrist Procedures ARTHROSCOPY WRIST W/ RELEASE TRANSVERSE CARPAL LIGAMENT Rhea Rojas PA [facility] [place] [address] [facility] [address] [place] [phone] Referral ID Status Reason Start Date Expiration Date V isits Requested Visits Authorized [id number] Closed Specialty Service Requested 02/15/2015 02/15/2016 1 1 Reason for Visit * Reason Comments Bilateral Hand Pain Encounter Details Date Type Department Care Team (Late st Contact Info) Description 02/15/2015 1:40 PM EDT Office [place] [phone] Shaheen Diaz MD [facility] [place] [address] Carpal tunnel syndrome of right [...] NAME: Pedro Mast AGE: 59 y.o. MR#: [id number] DATE OF VISIT: 02/15/2015 DATE OF INJURY/ONSET: Summer 2014 STAFF: Dr. Diaz CHIEF COMPLAINT: R>L hand numbness HISTORY OF PRESENT ILLNESS: Mr. Mast is a right hand dominant 59 y.o. male who comes into clinic today for evaluation of the bilateral hands. He was referred to [facility] by Mauro Berger. 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 He is unaware of any familyhistory of Dupuytren's disease. He is of [place] descent. He has not had any prior [...] SOCIAL HX: Social History Occupational History ??? [employer] Social History Main Topics ??? Smoking status: [...] concerns. The above documentation was completed using Areshay voice recognition software. * Shaheen Diaz MD [...] no relief of neurogenic symptoms, pillar pain, aircraft delivery checker weakness, and recurrence of carpal tunnel syndrome. [...] syndrome documented in this encounter Care Teams Estimator Printing Plate Making Relationship Specialty Start Date End Date Mauro Berger MD [address] [place] [address] PCP - General 06/07/11 documented as of this encounter
--- OUTSIDE RECORDS SUMMARY | 2024-01-07 14:04 | XMS_ITS | Encounter Summary ---
Author Organization [facility] [place] [address] Care Team Providers Care Slitter And Rewinder Machine Operator Name Role Phone Mauro Berger MD Primary Care Provider [phone] Reason for Visit * Reason Comments Follow-up Skin Check Encounter Details Date Type Department Care Team (Late st Contact Info) Description 05/09/2019 8:15 AM EST Office Visit Dermatology at [address] [phone] Greg Lopez MD [address] [facility], [place] [address] History of basal cell carcinoma; History of [...] keratosis documented in this encounter Care Teams Slitter And Rewinder Machine Operator Relationship Specialty Start Date End Date Mauro Berger MD [address] [place] [address] PCP - General 06/07/11 documented as of this encounter
--- OUTSIDE RECORDS SUMMARY | 2024-01-07 14:04 | XMS_ITS | Encounter Summary ---
Author Organization [facility] Address [facility] [place] [address] Care Team Providers Care It Infrastructure Project Manager Name Role Phone Mauro Berger MD Primary Care Provider [phone] Encounter Details Date Type Department Care Team (Late st Contact Info) Description 11/14/2019 External Results Medical Records [facility] [place] [address] Provider, Scanning Social History Tobacco Use Types [...] on filedocumented in this encounter Care Teams It Infrastructure Project Manager Relationship Specialty Start Date End Date Mauro Berger MD [address] [place] [address] PCP - General 06/07/11 documented as of this encounter
--- OUTSIDE RECORDS SUMMARY | 2024-01-07 14:04 | XMS_ITS | Encounter Summary ---
Author Organization [facility] Address [facility] [place] [address] Care Team Providers Care Plumber Apprentice Name Role Phone Mauro Berger MD Primary Care Provider [phone] Encounter Details Date Type Department Care Team (Latest Contact Info) Description 05/26/2015 1:35 PM EST - 05/26/2015 11:59 PM [facility] Hospital Encounter XRay at [address] [place] [address] Shaheen Diaz MD [facility] [place] [address] Carpal tunnel syndrome on left Discharge Disposition: [...] Strip by Mis.(Non-Drug; Combo Route) route. Insulin [place], Disposable, 29 gauge X 1/2 Needle by [...] syndrome documented in this encounter Care Teams Plumber Apprentice Relationship Specialty Start Date End Date Mauro Berger MD [address] [place] [address] PCP - General 06/07/11 documented as of this encounter
--- OUTSIDE RECORDS SUMMARY | 2024-01-07 14:04 | XMS_ITS | Encounter Summary ---
Author Organization [facility] Address [facility] [place] [address] Care Team Providers Care Guard Entrance Registrar Name Role Phone Mauro Berger MD Primary Care Provider [phone] Reason for Visit * Reason Comments Follow Up Surgery R CTR DOS 03/02/15 Encounter Details Date Type Department Care Team (Late st Contact Info) Description 03/15/2015 10:40 AM EST Office [place] [address] Shaheen Diaz MD [facility] [place] [address] Carpal tunnel syndrome of right wrist Social [...] syndrome documented in this encounter Care Teams Guard Entrance Registrar Relationship Specialty Start Date End Date Mauro Berger MD [address] [place] [address] PCP - General 06/07/11 documented as of this encounter
--- OUTSIDE RECORDS SUMMARY | 2024-01-07 14:04 | XMS_ITS | Encounter Summary ---
[place] [address] Care Team Providers Care Pulmonary Function Technician Name Role Phone Mauro Berger MD Primary Care Provider + [phone] Reason for Visit * Reason Comments Suture / Staple Removal Encounter Details Date Type Department Care Team (Late st Contact Info) Description 06/28/2011 8:45 AM EST Office Visit Dermatology [address] [facility] [place], [place] [phone] Greg Lopez MD [address] [facility] [place] [place] [address] Basal cell carcinoma (Primary Dx) Social History Tobacco Use Types Packs/Day Years Used Date Smoking Tobacco: Never Sex and Gender Information Value Date Recorded Sex Assigned at Not on file Gender Identity Not on file Sexual Orientation Not on file documented as of this encounter Progress Notes * rGeg Lopez MD - 06/28/2011 9:00 AM EST [...] unspecified documented in this encounter Care Teams Pulmonary Function Technician Relationship Specialty Start Date End Date Mauro Berger MD [address] [place] [address] PCP - General 06/07/11 documented as of this encounter
--- OUTSIDE RECORDS SUMMARY | 2024-01-07 14:04 | XMS_ITS | Encounter Summary ---
Author Organization [facility] Address [address] [place] [address] Care Team Providers Care Monotype Mechanic Name Role Phone Unknown, Provider Primary Care Provider Encounter Details Date Type Department Care Team (Latest Contact Info) Description 05/05/2016 14:40 EST - 05/05/2016 23:59 EST Hospital Encounter [address] [address] Unknown, Provider, Discharge Disposition: Home or Self Care Social History Tobacco Use Types Packs/Day Years Used Date Smoking Tobacco: Never Assessed Sex and Gender Information Value Date Recorded Sex Assigned at Not on file Gender Identity Not on file Sexual Orientation Not on file documented as of this encounter Discharge Disposition Disposition Code Departure Means Destination Home or Self Long Term documented in this encounter Plan of Treatment Not on file documented as of this encounter Visit Diagnoses Not on filedocumented in this encounter Care Teams Monotype Mechanic Relationship Specialty Start Date End Date Unknown, Provider, PCP - General 03/16/10 04/12/20 documented as of this encounter
--- OUTSIDE RECORDS SUMMARY | 2024-01-07 14:04 | XMS_ITS | Encounter Summary ---
Author Organization [facility] Address [address] [place] [address] Care Team Providers Care Stock Saw Operator Name Role Phone Unknown, Provider Primary Care Provider [phone] Encounter Details Date Type Department Care Team (Latest Contact Info) Description 06/01/2015 17:18 EST - 06/01/2015 23:59 EST Hospital Encounter [address] [address] Unknown, Provider, Discharge Disposition: Home or Self Care Social History Tobacco Use Types Packs/Day Years Used Date Smoking Tobacco: Never Assessed Sex and Gender Information Value Date Recorded Sex Assigned at Not on file Gender Identity Not on file Sexual Orientation Not on file documented as of this encounter Discharge Disposition Disposition Code Departure Means Destination Home or Self Mcfp documented in this encounter Plan of Treatment Not on file documented as of this encounter Visit Diagnoses Not on filedocumented in this encounter Care Teams Stock Saw Operator Relationship Specialty Start Date End Date Unknown, Provider, PCP - General 03/16/10 04/12/20 documented as of this encounter
--- OUTSIDE RECORDS SUMMARY | 2024-01-07 14:04 | XMS_ITS | Encounter Summary ---
Author Organization [facility] Address [facility] [place] [address] Care Team Providers Care Steel Die Press Set Up Operator Name Role Phone Mauro Berger MD Primary Care Provider [phone] Reason for Visit * Auth/Cert Specialty Diagnoses / Procedures Referred By Radha t Referred To Contact Diagnoses Right carpal tunnel syndrome Procedures PRO WRIST ARTHROSCOP, RELEASE XVERS LIG ENDOSCOPY WRIST W/ RELEASE TRANSVERSE CARPAL LIGAMENT Referral ID Status Reason Start Date Expiration Date Visits Re quested Visits Authorized [id number] 1 1 Encounter Details Date Type Department Care Team (Late st Contact Info) Description 03/02/2015 2:30 PM EST - 03/02/2015 3:00 PM EST Surgery [place] [phone] Ching Diaz MD [facility] [place] [address] ENDOSCOPY WRIST W/ RELEASE TRANSVERSE CARPAL LIGAMENT [...] 5pm or on a weekend: Call the [facility] machine operator replanter and ask for the physician professional athletes coach covering for your doctor. * Patient Instructions* [...] During clinic hours M-F 8-4:30 please call [phone] If it is after 5:00PM on a weekday or a weekend and it is of an urgent nature please call [phone] and ask for the on-call orthopaedic resident. [...] times daily. Ketone Blood Test Strip by [facility].(Non-Drug; Combo Route) route. Insulin [place], Disposable, 29 gauge X 1/2 Needle by [facility].(Non-Drug; Combo Route) route. Lancets Misc by [facility].(Non-Drug; Combo Route) route. FOLIC ACID/MV,FE,OTHER MIN (CENTRUM [...] Diaz MD - 03/02/2015 1:47 PM EST [facility] [place] Note Patient Name: Pedro Mast : [id number] MR#: [id number] Case Date: 03/02/2015 Surgeon: Surgeon(s) and Role: [...] preoperative time- out was performed as per [facility] protocol. 6 mL of 1% lidocaine with [...] Operative Note Patient Name: Pedro Mast : [id number] MR#: [id number] Case Date: 03/02/2015 Surgeon: Surgeon(s) and Role: [...] 6ml) documented in this encounter Care Teams Steel Die Press Set Up Operator Relationship Specialty Start Date End Date Mauro Berger MD [address] [place] [address] PCP - General 06/07/11 documented as of this encounter
--- OUTSIDE RECORDS SUMMARY | 2024-01-07 14:04 | XMS_ITS | Encounter Summary ---
Author Organization [facility] Address [address] [place] [address] Care Team Providers Care Flight Surgeon Name Role Phone Unknown, Provider Primary Care Provider [phone] Encounter Details Date Type Department Care Team (Latest Contact Info) Description 03/20/2014 17:13 EST - 03/20/2014 23:59 EST Hospital Encounter [address] [address] Unknown, Provider, Discharge Disposition: Home or Self Care Social History Tobacco Use Types Packs/Day Years Used Date Smoking Tobacco: Never Assessed Sex and Gender Information Value Date Recorded Sex Assigned at Not on file Gender Identity Not on file Sexual Orientation Not on file documented as of this encounter Discharge Disposition Disposition Code Departure Means Destination Home or Self Correction documented in this encounter Plan of Treatment Not on file documented as of this encounter Visit Diagnoses Not on filedocumented in this encounter Care Teams Flight Surgeon Relationship Specialty Start Date End Date Unknown, Provider, PCP - General 03/16/10 04/12/20 documented as of this encounter
--- OUTSIDE RECORDS SUMMARY | 2024-01-07 14:04 | XMS_ITS | Encounter Summary ---
Author Organization [facility] Address [place] [address] Care Team Providers Care Stars Specialist Name Role Phone Mauro Berger MD Primary Care Provider [phone] Reason for Referral * Surgical (Routine) - Closed Specialty Diagnoses / Procedures Referred By Radha mason Referred To Contact Orthopaedics Diagnoses Bilateral carpal tunnel syndrome Morris Starr MD [facility] [place] [address] [facility] [address] [place] [address] Referral ID Status Reason Start Date Expiration Date V isits Requested Visits Authorized [id number] Closed Consult, Test & Treat 12/22/2014 12/22/2015 3 3 Encounter Details Date Type Department Care Team (Late st Contact Info) Description 12/22/2014 2:45 PM EDT [place] [phone] Morris Starr MD [facility] [place] [address] Bilateral carpal tunnel syndrome Discharge Disposition: Home [...] by Dr. Mauro Berger for evaluation of xkjxh-arpugyt-wuoz-left hand paresthesias. He is felt to most [...] the 7's. 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 He drinks beer about once a week and smoked years ago but gave this up. He lives in [place], [place], with his . 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 The patient appears to be suffering from xfegd-iwirgca-qzat-left carpal tunnel syndrome. He has tried to [...] syndrome documented in this encounter Care Teams Stars Specialist Relationship Specialty Start Date End Date Mauro Berger MD [address] [place] [address] PCP - General 06/07/11 documented as of this encounter
--- OUTSIDE RECORDS SUMMARY | 2024-01-07 14:04 | XMS_ITS | Encounter Summary ---
[place] [address] Care Team Providers Care Assistant Offset Press Operator Name Role Phone Mauro Berger MD Primary Care Provider [phone] Reason for Visit * Reason Comments Skin Check Encounter Details Date Type Department Care Team (Late st Contact Info) Description 06/12/2011 5:00 PM EST Office Visit Dermatology [address] [facility] [address] [place], [place] [phone] Greg Lopez MD [address] [facility], [place] [address] History of basal cell carcinoma (Primary Dx); [...] History of nonmelanoma cutaneous malignancies. 3. 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 Demond is a 55-year-old gentleman who is referred today by Dr. Berger to establish dermatologic care in this office. He use to live in [place] and was followed by a meter tester primary there who regularly saw him and apparently [...] keratosis documented in this encounter Care Teams Assistant Offset Press Operator Relationship Specialty Start Date End Date Mauro Berger MD [address] [place] [address] PCP - General 06/07/11 documented as of this encounter
--- OUTSIDE RECORDS SUMMARY | 2024-01-07 14:04 | XMS_ITS | Encounter Summary ---
Author Organization [facility] [place] [address] Care Team Providers Care Pad Machine Offbearer Name Role Phone Mauro Berger MD Primary Care Provider [phone] Reason for Visit * Reason Onset Date Comments Bumped Appointment 01/14/2015 Encounter Details Date Type Department Care Team (Late st Contact Info) Description 01/14/2015 [place] [phone] Shaheen Diaz MD [facility] DR [place] [address] Bumped Appointment Social History Tobacco Use Types [...] on filedocumented in this encounter Care Teams Pad Machine Offbearer Relationship Specialty Start Date End Date Mauro Berger MD [address] [place] [address] PCP - General 06/07/11 documented as of this encounter
--- OUTSIDE RECORDS SUMMARY | 2024-01-07 14:04 | XMS_ITS | Encounter Summary ---
Author Organization [facility] Address [facility] [place] [address] Care Team Providers Care Coal Crusher Operator Name Role Phone Mauro Berger MD Primary Care Provider [phone] Reason for Visit * Reason Comments Follow-up Skin Check * Consultation (Routine) - Specialty Diagnoses / Procedures Referred By Radha mason Referred To Contact Dermatology Diagnoses Disorder of the skin and subcutaneous tissue, unspecified Skin lesions on chest and forearm Procedures Consult Mauro Berger MD [address] [place] [address] Greg Lopez MD [address] [place] [address], [facility] [place] [address] Referral ID Status Reason Start Date Expiration Date V isits Requested Visits Authorized [id number] Consult, Test & Treat PCP Updated and/or Approved 02/10/2019 08/12/2019 6 6 Encounter Details Date Type Department Care Team (Late st Contact Info) Description 03/18/2019 11:00 AM EST Office Visit Dermatology at [address] [address] Greg Lopez MD [address] [place] [address], [facility] [place] [address] History of basal cell carcinoma; History of [...] AM EST Problem: 1. 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 [...] keratosis documented in this encounter Care Teams Coal Crusher Operator Relationship Specialty Start Date End Date Mauro Berger MD [address] [place] [address] PCP - General 06/07/11 documented as of this encounter
--- OUTSIDE RECORDS SUMMARY | 2024-01-07 14:04 | XMS_ITS | Encounter Summary ---
Author Organization [facility] Address [address] [place] [address] Care Team Providers Care Manager Channel Name Role Phone Unknown, Provider Primary Care Provider [phone] Mauro Berger MD Primary Care Provider [phone] Encounter Details Date Type Department Care Team (Late st Contact Info) Description 04/09/2020 Lab Requisition [facility] Pathology & Laboratory Medicine - [address] [address] Outr Resulting Lab, Provider Social History Tobacco [...] in accordance with CLIA regulations, College [employer] (CAP) guidelines (Jul 17, 2019), and FDA guidance (Jun 28, 2019). This test is only for use under the Food and Drug Administration's Emergency Use Authorization. Swab ENTIRE NASOPHARYNX / Unknown 04/09/2020 9:35 EST 04/09/2020 16:11 EST Provider Outr Resulting Lab MICROBIOLOGY - GENERAL ORDERABLES [facility] [place], [place] * COVID-19 TESTING (04/09/2020 9:35 EST) COVID-19 rt-PCR Result NEGATIVE Negative 04/11/2020 16:47 EST [facility] Comment: 2019-novel Coronavirus (2019-nCoV) not detected [...] in accordance with CLIA regulations, College of [employer]ologists (CAP) guidelines (Jul 17, 2019), and FDA guidance (Jun 28, 2019). This test is only for use under the Food and Drug Administration's Emergency Use Authorization. Performing Lab [facility] 04/11/2020 16:47 EST [facility] Swab 04/09/2020 9:35 EST 04/09/2020 16:11 EST Provider Outr Resulting Lab MICROBIOLOGY - GENERAL ORDERABLES [facility] [address] [place], [place] [id number] [place] [address] LABORATORY [place], [place] documented in this encounter Visit Diagnoses Not on filedocumented in this encounter Care Teams Manager Channel Relationship Specialty Start Date End Date Unknown, Provider, PCP - General 03/16/10 04/12/20 Mauro Berger MD [address] [place] [address] PCP - General 04/13/20 documented as of this encounter
--- OUTSIDE RECORDS SUMMARY | 2024-01-07 14:04 | XMS_ITS | Encounter Summary ---
Author Organization [facility] Address [address] [place] [address] Care Team Providers Care Html Web Developer Name Role Phone Unknown, Provider Primary Care Provider Encounter Details Date Type Department Care Team (Latest Contact Info) Description 06/16/2013 13:17 EST - 06/16/2013 23:59 EST Hospital Encounter [address] [address] Unknown, Provider, Discharge Disposition: Home or Self Care Social History Tobacco Use Types Packs/Day Years Used Date Smoking Tobacco: Never Assessed Sex and Gender Information Value Date Recorded Sex Assigned at Not on file Gender Identity Not on file Sexual Orientation Not on file documented as of this encounter Discharge Disposition Disposition Code Departure Means Destination Home or Self Custodial documented in this encounter Plan of Treatment Not on file documented as of this encounter Visit Diagnoses Not on filedocumented in this encounter Care Teams Html Web Developer Relationship Specialty Start Date End Date Unknown, Provider, PCP - General 03/16/10 04/12/20 documented as of this encounter
--- OUTSIDE RECORDS SUMMARY | 2024-01-07 14:04 | XMS_ITS | Encounter Summary ---
Author Organization [facility] Address [address] [place] [address] Care Team Providers Care Horseback Riding Instructor Name Role Phone Unavailable Primary Care Provider Unavailabl e Encounter Details Date Type Department Care Team (Late st Contact Info) Description 03/14/2010 Results Only [facility] [address] [place], [place] [address] Martell Marcano MD [address] [place] [id number] Social History Tobacco Use Types Packs/Day Years [...] PABLO, PEDRO P ? Accession #: ? [id number] ? : ? 1955 (Age: 54) ??M [...] specimens are submitted intact in one cassette. /[facility] ? End of Report ? [facility] 03/14/2010 03/15/2010 8:2 2 EST Martell Marcano MD PATHOLOGY ORDERABLES [facility] [address] [place] [address] documented in this encounter Visit Diagnoses Not on filedocumented in this encounter
--- OUTSIDE RECORDS SUMMARY | 2024-01-07 14:04 | XMS_ITS | Encounter Summary ---
Author Organization [facility] Address [address] [place] [address] Care Team Providers Care [employer] T[employer] Name Role Phone Unknown, Provider Primary Care Provider [phone] Encounter Details Date Type Department Care Team (Late st Contact Info) Description 05/25/2016 Results Only [facility] [phone] Katiana Burch, DO [address] [place] [address] Social History Tobacco Use Types [...] ? PEDRO MAST ? Accession #: ? [id number] ? : ? 1955 (Age: 60) ??M [...] Cardoza 05/26/2016 10:46 AM End of Report [facility] 05/25/2016 9:55 EST 05/26/2016 9:55 EST Katiana Burch DO PATHOLOGY ORDERABLES [facility] [address] [place] [id number] documented in this encounter Visit Diagnoses Not on filedocumented in this encounter Care Teams [employer] T[employer] Relationship Specialty Start Date End Date Unknown, Provider, PCP - General 03/16/10 04/12/20 documented as of this encounter
[2024-01-07 15:23] LABS: Abs Immature Grans 0.05 10^3/uL (0.0-0.06); Absolute Basophil Count 0.06 10^3/uL (0.0-0.2); Absolute Eosinophil Count 0.27 10^3/uL (0.0-0.7); Absolute Lymphocyte Count 2.73 10^3/uL (1.2-3.4); Absolute Monocyte Count 1.06 10^3/uL (0.1-0.8); Absolute Neutrophil Count 5.36 10^3/uL (1.2-6.7); Basophils % 0.6 %; Eosinophils % 2.8 %; HCT 34.2 % (40.0-50.0); HGB 11.3 g/dL (13.5-17.5); Immature Grans % 0.5 %; Lymphocytes % 28.6 %; MCH 30.5 pg (27.0-33.0); MCV 92 fL (80-95); MPV 10.4 fL (8.0-11.0); Monocytes % 11.1 %; Neutrophils % 56.4 %; Platelet Count 262 10^3/uL (130-400); RDW 12.5 % (11.8-14.1); RDW-SD 42.4 fL; WBC 9.53 10^3/uL (4.4-10.8)
[2024-01-07 15:54] LABS: ALT 30 U/L (16-63); AST 19 U/L (15-37); Albumin 3.9 g/dL (3.4-5.0); Alkaline Phosphatase 64 U/L (46-116); Anion Gap 7.8 mmol/L (3-11); BUN 39 mg/dL (7-18); Bilirubin, Total 0.34 mg/dL (0.2-1.0); CO2 29.2 mmol/L (21.0-32.0); CREATININE 2.2 mg/dL (0.70-1.30); Calcium 9.4 mg/dL (8.5-10.1); Chloride 101 mmol/L (98-107); Estimated GFR 31.63 (mL/min/1.73m2); Glucose 61 mg/dL (74-106); Sodium 138 mmol/L (136-145); Total Protein 7.4 g/dL (6.4-8.2)
[2024-01-07 16:36] LABS: COMMENT (LAB VIEW ONLY) 124.45 mg/dL
== END 2024-01-07 14:03 | disposition home or self-care (01) ==
LOC: NCHCN 14:02
PROVIDERS: PCP Family Medicine; Visit Provider Family Medicine
DX: E11.9 Type 2 diabetes mellitus without complications (principal); I10 Essential (primary) hypertension
CPT/HCPCS: 80053; 82043; 82570; 85025

== ENCOUNTER → 2024-03-19 10:34 | Outpatient (BNVA) | payer MEDICARE, SELFPAY | PROVIDERS: PCP Family Medicine; Visit Provider Podiatrist | DX: E11.42 Type 2 diabetes mellitus with diabetic polyneuropathy (principal); L60.3 Nail dystrophy; L84 Corns and callosities; B35.1 Tinea unguium; I87.2 Venous insufficiency (chronic) (peripheral); R60.0 Localized edema | CPT/HCPCS: 11056; 11721 ==

== ENCOUNTER 2024-04-07 18:42 | Outpatient (REF) | payer MEDICARE, SELFPAY ==
[2024-04-07 16:01] LABS: Iron 63 ug/dL (65-175); Total Iron Binding Capacity 260 ug/dL (250-450); Transferrin Sat 24 % (20-55)
[2024-04-07 16:53] LABS: ALT 24 U/L (16-63); AST 19 U/L (15-37); Albumin 3.8 g/dL (3.4-5.0); Alkaline Phosphatase 64 U/L (46-116); Anion Gap 12.7 mmol/L (3-11); BUN 42 mg/dL (7-18); Bilirubin, Total 0.43 mg/dL (0.2-1.0); CO2 27.3 mmol/L (21.0-32.0); CREATININE 2.4 mg/dL (0.70-1.30); Calcium 8.9 mg/dL (8.5-10.1); Chloride 104 mmol/L (98-107); Estimated GFR 28.49 (mL/min/1.73m2); Ferritin 91 ng/mL (26-388); Glucose 106 mg/dL (74-106); Potassium 3.5 mmol/L (3.5-5.1); Sodium 144 mmol/L (136-145); TSH (W/Ref FT4) 1.79 uIU/mL (0.36-3.74); Total Protein 7.1 g/dL (6.4-8.2)
== END 2024-04-07 18:43 | disposition home or self-care (01) ==
LOC: NCHCN 18:42
PROVIDERS: PCP Family Medicine; Visit Provider Family Medicine
DX: R53.81 Other malaise (principal)
CPT/HCPCS: 80053; 82728; 83540; 83550; 84443

== ENCOUNTER → 2024-05-16 10:36 | Outpatient (BNVA) | payer MEDICARE, SELFPAY | PROVIDERS: PCP Family Medicine; Referring Provider Family Medicine; Visit Provider Physical Therapy Assistant | DX: I87.2 Venous insufficiency (chronic) (peripheral) (principal); E11.59 Type 2 diabetes mellitus with other circulatory complications | CPT/HCPCS: 93922 ==

== ENCOUNTER → 2024-06-04 10:02 | Outpatient (BNVA) | payer MEDICARE, SELFPAY | PROVIDERS: PCP Family Medicine; Visit Provider Podiatrist | DX: E11.42 Type 2 diabetes mellitus with diabetic polyneuropathy (principal); L60.3 Nail dystrophy; L84 Corns and callosities; B35.1 Tinea unguium; I87.2 Venous insufficiency (chronic) (peripheral); R60.0 Localized edema; R09.89 Other specified symptoms and signs involving the circulatory and respiratory systems; L65.9 Nonscarring hair loss, unspecified; R20.2 Paresthesia of skin; L60.2 Onychogryphosis; L85.8 Other specified epidermal thickening | CPT/HCPCS: 11056; 11721 ==

== ENCOUNTER 2024-07-08 12:10 | Outpatient (REF) | payer MEDICARE, SELFPAY ==
[2024-07-08 14:43] LABS: Anion Gap 12.6 mmol/L (3-11); BUN 36 mg/dL (7-18); CO2 27.4 mmol/L (21.0-32.0); CREATININE 2.3 mg/dL (0.70-1.30); Calcium 9.3 mg/dL (8.5-10.1); Chloride 100 mmol/L (98-107); Glucose 282 mg/dL (74-106); Potassium 3.7 mmol/L (3.5-5.1); Sodium 140 mmol/L (136-145)
== END 2024-07-08 12:11 | disposition home or self-care (01) ==
LOC: NCHCN 12:10
PROVIDERS: PCP Family Medicine; Visit Provider Family Medicine
DX: N18.4 Chronic kidney disease, stage 4 (severe) (principal)
CPT/HCPCS: 80048

== ENCOUNTER 2024-07-31 08:21 | Emergency (ER) | payer MEDICARE, SELFPAY ==
[2024-07-31] VITALS (12 sets, daily range): BP systolic 166–193; BP diastolic 65–99; PULSE 57–78; RESP 18–22; TEMP 37.1; O2SAT 92–93
--- NOTE | 2024-07-31 08:15 | RT.EKG_ITS ---
APPROVED REPORT Exam: Resting ECG Reason for Exam: SOB Patient Location: E HR:87 bpm ECG Measurements Heart Rate 87 AXIS NC 218 P 51 QRSd 100 QRS 26 QT 388 T 58 QTc 466 Conclusion Sinus rhythm...normal P axis, V-rate 60- 99 Multiple ventricular premature complexes...V complexes w/ short R-R intervls Borderline prolonged NC interval...NC >212, V-rate 50- 90 Sinus rhythm with multiple PVCs. When compared to 12/26/22 PVCs are new. NC length has increased. WD
--- NOTE | 2024-07-31 08:30 | DI.RAD_ITS ---
Exam(s) XR CHEST 2V PA LATERAL EXAM: XR CHEST 2V PA LATERAL CLINICAL HISTORY: cough, SOB TECHNIQUE: 2D digital imaging was performed of the chest. Two images were obtained. PA and lateral views were obtained. COMPARISON: CR XR CHEST 2V PA LATERAL from 05/05/2019 CR,XR XR PORTABLE CHEST AP from 12/26/2022 FINDINGS: MEDIASTINUM: Normal. HEART: Normal. PULMONARY VASCULATURE: Normal. LUNGS: There is mild peribronchial thickening. There is also mild diffuse increase in the interstiti al markings. No focal consolidating infiltrates are seen. PLEURAL SPACE: There may be a tiny right pleural effusion or pleural scarring present. No pneumothor ax. BONE:Within normal limits for the patient's age. OTHER FINDINGS:Normal. IMPRESSION: Mild peribronchial thickening and increase in the interstitial markings. This may represent a bronch itis. Interstitial edema should also be considered. Please correlate clinically for evidence of flu id overload. DATA REPOSITORY: RADIATION DOSE DELIVERED:
--- NOTE | 2024-07-31 08:42 | ED.GENADUL_ITS ---
Discharge Plan Disposition Patient Disposition: Home Condition: Good Discharge Details Clinical Impression: Bronchitis, Pneumonia, Elevated blood pressure reading Primary Care Provider: Derrick Arnett ED Provider: Anila Mendoza Home Meds and New Rx's Prescriptions: New prednisone 50 mg tablet 50 mg PO DAILY Qty: 5 0RF doxycycline hyclate 100 mg tablet 100 mg PO BID 7 Days Qty: 14 0RF Continued multivitamin [One Daily Multivitamin] Tablet 1 tab PO DAILY latanoprost 0.005 % drops 1 drp ophthalmic (eye) QPM Januvia 50 mg tablet 50 mg PO DAILY diltiazem HCl [Tiadylt ER] 360 mg capsule,extended release 24 hr 360 mg PO DAILY metformin 500 MG tablet 1,000 mg PO BID nitroglycerin [Nitrostat] 0.4 MG tablet, sublingual 0.4 mg Sublingual PRN Patient Comments: 03/20/14- last took 19 years ago 06/01/15 patient states he has not tken for 20 years DILTIAZEM 24HR ER 360 MG TAB.ER.24H 360 mg PO DAILY labetalol 100 mg tablet 100 mg PO BID torsemide 100 mg tablet 100 mg PO DAILY vitamin E (dl, acetate) 100 unit capsule 100 unit PO DAILY Patient Comments: pt stated not taking citalopram 10 mg tablet 10 mg PO DAILY atorvastatin 40 mg tablet 40 mg PO DAILY triamcinolone acetonide 0.1 % cream 1 applic topical BID Patient Comments: pt stated not taking fluorouracil 0.5 % cream 1 applic topical BID Patient Comments: pt stated not taking Rx Instructions: apply sufficient amount to cover all lesions insulin aspart U-100 [Novolog U-100 Insulin aspart] 100 unit/mL solution 50 - 60 unit subcut DIRECTED Rx Instructions: 50 units every morning, 60 units every dinner (per referral note from PCP) Levemir FlexTouch U100 Insulin 100 unit/mL (3 mL) insulin pen 70 unit subcut BID albuterol sulfate [Proventil HFA] 90 mcg/actuation HFA aerosol inhaler 2 puff inhalation Q6H PRN enalapril maleate 10 mg tablet 20 mg PO BID fluticasone propionate [Flovent HFA] 110 mcg/actuation HFA aerosol inhaler 1 puff inhalation BID glipizide 5 mg tablet extended release 24hr 5 mg PO DAILY acetaminophen 500 mg tablet 500 mg PO Q6H PRN PRN (Reason: pain) Qty: 40 3RF ibuprofen 600 mg tablet 600 mg PO TID PRN (Reason: pain) Qty: 30 3RF tamsulosin 0.4 mg capsule 0.4 mg PO DAILY Discharge Instructions Instructions: Bronchitis, Adult ED, Pneumonia, Adult ED Additional Instructions: Your exam and imaging are concerning for bronchitis. I am worried that you may develop a pneumonia as you have had increased sputum production and coughing more. I feel that treatment with steroids and antibiotics is most appropriate at this point we will help you clear this. Please continue with your inhaler as previously prescribed. Please take the steroids and antibiotics as prescribed, these of both been sent to your local pharmacy and should be taken when to pick them up this morning. Steroids are once a day, antibiotics are twice per day. Please continue to encourage hydration. Please follow-up with primary care in 1 to 2 weeks for reevaluation. If you develop any new or worsening symptoms please seek care urgently once again Referrals: Derrick Arnett MD [Primary Care Provider] - [facility] Date/Time Provider Initiated Documentation: 07/31/24 08:22 . Limitations to Documentation: no limitations . Information obtained by: patient and RN notes reviewed . History of Present Illness 69 year old M presents to the emergency department with the chief complaint of shortness of breath, cough, increased sputum production, described as moderate, Quality is described as other (denies any pain with this), Patient started experiencing this month(s) (over one month) and it has been constant. other things that improve symptom(s), (being upright helps) Other factors that worsen symptoms (laying flat) . Related Data Home Medications ?Medication ?Instructions ?Recorded ?Confirmed Diltiazem 24hr Er 360 mg PO DAILY 06/23/13 06/05/24 metformin 500 mg tablet 1,000 mg PO BID 06/23/13 06/05/24 nitroglycerin 0.4 mg sublingual 0.4 mg sublingual PRN 06/23/13 06/05/24 tablet (Nitrostat) citalopram 10 mg tablet 10 mg PO DAILY 02/10/19 06/05/24 labetalol 100 mg tablet 100 mg PO BID 02/10/19 06/05/24 torsemide 100 mg tablet 100 mg PO DAILY 02/10/19 06/05/24 vitamin E (dl, acetate) 45 mg (100 100 unit PO DAILY 02/10/19 06/05/24 unit) capsule atorvastatin 40 mg tablet 40 mg PO DAILY 02/06/20 06/05/24 fluorouracil 0.5 % topical cream 1 applic topical BID 02/06/20 06/05/24 triamcinolone acetonide 0.1 % 1 applic topical BID 02/06/20 06/05/24 topical cream multivitamin (One Daily 1 tab PO DAILY 04/08/20 06/05/24 Multivitamin tablet) insulin aspart U-100 100 unit/mL 50 - 60 unit subcut DIRECTED 12/09/20 06/05/24 subcutaneous solution (Novolog U-100 Insulin aspart) albuterol sulfate 90 mcg/actuation 2 puff inhalation Q6H PRN 06/08/21 06/05/24 aerosol inhaler (Proventil HFA) insulin detemir U-100 100 unit/mL 70 unit subcut BID 06/08/21 06/05/24 (3 mL) subcutaneous pen (Levemir FlexTouch U-100 Insulin) acetaminophen 500 mg tablet 500 mg PO Q6H PRN PRN pain #40 tabs 09/13/21 06/05/24 ibuprofen 600 mg tablet 600 mg PO TID PRN pain #30 tabs 09/13/21 06/05/24 tamsulosin 0.4 mg capsule 0.4 mg PO DAILY 12/26/22 06/05/24 enalapril maleate 10 mg tablet 20 mg PO BID 03/20/23 06/05/24 fluticasone propionate 110 1 puff inhalation BID 03/20/23 06/05/24 mcg/actuation HFA aerosol inhaler (Flovent HFA) glipizide 5 mg tablet, extended 5 mg PO DAILY 03/20/23 06/05/24 release 24 hr latanoprost 0.005 % eye drops 1 drp ophthalmic (eye) QPM 07/17/23 06/05/24 diltiazem HCl 360 mg capsule,24 360 mg PO DAILY 03/17/24 06/05/24 hr,extended release (Tiadylt ER) sitagliptin phosphate 50 mg tablet 50 mg PO DAILY 03/17/24 06/05/24 (Januvia) doxycycline hyclate 100 mg tablet 100 mg PO BID 7 days #14 tabs 07/31/24 prednisone 50 mg tablet 50 mg PO DAILY #5 tabs 07/31/24 Previous Rx's ?Medication ?Instructions ?Recorded acetaminophen 500 mg tablet 500 mg PO Q6H PRN PRN pain #40 tabs 09/13/21 ibuprofen 600 mg tablet 600 mg PO TID PRN pain #30 tabs 09/13/21 doxycycline hyclate 100 mg tablet 100 mg PO BID 7 days #14 tabs 07/31/24 prednisone 50 mg tablet 50 mg PO DAILY #5 tabs 07/31/24 Allergies Allergy/AdvReac Type Severity Reaction Status Date / Time tamsulosin Allergy Mild Diarrhea Verified 07/31/24 08:33 Penicillins Allergy unknown as Verified 07/31/24 08:33 child empagliflozin (From AdvReac Other (See Verified 07/31/24 08:33 Jardiance) Comment) gabapentin AdvReac legs Verified 07/31/24 08:33 swelling General Stated Complaint: SOB ESCOBAR: 3 Review of Systems Constitutional Constitutional: Reports as per HPI, Denies chills, Denies fever(s), Denies headache(s), Denies lethargy and Denies poor appetite ENT Ears, Nose, Mouth, and Throat: Denies dizziness and Denies headache(s) Cardiovascular Cardiovascular: Reports as per HPI Respiratory Respiratory: Reports as per HPI, Denies pain on inspiration and Denies pain with cough Gastrointestinal Gastrointestinal: Reports as per HPI, Denies abdominal pain, Denies diarrhea, Denies nausea and Denies vomiting Genitourinary Genitourinary: Denies system reviewed and no additional complaints, except as documented (denies change in urinary habits) Musculoskeletal Musculoskeletal: Reports as per HPI and Denies back pain Integumentary/Breasts Skin/Breast: Reports as per HPI and Denies rash Neurologic Neurologic: Reports as per HPI, Denies dizziness and Denies headache(s) Exam Const General: cooperative, healthy appearing, comfortable, no acute distress and well developed Nutritional Appearance: well nourished and overweight Orientation: alert, awake and oriented x3 HENMT Head: normal to inspection Ears: hearing grossly normal bilaterally Mouth: moist mucous membranes Chest Chest: normal inspection of the chest, normal palpation of entire chest wall and no crepitus Resp Effort & Inspection: normal respiratory effort, able to speak in complete sentences and no respiratory distress Auscultation: clear to auscultation bilaterally, no rales, no rhonchi and no wheezes Cardio Rate: regular rate Rhythm: regular rhythm Heart Sounds: S1 normal and S2 normal GI Inspection: normal to inspection, no edema and non-distended Palpation: soft and nontender Skin General skin exam: no rashes or lesions noted Trauma: no lacerations or abrasions Neuro General: patient alert, patient awake and patient oriented x3 Cognition: normal cognition Speech: speech normal Gait: normal gait Extrem General: normal to inspection, capillary refill normal, no calf tenderness, normal gait and edema Laterality: bilateral Course Vital Signs Vital signs: Vital Signs Temperature 37.1 C 07/31/24 08:26 Pulse 59 L 07/31/24 08:26 Respiratory Rate 22 07/31/24 08:26 Blood Pressure 193/99 H 07/31/24 08:26 Pulse Oximetry 93 07/31/24 08:26 Temperature 37.1 C 07/31/24 08:26 Temperature Source Tympanic 07/31/24 08:26 Pulse 59 L 07/31/24 08:26 Respiratory Rate 22 07/31/24 08:26 Blood Pressure 193/99 H 07/31/24 08:26 Pulse Oximetry 93 07/31/24 08:26 Oxygen Delivery Method Room Air 07/31/24 08:26 Oxygen Flow Rate 0 07/31/24 08:26 Medical Decision Making Patient is pleasant 69-year-old gentleman with past medical history significant for diabetes, heart failure, basal cell carcinoma, peripheral neuropathy, ventral hernia, CAD status post cardiac stenting, hypertension, RAJINDER, CKD, presenting with c/c of SOB and cough x 1 month. He states that it started with typically URI symptoms but that it is not improving. He reports he has had increased sputum production. No fevers/chills. Denies any CP. States that he becomes more SOB when laying flat, sounds like this is fairly baseline which he associates with his rotund abdomen and cardiac hx. However, this has been increased recently. He states some of the SOB has been associated with exertion as well which also may be somewhat baseline. Patient does report that he has had URI symptoms as well with known sick contacts. Has found it beneficial to sleep in a more upright position. He reports that he does have some chronic swelling in his lower extremities but feels that this is at its baseline is not elevated. On exam, patient appears nontoxic. He is resting comfortably no acute distress. Hemodynamically stable. Lungs are clear, normal cardiac exam. Abdomen is benign. No significant lower extremity edema although the right calf is slightly larger than the left. Patient reports that this is associated with old trauma and is at his baseline and nontender. With the patient's history, primarily concerned for pneumonia. However, also considered ACS although I do find this less likely. Also considered CHF with the orthopnea. Will obtain baseline labs, chest x-ray and bedside ultrasound. I do not see indication for pulmonary emboli, aortic dissection at this time. Chest x-ray reviewed by radiologist: MEDIASTINUM: Normal. HEART: Normal. PULMONARY VASCULATURE: Normal. LUNGS: There is mild peribronchial thickening. There is also mild diffuse increase in the interstitial markings. No focal consolidating infiltrates are seen. PLEURAL SPACE: There may be a tiny right pleural effusion or pleural scarring present. No pneumothorax. BONE:Within normal limits for the patient's age. OTHER FINDINGS:Normal. IMPRESSION: Mild peribronchial thickening and increase in the interstitial markings. This may represent a bronchitis. Interstitial edema should also be considered. Please correlate clinically for evidence of fluid overload. Labs reviewed. White count of 11.3. Patient is slightly anemic with a hemoglobin of 11.9 this appears to be his baseline. CMP significant for creatinine of 2 which again is patient's baseline. BNP 445. Troponin within normal limits x 2. Has had Thoracic ultrasound performed by myself and Dr. Humphrey. No significant cardiac dysfunction is appreciated. No B-lines on pulmonary exam. No pericardial e ffusion. Please see his note regarding other findings. I discussed these findings with the patient. He has had relief with his albuterol and does have a pulmonary history. As he did initially have classic URI symptoms and continues to have some congestion and increase sputum production, I am seeing more bronchitis rather than the interstitial edema. Patient's BNP was 445, lower than most recent assessment patient does not appear clinically be fluid overloaded. Feel that treatment for bronchitis is appropriate. Given the length of time that he has been ill, increased sputum I also feel that treatment with antibiotics is appropriate and plan to do steroids, antibiotics and have him continue with his home inhaler that since to be working well for him. Plan patient on doxycycline and prednisone. Advise he continue with his inhalers previously advised. Encouraged supportive care. Encourage close follow-up with primary care. Strict return precautions were discussed. Blood pressure was elevated here and I encouraged that he have this reassessed. All his questions and concerns were addressed and he is in agreement this plan. This documentation was generated using [employer]ation system, please disregard any oddities of phrase or misspellings. Quality:SDOH Health Related Social Needs: No Data to Display PFSH All Active Problems (Updated 07/31/24 @ 10:39 by CHRISTINA Singh) Elevated blood pressure reading (Acute) Pneumonia (Acute) Bronchitis (Acute) Pain in joint, foot, left (Acute) Edema (Acute) Venous insufficiency (Acute) Onychomycosis (Acute) Allergic asthma (Acute) Solar elastosis (Acute) Pulmonary hypertension (Acute) Carpal tunnel syndrome of left wrist (Acute) HLD (hyperlipidemia) (Acute) Asthma (Chronic) Depression (Chronic) Plantar fasciitis (Acute) Paronychia of great toe, right (Acute) Toe pain, right (Acute) Toe pain, left (Acute) Type 2 diabetes mellitus with foot ulcer (Acute) Foot pain, right (Acute) Diabetic peripheral neuropathy (Acute) Diabetes mellitus (Chronic) Corns and callosities (Acute) Nail dystrophy (Acute) Tubular adenoma of colon (Acute) with low grade dysplasia Medical History Diabetic foot ulcer Heart failure with left ventricular ejection fraction greater than or equal to 50 percent Inflammatory polyps COVID-19 07/2020-Recieved [facility] Screening for colon cancer Basal cell carcinoma (05/05/16) left anterior chest and left shoulder Peripheral neuropathy Ventral hernia Abdominal pain Migraine Dyspepsia CAD (coronary artery disease) Hypertension Erectile dysfunction Tobacco use Retinal artery branch occlusion Adenomatous colon polyp RAJINDER (obstructive sleep apnea) Actinic keratosis Carpal tunnel syndrome Osteoarthritis Retinopathy Basal cell carcinoma Abnormal LFTs Impacted cerumen of both ears Dry mouth Fatigue Shortness of breath Heart failure f/u with PCP CKD (chronic kidney disease), stage III Pt. states he is unaware of this dx Urinary frequency Skin lesions Surgical History History of colonoscopy with polypectomy (~04/08/21) De Quervain's tenosynovitis, left S/P Release: 09/13/2021 Hx of cardiac catheterization 20+years ago Hx of heart artery stent Skin Cancer Removal (05/05/16) extension of wound margin 05/25/16 Social History Smoking/Tobacco Use Status: Former Tobacco Use Quit Date: 04/30/88 Smoking risk assessment performed?: Yes Alcohol Intake: current Alcohol Intake frequency: holidays/special occasions only Alcohol type: beer Drug use: Never Substance use type: does not use Housing: house Do you feel safe at home: Yes Do you feel safe in your relationship?: Yes
[2024-07-31 08:49] LABS: Abs Immature Grans 0.08 10^3/uL (0.0-0.06); Absolute Basophil Count 0.06 10^3/uL (0.0-0.2); Absolute Eosinophil Count 0.24 10^3/uL (0.0-0.7); Absolute Lymphocyte Count 1.37 10^3/uL (1.2-3.4); Absolute Monocyte Count 0.74 10^3/uL (0.1-0.8); Absolute Neutrophil Count 8.91 10^3/uL (1.2-6.7); Basophils % 0.5 %; Eosinophils % 2.1 %; HCT 36.4 % (40.0-50.0); HGB 11.9 g/dL (13.5-17.5); Immature Grans % 0.7 %; MCH 29.7 pg (27.0-33.0); MCHC 32.7 % (32.0-36.0); MCV 91 fL (80-95); MPV 9.6 fL (8.0-11.0); Monocytes % 6.5 %; Neutrophils % 78.2 %; Platelet Count 257 10^3/uL (130-400); RBC 4.01 10^6/uL (4.36-5.78); RDW 12.9 % (11.8-14.1); RDW-SD 42.1 fL; WBC 11.39 10^3/uL (4.4-10.8)
[2024-07-31 09:12] LABS: ALT 24 U/L (16-63); AST 15 U/L (15-37); Albumin 3.5 g/dL (3.4-5.0); Alkaline Phosphatase 108 U/L (46-116); Anion Gap 10.4 mmol/L (3-11); BUN 23 mg/dL (7-18); Bilirubin, Total 0.5 mg/dL (0.2-1.0); CO2 27.6 mmol/L (21.0-32.0); Calcium 8.8 mg/dL (8.5-10.1); Chloride 103 mmol/L (98-107); Estimated GFR 35.24 (mL/min/1.73m2); Glucose 214 mg/dL (74-106); Magnesium 2.1 mg/dL; NT-proBNP 445 pg/mL (<300); Potassium 4.1 mmol/L (3.5-5.1); Sodium 141 mmol/L (136-145); Total Protein 7.6 g/dL (6.4-8.2); Troponin I 37 ng/L (<or=76)
[2024-07-31 10:26] LABS: Troponin I 36 ng/L (<or=76)
--- NOTE | 2024-07-31 11:39 | W.EDPROG ---
Date of service: 07/31/24 Time of Service: 11:39 Medical Decision Making Quality:SDOH Health Related Social Needs: No Data to Display Discharge Plan Disposition Patient Disposition: Home Condition: Good Discharge Details Clinical Impression: Bronchitis, Pneumonia, Elevated blood pressure reading Primary Care Provider: Derrick Arnett ED Provider: Anila Mendoza Home Meds and New Rx's Prescriptions: New prednisone 50 mg tablet 50 mg PO DAILY Qty: 5 0RF doxycycline hyclate 100 mg tablet 100 mg PO BID 7 Days Qty: 14 0RF Continued multivitamin [One Daily Multivitamin] Tablet 1 tab PO DAILY latanoprost 0.005 % drops 1 drp ophthalmic (eye) QPM Januvia 50 mg tablet 50 mg PO DAILY diltiazem HCl [Tiadylt ER] 360 mg capsule,extended release 24 hr 360 mg PO DAILY metformin 500 MG tablet 1,000 mg PO BID nitroglycerin [Nitrostat] 0.4 MG tablet, sublingual 0.4 mg Sublingual PRN Patient Comments: 03/20/14- last took 19 years ago 06/01/15 patient states he has not tken for 20 years DILTIAZEM 24HR ER 360 MG TAB.ER.24H 360 mg PO DAILY labetalol 100 mg tablet 100 mg PO BID torsemide 100 mg tablet 100 mg PO DAILY vitamin E (dl, acetate) 100 unit capsule 100 unit PO DAILY Patient Comments: pt stated not taking citalopram 10 mg tablet 10 mg PO DAILY atorvastatin 40 mg tablet 40 mg PO DAILY triamcinolone acetonide 0.1 % cream 1 applic topical BID Patient Comments: pt stated not taking fluorouracil 0.5 % cream 1 applic topical BID Patient Comments: pt stated not taking Rx Instructions: apply sufficient amount to cover all lesions insulin aspart U-100 [Novolog U-100 Insulin aspart] 100 unit/mL solution 50 - 60 unit subcut DIRECTED Rx Instructions: 50 units every morning, 60 units every dinner (per referral note from PCP) Levemir FlexTouch U100 Insulin 100 unit/mL (3 mL) insulin pen 70 unit subcut BID albuterol sulfate [Proventil HFA] 90 mcg/actuation HFA aerosol inhaler 2 puff inhalation Q6H PRN enalapril maleate 10 mg tablet 20 mg PO BID fluticasone propionate [Flovent HFA] 110 mcg/actuation HFA aerosol inhaler 1 puff inhalation BID glipizide 5 mg tablet extended release 24hr 5 mg PO DAILY acetaminophen 500 mg tablet 500 mg PO Q6H PRN PRN (Reason: pain) Qty: 40 3RF ibuprofen 600 mg tablet 600 mg PO TID PRN (Reason: pain) Qty: 30 3RF tamsulosin 0.4 mg capsule 0.4 mg PO DAILY Discharge Instructions Instructions: Bronchitis, Adult ED, Pneumonia, Adult ED Additional Instructions: Your exam and imaging are concerning for bronchitis. I am worried that you may develop a pneumonia as you have had increased sputum production and coughing more. I feel that treatment with steroids and antibiotics is most appropriate at this point we will help you clear this. Please continue with your inhaler as previously prescribed. Please take the steroids and antibiotics as prescribed, these of both been sent to your local pharmacy and should be taken when to pick them up this morning. Steroids are once a day, antibiotics are twice per day. Please continue to encourage hydration. Please follow-up with primary care in 1 to 2 weeks for reevaluation. If you develop any new or worsening symptoms please seek care urgently once again Referrals: Derrick Arnett MD [Primary Care Provider] - POCUS Exam (ED) Limited Cardiac Exam DATE OF EXAM: 07/31/24 TIME OF EXAM: 10:10 PROVIDER THAT PERFORMED THE STUDY: Bobby Humphrey IS THIS A REPEAT EXAM DURING THIS ENCOUNTER: no REASON FOR EXAM: Chest pain VISUALIZED STRUCTURES: Four Chambers, Left ventricle, LVOT and Other structure: lungs VIEW OBTAINED: Apical 4-Chamber, Parasternal long-axis and Subxiphoid PERTINENT FINDINGS/IMPRESSION: No pericardial effusion and No RV dilation DIFFERENTIAL DIAGNOSES: Aortic outflow track less than 4 cm, good squeeze, RV less than LV, no significant pericardial effusion. No anterior b-lines bilaterally. Exam complete
== END 2024-07-31 10:58 | disposition home or self-care (01) ==
PROVIDERS: Emergency Provider Physician Assistant; PCP Family Medicine
DX: J20.9 Acute bronchitis, unspecified (principal); J18.9 Pneumonia, unspecified organism; E11.22 Type 2 diabetes mellitus with diabetic chronic kidney disease; I13.0 Hypertensive heart and chronic kidney disease with heart failure and stage 1 through stage 4 chronic kidney disease, or unspecified chronic kidney disease; N18.30 Chronic kidney disease, stage 3 unspecified; I50.9 Heart failure, unspecified; E11.40 Type 2 diabetes mellitus with diabetic neuropathy, unspecified; I25.10 Atherosclerotic heart disease of native coronary artery without angina pectoris; Z95.5 Presence of coronary angioplasty implant and graft; Z79.84 Long term (current) use of oral hypoglycemic drugs; Z87.891 Personal history of nicotine dependence
CPT/HCPCS: 00123; 36415; 80053; 93005; 93308; 99284; 71046; 83735; 83880; 84484; 85025; 93010

== ENCOUNTER → 2024-09-03 09:56 | Outpatient (BNVA) | payer MEDICARE, SELFPAY | PROVIDERS: PCP Family Medicine; Referring Provider Family Medicine; Visit Provider Podiatrist | DX: E11.42 Type 2 diabetes mellitus with diabetic polyneuropathy (principal); L60.3 Nail dystrophy; L84 Corns and callosities; B35.1 Tinea unguium; I87.2 Venous insufficiency (chronic) (peripheral); R60.0 Localized edema; M25.571 Pain in right ankle and joints of right foot; R09.89 Other specified symptoms and signs involving the circulatory and respiratory systems; L65.9 Nonscarring hair loss, unspecified; L85.8 Other specified epidermal thickening; R23.8 Other skin changes; R20.8 Other disturbances of skin sensation; I83.93 Asymptomatic varicose veins of bilateral lower extremities | CPT/HCPCS: 11056; 11721 ==

== ENCOUNTER → 2024-12-16 08:32 | Outpatient (BNVA) | payer MEDICARE, SELFPAY | PROVIDERS: PCP Family Medicine; Referring Provider Family Medicine; Visit Provider Podiatrist | DX: E11.42 Type 2 diabetes mellitus with diabetic polyneuropathy (principal); L60.3 Nail dystrophy; L84 Corns and callosities; B35.1 Tinea unguium; I87.2 Venous insufficiency (chronic) (peripheral); R60.0 Localized edema; M25.571 Pain in right ankle and joints of right foot; L85.8 Other specified epidermal thickening; R09.89 Other specified symptoms and signs involving the circulatory and respiratory systems; L65.9 Nonscarring hair loss, unspecified; R23.8 Other skin changes; L60.2 Onychogryphosis; L60.8 Other nail disorders; R20.2 Paresthesia of skin; I83.93 Asymptomatic varicose veins of bilateral lower extremities; R20.8 Other disturbances of skin sensation | CPT/HCPCS: 11056; 11721 ==

== ENCOUNTER 2025-02-17 13:28 | Outpatient (REF) | payer MEDICARE, SELFPAY ==
[2025-02-17 15:40] LABS: HCT 36.4 % (40.0-50.0); HGB 12.2 g/dL (13.5-17.5); MCH 29.7 pg (27.0-33.0); MCHC 33.5 % (32.0-36.0); MCV 89 fL (80-95); MPV 10.8 fL (8.0-11.0); Platelet Count 232 10^3/uL (130-400); RBC 4.11 10^6/uL (4.36-5.78); RDW 12.5 % (11.8-14.1); RDW-SD 40.4 fL; WBC 8.85 10^3/uL (4.4-10.8)
[2025-02-17 17:02] LABS: ALT 33 U/L (16-63); AST 21 U/L (15-37); Albumin 3.9 g/dL (3.4-5.0); Alkaline Phosphatase 98 U/L (46-116); Anion Gap 13.3 mmol/L (3-11); BUN 40 mg/dL (7-18); Bilirubin, Total 0.5 mg/dL (0.2-1.0); CO2 27.7 mmol/L (21.0-32.0); Calcium 9.0 mg/dL (8.5-10.1); Chloride 93 mmol/L (98-107); Estimated GFR 25.72 (mL/min/1.73m2); Ferritin 223 ng/mL (26-388); Potassium 4.6 mmol/L (3.5-5.1); Sodium 134 mmol/L (136-145); Total Protein 7.5 g/dL (6.4-8.2)
[2025-02-17 17:06] LABS: Glucose 466 mg/dL (74-106)
[2025-02-17 17:53] LABS: COMMENT (LAB VIEW ONLY) 81.56 mg/dL
[2025-02-17 17:56] LABS: Microalb ug/mg Crea 846.9 ug/mg Cr
== END 2025-02-17 13:29 | disposition home or self-care (01) ==
LOC: NCHCN 13:28
PROVIDERS: PCP Family Medicine; Visit Provider Family Medicine
DX: N18.4 Chronic kidney disease, stage 4 (severe) (principal); D63.8 Anemia in other chronic diseases classified elsewhere; E11.9 Type 2 diabetes mellitus without complications
CPT/HCPCS: 80053; 85027; 82043; 82570; 82728

== ENCOUNTER → 2025-04-14 08:14 | Outpatient (BNVA) | payer MEDICARE, SELFPAY | PROVIDERS: PCP Family Medicine; Referring Provider Family Medicine; Visit Provider Podiatrist | DX: L60.3 Nail dystrophy (principal); B35.1 Tinea unguium; E11.42 Type 2 diabetes mellitus with diabetic polyneuropathy; L97.521 Non-pressure chronic ulcer of other part of left foot limited to breakdown of skin; L97.511 Non-pressure chronic ulcer of other part of right foot limited to breakdown of skin; E11.621 Type 2 diabetes mellitus with foot ulcer; I87.2 Venous insufficiency (chronic) (peripheral); R60.0 Localized edema; R23.4 Changes in skin texture; R09.89 Other specified symptoms and signs involving the circulatory and respiratory systems; L65.9 Nonscarring hair loss, unspecified; R20.8 Other disturbances of skin sensation; I83.93 Asymptomatic varicose veins of bilateral lower extremities; R23.8 Other skin changes; L85.8 Other specified epidermal thickening; L60.2 Onychogryphosis; L60.8 Other nail disorders; L84 Corns and callosities | CPT/HCPCS: 11056; 11721 ==